=== PATIENT | female | born 1945 | race Caucasian/White ===

== ENCOUNTER 2018-05-19 12:00 | Inpatient (IN) ==
[2018-05-19] MEDS ORDERED: SODIUM CHLORIDE 0.9% 500 ML IV SCH (12:15)
--- NOTE | 2018-05-19 12:18 | Emergency Department Note ---
Entered by Francesca Hendrix acting as a scribe for History of Present Illness General Chief complaint: Cardiac Assessment Stated complaint: aflut Time Seen by Provider: 05/19/18 12:04 Source: patient History of Present Illness Provider complaint: atrial flutter Onset (ago): hour(s) (today) Location: chest Pain Consistency: + constant Quality: + other (atrial flutter) Associated symptoms: + weakness and + other (fatigue) The patient is a 72 year old female who presents to the Emergency Room with atrial flutter today. The patient states that she just had cataract surgery. The patient states that she was wheezing in the office and was given a breathing treatment. The patient states that she was also told that her heart was not "beating right." The patient reports a history of breathing problems and a heart attack 3 years ago. She states that she is currently not on any blood thinners. The patient denies having a recent cold and states that she has been drinking and eating well. She does report feeling fatigued and weak recently. The patient denies any drug and alcohol use. Home Medications Home Medications Medication Instructions Recorded Confirmed Type aspirin 81 mg PO QAM 04/23/18 05/19/18 History atorvastatin [Lipitor] 10 mg PO PM 04/23/18 05/19/18 History carvedilol 25 mg PO BID 04/23/18 05/19/18 History levothyroxine 25 mcg PO QAM 04/23/18 05/19/18 History naproxen sodium 220 mg PO BID PRN 04/23/18 05/19/18 History paroxetine HCl 20 mg PO QAM 04/23/18 05/19/18 History ramipril 5 mg PO BID 04/23/18 05/19/18 History bromfenac [Prolensa] 1 drp [facility] 05/19/18 05/19/18 History difluprednate [Durezol] 1 drp [facility] 05/19/18 05/19/18 History furosemide 20 mg PO DAILY 05/19/18 05/19/18 History gatifloxacin 1 drp [facility] 05/19/18 05/19/18 History Allergies Allergy/AdvReac Type Severity Reaction Status Date / Time No Known Allergies Allergy Verified 05/19/18 14:23 Past Med/Surg History Social History Current Living Situation: Alone Current Living Situation Comment: LIVES IN SENIOR APARTMENT - INDEPENDENT LIVING Other Information That Helps Us Care for You: No Feels Safe at Home: Yes Safety Concerns: Feels Safe At This Time Smoking Status: Never smoker Do You Dip or Chew Tobacco: No Second Hand Exposure: No Tobacco Cessation Education Requested by Patient: No Hx Alcohol Use: Yes Alcohol Intake Frequency: holidays/special occasions only Hx Substance Use: No Beliefs That Will Affect Care: None Preferred Language: Italian Communication Ability: Effective Product Safety Officer Required: No Review of Systems See HPI for pertinent positives & negatives. and A total of 10 systems reviewed and were otherwise negative Physical Exam Vital Signs Vital Signs - 24 hr 05/19/18 12:11 05/19/18 12:15 05/19/18 12:40 Temperature 36.4 C L Temperature Source Oral Sepsis Recent Fever Within 48 Hours No Sepsis New/Unexplained Change in Mental Status No Sepsis Action Taken by Nursing No Action Required Pulse Rate 62 62 Pulse Rate [Apical] 50 L Pulse Rhythm Regular Regular Pulse Strength Normal Respiratory Rate 24 20 Respiratory Effort / Characteristics Non-Labored Spontaneous Non-Labored Spontaneous Respiratory Depth Normal Normal Respiratory Pattern Regular Regular Blood Pressure 183/76 H Blood Pressure [Right Arm] 213/104 H Blood Pressure Mean 111 Blood Pressure Mean [Right Arm] 140 Blood Pressure Position Sitting Pulse Oximetry 92 92 93 Oxygen Delivery Method Room Air Room Air Room Air 05/19/18 13:51 Temperature Temperature Source Sepsis Recent Fever Within 48 Hours Sepsis New/Unexplained Change in Mental Status Sepsis Action Taken by Nursing Pulse Rate Pulse Rate [Apical] 47 L Pulse Rhythm Pulse Strength Respiratory Rate 20 Respiratory Effort / Characteristics Non-Labored Spontaneous Respiratory Depth Normal Respiratory Pattern Regular Blood Pressure Blood Pressure [Right Arm] 211/113 H Blood Pressure Mean Blood Pressure Mean [Right Arm] 145 Blood Pressure Position Pulse Oximetry 93 Oxygen Delivery Method Room Air GENERAL: Patient is awake alert in no acute distress patient is resting comfortably and showing no signs of anxiety EYES: Left pupil was dilated and minimally reactive to light. Right pupil is constricted and reactive to light. EARS, NOSE, MOUTH AND THROAT: The nose is without any evidence of any deformity. Mucous membranes are moist tongue is midline NECK: The neck is nontender and supple. RESPIRATORY: Normal respiratory effort is noted there is no evidence of wheezing rhonchi or rales CARDIOVASCULAR: Bradycardic rate with regular rhythm was noted. There is no definite murmur. GASTROINTESTINAL: The abdomen is soft. Bowel sounds are present in all quadrants. Abdomen is nontender MUSCULOSKELETAL/EXTREMITIES: There is no evidence of gross deformity full range of motion is noted in the hips and shoulders SKIN: There is no obvious evidence of any rash. Trace pedal edema was noted bilaterally peer NEUROLOGIC: Patient is awake alert and oriented x3. Course 1209: Past medical records reviewed. The patient was evaluated in room D4B, and a complete history and physical examination were performed. 1408: I discussed the patient's case with Dr. Camp [facility] who said that he will see the patient. 1411: I updated the patient who verbalized agreement and understanding of the treatment plan. 1413: I discussed the patient's case with Dr. Preston Julien who will evaluate the patient for further management. Consultations Consultation #1: Dr. Zoë Mendez Time: 14:08 Consultation #2: Dr. Preston Julien Time: 14:13 Administered Medications Discontinued Medications Sodium Chloride (Nss) 500 mls @ 999 mls/hr IV .Q31M KIMBERLY Stop: 05/19/18 12:45 Last Infusion: 05/19/18 13:04 Dose: 0 mls/hr Admin: 05/19/18 12:33 Dose: 999 mls/hr Medical Decision Making Differential Diagnosis Etiologies such as premature contractions, electrolyte abnormality, cardiac dysrhythmia, thyroid dysfunction, pulmonary embolism, infection, gastrointestinal, as well as others were entertained Medical Records Attestation: I reviewed the patient's medical records. Home Medications Current Medication List: was personally reviewed by me Laboratory Data Attestation: I reviewed the patient's lab results. Result diagrams: 05/19/18 12:20 05/19/18 12:20 Lab Results 05/19/18 05/19/18 05/19/18 Range/Units 12:20 12:20 12:20 WBC 6.85 (4.8-10.8) K/uL RBC 5.06 (4.2-5.4) M/uL Hgb 11.7 L (12.0-16.0) g/dL Hct 39.3 (37-47) % MCV 77.7 L (80-100) fL MCH 23.1 L (25-34) pg MCHC 29.8 L (32-36) g/dL RDW Std Deviation 64.6 H (36.4-46.3) fL RDW Coeff of Fabián 22.7 H (11.5-14.5) % Plt Count 256 (130-400) K/uL MPV 10.6 H (7.4-10.4) fL Immature Gran % (Auto) 0.4 % Neut % (Auto) 82.3 % Lymph % (Auto) 9.8 % [place] % (Auto) 6.3 % Eos % (Auto) 0.9 % Baso % (Auto) 0.3 % Immature Gran # (Auto) 0.03 H (0.00-0.02) K/uL Neut # (Auto) 5.64 (1.4-6.5) K/uL Lymph # (Auto) 0.67 L (1.2-3.4) K/uL [place] # (Auto) 0.43 (0.11-0.59) K/uL Eos # (Auto) 0.06 (0-0.5) K/uL Baso # (Auto) 0.02 (0-0.2) K/uL Polychromasia 1+ Hypochromasia Present Microcytosis Present PT 11.4 (9.0-12.0) Seconds INR 1.1 (0.9-1.1) APTT 24.4 (21.0-31.0) Seconds PTT Ratio 0.9 Sodium 141 (136-145) mmol/L Potassium 4.1 (3.5-5.1) mmol/L Chloride 107 (98-107) mmol/L Carbon Dioxide 26 (21-32) mmol/L Anion Gap 8.0 (3-11) BUN 22 H (7-18) mg/dl Creatinine 0.91 (0.6-1.2) mg/dl Est Cr Clr Drug Dosing 62.9 ml/min Est GFR ( Amer) 74.1 Est GFR (Non-Af Amer) 63.9 BUN/Creatinine Ratio 24.4 H (10-20) Glucose 148 H (70-99) mg/dl Calcium 8.4 L (8.5-10.1) mg/dl Magnesium 1.9 (1.8-2.4) mg/dl Total Bilirubin 1.4 H (0.2-1) mg/dl AST 13 L (15-37) U/L ALT 18 (12-78) U/L Alkaline Phosphatase 134 H (45-117) U/L Troponin I 0.027 (0-0.045) ng/ml Total Protein 7.1 (6.4-8.2) gm/dl Albumin 3.2 L (3.4-5.0) gm/dl Globulin 3.9 (2.5-4.0) gm/dl Albumin/Globulin Ratio 0.8 L (0.9-2) TSH 2.220 (0.300-4.500) uIu/ml Imaging Data Radiologist's Impression: Radiology results as stated below per my review and the radiologist's interpretation: XR chest 1V portable HISTORY: weakness COMPARISON: None. FINDINGS: The cardiac silhouette is enlarged. No pneumothorax. No pleural effusions. Old, healed left-sided rib fractures. No focal lung consolidations to suggest pneumonia. There is a right greater than left perihilar interstitial and vascular thickening. This is consistent with mild congestive change. There are low lung volumes. IMPRESSION: Cardiomegaly with mild asymmetric congestive change. Electronically signed by: Riley Underwood M.D. 05/19/2018 1:23 PM ECG Data Attestation: I personally reviewed and interpreted this ECG as follows: Indication: other (dysrhythmia) Rate (beats per minute): 54 Rhythm: atrial flutter Findings: + T-wave inversion (diffuse); no PVC Comparison ECG Date: from (earlier tracing) Change: no significant change Blood Pressure Blood Pressure Findings: Elevated blood pressure Blood Pressure Disposition: further management by hospitalist CYNDI Russell The patient is a 72-year-old female who presented to the emergency department for an evaluation of new onset atrial flutter. The patient was having cataract surgery when she was found to be in atrial flutter. Apparently she has no history of this. The patient was treated with IV fluids in the emergency department. I discussed the patient's laboratory and radiographic studies with her. Given that this is a new diagnosis I discussed her case with the on-call [facility] hospitalist as well as the on-call [facility] loss prevention specialist. They have agreed to evaluate the patient for further management and disposition. The patient's rate was controlled at baseline. The patient may not need anticoagulation at this time given her recent cataract surgery. The patient may be having symptoms over the last few days because upon questioning she does admit that she is been having dizziness and exertional weakness over the last few days more than usual. Impression & Plan New onset atrial flutter Discharge Plan Visit Data Chief Complaint: Cardiac Assessment Stated Complaint: aflut ED Provider: Robson Pickens Discharge Problem: New onset atrial flutter Patient Disposition: Being Evaluated by Hospitalist Forms Stand Alone Forms: My [facility] Prescriptions Prescriptions: No Action carvedilol 25 mg Tablet 25 mg PO BID RF: 0 atorvastatin [Lipitor] 10 mg Tablet 10 mg PO PM RF: 0 levothyroxine 25 mcg Tablet 25 mcg PO QAM RF: 0 paroxetine HCl 20 mg Tablet 20 mg PO QAM RF: 0 aspirin 81 mg Tablet,Chewable 81 mg PO QAM RF: 0 ramipril 5 mg Capsule 5 mg PO BID RF: 0 naproxen sodium 220 mg Tablet 220 mg PO BID PRN (Reason: Pain) RF: 0 furosemide 20 mg tablet 20 mg PO DAILY RF: 0 difluprednate [Durezol] 0.05 % drops 1 drp [facility] RF: 0 gatifloxacin 0.5 % drops 1 drp [facility] RF: 0 bromfenac [Prolensa] 0.07 % drops 1 drp [facility] RF: 0 Referrals Referrals: Clemente Walter CRNP [Primary Care Provider] - The scribe's documentation has been prepared under my direction and personally reviewed by me in its entirety. I confirm that the note above accurately reflects all work, treatment, procedures, and medical decision making performed by me.
[2018-05-19 12:35] LABS: Hematocrit (blood only) 39.3 % (37-47); Hemoglobin 11.7 g/dL (12.0-16.0); Mean Corpuscular Hgb Conc 29.8 g/dL (32-36); Mean Corpuscular Volume 77.7 fL (80-100); Mean Platelet Volume 10.6 fL (7.4-10.4); Platelet Count 256 K/uL (130-400); RDW Coefficient of Variation 22.7 % (11.5-14.5); RDW Standard Deviation 64.6 fL (36.4-46.3); Red Blood Count 5.06 M/uL (4.2-5.4); White Blood Count 6.85 K/uL (4.8-10.8)
[2018-05-19 12:43] LABS: INR 1.1 (0.9-1.1); Partial Thromboplastin Ratio 0.9; Partial Thromboplastin Time 24.4 Seconds (21.0-31.0); Prothrombin Time 11.4 Seconds (9.0-12.0)
[2018-05-19 12:48] LABS: Albumin Level 3.2 gm/dl (3.4-5.0); BUN Creatinine Ratio 24.4 (10-20); Calcium 8.4 mg/dl (8.5-10.1); Creatinine Clr Calc Pharmacy 62.9 ml/min; Est GFR (African American) 74.1; Est GFR (Non-African American) 63.9; Magnesium 1.9 mg/dl (1.8-2.4); Potassium 4.1 mmol/L (3.5-5.1)
[2018-05-19 12:58] LABS: Basophils # (auto) 0.02 K/uL (0-0.2); Basophils % (auto) 0.3 %; Eosinophils # (auto) 0.06 K/uL (0-0.5); Eosinophils % (auto) 0.9 %; Hypochromasia Present; Immature Granulocytes # (auto) 0.03 K/uL (0.00-0.02); Immature Granulocytes % (auto) 0.4 %; Lymphocytes # (auto) 0.67 K/uL (1.2-3.4); Lymphocytes % (auto) 9.8 %; Microcytosis Present; Monocytes # (auto) 0.43 K/uL (0.11-0.59); Monocytes % (auto) 6.3 %; Neutrophils # (auto) 5.64 K/uL (1.4-6.5); Neutrophils % (auto) 82.3 %; Polychromasia 1+
[2018-05-19 12:59] LABS: Albumin Globulin Ratio 0.8 (0.9-2); Bilirubin,Total 1.4 mg/dl (0.2-1); Globulin 3.9 gm/dl (2.5-4.0); Total Protein 7.1 gm/dl (6.4-8.2); Troponin I 0.027 ng/ml (0-0.045)
--- NOTE | 2018-05-19 13:24 | XRay Report ---
XR chest 1V portable HISTORY: weakness COMPARISON: None. FINDINGS: The cardiac silhouette is enlarged. No pneumothorax. No pleural effusions. Old, healed left -sided rib fractures. No focal lung consolidations to suggest pneumonia. There is a right greater opal n left perihilar interstitial and vascular thickening. This is consistent with mild congestive change . There are low lung volumes. IMPRESSION: Cardiomegaly with mild asymmetric congestive change. Electronically signed by: Riley Underwood M.D. 05/19/2018 1:23 PM
[2018-05-19] MEDS ORDERED: METOPROLOL TARTRATE 1 MG/ML VIAL IV PRN (15:39)
[2018-05-19] MEDS ORDERED: FUROSEMIDE 40 MG/4 ML VIAL IV STA (15:39)
--- NOTE | 2018-05-19 15:47 | History & Physical Report ---
Date of Service May 19, 2018 Assessment & Plan (1) New onset atrial flutter: Possibly related to underlying pulm issues with CHF exacerbation Monitor on tele Trop neg x1, serials pending TSH WNL ECHO pending Follows with Dr. Laughlin as outpt, c/s pending Started on heparin gtt after discussion with ophtho as noted above (2) CHF (congestive heart failure): Appears to be in mild exacerbation ECHO pending Lasix was PRN prior, will likely need to be a scheduled med (3) Cataract: Post-op 05/19 Anticoagulation is not contraindicated per ophtho Eye drops as scheduled per ophtho (4) CAD (coronary artery disease): Holding 81mg aspirin given heparin gtt (5) HTN (hypertension): Labile in the ED Hydralazine PRN Pt took AM meds and states BP was not elevated at the outpt surgery center (6) Asthma: Uncertain if pt carries this dx Nebs for wheezing Will need formal PFTs in 4-6 weeks as outpt (7) Anxiety: continue home meds (8) Hypothyroid: TSH WNL continue home meds (9) Hyperlipidemia: continue home meds (10) DVT prophylaxis: Heparin gtt History of Present Illness Primary Care Provider: BENITO Marquez 72 y/o F who was sent to the ED from the outpt surgery center for c/o aflutter. Per surgery center notes pt was noted to be bradycardic and with wheezing just prior to the OR. She was given a duoneb and this did help her breathing. Just as procedure was about to begin, pt was noted to be in aflutter. She was asx with this so they were able to continue with and complete a L eye cataract surgery. Pt continued to be in aflutter, so she was sent to the ED. Pt states she feels at her usual. She has SOB, but she states this is an ongoing issues. She states she is always SOB and has wheezing. At some point she was put on a PRN inhaler but "it ran out and no one refilled it" so she has not taken this. She does not know what this medication was in particular. She states that her SOB today is her baseline. Pt denies fever, chest pain, abd pain, n/v/c/d, LE pain. Pt states she always has LE swelling. She is to take lasix PRN for swelling. She states she takes this maybe 1x/week. She cannot tell me the last time she took this. Pt follows with Dr. Laughlin s/p stent 3 yrs ago. She states she has not seen him recently. She has not had an ECHO "in a couple of years". I discussed with Dr. Lee. He states that there is no contraindication to anticoagulation with the type of cataract surgery that he performs. Pt's aspirin was not held for the procedure this AM and he states that they do not hold any other anticoagulation pre or post OR with this procedure. Allergies Allergy/AdvReac Type Severity Reaction Status Date / Time No Known Allergies Allergy Verified 05/19/18 14:23 Home Medications Home Medications Medication Instructions Recorded Confirmed Type aspirin 81 mg PO QAM 04/23/18 05/19/18 History atorvastatin [Lipitor] 10 mg PO PM 04/23/18 05/19/18 History carvedilol 25 mg PO BID 04/23/18 05/19/18 History levothyroxine 25 mcg PO QAM 04/23/18 05/19/18 History naproxen sodium 220 mg PO BID PRN 04/23/18 05/19/18 History paroxetine HCl 20 mg PO QAM 04/23/18 05/19/18 History ramipril 5 mg PO BID 04/23/18 05/19/18 History bromfenac [Prolensa] 1 drp [facility] 05/19/18 05/19/18 History difluprednate [Durezol] 1 drp [facility]D 05/19/18 05/19/18 History furosemide 20 mg PO DAILY 05/19/18 05/19/18 History gatifloxacin 1 drp [facility] 05/19/18 05/19/18 History Past Med/Surg History Medical History Anxiety Hyperlipidemia Hypertension Hypothyroidism Myocardial Infarction 3 YEARS AGO - [facility] - FOLLOWS W/ DR. LAUHGLIN Osteoarthritis SOB (shortness of breath) on exertion Surgical History History of appendectomy History of cardiac cath 3 YEARS AGO - [facility] [place] - 1 STENT PLACED - FOLLOWS W/ DR. LAUGHLIN History of colonoscopy History of hysterectomy History of total knee replacement LEFT Family History Brother Family history of diabetes mellitus Heart attack Mother Family history of diabetes mellitus Heart attack Father Heart attack Social History Current Living Situation: Alone Current Living Situation Comment: LIVES IN SENIOR APARTMENT - INDEPENDENT LIVING Other Information That Helps Us Care for You: No Feels Safe at Home: Yes Safety Concerns: Feels Safe At This Time Smoking Status: Never smoker Do You Dip or Chew Tobacco: No Second Hand Exposure: No Tobacco Cessation Education Requested by Patient: No Hx Alcohol Use: Yes Alcohol Intake Frequency: holidays/special occasions only Hx Substance Use: No Beliefs That Will Affect Care: None Preferred Language: Lebanese Communication Ability: Effective Bonsai Tender Required: No Review of Systems Pertinent positives and negatives reviewed in HPI--all others negative Physical Exam 2 Vital Signs (Past 24 Hours): Last Vital Signs Temp 36.4 C L 05/19/18 12:15 Pulse 47 L 05/19/18 13:51 Resp 20 05/19/18 13:51 BP 211/113 H 05/19/18 13:51 Pulse Ox 93 05/19/18 13:51 Constitutional: WD/WN, vitals as above + obese Eyes: normal visual martins by confrontation and + anicteric sclerae Neck: normal visual inspection and trachea midline Respiratory: normal respiratory effort; no respiratory distress Auscultation: + wheezes (expiratory and mild) Cardiovascular: Rate/Rhythm: + bradycardic Gastrointestinal (Abdomen): Inspection/Auscultation: abdomen not distended Percussion/Palpation: abdomen soft; abdomen nontender Musculoskeletal: Head/Neck/Chest: normocephalic and head atraumatic negative for edema, peripheral pulses intact Skin: no rashes, warm and dry Neurologic: awake; not confused Speech / Cognition: normal speech Psychiatric: A+Ox3, euthymic affect Code Status & VTE Plan Code Status Full code VTE Prophylaxis Plan VTE Prophylaxis will be ordered: Yes
[2018-05-19] MEDS ORDERED: HEPARIN SOD (PORCINE) 1000 UNIT/ML 10 ML VIAL ONE (16:00)
[2018-05-19] MEDS ORDERED: HEPARIN 25000 UNIT/500 ML D5W IV ONE (16:00)
[2018-05-19] MEDS: HydrALAZINE HCL 20 MG/ML VIAL IV PRN (16:09)
[2018-05-19 17:31] LABS: Appearance Urine Cloudy (Clear); Bacteria Urine Automated Negative (Negative); Bilirubin Urine Negative (Negative); Cast Urine Automated 0 /lpf (0-5); Color Urine Yellow; Glucose Urine UA Negative (Negative); Ketones Urine Negative (Negative); Leukocyte Esterase Urine Negative (Negative); Nitrite Urine Negative (Negative); Protein Urine Negative (Negative); Specific Gravity Urine 1.007 (1.000-1.030); Urobilinogen Urine Negative (Negative)
[2018-05-19] MEDS ORDERED: MAGNESIUM HYDROXIDE SUSP 30 ML UDC PO PRN (18:03)
[2018-05-19] MEDS ORDERED: NAPROXEN 250 MG TAB PO PRN (18:03)
[2018-05-19] MEDS ORDERED: ACETAMINOPHEN 325 MG TAB PO PRN (18:03)
[2018-05-19] MEDS ORDERED: ONDANSETRON INJ 2 MG/ML 2 ML VIAL IV PRN (18:03)
[2018-05-19] MEDS ORDERED: Nursing to Pharmacy Communication ONE (18:47)
[2018-05-19] MEDS: HEPARIN STANDARD DEXTROSE 25,000 UNITS/500 ML IV SCH (19:11)
[2018-05-19] MEDS: ALBUT/IPRATROP 3MG/0.5MG NEB 3 ML VIAL NEB SCH ×3 (19:22→23:20)
[2018-05-19] MEDS: BROMFENAC OP SCH ×2 (19:41→23:19)
[2018-05-19] MEDS: DUREZOL OP SCH ×2 (19:43→23:20)
[2018-05-19] MEDS: GATIFLOXACIN OP SOLN PER DROP CHARGE OPL SCH ×3 (19:44→23:21)
[2018-05-19] MEDS: CARVEDILOL 25 MG TAB PO SCH (21:35)
[2018-05-19] MEDS: ENALAPRIL MALEATE 10 MG TAB PO SCH (21:36)
[2018-05-19] MEDS: ATORVASTATIN 10 MG TAB PO SCH (21:36)
[2018-05-19 22:32] LABS: Partial Thromboplastin Ratio 1.5
[2018-05-19] MEDS ORDERED: HEPARIN IV BOLUS 6,000 UNITS in SYRINGE 0 ML IV ONE (22:45)
[2018-05-20] MEDS: HydrALAZINE HCL 20 MG/ML VIAL IV PRN (00:16)
[2018-05-20] MEDS: ALBUT/IPRATROP 3MG/0.5MG NEB 3 ML VIAL NEB SCH ×3 (03:10→11:21)
[2018-05-20] MEDS: LEVOTHYROXINE SODIUM 25 MCG TABLET PO SCH (05:15)
[2018-05-20 05:43] LABS: Basophils # (auto) 0.03 K/uL (0-0.2); Basophils % (auto) 0.4 %; Eosinophils # (auto) 0.13 K/uL (0-0.5); Eosinophils % (auto) 1.9 %; Hematocrit (blood only) 35.6 % (37-47); Hemoglobin 10.7 g/dL (12.0-16.0); Immature Granulocytes # (auto) 0.02 K/uL (0.00-0.02); Immature Granulocytes % (auto) 0.3 %; Lymphocytes # (auto) 0.72 K/uL (1.2-3.4); Lymphocytes % (auto) 10.6 %; Mean Corpuscular Hgb Conc 30.1 g/dL (32-36); Mean Corpuscular Volume 76.9 fL (80-100); Mean Platelet Volume 10.4 fL (7.4-10.4); Monocytes # (auto) 0.72 K/uL (0.11-0.59); Monocytes % (auto) 10.6 %; Neutrophils # (auto) 5.17 K/uL (1.4-6.5); Neutrophils % (auto) 76.2 %; Platelet Count 226 K/uL (130-400); RDW Coefficient of Variation 22.5 % (11.5-14.5); RDW Standard Deviation 62.5 fL (36.4-46.3); Red Blood Count 4.63 M/uL (4.2-5.4); White Blood Count 6.79 K/uL (4.8-10.8)
[2018-05-20] MEDS ORDERED: BROMFENAC OP SCH (06:00)
[2018-05-20] MEDS ORDERED: DUREZOL OP SCH (06:00)
[2018-05-20] MEDS ORDERED: GATIFLOXACIN OP SOLN PER DROP CHARGE OPL SCH (06:00)
[2018-05-20 06:06] LABS: Anisocytosis Present; Hypochromasia Present; Partial Thromboplastin Ratio 2.6
[2018-05-20 06:17] LABS: Partial Thromboplastin Time 67.7 Seconds (21.0-31.0)
[2018-05-20 06:21] LABS: BUN Creatinine Ratio 19.6 (10-20); Creatinine Clr Calc Pharmacy 66.6 ml/min; Est GFR (African American) 81.6; Est GFR (Non-African American) 70.4; Potassium 3.4 mmol/L (3.5-5.1)
[2018-05-20] MEDS: HEPARIN STANDARD DEXTROSE 25,000 UNITS/500 ML IV SCH (09:01)
[2018-05-20] MEDS: CARVEDILOL 25 MG TAB PO SCH ×2 (09:05→20:59)
[2018-05-20] MEDS: FUROSEMIDE 20 MG TAB PO SCH (09:05)
[2018-05-20] MEDS: PARoxetine HCl 20 MG TAB PO SCH (09:05)
[2018-05-20] MEDS: ENALAPRIL MALEATE 10 MG TAB PO SCH ×2 (09:06→21:01)
[2018-05-20] MEDS ORDERED: POTASSIUM CHLORIDE 20 MEQ TABCR PO STA (10:45)
[2018-05-20] MEDS: GATIFLOXACIN OP SOLN PER DROP CHARGE OPL SCH ×2 (14:00→21:04)
--- NOTE | 2018-05-20 15:07 | Cardiology Consultation ---
Date of Consultation May 20, 2018 Assessment & Plan (1) Atrial flutter: The patient is currently clinically stable. She was offered Eliquis but does not want to take because of the expense and so will be started on Coumadin. Her rates are controlled and she is actually a little slow at times so I am going to decrease her carvedilol to 12-1/2 mg twice daily. If she remains clinically stable with acceptable heart rates, then I believe she could be discharged home tomorrow with outpatient follow-up. Consideration will be given for possible cardioversion in the future after she is been anticoagulated for several weeks and when her lens implants are healed. She does inform me that she will have a second cataract surgery later this month and it may be beneficial for her to have that completed before we proceed with any cardioversion. (2) HTN (hypertension): (3) Cataract: History of Present Illness Attending Physician: Rosa Naylor MD History of Present Illness This is a 72-year-old female who has received most of her cardiac care through the [facility] system. She relates a remote history of a myocardial infarction but she does not recall whether or not she received any stents. She has had no recent significant cardiac history. Echocardiogram completed this admission reveals normal LV function and estimated left ventricular ejection fraction of around 60%. There are no he has ischemic heart disease. She does recall being on Coumadin following her myocardial infarction but has not been on long-term anticoagulation recently. She was undergoing outpatient cataract surgery. She developed atrial flutter with a controlled heart rate during the procedure and was referred for admission. After admission she has been in persistent atrial flutter with controlled rates and at times is bradycardic on the telemetry. She denies dizziness or lightheadedness. She has had no heart palpitations or tachycardia recently. She denies chest pain or progressive shortness of breath. Cardiac markers and TSH are within normal limits at admission. She has no cardiac complaints today. Allergies Allergy/AdvReac Type Severity Reaction Status Date / Time No Known Allergies Allergy Verified 05/19/18 14:23 Home Medications Home Medications Medication Instructions Recorded Confirmed Type aspirin 81 mg PO QAM 04/23/18 05/19/18 History atorvastatin [Lipitor] 10 mg PO PM 04/23/18 05/19/18 History carvedilol 25 mg PO BID 04/23/18 05/19/18 History levothyroxine 25 mcg PO QAM 04/23/18 05/19/18 History naproxen sodium 220 mg PO BID PRN 04/23/18 05/19/18 History paroxetine HCl 20 mg PO QAM 04/23/18 05/19/18 History ramipril 5 mg PO BID 04/23/18 05/19/18 History bromfenac [Prolensa] 1 drp OPL UD 05/19/18 05/19/18 History difluprednate [Durezol] 1 drp OPL UD 05/19/18 05/19/18 History furosemide 20 mg PO DAILY 05/19/18 05/19/18 History gatifloxacin 1 drp OPL UD 05/19/18 05/19/18 History Patient History Medical History Anxiety Hyperlipidemia Hypertension Hypothyroidism Myocardial Infarction 3 YEARS AGO - [facility] - [facility] W/ DR. LAUGHLIN Osteoarthritis SOB (shortness of breath) on exertion Surgical History History of appendectomy History of cardiac cath 3 YEARS AGO - [facility] CT - 1 STENT PLACED - [facility]/ DR. LAUGHLIN History of colonoscopy History of hysterectomy History of total knee replacement LEFT Family History Brother Family history of diabetes mellitus Heart attack Mother Family history of diabetes mellitus Heart attack Father Heart attack Social History marital status: / Current Living Situation: Alone Current Living Situation Comment: LIVES IN SENIOR APARTMENT - [facility] LIVING Other Information That Helps Us Care for You: No Feels Safe at Home: Yes Safety Concerns: Feels Safe At This Time Smoking Status: Never smoker Do You Dip or Chew Tobacco: No Second Hand Exposure: No Tobacco Cessation Education Requested by Patient: No Hx Alcohol Use: Yes Alcohol Intake Frequency: holidays/special occasions only Hx Substance Use: No Beliefs That Will Affect Care: None Communication Ability: Effective Review of Systems Review of Systems: See HPI for pertinent positives. All other 10 point review of systems are negative. Physical Exam 2 Vital Signs (Past 24 Hours): Last Vital Signs Temp 37 C 05/20/18 11:23 Pulse 65 05/20/18 11:23 Resp 18 05/20/18 11:23 BP 149/60 H 05/20/18 11:23 Pulse Ox 97 05/20/18 11:23 Physical Exam: General: no acute distress and stated age Head: normocephalic, no masses, lesions, tenderness or abnormalities Eyes: conjunctiva are pink and non-injected, sclera clear Neck: supple, no adenopathy, no bruits, normal jugular venous pulse, no hepatojugular reflux Chest: normal shape and normal respiratory effort Lungs: clear to auscultation and percussion Cardiac Exam: - irregular rate & rhythm, no murmurs gallops or rubs - normal S1 , normal S2 Pulses: 2(+) throughout Abdomen: abdomen soft, non-tender, no abnormal masses and no hepatosplenomegaly Musculoskeletal: no gait disturbance, no joint inflammation, no deforming arthritis Extremities: no edema and no cyanosis Neuro: grossly normal exam Results & Data Laboratory Results Laboratory Results - last 24 hr 05/19/18 05/19/18 05/19/18 17:15 18:38 22:07 WBC RBC Hgb Hct MCV MCH MCHC RDW Std Deviation RDW Coeff of Fabián Plt Count MPV Immature Gran % (Auto) Neut % (Auto) Lymph % (Auto) [place] % (Auto) Eos % (Auto) Baso % (Auto) Immature Gran # (Auto) Neut # (Auto) Lymph # (Auto) [place] # (Auto) Eos # (Auto) Baso # (Auto) Hypochromasia Anisocytosis APTT 38.0 H PTT Ratio 1.5 Sodium Potassium Chloride Carbon Dioxide Anion Gap BUN Creatinine Est Cr Clr Drug Dosing Est GFR ( Amer) Est GFR (Non-Af Amer) BUN/Creatinine Ratio Glucose Calcium Troponin I 0.027 Urine Color Yellow Urine Appearance Cloudy H Urine pH 6.0 Ur Specific [place] 1.007 Urine Protein Negative Urine Glucose (UA) Negative Urine Ketones Negative Urine Blood Negative Urine Nitrite Negative Urine Bilirubin Negative Urine Urobilinogen Negative Ur Leukocyte Esterase Negative Urine WBC (Auto) 1-5 Urine RBC (Auto) 0-4 U Hyaline Cast (Auto) 0 U Epithel Cells (Auto) 5-10 H Urine Bacteria (Auto) Negative Urine Yeast Present H 05/20/18 05/20/18 05/20/18 00:07 05:33 05:33 WBC 6.79 RBC 4.63 Hgb 10.7 L Hct 35.6 L MCV 76.9 L MCH 23.1 L MCHC 30.1 L RDW Std Deviation 62.5 H RDW Coeff of Fabián 22.5 H Plt Count 226 MPV 10.4 Immature Gran % (Auto) 0.3 Neut % (Auto) 76.2 Lymph % (Auto) 10.6 Noble % (Auto) 10.6 Eos % (Auto) 1.9 Baso % (Auto) 0.4 Immature Gran # (Auto) 0.02 Neut # (Auto) 5.17 Lymph # (Auto) 0.72 L Noble # (Auto) 0.72 H Eos # (Auto) 0.13 Baso # (Auto) 0.03 Hypochromasia Present Anisocytosis Present APTT PTT Ratio Sodium 141 Potassium 3.4 L D Chloride 107 Carbon Dioxide 31 Anion Gap 3.0 BUN 17 Creatinine 0.84 Est Cr Clr Drug Dosing 66.6 Est GFR ( Amer) 81.6 Est GFR (Non-Af Amer) 70.4 BUN/Creatinine Ratio 19.6 Glucose 97 Calcium 8.0 L Troponin I 0.031 Urine Color Urine Appearance Urine pH Ur Specific [place] Urine Protein Urine Glucose (UA) Urine Ketones Urine Blood Urine Nitrite Urine Bilirubin Urine Urobilinogen Ur Leukocyte Esterase Urine WBC (Auto) Urine RBC (Auto) U Hyaline Cast (Auto) U Epithel Cells (Auto) Urine Bacteria (Auto) Urine Yeast 05/20/18 05:33 WBC RBC Hgb Hct MCV MCH MCHC RDW Std Deviation RDW Coeff of Fabián Plt Count MPV Immature Gran % (Auto) Neut % (Auto) Lymph % (Auto) Noble % (Auto) Eos % (Auto) Baso % (Auto) Immature Gran # (Auto) Neut # (Auto) Lymph # (Auto) Noble # (Auto) Eos # (Auto) Baso # (Auto) Hypochromasia Anisocytosis APTT 67.7 H* PTT Ratio 2.6 Sodium Potassium Chloride Carbon Dioxide Anion Gap BUN Creatinine Est Cr Clr Drug Dosing Est GFR ( Amer) Est GFR (Non-Af Amer) BUN/Creatinine Ratio Glucose Calcium Troponin I Urine Color Urine Appearance Urine pH Ur Specific [place] Urine Protein Urine Glucose (UA) Urine Ketones Urine Blood Urine Nitrite Urine Bilirubin Urine Urobilinogen Ur Leukocyte Esterase Urine WBC (Auto) Urine RBC (Auto) U Hyaline Cast (Auto) U Epithel Cells (Auto) Urine Bacteria (Auto) Urine Yeast Medications Administered Current Inpatient Medications Acetaminophen (Tylenol) 650 mg PO Q4H PRN PRN Reason: Pain or Fever Stop: 06/18/18 18:02 Atorvastatin Calcium (Lipitor) 10 mg PO PM [facility] Stop: 06/18/18 20:59 Last Admin: 05/19/18 21:36 Dose: 10 mg Carvedilol (Coreg) 12.5 mg PO BID [facility] Stop: 06/19/18 20:59 Enalapril Maleate (Vasotec) 20 mg PO BID [facility] Stop: 06/18/18 20:59 Last Admin: 05/20/18 09:06 Dose: 20 mg Furosemide (Lasix) 20 mg PO DAILY [facility] Stop: 06/19/18 08:59 Last Admin: 05/20/18 09:05 Dose: 20 mg Gatifloxacin (Zymaxid (Per Drop Charge)) 1 drops OPL TID [facility]; Protocol Stop: 06/19/18 13:59 Last Admin: 05/20/18 14:00 Dose: 1 drops Hydralazine HCl (Hydralazine Hcl) 10 mg IV NOW PRN PRN Reason: systolic BP >170 Stop: 06/18/18 15:58 Last Admin: 05/20/18 00:16 Dose: 10 mg Heparin Sodium/Dextrose (Heparin Sodium/Dextrose) 25,000 units in 500 mls @ 31 mls/hr IV .Q20H [facility]; Protocol Stop: 06/18/18 18:51 Last Admin: 05/20/18 09:01 Dose: 1,550 units/hr, 31 mls/hr Levothyroxine Sodium (Synthroid) 25 mcg PO DAILYBB [facility] Stop: 06/19/18 06:29 Last Admin: 05/20/18 05:15 Dose: 25 mcg Magnesium Hydroxide (Milk Of Magnesia) 30 ml PO Q12H PRN PRN Reason: Constipation Stop: 06/18/18 18:02 Metoprolol Tartrate (Lopressor) 5 mg IV Q4 PRN PRN Reason: systolic BP >170 Stop: 06/18/18 15:38 Naproxen (Naprosyn) 250 mg PO BID PRN PRN Reason: Pain Bromfenac (Prolensa) Ophth~Non-Formulary Patient's Own Med 1 ea OP DAILY [facility] Stop: 06/20/18 08:59 Durezol ( Difluprednate Ophth~ Non-Formulary Patient's Own Med 1 ea OP BID [facility] Stop: 06/19/18 20:59 Ondansetron HCl (Zofran) 4 mg IV Q6H PRN PRN Reason: Nausea Stop: 06/18/18 18:02 Paroxetine HCl (Paxil) 20 mg PO QAM [facility] Stop: 06/19/18 08:59 Last Admin: 05/20/18 09:05 Dose: 20 mg Warfarin Sodium (Coumadin) 10 mg PO DAILY@1600 [facility] Stop: 06/19/18 15:59 _ (1) Atrial flutter Atrial flutter type: unspecified Qualified Code(s): I48.92 - Unspecified atrial flutter
--- NOTE | 2018-05-20 15:09 | Hospitalist Progress Note ---
Date of Service May 20, 2018 Assessment & Plan (1) New onset atrial flutter: Likely started a few weeks ago, contributing to her SOB Rate controlled and bradycardic at times to the 30s-40s, on heparin gtt now and pt wants to go on coumadin as she cannot afford $40/mo for Eliquis/Xarelto Monitor on tele Trop neg x3 TSH WNL ECHO with preserved EF, mild AI -Appreciate Cardiology consult -will need Lovenox bridge-is $63/3 days-CM looking into ej hopkins if our pharmacy could give her doses for 2-3 days to go home with -continue Coreg but reduce dose to 12.5mg po bid (2) Cataract: Post-op 05/19 Anticoagulation is not contraindicated per ophtho Eye drops as scheduled per ophtho (3) CAD (coronary artery disease): Has h/o SD with cath and stent placed in 2014, no details known otherwise -will d/w Cardio about restarting ASA 81 for h/o stent -continue statin -continue ACEi, beta joann but reducing dose for bradycardia (4) HTN (hypertension): Labile in the ED, now stable Hydralazine PRN -continue COreg, ACEi, lasix (5) Asthma: Had wheezing on admission which is now improved, may have been cardiac wheeze -dc nebs (6) Anxiety: continue home Paxil (7) Hypothyroid: TSH WNL continue home levothyroxine (8) Hyperlipidemia: continue home statin (9) DVT prophylaxis: Heparin gtt, start coumadin today Dispo-remain on tele overnight Subjective Pt feeling fine, no complaints. No chest pain or palpitations. Has baseline SOB but feels her SOB did worsen a few weeks ago and this may have been when her A- flutter started. I discussed the case with Cardiology Review of Systems All systems reviewed & are unremarkable except as noted in HPI & below Physical Exam 2 Vital Signs (Past 24 Hours): Last Vital Signs Temp 37 C 05/20/18 11:23 Pulse 65 05/20/18 11:23 Resp 18 05/20/18 11:23 BP 149/60 H 05/20/18 11:23 Pulse Ox 97 05/20/18 11:23 Constitutional: WD/WN, vitals as above + obese Eyes: PERRL, conjunctivae normal, anicteric sclerae ENMT: external ear and nose normal, oropharynx normal Neck: trachea midline, no thyromegaly Respiratory: normal respiratory effort, lungs clear to auscultation Cardiovascular: Rate/Rhythm: regular rate; + abnormal rhythm (irreg irreg) Heart Sounds: no murmur Extremities: no edema Gastrointestinal (Abdomen): normal bowel sounds, soft, nontender, no hepatosplenomegaly Musculoskeletal: Extremities: extremities normal to inspection; no cyanosis and no clubbing Skin: no rashes, warm and dry Neurologic: moves all extremities and awake; no focal motor deficits Psychiatric: A+Ox3, euthymic affect Results & Data Laboratory Results 05/20/18 05/20/18 05/20/18 Range/Units 05:33 05:33 05:33 WBC 6.79 (4.8-10.8) K/uL RBC 4.63 (4.2-5.4) M/uL Hgb 10.7 L (12.0-16.0) g/dL Hct 35.6 L (37-47) % MCV 76.9 L (80-100) fL MCH 23.1 L (25-34) pg MCHC 30.1 L (32-36) g/dL RDW Std Deviation 62.5 H (36.4-46.3) fL RDW Coeff of Fabián 22.5 H (11.5-14.5) % Plt Count 226 (130-400) K/uL MPV 10.4 (7.4-10.4) fL Immature Gran % (Auto) 0.3 % Neut % (Auto) 76.2 % Lymph % (Auto) 10.6 % [place] % (Auto) 10.6 % Eos % (Auto) 1.9 % Baso % (Auto) 0.4 % Immature Gran # (Auto) 0.02 (0.00-0.02) K/uL Neut # (Auto) 5.17 (1.4-6.5) K/uL Lymph # (Auto) 0.72 L (1.2-3.4) K/uL Ponce # (Auto) 0.72 H (0.11-0.59) K/uL Eos # (Auto) 0.13 (0-0.5) K/uL Baso # (Auto) 0.03 (0-0.2) K/uL Hypochromasia Present Anisocytosis Present APTT 67.7 H* (21.0-31.0) Seconds PTT Ratio 2.6 Sodium 141 (136-145) mmol/L Potassium 3.4 L D (3.5-5.1) mmol/L Chloride 107 (98-107) mmol/L Carbon Dioxide 31 (21-32) mmol/L Anion Gap 3.0 (3-11) BUN 17 (7-18) mg/dl Creatinine 0.84 (0.6-1.2) mg/dl Est Cr Clr Drug Dosing 66.6 ml/min Est GFR ( Amer) 81.6 Est GFR (Non-Af Amer) 70.4 BUN/Creatinine Ratio 19.6 (10-20) Glucose 97 (70-99) mg/dl Calcium 8.0 L (8.5-10.1) mg/dl Troponin I (0-0.045) ng/ml Urine Color Urine Appearance (Clear) Urine pH (4.5-7.5) Ur Specific [place] (1.000-1.030) Urine Protein (Negative) Urine Glucose (UA) (Negative) Urine Ketones (Negative) Urine Blood (Negative) Urine Nitrite (Negative) Urine Bilirubin (Negative) Urine Urobilinogen (Negative) Ur Leukocyte Esterase (Negative) Urine WBC (Auto) (0-5) /hpf Urine RBC (Auto) (0-4) /hpf U Hyaline Cast (Auto) (0-5) /lpf U Epithel Cells (Auto) (0-5) /lpf Urine Bacteria (Auto) (Negative) Urine Yeast (None Prsent) 05/20/18 05/19/18 05/19/18 Range/Units 00:07 22:07 18:38 WBC (4.8-10.8) K/uL RBC (4.2-5.4) M/uL Hgb (12.0-16.0) g/dL Hct (37-47) % MCV (80-100) fL MCH (25-34) pg MCHC (32-36) g/dL RDW Std Deviation (36.4-46.3) fL RDW Coeff of Fabián (11.5-14.5) % Plt Count (130-400) K/uL MPV (7.4-10.4) fL Immature Gran % (Auto) % Neut % (Auto) % Lymph % (Auto) % [place] % (Auto) % Eos % (Auto) % Baso % (Auto) % Immature Gran # (Auto) (0.00-0.02) K/uL Neut # (Auto) (1.4-6.5) K/uL Lymph # (Auto) (1.2-3.4) K/uL Ponce # (Auto) (0.11-0.59) K/uL Eos # (Auto) (0-0.5) K/uL Baso # (Auto) (0-0.2) K/uL Hypochromasia Anisocytosis APTT 38.0 H (21.0-31.0) Seconds PTT Ratio 1.5 Sodium (136-145) mmol/L Potassium (3.5-5.1) mmol/L Chloride (98-107) mmol/L Carbon Dioxide (21-32) mmol/L Anion Gap (3-11) BUN (7-18) mg/dl Creatinine (0.6-1.2) mg/dl Est Cr Clr Drug Dosing ml/min Est GFR ( Amer) Est GFR (Non-Af Amer) BUN/Creatinine Ratio (10-20) Glucose (70-99) mg/dl Calcium (8.5-10.1) mg/dl Troponin I 0.031 0.027 (0-0.045) ng/ml Urine Color Urine Appearance (Clear) Urine pH (4.5-7.5) Ur Specific [place] (1.000-1.030) Urine Protein (Negative) Urine Glucose (UA) (Negative) Urine Ketones (Negative) Urine Blood (Negative) Urine Nitrite (Negative) Urine Bilirubin (Negative) Urine Urobilinogen (Negative) Ur Leukocyte Esterase (Negative) Urine WBC (Auto) (0-5) /hpf Urine RBC (Auto) (0-4) /hpf U Hyaline Cast (Auto) (0-5) /lpf U Epithel Cells (Auto) (0-5) /lpf Urine Bacteria (Auto) (Negative) Urine Yeast (None Prsent) 05/19/18 Range/Units 17:15 WBC (4.8-10.8) K/uL RBC (4.2-5.4) M/uL Hgb (12.0-16.0) g/dL Hct (37-47) % MCV (80-100) fL MCH (25-34) pg MCHC (32-36) g/dL RDW Std Deviation (36.4-46.3) fL RDW Coeff of Fabián (11.5-14.5) % Plt Count (130-400) K/uL MPV (7.4-10.4) fL Immature Gran % (Auto) % Neut % (Auto) % Lymph % (Auto) % [place] % (Auto) % Eos % (Auto) % Baso % (Auto) % Immature Gran # (Auto) (0.00-0.02) K/uL Neut # (Auto) (1.4-6.5) K/uL Lymph # (Auto) (1.2-3.4) K/uL [place] # (Auto) (0.11-0.59) K/uL Eos # (Auto) (0-0.5) K/uL Baso # (Auto) (0-0.2) K/uL Hypochromasia Anisocytosis APTT (21.0-31.0) Seconds PTT Ratio Sodium (136-145) mmol/L Potassium (3.5-5.1) mmol/L Chloride (98-107) mmol/L Carbon Dioxide (21-32) mmol/L Anion Gap (3-11) BUN (7-18) mg/dl Creatinine (0.6-1.2) mg/dl Est Cr Clr Drug Dosing ml/min Est GFR ( Amer) Est GFR (Non-Af Amer) BUN/Creatinine Ratio (10-20) Glucose (70-99) mg/dl Calcium (8.5-10.1) mg/dl Troponin I (0-0.045) ng/ml Urine Color Yellow Urine Appearance Cloudy H (Clear) Urine pH 6.0 (4.5-7.5) Ur Specific [place] 1.007 (1.000-1.030) Urine Protein Negative (Negative) Urine Glucose (UA) Negative (Negative) Urine Ketones Negative (Negative) Urine Blood Negative (Negative) Urine Nitrite Negative (Negative) Urine Bilirubin Negative (Negative) Urine Urobilinogen Negative (Negative) Ur Leukocyte Esterase Negative (Negative) Urine WBC (Auto) 1-5 (0-5) /hpf Urine RBC (Auto) 0-4 (0-4) /hpf U Hyaline Cast (Auto) 0 (0-5) /lpf U Epithel Cells (Auto) 5-10 H (0-5) /lpf Urine Bacteria (Auto) Negative (Negative) Urine Yeast Present H (None Prsent)
[2018-05-20] MEDS ORDERED: WARFARIN SOD 10 MG TAB PO SCH (16:00)
[2018-05-20] MEDS ORDERED: ALBUT/IPRATROP 3MG/0.5MG NEB 3 ML VIAL NEB SCH (16:00)
[2018-05-20] MEDS: ASPIRIN 81 MG ECTAB PO SCH (20:58)
[2018-05-20] MEDS: DUREZOL OP SCH (20:59)
[2018-05-20] MEDS: ATORVASTATIN 10 MG TAB PO SCH (21:00)
[2018-05-21] MEDS: HEPARIN STANDARD DEXTROSE 25,000 UNITS/500 ML IV SCH (02:24)
[2018-05-21] MEDS: LEVOTHYROXINE SODIUM 25 MCG TABLET PO SCH (05:29)
[2018-05-21 07:06] LABS: BUN Creatinine Ratio 22.7 (10-20); Creatinine Clr Calc Pharmacy 49.4 ml/min; Est GFR (African American) 56.4; Est GFR (Non-African American) 48.7; Magnesium 1.7 mg/dl (1.8-2.4); Potassium 3.2 mmol/L (3.5-5.1)
[2018-05-21 07:09] LABS: Ferritin 18.2 ng/ml (8-388)
[2018-05-21 07:10] LABS: Hemoglobin 10.4 g/dL (12.0-16.0); Mean Corpuscular Hgb Conc 29.7 g/dL (32-36); Mean Corpuscular Volume 77.3 fL (80-100); Platelet Count 229 K/uL (130-400); RDW Coefficient of Variation 22.7 % (11.5-14.5); Red Blood Count 4.53 M/uL (4.2-5.4); White Blood Count 5.41 K/uL (4.8-10.8)
[2018-05-21] MEDS: FUROSEMIDE 20 MG TAB PO SCH (07:20)
[2018-05-21] MEDS: CARVEDILOL 25 MG TAB PO SCH (07:20)
[2018-05-21] MEDS: ASPIRIN 81 MG ECTAB PO SCH (07:20)
[2018-05-21 07:21] LABS: INR 1.3 (0.9-1.1); Partial Thromboplastin Ratio 2.2; Prothrombin Time 12.7 Seconds (9.0-12.0)
[2018-05-21] MEDS: DUREZOL OP SCH (07:21)
[2018-05-21] MEDS: GATIFLOXACIN OP SOLN PER DROP CHARGE OPL SCH ×2 (07:21→13:28)
[2018-05-21] MEDS: PARoxetine HCl 20 MG TAB PO SCH (07:21)
[2018-05-21 07:27] LABS: Anisocytosis Present; Basophils # (auto) 0.02 K/uL (0-0.2); Basophils % (auto) 0.4 %; Eosinophils # (auto) 0.19 K/uL (0-0.5); Eosinophils % (auto) 3.5 %; Immature Granulocytes # (auto) 0.01 K/uL (0.00-0.02); Immature Granulocytes % (auto) 0.2 %; Lymphocytes # (auto) 1.04 K/uL (1.2-3.4); Lymphocytes % (auto) 19.2 %; Monocytes # (auto) 0.61 K/uL (0.11-0.59); Monocytes % (auto) 11.3 %; Neutrophils # (auto) 3.54 K/uL (1.4-6.5); Neutrophils % (auto) 65.4 %; Ovalocytes 1+; Polychromasia 1+
[2018-05-21 07:40] LABS: Partial Thromboplastin Time 57.3 Seconds (21.0-31.0)
[2018-05-21] MEDS ORDERED: POTASSIUM CHLORIDE 20 MEQ TABCR PO ONE (08:45)
[2018-05-21] MEDS ORDERED: BROMFENAC OP SCH (09:00)
[2018-05-21] MEDS: MAGNESIUM SULFATE / D5W 1 GM/100 ML BAG IV SCH ×2 (09:04→10:04)
[2018-05-21] MEDS: ENALAPRIL MALEATE 10 MG TAB PO SCH (10:04)
[2018-05-21] MEDS: POTASSIUM CHLORIDE / WTR 10 MEQ/100 ML PLCT IV SCH ×2 (11:14→13:28)
[2018-05-21] MEDS: HydrALAZINE HCL 20 MG/ML VIAL IV PRN (11:19)
--- NOTE | 2018-05-21 11:46 | Discharge Summary ---
Date of Service May 21, 2018 Admission HPI Per Admitting Provider 72 y/o F who was sent to the ED from the outpt surgery center for c/o aflutter. Per surgery center notes pt was noted to be bradycardic and with wheezing just prior to the OR. She was given a duoneb and this did help her breathing. Just as procedure was about to begin, pt was noted to be in aflutter. She was asx with this so they were able to continue with and complete a L eye cataract surgery. Pt continued to be in aflutter, so she was sent to the ED. Pt states she feels at her usual. She has SOB, but she states this is an ongoing issues. She states she is always SOB and has wheezing. At some point she was put on a PRN inhaler but "it ran out and no one refilled it" so she has not taken this. She does not know what this medication was in particular. She states that her SOB today is her baseline. Pt denies fever, chest pain, abd pain, n/v/c/d, LE pain. Pt states she always has LE swelling. She is to take lasix PRN for swelling. She states she takes this maybe 1x/week. She cannot tell me the last time she took this. Pt follows with Dr. Talavera s/alvin cervantes 3 yrs ago. She states she has not seen him recently. She has not had an ECHO "in a couple of years". I discussed with Dr. Lee. He states that there is no contraindication to anticoagulation with the type of cataract surgery that he performs. Pt's aspirin was not held for the procedure this AM and he states that they do not hold any other anticoagulation pre or post OR with this procedure. Principal Diagnosis Atrial flutter Discharge Exam Constitutional WD/WN, vitals as above + obese Eyes PERRL, conjunctivae normal, anicteric sclerae ENMT external ear and nose normal, oropharynx normal Neck trachea midline, no thyromegaly Respiratory normal respiratory effort, lungs clear to auscultation Cardiovascular Rate/Rhythm: regular rate; + abnormal rhythm (irreg irreg) Heart Sounds: no murmur Extremities: no edema Gastrointestinal (Abdomen) normal bowel sounds, soft, nontender, no hepatosplenomegaly Musculoskeletal Extremities: extremities normal to inspection; no cyanosis and no clubbing Skin no rashes, warm and dry Neurologic moves all extremities and awake; no focal motor deficits Psychiatric A+Ox3, euthymic affect Discharge Data Allergies Allergy/AdvReac Type Severity Reaction Status Date / Time No Known Allergies Allergy Verified 05/19/18 14:23 Consultations Cardiology Procedures Performed Echocardiogram-LVEF 55-60%, mild AI, mild MR, LA moderately dilated Ordered Studies Chest x-ray Hospital Course (1) New onset atrial flutter: Likely started a few weeks ago, contributing to her SOB over the past few weeks Rate controlled and bradycardic at times to the 30s-40s initially-her carvedilol dose was lowered -She was on a heparin gtt now and then transitioned to Coumadin as she cannot afford $40/mo for Eliquis/Xarelto Serial troponin neg x3 TSH WNL ECHO with preserved EF, mild AI, mild MR, moderately dilated LA -Appreciate Cardiology consult -Discharged home with Lovenox bridge and Coumadin -[facility] cardiology is arranging for follow-up with the [facility] Coumadin clinic in [place] -She will also follow up in the [facility] cardiology office as scheduled -continue Coreg but reduced dose to 12.5mg po bid (2) Cataract: Post-op 05/19 Anticoagulation is not contraindicated per ophtho Eye drops as scheduled per ophtho (3) CAD (coronary artery disease): Has h/o [place] with cath and stent placed in 2014, no details known otherwise -Okay to continue ASA 81 for h/o stent -continue statin -continue ACEi, beta joann but reducing dose for bradycardia as above (4) HTN (hypertension): Labile at times -continue Coreg at reduced dose, ACEi, lasix, and follow as an outpatient (5) Asthma: Had wheezing on admission which is now improved, may have been cardiac wheeze No need for bronchodilators (6) Anxiety: continue home Paxil (7) Hypothyroid: TSH WNL continue home levothyroxine (8) Hyperlipidemia: continue home statin (9) DVT prophylaxis: Heparin gtt, Coumadin Dispo-stable for discharge to home Total Time Total Time Spent Total Time Spent (In Minutes): Greater than 30 minutes Total Time Includes: Examination of the Patient, Discharge Planning, Medication Reconciliation and Communication With Other Providers (Cardiology) Discharge Plan Discharge Items Patient Disposition: Home - Self-Care Reason For Visit: A-FLUTTER Discharge Diagnosis: Atrial flutter Condition: Good Discharge Goals: Diagnostic testing, Learn about illness and Therapeutic intervention Activity: Resume your previous activity Bathing: No limitations Exercise/Sports: Gradually increase as tolerated Driving/Machine Use: No limitations Non-emergency contact: Primary Care Provider and Industrial Hire Sales Assistant Call non-emergency contact if: you have any medication questions and your symptoms worsen Follow-up/Referrals: Clemente Walter CRNP [Primary Care Provider] - 05/29/18 8:20 am (Please, follow up at [facility] [place] Office with Clemente OLIVER on FridayMay 29 at 8:20 am. *This office is located next to [address]. If you need to change this appointment, call the office at [phone].) Rui Talavera DO [Industrial Hire Sales Assistant] - (Dr. Talavera's office should contact you for an appointment. ) Diet: Heart Healthy Addtl Provider Instructions: You were admitted because you have an irregular heart rhythm called atrial flutter. You were placed on a blood thinner called warfarin (Coumadin) to prevent you from having a stroke. If you have any signs of bleeding, a bad headache, or sustain a fall or trauma, you need to go to the hospital immediately. You will need to have your coumadin level (PT/INR) checked on Friday at the [facility]-this appointment date/time will be arranged for you and you should be contacted with this information. You will give yourself a once daily injection of the blood thinner LOVENOX until your coumadin level gets to the right level and the Industrial Hire Sales Assistant tells you to stop. You should NOT take any antiinflammatory drugs like naproxen, ibuprofen while on coumadin as they are also blood thinners. You CAN take Tylenol or acetaminophen. Your carvedilol (Coreg) dose was reduced to 12.5mg twice a day. Prescriptions: New acetaminophen [Mapap (acetaminophen)] 325 mg Tablet 650 mg PO Q4H PRN (Reason: pain) Qty: 30 RF: 0 Continue atorvastatin [Lipitor] 10 mg Tablet 10 mg PO PM RF: 0 levothyroxine 25 mcg Tablet 25 mcg PO QAM RF: 0 paroxetine HCl 20 mg Tablet 20 mg PO QAM RF: 0 aspirin 81 mg Tablet,Chewable 81 mg PO QAM RF: 0 ramipril 5 mg Capsule 5 mg PO BID RF: 0 furosemide 20 mg tablet 20 mg PO QAM RF: 0 difluprednate 0.05 % drops 1 drp OPL UD RF: 0 gatifloxacin 0.5 % drops 1 drp OPL UD RF: 0 bromfenac 0.07 % drops 1 drp OPL UD RF: 0 Changed carvedilol 25 mg Tablet 12.5 mg PO BID Qty: 0 RF: 0 Discontinued naproxen sodium 220 mg Tablet 220 mg PO BID PRN (Reason: Pain) RF: 0 No Action warfarin [Jantoven] 5 mg Tablet 5 mg PO QAM RF: 0 Visit Report Forms: My [facility] Portal Stand-Alone Forms: [facility] Discharge Orders: Discharge Order (Routine); Ordered 05/21/18 Ordered By: Rosa Naylor Admission Data Admit Date/Time: 05/19/18 15:39 Attending Provider: Rosa Naylor Admit Provider: Keke Edwards Primary Care Provider: Clemente Walter Other Providers: Keke Edwards ; Rui Talavera Service: Telemetry Medical Other Interventions: Discharge Summary Assessment (RN) Last Done: 05/21/18 13:15 Pending Studies at Discharge: No DC Date/Time DO NOT enter until pt leaves facility: 05/21/18 16:30
[2018-05-21] MEDS ORDERED: ENOXAPARIN 150 MG/ML SYR SQ SCH ×2 (12:00→16:15)
--- NOTE | 2018-05-21 13:04 | Cardiology Progress Note ---
Date of Service May 21, 2018 Assessment & Plan (1) Atrial flutter: Patient is stable for discharge with outpatient follow-up. I will arrange follow-up with the Coumadin clinic and with our office in [place]. (2) HTN (hypertension): (3) Cataract: Subjective The patient had an uneventful night. No new cardiac complaints. Physical Exam 2 Vital Signs (Past 24 Hours): Last Vital Signs Temp 36.7 C 05/21/18 11:46 Pulse 66 05/21/18 11:46 Resp 20 05/21/18 11:46 BP 191/73 H 05/21/18 11:17 Pulse Ox 92 05/21/18 11:46 Physical Exam: General: no acute distress and stated age Head: normocephalic, no masses, lesions, tenderness or abnormalities Eyes: conjunctiva are pink and non-injected, sclera clear Neck: supple, no adenopathy, no bruits, normal jugular venous pulse, no hepatojugular reflux Chest: normal shape and normal respiratory effort Lungs: clear to auscultation and percussion Cardiac Exam: - irregular rate & rhythm, no murmurs gallops or rubs - normal S1 , normal S2 Pulses: 2(+) throughout Abdomen: abdomen soft, non-tender, no abnormal masses and no hepatosplenomegaly Musculoskeletal: no gait disturbance, no joint inflammation, no deforming arthritis Extremities: no edema and no cyanosis Neuro: grossly normal exam Results & Data Laboratory Results Laboratory Results - last 24 hr 05/21/18 05/21/18 05/21/18 06:07 06:07 06:07 WBC 5.41 RBC 4.53 Hgb 10.4 L Hct 35.0 L MCV 77.3 L MCH 23.0 L MCHC 29.7 L RDW Std Deviation 64.0 H RDW Coeff of Fabián 22.7 H Plt Count 229 Immature Gran % (Auto) 0.2 Neut % (Auto) 65.4 Lymph % (Auto) 19.2 [place] % (Auto) 11.3 Eos % (Auto) 3.5 Baso % (Auto) 0.4 Immature Gran # (Auto) 0.01 Neut # (Auto) 3.54 Lymph # (Auto) 1.04 L [place] # (Auto) 0.61 H Eos # (Auto) 0.19 Baso # (Auto) 0.02 Polychromasia 1+ Anisocytosis Present Ovalocytes 1+ PT 12.7 H INR 1.3 H APTT 57.3 H* PTT Ratio 2.2 Sodium 138 Potassium 3.2 L Chloride 106 Carbon Dioxide 28 Anion Gap 4.0 BUN 26 H D Creatinine 1.14 D Est Cr Clr Drug Dosing 49.4 Est GFR ( Amer) 56.4 Est GFR (Non-Af Amer) 48.7 BUN/Creatinine Ratio 22.7 H Glucose 110 H Calcium 8.0 L Magnesium 1.7 L Iron 32 L TIBC 352 Transferrin 284 Transferrin % Sat 8 L Ferritin 18.2 Medications Administered Current Inpatient Medications Acetaminophen (Tylenol) 650 mg PO Q4H PRN PRN Reason: Pain or Fever Stop: 06/18/18 18:02 Aspirin (Ecotrin Ectab) 81 mg PO DAILY [facility] Stop: 06/19/18 19:59 Last Admin: 05/21/18 07:20 Dose: 81 mg Atorvastatin Calcium (Lipitor) 10 mg PO PM [facility] Stop: 06/18/18 20:59 Last Admin: 05/20/18 21:00 Dose: 10 mg Carvedilol (Coreg) 12.5 mg PO BID [facility] Stop: 06/19/18 20:59 Last Admin: 05/21/18 07:20 Dose: 12.5 mg Enalapril Maleate (Vasotec) 20 mg PO BID [facility] Stop: 06/18/18 20:59 Last Admin: 05/21/18 10:04 Dose: 20 mg Enoxaparin Sodium (Lovenox) 150 mg SQ Q24H [facility] Stop: 06/20/18 11:44 Last Admin: 05/21/18 12:36 Dose: 150 mg Furosemide (Lasix) 20 mg PO DAILY [facility] Stop: 06/19/18 08:59 Last Admin: 05/21/18 07:20 Dose: 20 mg Gatifloxacin (Zymaxid (Per Drop Charge)) 1 drops OPL TID [facility]; Protocol Stop: 06/19/18 13:59 Last Admin: 05/21/18 07:21 Dose: 1 drops Hydralazine HCl (Hydralazine Hcl) 10 mg IV NOW PRN PRN Reason: systolic BP >170 Stop: 06/18/18 15:58 Last Admin: 05/21/18 11:19 Dose: 10 mg [facility]: 06/19/18 06:29 Last Admin: 05/21/18 05:29 Dose: 25 mcg Magnesium Hydroxide (Milk Of Magnesia) 30 ml PO Q12H PRN PRN Reason: Constipation Stop: 06/18/18 18:02 Metoprolol Tartrate (Lopressor) 5 mg IV Q4 PRN PRN Reason: systolic BP >170 Stop: 06/18/18 15:38 Bromfenac (Prolensa) Ophth~Non-Formulary Patient's Own Med 1 ea OP DAILY [facility] Stop: 06/20/18 08:59 Last Admin: 05/21/18 07:20 Dose: 1 drops Durezol ( Difluprednate Ophth~ Non-Formulary Patient's Own Med 1 ea OP BID [facility] Stop: 06/19/18 20:59 Last Admin: 05/21/18 07:21 Dose: 1 drops Ondansetron HCl (Zofran) 4 mg IV Q6H PRN PRN Reason: Nausea Stop: 06/18/18 18:02 Paroxetine HCl (Paxil) 20 mg PO QAM [facility] Stop: 06/19/18 08:59 Last Admin: 05/21/18 07:21 Dose: 20 mg Warfarin Sodium (Coumadin) 10 mg PO DAILY@1600 [facility] Stop: 06/19/18 15:59 Last Admin: 05/20/18 15:34 Dose: 10 mg _ (1) Atrial flutter Atrial flutter type: unspecified Qualified Code(s): I48.92 - Unspecified atrial flutter
[2018-05-21] MEDS ORDERED: Nursing to Pharmacy Communication ONE (16:03)
== END 2018-05-21 16:30 | disposition home or self-care (01) | DRG 988 ==
LOC: ED 12:00 → 2S 15:39 → SUATTDRO 15:39 → 2S 16:41

== ENCOUNTER 2018-08-17 13:44 | Inpatient (IN) ==
[2018-08-17] MEDS ORDERED: ASPIRIN CHEW 324 MG PO STA (14:06)
[2018-08-17 14:17] LABS: Basophils # (auto) 0.02 K/uL (0-0.2); Basophils % (auto) 0.4 %; Eosinophils # (auto) 0.08 K/uL (0-0.5); Eosinophils % (auto) 1.6 %; Hemoglobin 13.5 g/dL (12.0-16.0); Immature Granulocytes # (auto) 0.01 K/uL (0.00-0.02); Immature Granulocytes % (auto) 0.2 %; Lymphocytes # (auto) 0.63 K/uL (1.2-3.4); Lymphocytes % (auto) 12.5 %; Mean Corpuscular Hgb Conc 31.4 g/dL (32-36); Mean Corpuscular Volume 88.3 fL (80-100); Monocytes # (auto) 0.55 K/uL (0.11-0.59); Monocytes % (auto) 10.9 %; Neutrophils # (auto) 3.74 K/uL (1.4-6.5); Neutrophils % (auto) 74.4 %; Platelet Count 207 K/uL (130-400); RDW Coefficient of Variation 18.8 % (11.5-14.5); RDW Standard Deviation 61.4 fL (36.4-46.3); Red Blood Count 4.87 M/uL (4.2-5.4); White Blood Count 5.03 K/uL (4.8-10.8)
--- NOTE | 2018-08-17 14:19 | XRay Report ---
XR chest 1V portable CLINICAL HISTORY: Chest Pain dyspnea COMPARISON STUDY: 05/19/2017 FINDINGS: Cardia megaly. Prominent pulmonary vasculature. Diaphragms are smooth. IMPRESSION: Developing congestive heart failure The above report was generated using voice recognition software. It may contain grammatical, syntax or spelling errors. Electronically signed by: El Gonzalez M.D. 08/17/2018 2:18 PM
[2018-08-17 14:31] LABS: BUN Creatinine Ratio 21.5 (10-20); Creatinine Clr Calc Pharmacy 77.2 ml/min; Est GFR (African American) 92.1; Est GFR (Non-African American) 79.5; INR 1.5 (0.9-1.1); Partial Thromboplastin Time 27.1 Seconds (21.0-31.0); Potassium 3.7 mmol/L (3.5-5.1); Prothrombin Time 14.7 Seconds (9.0-12.0)
[2018-08-17 14:36] LABS: Troponin I 0.033 ng/ml (0-0.045)
[2018-08-17] MEDS: NITROGLYCERIN SL 0.4 MG/TAB TAB SL PRN ×2 (14:36→15:00)
[2018-08-17] MEDS ORDERED: FUROSEMIDE 40 MG/4 ML VIAL IV STA (15:06)
--- NOTE | 2018-08-17 16:28 | History & Physical Report ---
Date of Service August 17, 2018 Assessment & Plan (1) Atrial flutter: (2) Acute diastolic heart failure: Patient presents with clinical heart failure with rales in chest x-ray findings consistent with this also hypoxia. Patient was given Lasix in the emergency department with good improvement. This may be based on her bradycardia which is unclear whether was related to beta-joann use or intrinsic conducting system disease as she is underlying history of atrial flutter. The patient will be seen in consultation by cardiology. Patient's initial troponin was negative and she lacks any convincing symptoms of angina. Most recent echocardiogram was May 2018. We will maintain her on a low-salt diet and IV Lasix holding her Coreg (3) Hypertensive urgency: Patient is hypertensive urgency in the ER was attempted to be treated with Lasix. We will put nitroglycerin paste on her offer her clonidine as needed for blood pressure control continue intravenous Lasix. (4) Atrial flutter: Patient's atrial flutter is been rate controlled in the past by beta- joann however because of her bradycardia this will be helpful of cardiology consultation maintain her on a heart monitor (5) Hypothyroid: She appears clinically euthyroid on her Synthroid medication TSH checked checked on 05/23 was normal, will add TSH to morning labs on 08/18 (6) Lower extremity cellulitis: Patient states she is improving lower extremity cellulitis with Keflex. Keflex will be continued wound care consult will be undertaken (7) Chronic anticoagulation: Patient is chronically on warfarin therapy for her anticoagulation she is subtherapeutic at this time will add an ox apparent and continue her daily warfarin use following her INR on a daily basis History of Present Illness Primary Care Provider: BENITO Marquez Patient presents to the ER after being seen in her physician's office with increased shortness of breath. Clinical exam in the office congestive heart failure and chest x-ray done in the ER also suggest the same. The patient is markedly hypertensive, likely hypertensive urgency, with a blood pressure 206/100. Patient notes that she has had increasing swelling of her lower legs. She has been treated as an outpatient with Keflex for about 10 days due to redness and swelling to her lower extremities. Patient denies any dietary indiscretion but admits that she follow a true diet regime in order she wears of daily patient is also found to be bradycardic in the ER and has a flutter with the baseline rhythm beneath this. In the last hospital stay around May 2018 she had an echocardiogram which showed preserved ejection fraction so likely if she does have any heart failure this would be acute diastolic heart failure based upon her bradycardia. Allergies Allergy/AdvReac Type Severity Reaction Status Date / Time No Known Allergies Allergy Verified 06/02/18 06:28 Home Medications Home Medications Medication Instructions Recorded Confirmed Type aspirin 81 mg PO QAM 04/23/18 05/25/18 History atorvastatin [Lipitor] 10 mg PO PM 04/23/18 05/25/18 History levothyroxine 25 mcg PO QAM 04/23/18 05/25/18 History paroxetine HCl 20 mg PO QAM 04/23/18 05/25/18 History ramipril 5 mg PO BID 04/23/18 05/25/18 History bromfenac 1 drp [facility] 05/19/18 05/25/18 History difluprednate 1 drp [facility] 05/19/18 05/25/18 History furosemide 20 mg PO QAM 05/19/18 05/25/18 History gatifloxacin 1 drp [facility] 05/19/18 05/25/18 History acetaminophen [Mapap 650 mg PO Q4H PRN #30 tab 05/21/18 05/25/18 Rx (acetaminophen)] warfarin [Jantoven] 5 mg PO QAM 05/25/18 05/25/18 History carvedilol 12.5 mg PO BID 08/17/18 08/17/18 History Past Med/Surg History Medical History Anxiety Atrial flutter developed post op left cataract Hyperlipidemia Hypertension Hypothyroidism Myocardial Infarction 3 YEARS AGO - [facility] - FOLLOWS W/ DR. LAUGHLIN Osteoarthritis SOB (shortness of breath) on exertion Surgical History History of appendectomy History of cardiac cath 3 YEARS AGO - [facility] - 1 STENT PLACED - FOLLOWS Aaliyah/ DR. LAUGHLIN History of colonoscopy History of hysterectomy History of total knee replacement LEFT Hx of left cataract extraction Family History Brother Family history of diabetes mellitus Heart attack Mother Family history of diabetes mellitus Heart attack Father Heart attack Social History Preferred Language: Northern Irish Communication Ability: Effective Beliefs That Will Affect Care: None marital status: / Current Living Situation: Alone Current Living Situation Comment: LIVES IN SENIOR APARTMENT - INDEPENDENT Kemi SIEGEL Feels Safe at Home: Yes Smoking Status: Never smoker Hx Alcohol Use: Yes Hx Substance Use: No Review of Systems ROS: well nourished well developed. No double vision blurry vision No problems with speech or swallowing No palpitations, chest pain or pressure Patient feels short of breath at rest with exertion cannot lay flat No abdominal pain nausea vomiting diarrhea changes in appetite or weight No burning urine urine frequency or changes in color No focal joint pain or muscle pain Red open lesions on her lower legs which have improved over the last 10 days No unusual bruising or bleeding No focused back pain or numbness or loss of strength No changes in memory or confusion Physical Exam Vital Signs (Past 24 Hours): Last Vital Signs Temp 36.5 C 08/17/18 13:49 Pulse 52 L 08/17/18 16:01 Resp 16 08/17/18 16:01 BP 205/96 H 08/17/18 16:01 Pulse Ox 96 08/17/18 16:01 The patient appeared well nourished and normally developed. She is morbidly obese Vital signs as documented. She is markedly hypertensive Head exam is unremarkable. normocephalic, atraumatic Neck is without visible jugular venous distension, thyromegaly, or lymphademopathy Lungs are bibasilar rales Cardiac exam reveals Rhythm is bradycardic but regular no murmurs were heard. First and second heart sounds normal. Abdominal exam reveals normal bowel sounds, no masses, no organomegaly Extremities are 2-3+ edematous and changes of a improving cellulitis and chronic venous stasis are seen Neurologic exam is A&Ox3, no focal deficits, strength is equal bilateral Psychologically seems neither anxious or depressed Skin is open weeping areas to her lower extremities Results & Data Diagnostic Findings Chest x-ray with mild congestive changes ECG Additional Comments: EKG with atrial flutter with a bradycardic ventricular rate (1) Atrial flutter Atrial flutter type: unspecified Qualified Code(s): I48.92 - Unspecified atrial flutter
[2018-08-17] MEDS ORDERED: ONDANSETRON INJ 2 MG/ML 2 ML VIAL IV PRN (17:24)
[2018-08-17] MEDS ORDERED: MoRPHine SULFATE 2 MG/ML CARP IV PRN (17:24)
[2018-08-17] MEDS ORDERED: ACETAMINOPHEN 325 MG TAB PO PRN ×2 (17:24)
[2018-08-17] MEDS ORDERED: POLYETHYLENE (MIRALAX) 17 GM PACK PO PRN (17:24)
[2018-08-17] MEDS: cephALEXin 500 MG CAP PO SCH ×2 (18:32→19:27)
[2018-08-17] MEDS: ENOXAPARIN INJ 120 MG/0.8 ML SYR SQ SCH (18:32)
[2018-08-17] MEDS: NITROGLYCERIN 2% OINTMENT 30GM TUBE EXT SCH ×2 (18:34→23:24)
[2018-08-17] MEDS: ATORVASTATIN 10 MG TAB PO SCH (19:27)
--- NOTE | 2018-08-17 19:30 | Emergency Department Note ---
Entered by Clemente Walters acting as a scribe for James Alvarez History of Present Illness General Chief complaint: Shortness of Breath/Dyspnea Time Seen by Provider: 08/17/18 14:02 Source: patient and other (nurses) History of Present Illness Onset (ago): month(s) 1 Location: chest (lungs) Pain Consistency: + other (progressively worsening) Quality: + other (shortness of breath) Exacerbated By: + other (exertion) Associated symptoms: + other (occasional chest pain; denies diarrhea); no nausea/vomiting The patient is a 72 year old female who presents to the Emergency Room with complaints of progressively worsening shortness of breath beginning around a month ago. Nurses report that she was sent from her PCPs office prior to arrival for oxygen saturation in the 80s on room air. The patient also reports occasional central chest pain, and her symptoms are exacerbated with exertion. She denies nausea, vomiting, or diarrhea. She confirms that she is on Coumadin. She denies a history of CHF and states that she does not wear supplemental oxygen at home. Home Medications Home Medications Medication Instructions Recorded Confirmed Type aspirin 81 mg PO QAM 04/23/18 08/17/18 History atorvastatin [Lipitor] 10 mg PO PM 04/23/18 08/17/18 History levothyroxine 25 mcg PO QAM 04/23/18 08/17/18 History paroxetine HCl 20 mg PO QAM 04/23/18 08/17/18 History ramipril 5 mg PO BID 04/23/18 08/17/18 History bromfenac 1 drp [facility] 05/19/18 08/17/18 History furosemide 20 mg PO QAM 05/19/18 08/17/18 History gatifloxacin 1 drp [facility] 05/19/18 08/17/18 History acetaminophen [Mapap 650 mg PO Q4H PRN #30 tab 05/21/18 08/17/18 Rx (acetaminophen)] warfarin [Jantoven] 5 mg PO QAM 05/25/18 08/17/18 History albuterol sulfate [Ventolin HFA] 2 puff INHALATION Q4H PRN 08/17/18 08/17/18 History carvedilol 12.5 mg PO BID 08/17/18 08/17/18 History cephalexin 500 mg PO QID 08/17/18 08/17/18 History difluprednate [Durezol] 1 drp OPL UD 08/17/18 08/17/18 History ferrous sulfate 325 mg PO DAILY 08/17/18 08/17/18 History Allergies Allergy/AdvReac Type Severity Reaction Status Date / Time No Known Allergies Allergy Verified 06/02/18 06:28 Past Med/Surg History Family History Brother Family history of diabetes mellitus Heart attack Mother Family history of diabetes mellitus Heart attack Father Heart attack Social History Communication Ability: Effective Inpatient Services Rn Required: No Beliefs That Will Affect Care: None marital status: / Current Living Situation: Alone Current Living Situation Comment: lives in senior apartment. [facility] Other Information That Helps Us Care for You: No Feels Safe at Home: Yes Safety Concerns: Feels Safe At This Time Smoking Status: Never smoker Hx Alcohol Use: No Hx Substance Use: No Review of Systems See HPI for pertinent positives & negatives. and A total of 10 systems reviewed and were otherwise negative Physical Exam Vital Signs Vital Signs - 24 hr 08/17/18 13:49 08/17/18 13:50 08/17/18 14:01 Temperature 36.5 C Temperature Source Oral Sepsis Recent Fever Within 48 Hours No Sepsis New/Unexplained Change in Mental Status No Sepsis Action Taken by Nursing No Action Required Pulse Rate 55 L 56 L 58 L Pulse Rate [Finger] Pulse Rate from SpO2 Sensor 57 L 59 L Respiratory Rate 24 23 28 H Respiratory Effort / Characteristics Respiratory Depth Respiratory Pattern Blood Pressure 219/103 H 219/103 H 208/92 H Blood Pressure [Left Arm] Blood Pressure [Right Arm] Blood Pressure Mean 141 141 130 Blood Pressure Mean [Left Arm] Blood Pressure Mean [Right Arm] Blood Pressure Position [Left Arm] Blood Pressure Position [Right Arm] Pulse Oximetry 87 L 87 L 96 Oxygen Delivery Method Nasal Cannula Oxygen Flow Rate 0 08/17/18 14:31 08/17/18 14:37 08/17/18 14:45 Temperature Temperature Source Sepsis Recent Fever Within 48 Hours Sepsis New/Unexplained Change in Mental Status Sepsis Action Taken by Nursing Pulse Rate 53 L 55 L Pulse Rate [Finger] Pulse Rate from SpO2 Sensor 57 L 58 L Respiratory Rate 30 H 16 Respiratory Effort / Characteristics Respiratory Depth Respiratory Pattern Blood Pressure 207/110 H 183/128 H Blood Pressure [Left Arm] Blood Pressure [Right Arm] Blood Pressure Mean 142 146 Blood Pressure Mean [Left Arm] Blood Pressure Mean [Right Arm] Blood Pressure Position [Left Arm] Blood Pressure Position [Right Arm] Pulse Oximetry 96 96 93 Oxygen Delivery Method Room Air Oxygen Flow Rate 2 08/17/18 14:50 08/17/18 15:00 08/17/18 15:01 Temperature Temperature Source Sepsis Recent Fever Within 48 Hours Sepsis New/Unexplained Change in Mental Status Sepsis Action Taken by Nursing Pulse Rate 48 L 47 L 53 L Pulse Rate [Finger] Pulse Rate from SpO2 Sensor 50 L 53 L 57 L Respiratory Rate 26 H 26 H 20 Respiratory Effort / Characteristics Respiratory Depth Respiratory Pattern Blood Pressure 206/100 H 222/94 H Blood Pressure [Left Arm] Blood Pressure [Right Arm] Blood Pressure Mean 135 136 Blood Pressure Mean [Left Arm] Blood Pressure Mean [Right Arm] Blood Pressure Position [Left Arm] Blood Pressure Position [Right Arm] Pulse Oximetry 97 96 96 Oxygen Delivery Method Oxygen Flow Rate 08/17/18 15:04 08/17/18 15:30 08/17/18 15:31 Temperature Temperature Source Sepsis Recent Fever Within 48 Hours Sepsis New/Unexplained Change in Mental Status Sepsis Action Taken by Nursing Pulse Rate 52 L 52 L 53 L Pulse Rate [Finger] Pulse Rate from SpO2 Sensor 53 L 54 L 55 L Respiratory Rate 27 H 27 H 19 Respiratory Effort / Characteristics Respiratory Depth Respiratory Pattern Blood Pressure 204/95 H 218/105 H Blood Pressure [Left Arm] Blood Pressure [Right Arm] Blood Pressure Mean 131 142 Blood Pressure Mean [Left Arm] Blood Pressure Mean [Right Arm] Blood Pressure Position [Left Arm] Blood Pressure Position [Right Arm] Pulse Oximetry 95 94 96 Oxygen Delivery Method Oxygen Flow Rate 08/17/18 16:00 08/17/18 16:01 08/17/18 16:31 Temperature Temperature Source Sepsis Recent Fever Within 48 Hours Sepsis New/Unexplained Change in Mental Status Sepsis Action Taken by Nursing Pulse Rate 35 L 52 L 65 Pulse Rate [Finger] Pulse Rate from SpO2 Sensor 43 L 56 L Respiratory Rate 17 16 14 Respiratory Effort / Characteristics Respiratory Depth Respiratory Pattern Blood Pressure 205/96 H 224/114 H Blood Pressure [Left Arm] Blood Pressure [Right Arm] Blood Pressure Mean 132 150 Blood Pressure Mean [Left Arm] Blood Pressure Mean [Right Arm] Blood Pressure Position [Left Arm] Blood Pressure Position [Right Arm] Pulse Oximetry 97 96 Oxygen Delivery Method Oxygen Flow Rate 08/17/18 16:34 08/17/18 16:56 08/17/18 17:14 Temperature Temperature Source Sepsis Recent Fever Within 48 Hours Sepsis New/Unexplained Change in Mental Status Sepsis Action Taken by Nursing Pulse Rate 56 L 53 L Pulse Rate [Finger] Pulse Rate from SpO2 Sensor 60 54 L Respiratory Rate 19 16 Respiratory Effort / Characteristics Non-Labored Spontaneous SOB on Exertion Respiratory Depth Normal Respiratory Pattern Regular Blood Pressure 189/107 H 189/96 H Blood Pressure [Left Arm] Blood Pressure [Right Arm] Blood Pressure Mean 134 127 Blood Pressure Mean [Left Arm] Blood Pressure Mean [Right Arm] Blood Pressure Position [Left Arm] Blood Pressure Position [Right Arm] Pulse Oximetry 91 97 Oxygen Delivery Method Nasal Cannula Oxygen Flow Rate 2 08/17/18 17:27 08/17/18 19:24 Temperature 36.9 C 36.4 C L Temperature Source Oral Oral Sepsis Recent Fever Within 48 Hours Sepsis New/Unexplained Change in Mental Status Sepsis Action Taken by Nursing Pulse Rate Pulse Rate [Finger] 67 52 L Pulse Rate from SpO2 Sensor Respiratory Rate 24 18 Respiratory Effort / Characteristics Non-Labored Spontaneous SOB on Exertion Non-Labored Spontaneous Respiratory Depth Normal Normal Respiratory Pattern Regular Blood Pressure Blood Pressure [Left Arm] 197/125 H 198/82 H Blood Pressure [Right Arm] 188/85 H Blood Pressure Mean Blood Pressure Mean [Left Arm] 149 120 Blood Pressure Mean [Right Arm] 119 Blood Pressure Position [Left Arm] Lying Lying Blood Pressure Position [Right Arm] Lying Pulse Oximetry 98 96 Oxygen Delivery Method Nasal Cannula Nasal Cannula Oxygen Flow Rate 2 2 GENERAL: She is oriented to person, place, and time. She appears well-developed and well-nourished. She does not appear distressed. HENT: Exam performed. Head: Normocephalic and atraumatic. Right Ear: External ear normal. No mastoid tenderness. Left Ear: External ear normal. No mastoid tenderness. Mouth/Throat: The oropharynx is clear and moist. No trismus in the jaw. No dental abscesses or uvula swelling. No oropharyngeal exudate or tonsillar abscesses. EYES: Conjunctivae and EOM are normal. Pupils are equal, round, and reactive to light. Right eye exhibits no discharge. Left eye exhibits no discharge. No scl eral icterus. NECK: Normal range of motion. Neck supple. No JVD present. No spinous process tenderness present. No carotid bruit present. No rigidity. No tracheal deviation and normal range of motion present. No Brudzinski's sign and no Kernig's sign noted. CV: Normal rate, irregular rhythm, normal heart sounds and intact distal pulses. There is bilateral 4+ lower extremity pitting edema. Palpable radial pulses bue. PULM/CHEST: Effort normal. Diminished breath sounds bilaterally. No respiratory distress. No stridor. She has no wheezes. She has inspiratory rales at the bases. Chest Wall: She exhibits no tenderness. ABD: The abdomen is soft. Bowel sounds are normal. She has no distension. No mass is present. There is no tenderness. There is no rebound, no guarding, no Fish's sign and no tenderness at McBurney's point. Rovsig negative. MUSC/SKEL: Normal range of motion. Bilateral 4+ lower extremity pitting edema. There no tenderness or deformity. LYMPH: No cervical adenopathy. NEURO: She is alert and oriented to person, place, and time. She has normal strength. No cranial nerve deficit or sensory deficit. Coordination and gait normal. GCS eye subscore is 4. GCS verbal subscore is 5. GCS motor subscore is 6. cerbellar tests wnl. SKIN: Skin is warm and dry. She is not diaphoretic. PSYCH: She has a normal mood and affect. Her behavior is normal. Judgment and thought content normal. Course 1404: The patient was evaluated in room C6, and a complete history and physical examination were performed.EMR reviewed. The patient has a history of atrial flutter, bilateral leg cellulitis, and hypertension. She is on Coumadin. Scott uribe was immediately put on nasal cannula which seemed to help her shortness of breath. 1457: The patient reports that she is feeling better after SL nitro, and nasal cannula oxygen and she is less short of breath. 1508: Vital signs stable on 2 L nasal cannula. Labs showed elevated proBNP. Chest x-ray shows fluid overload with cardiomegaly. Patient will be treated with 40 mg of Lasix. I consulted Dr. Elmore [facility] Hospitalist. The patient will be reevaluated for hospitalization. Administered Medications Atorvastatin Calcium (Lipitor) 10 mg PO PM KIMBERLY Stop: 09/16/18 20:59 Last Admin: 08/17/18 19:27 Dose: 10 mg Documented by: [id number] Cephalexin HCl (Keflex) 500 mg PO QID [facility]; Protocol Stop: 08/27/18 17:23 Last Admin: 08/17/18 19:27 Dose: 500 mg Documented by: [id number] Admin: 08/17/18 18:32 Dose: 500 mg Documented by: [id number] Enoxaparin Sodium (Lovenox) 111 mg SQ Q12H KIMBERLY Stop: 09/16/18 17:59 Last Admin: 08/17/18 18:32 Dose: 111 mg Documented by: [id number] Nitroglycerin (Nitrostat) 0.4 mg SL UD PRN PRN Reason: Chest Pain Stop: 09/16/18 14:05 Last Admin: 08/17/18 15:00 Dose: 0.4 mg Documented by: [id number] Admin: 08/17/18 14:36 Dose: 0.4 mg Documented by: [id number] Nitroglycerin (Nitro-Bid 2%) 1 inch EXT Q6 KIMBERLY Stop: 09/16/18 17:59 Last Admin: 08/17/18 18:34 Dose: 1 inch Documented by: [id number] Discontinued Medications Aspirin (Aspirin) 324 mg PO NOW STA Stop: 08/17/18 14:07 Last Admin: 08/17/18 14:34 Dose: 324 mg Documented by: [id number] Furosemide (Lasix) 40 mg IV NOW STA Stop: 08/17/18 15:07 Last Admin: 08/17/18 16:04 Dose: 40 mg Documented by: [id number] Medical Decision Making Medical Records Attestation: I reviewed the patient's medical records. Home Medications Current Medication List: was personally reviewed by me Laboratory Data Attestation: I reviewed the patient's lab results. Result diagrams: 08/17/18 13:14 08/17/18 13:14 Lab Results 08/17/18 08/17/18 08/17/18 Range/Units 13:14 13:14 13:14 WBC 5.03 (4.8-10.8) K/uL RBC 4.87 (4.2-5.4) M/uL Hgb 13.5 (12.0-16.0) g/dL Hct 43.0 (37-47) % MCV 88.3 (80-100) fL MCH 27.7 (25-34) pg MCHC 31.4 L (32-36) g/dL RDW Std Deviation 61.4 H (36.4-46.3) fL RDW Coeff of Fabián 18.8 H (11.5-14.5) % Plt Count 207 (130-400) K/uL MPV 12.0 H (7.4-10.4) fL Immature Gran % (Auto) 0.2 % Neut % (Auto) 74.4 % Lymph % (Auto) 12.5 % [place] % (Auto) 10.9 % Eos % (Auto) 1.6 % Baso % (Auto) 0.4 % Immature Gran # (Auto) 0.01 (0.00-0.02) K/uL Neut # (Auto) 3.74 (1.4-6.5) K/uL Lymph # (Auto) 0.63 L (1.2-3.4) K/uL [place] # (Auto) 0.55 (0.11-0.59) K/uL Eos # (Auto) 0.08 (0-0.5) K/uL Baso # (Auto) 0.02 (0-0.2) K/uL PT 14.7 H (9.0-12.0) Seconds INR 1.5 H (0.9-1.1) APTT 27.1 (21.0-31.0) Seconds PTT Ratio 1.0 Sodium (136-145) mmol/L Potassium (3.5-5.1) mmol/L Chloride (98-107) mmol/L Carbon Dioxide (21-32) mmol/L Anion Gap (3-11) BUN (7-18) mg/dl Creatinine (0.6-1.2) mg/dl Est Cr Clr Drug Dosing ml/min Est GFR ( Amer) Est GFR (Non-Af Amer) BUN/Creatinine Ratio (10-20) Glucose (70-99) mg/dl Calcium (8.5-10.1) mg/dl Troponin I Cancelled NT-Pro-B Natriuret Pep (0-900) pg/ml Lipase Cancelled Hepatitis C Ab Screen (Neg) 08/17/18 08/17/18 08/17/18 Range/Units 13:14 13:14 13:14 WBC (4.8-10.8) K/uL RBC (4.2-5.4) M/uL Hgb (12.0-16.0) g/dL Hct (37-47) % MCV (80-100) fL MCH (25-34) pg MCHC (32-36) g/dL RDW Std Deviation (36.4-46.3) fL RDW Coeff of Fabián (11.5-14.5) % Plt Count (130-400) K/uL MPV (7.4-10.4) fL Immature Gran % (Auto) % Neut % (Auto) % Lymph % (Auto) % [place] % (Auto) % Eos % (Auto) % Baso % (Auto) % Immature Gran # (Auto) (0.00-0.02) K/uL Neut # (Auto) (1.4-6.5) K/uL Lymph # (Auto) (1.2-3.4) K/uL [place] # (Auto) (0.11-0.59) K/uL Eos # (Auto) (0-0.5) K/uL Baso # (Auto) (0-0.2) K/uL PT (9.0-12.0) Seconds INR (0.9-1.1) APTT (21.0-31.0) Seconds PTT Ratio Sodium 143 (136-145) mmol/L Potassium 3.7 (3.5-5.1) mmol/L Chloride 108 H (98-107) mmol/L Carbon Dioxide 27 (21-32) mmol/L Anion Gap 7.0 (3-11) BUN 16 (7-18) mg/dl Creatinine 0.76 (0.6-1.2) mg/dl Est Cr Clr Drug Dosing 77.2 ml/min Est GFR ( Amer) 92.1 Est GFR (Non-Af Amer) 79.5 BUN/Creatinine Ratio 21.5 H (10-20) Glucose 104 H (70-99) mg/dl Calcium 9.0 (8.5-10.1) mg/dl Troponin I 0.033 NT-Pro-B Natriuret Pep 7512 H Cancelled (0-900) pg/ml Lipase 71 L Hepatitis C Ab Screen Neg (Neg) Imaging Data Radiologist's Impression: Radiology results as stated below per my review and the radiologist's interpretation: XR chest 1V portable CLINICAL HISTORY: Chest Pain dyspnea COMPARISON STUDY: 05/19/2017 FINDINGS: Cardia megaly. Prominent pulmonary vasculature. Diaphragms are smooth. IMPRESSION: Developing congestive heart failure The above report was generated using voice recognition software. It may contain grammatical, syntax or spelling errors. Electronically signed by: El Gonzalez M.D. 08/17/2018 2:18 PM ECG Data Attestation: I personally reviewed and interpreted this ECG as follows: Indication: SOB/dyspnea Rate (beats per minute): ventricular rate 54 Rhythm: atrial flutter Findings: + other (QTc is 536. QRS interval is within normal limits.); no ST depression and no ST elevation Blood Pressure Blood Pressure Findings: Elevated blood pressure Blood Pressure Disposition: further management by hospitalist [email or web address] Narrative 1404: The patient was evaluated in room C6, and a complete history and physical examination were performed.EMR reviewed. The patient has a history of atrial flutter, bilateral leg cellulitis, and hypertension. She is on Coumadin. Patient was immediately put on nasal cannula which seemed to help her shortness of breath. 1457: The patient reports that she is feeling better after SL nitro, and nasal cannula oxygen and she is less short of breath. 1508: Vital signs stable on 2 L nasal cannula. Labs showed elevated proBNP. Chest x-ray shows fluid overload with cardiomegaly. Patient will be treated with 40 mg of Lasix. I consulted Dr. Elmore [facility] Hospitalist. The patient will be reevaluated for hospitalization. Impression & Plan Hypoxia, CHF (congestive heart failure) Discharge Plan Visit Data *Final* Discharge Date/Time: 08/17/18 17:39 Chief Complaint: Shortness of Breath/Dyspnea ED Provider: James Alvarez Discharge Problem: Hypoxia, CHF (congestive heart failure) Patient Disposition: Admitted As Inpatient Discharge Instructions Interventions: ED Discharge Assessment Last Done: 08/17/18 17:39 Discharge Problem: CHF (congestive heart failure) Qualifiers: Heart failure type: unspecified Heart failure chronicity: unspecified Qualified Code(s): I50.9 - Heart failure, unspecified The scribe's documentation has been prepared under my direction and personally reviewed by me in its entirety. I confirm that the note above accurately reflects all work, treatment, procedures, and medical decision making performed by me.
[2018-08-18] MEDS: NITROGLYCERIN 2% OINTMENT 30GM TUBE EXT SCH ×3 (06:17→17:26)
[2018-08-18] MEDS: LEVOTHYROXINE SODIUM 25 MCG TABLET PO SCH (06:18)
[2018-08-18] MEDS: ENOXAPARIN INJ 120 MG/0.8 ML SYR SQ SCH (06:47)
[2018-08-18 07:11] LABS: INR 1.5 (0.9-1.1); Prothrombin Time 14.6 Seconds (9.0-12.0)
[2018-08-18 07:30] LABS: BUN Creatinine Ratio 18.8 (10-20); Calcium 8.4 mg/dl (8.5-10.1); Creatinine Clr Calc Pharmacy 67.6 ml/min; Est GFR (African American) 80.5; Est GFR (Non-African American) 69.4; Potassium 3.5 mmol/L (3.5-5.1)
[2018-08-18] MEDS ORDERED: AMLODIPINE BESYLATE 5 MG TAB PO ONE ×2 (08:45→12:43)
[2018-08-18] MEDS ORDERED: LOSARTAN POTASSIUM 50 MG TAB PO SCH (09:00)
[2018-08-18] MEDS: ASPIRIN 81 MG ECTAB PO SCH (09:14)
[2018-08-18] MEDS: FUROSEMIDE 40 MG in SYRINGE 0 ML IV SCH (09:14)
[2018-08-18] MEDS: cephALEXin 500 MG CAP PO SCH ×4 (09:14→19:57)
[2018-08-18] MEDS: PARoxetine HCl 20 MG TAB PO SCH (09:15)
--- NOTE | 2018-08-18 15:28 | Hospitalist Progress Note ---
Date of Service August 18, 2018 Assessment & Plan (1) Atrial flutter: Patient is atrial flutter with a slow ventricular rate. This is could be possibly a tachybradycardia type situation cardiology is planning on electively cardioverting her once on her atria is confirmed to be cleared of thrombus. She was bridged with Lovenox due to low INR level, plans for ADELAIDA on 08/19 and eventual cardioversion after that. Lovenox is held in the evening of 08/17. Her Coreg has been held her rate is remains bradycardic she is got hypertensive urgency with blood pressure being controlled now with losartan and amlodipine she is being followed by Dr. Talavera (2) Acute diastolic heart failure: Patient is improved with diuretics but still needs additional dosing on 08/18 and she has rales in her examination. Patient's initial troponin was negative and she lacks any convincing symptoms of angina. Most recent echocardiogram was May 2018. We will maintain her on a low-salt diet and IV Lasix holding her Coreg (3) Hypertensive urgency: Patient is hypertensive urgency in the ER was attempted to be treated with Lasix. Etiologies at losartan amlodipine continue as needed needs and diuresis (4) Hypothyroid: She appears clinically euthyroid on her Synthroid medication TSH checked checked on 05/23 was normal, will add TSH to morning labs on 08/18 (5) Lower extremity cellulitis: Patient states she is improving lower extremity cellulitis with Keflex. Keflex will be continued wound care consult will be undertaken (6) Chronic anticoagulation: Patient is chronically on warfarin therapy for her anticoagulation she is subtherapeutic at this time will add an Lovenox, and will be held on 08/18 and preparation for procedures 08/19 Subjective Patient feels somewhat improved heart rates in the 50s-60s. She is to be seen by cardiology who is planning on proceeding with cardioversion after her atria are screened by ADELAIDA for being free of clot. Etiology is asked me to stop anticoagulation today make her n.p.o. tonight for a elective ADELAIDA tomorrow. Patient also will be started on losartan and amlodipine to control her blood pressure. Review of Systems ROS: well nourished well developed. No double vision blurry vision No problems with speech or swallowing No palpitations, chest pain or pressure No Wheezing or breathing issues No abdominal pain nausea vomiting diarrhea changes in appetite or weight No burning urine urine frequency or changes in color No focal joint pain or muscle pain No skin rashes or oral lesions No unusual bruising or bleeding No focused back pain or numbness or loss of strength No changes in memory or confusion Physical Exam Vital Signs (Past 24 Hours): Last Vital Signs Temp 36.8 C 08/18/18 10:56 Pulse 56 L 08/18/18 10:56 Resp 18 08/18/18 10:56 BP 204/93 H 08/18/18 10:56 Pulse Ox 93 08/18/18 10:56 The patient appeared well nourished and normally developed. Vital signs as documented. Head exam is unremarkable. normocephalic, atraumatic Neck is with jugular venous distension, thyromegaly, or lymphademopathy Lungs are basilar rales are heard Cardiac exam reveals bradycardic rhythm systolic murmur. First and second heart sounds normal. Abdominal exam reveals normal bowel sounds, no masses, no organomegaly Extremities are mildly edematous and both pedal pulses are present Neurologic exam is A&Ox3, no focal deficits, strength is equal bilateral Psychologically seems neither anxious or depressed Skin is warm Dry without bruises or lesions
[2018-08-18] MEDS: WARFARIN SOD 5 MG TAB PO SCH (16:11)
--- NOTE | 2018-08-18 16:20 | Consultation Report ---
DATE OF CONSULTATION: 08/18/2018 CONSULTATION REQUESTED BY: Dr. Beavers. REASON FOR CONSULTATION: Atrial flutter with slow ventricular response and decompensated diastolic heart failure. HISTORY OF PRESENT ILLNESS: The patient is a very pleasant 72-year-old woman who has most recently been following with Dr. Talavera of our Cardiology practice. She presented to [facility] with complaint of several weeks of worsening shortness of breath. She states that for the last month or so, she is just not really been able to catch her breath. It slowly progressed to the point where on the she just felt she needed some improvement and came into the Emergency Department. There she was found to be volume overloaded and hypoxic. She was given a dose of Lasix and started on oxygen and she states that she started feeling better already. Upon further questioning, she admits that she has been very tired and run down lately, but luckily is not passed out at all and has not had any significant lightheadedness or dizziness. She also denies any chest pain. States her lower extremities are little swollen, but no worse than normal and she has not had any significant changes in her diet or salt intake. She has been taking her medications as directed without any issue. Unfortunately, there has been some difficulty maintaining a therapeutic INR on her. Of note, she was previously offered Eliquis in the past, but turned down the medication because of its cost prohibitive. PAST SURGICAL HISTORY: 1. Cholecystectomy. 2. Appendectomy. 3. Left total knee replacement. 4. Cardiac cath with PCI to unknown vessel with [facility]. 5. Cataract surgery. FAMILY HISTORY: Remarkable for mother, father and brother who all suffered from coronary artery disease. SOCIAL HISTORY: Denies any alcohol, tobacco or recreational drug use. She is . She lives in a senior apartment independent living. She has not had any falls and ambulates without issue. REVIEW OF SYSTEMS: As per HPI, all other review of systems reviewed and negative at this time. ALLERGIES: No known drug allergies. MEDICATIONS AN OUTPATIENT: 1. Warfarin alternating 5 mg and 2.5 mg dosages. 2. Aspirin 81 mg daily. 3. Atorvastatin 10 mg daily. 4. Carvedilol 12.5 mg b.i.d. 5. Lasix 20 mg daily. 6. Ramipril 5 mg b.i.d. 7. Paxil daily. 8. Levoxyl daily. PHYSICAL EXAMINATION: VITALS: Temperature 36.4, pulse 62, respiratory rate 12, blood pressure 212/89. GENERAL: Awake, alert, oriented x3, in no acute distress on nasal cannula. HEENT: Normocephalic, atraumatic. Pupils equal, round, reactive to light and accommodation. Extraocular muscles intact. Anicteric sclerae. Moist mucous membranes. NECK: No JVD, no bruit. CARDIOVASCULAR: Regular, but slow. No murmurs or rubs. PULMONARY: Scattered rhonchi. No rales or wheezing. ABDOMEN: Bowel sounds x4, soft. No rebound, guarding, tenderness. No organomegaly. EXTREMITIES: No clubbing or cyanosis. +1 bilateral lower extremity nonpitting edema. Chronic venous stasis changes. +2 pedal pulses bilaterally. SKIN: Warm and dry. TEST RESULTS: A 2D echocardiogram performed 05/20/2018 was read as normal left ventricular chamber size, normal LV systolic function, EF 55%-60%, moderate left atrial enlargement, mild aortic regurgitation, mild mitral regurgitation. A 12-lead EKG performed in the Emergency Department independently reviewed at this time shows atrial flutter with a slow ventricular response in the 40s. Review of telemetry monitoring shows similar rate and rhythm. LABORATORY STUDIES OF SIGNIFICANCE: INR of 1.5. Sodium 141, potassium 3.5, BUN 16, creatinine 0.85. Hemoglobin 13.5. IMPRESSION: 1. Acute decompensated diastolic heart failure. 2. Atrial flutter with a very slow ventricular response, likely contributing to number 1. 3. Uncontrolled hypertension. 4. Subtherapeutic INR. RECOMMENDATIONS: It was my pleasure to see the patient in consultation today. From a cardiac standpoint, first of all I am concerned about her blood pressure, so her carvedilol has appropriately been held given her bradycardia, so I will give her 50 mg of losartan b.i.d. and a 5 mg dose of amlodipine x1 now and should her blood pressure not improve by the afternoon, I will give her another dose of amlodipine. Obviously any AV deepali blocking agent should be avoided at this time. In terms of her atrial flutter with slow ventricular response, I am concerned about cardioverting her given the high likelihood of a very significant sinus pause or even failure to restore normal intrinsic rhythm afterwards. So at this point, I discussed the case with the patient and our Electrophysiology colleague, Dr. Carroll, and we believe the most prudent course of action will be to perform a transesophageal echocardiogram to rule out left atrial thrombus and should that be unremarkable, we will proceed with an atrial flutter ablation in the EP lab where should she be successfully converted and with slow ventricular response despite not being on any AV deepali blocking agents, a permanent pacemaker could be placed as well. So, the patient will be made n.p.o. after midnight. We will ask Case Management to see if they can obtain at least 5 weeks of Eliquis for her to make sure that she will be therapeutic and I have to worry about her INR, which has been fluctuating. The timing of the atrial flutter ablation could likely be held off until next week and as long as the patient is taking her Eliquis, repeat ADELAIDA would not be necessary. In terms of her decompensated heart failure, she is responding very well to IV Lasix and I will continue 40 IV daily for now and follow her volume status clinically.
[2018-08-18] MEDS ORDERED: LOSARTAN POTASSIUM 50 MG TAB PO ONE (16:45)
[2018-08-18] MEDS: ATORVASTATIN 10 MG TAB PO SCH (19:57)
[2018-08-18] MEDS: cloNIDine HCl 0.1 MG TAB PO PRN (20:03)
[2018-08-19] MEDS: NITROGLYCERIN 2% OINTMENT 30GM TUBE EXT SCH ×4 (00:13→18:29)
[2018-08-19] MEDS: LEVOTHYROXINE SODIUM 25 MCG TABLET PO SCH (05:48)
[2018-08-19 06:34] LABS: Hematocrit (blood only) 37.6 % (37-47); Hemoglobin 11.6 g/dL (12.0-16.0); Mean Corpuscular Hgb Conc 30.9 g/dL (32-36); Mean Corpuscular Volume 87.9 fL (80-100); Mean Platelet Volume 11.5 fL (7.4-10.4); Platelet Count 177 K/uL (130-400); RDW Coefficient of Variation 18.6 % (11.5-14.5); RDW Standard Deviation 59.7 fL (36.4-46.3); Red Blood Count 4.28 M/uL (4.2-5.4); White Blood Count 3.71 K/uL (4.8-10.8)
[2018-08-19 06:41] LABS: INR 1.5 (0.9-1.1); Prothrombin Time 14.6 Seconds (9.0-12.0)
[2018-08-19 06:54] LABS: BUN Creatinine Ratio 22.3 (10-20); Calcium 8.1 mg/dl (8.5-10.1); Creatinine Clr Calc Pharmacy 73.1 ml/min; Est GFR (African American) 89.3; Potassium 3.2 mmol/L (3.5-5.1)
[2018-08-19] MEDS: LOSARTAN POTASSIUM 50 MG TAB PO SCH (08:16)
[2018-08-19] MEDS: cephALEXin 500 MG CAP PO SCH ×4 (08:16→21:41)
[2018-08-19] MEDS: FUROSEMIDE 40 MG in SYRINGE 0 ML IV SCH (08:16)
[2018-08-19] MEDS: ASPIRIN 81 MG ECTAB PO SCH (08:17)
[2018-08-19] MEDS: AMLODIPINE BESYLATE 5 MG TAB PO SCH ×2 (08:18→10:18)
[2018-08-19] MEDS: PARoxetine HCl 20 MG TAB PO SCH (08:18)
[2018-08-19] MEDS ORDERED: POTASSIUM CHLORIDE 20 MEQ TABCR PO STA (09:13)
--- NOTE | 2018-08-19 09:48 | Cardiology Progress Note ---
Date of Service August 19, 2018 Assessment & Plan (1) Hypertensive urgency: BP remains significantly elevated despite addition of losartan 100mg daily and amlodipine 10mg daily will defer ADELAIDA today until BP better controlled will add hydralazine 25mg tid and uptitrate as needed will cont to avoid av deepali blocking agents (2) Acute diastolic heart failure: likely secondary to bradycardia does not examine as volume overloaded will change lasix to po for 08/20 will also consider addition of spironolactone today for both aldosterone antagonism along with bp control potassium was low today, KCl 40meq ordered (3) Atrial flutter: rates improved ultimately, will plan for ablation next week unfortunately, INR subtherapeutic would like to change to Eliquis for 5 weeks (to cover now till ablation and 1 month afterwards) case management has been asked for their assistance cont to hold AV deepali blocking agents may perform ADELAIDA 08/20 if bp improved or could hold till day of ablation npo after midnight tonight Subjective Review of Systems All systems reviewed & are unremarkable except as noted in HPI & below Pt seen and examined, oob in chair, states breathing has improved but not yet back to baseline, feels better on O2. Has diuresed well as per patient. LE edema resolved. Denies cp, palpitations, lightheadedness or dizziness. tele reviewed: atrial flutter rates improved to 50's-60's. Physical Exam Vital Signs (Past 24 Hours): Last Vital Signs Temp 36.9 C 08/19/18 07:47 Pulse 62 08/19/18 07:47 Resp 18 08/19/18 07:47 BP 187/101 H 08/19/18 07:47 Pulse Ox 93 08/19/18 07:47 Physical Exam: General: Awake, alert and oriented x 3. No acute distress. HEENT: Normocephalic, atraumatic. Pupils equal, round and reactive to light and accommodation. Extraocular muscles are intact. Anicteric sclera. Moist mucous membranes. Neck: No JVD. No bruit. Cardiovascular: irregularly irregular, unable to appreciate murmur, rub or gallop. Pulmonary: Clear to auscultation bilaterally. No rales, rhonchi, or wheezing. Abdomen: Bowel sounds x 4, soft. No rebound, guarding or tenderness. No organomegaly. Extremities: No clubbing, cyanosis or edema. +2 pedal pulses bilaterally. Skin: Warm and dry. (1) Atrial flutter Atrial flutter type: unspecified Qualified Code(s): I48.92 - Unspecified atrial flutter
[2018-08-19] MEDS: SPIRONOLACTONE 25 MG TAB PO SCH (10:44)
[2018-08-19] MEDS ORDERED: LOSARTAN POTASSIUM 50 MG TAB PO ONE (16:29)
[2018-08-19] MEDS: WARFARIN SOD 5 MG TAB PO SCH (16:55)
--- NOTE | 2018-08-19 18:21 | Hospitalist Progress Note ---
Date of Service August 19, 2018 Assessment & Plan (1) Atrial flutter: Patient is atrial flutter with a slow ventricular rate. This is could be possibly a tachybradycardia type situation cardiology is planning on electively cardioverting her once on her atria is confirmed to be cleared of thrombus. She was bridged with Lovenox due to low INR level, plans for ADELAIDA on 08/20 and eventual cardioversion after that. ADELAIDA was postponed due to her marked hypertension Lovenox is held in the evening of 08/17 as per cardiology instructions. Her Coreg has been held her rate is remains bradycardic she is got hypertensive urgency with blood pressure being controlled now with losartan and amlodipine she is being followed by them as suggested by Dr. Talavera (2) Acute diastolic heart failure: Resolved with diuretics Most recent echocardiogram was May 2018. We will maintain her on a low-salt diet and likely transition to oral Lasix 08/20 (3) Hypertensive urgency: Patient is hypertensive urgency in the ER was attempted to be treated with Lasix. Etiology is using losartan amlodipine continue clonidine as needed (4) Hypothyroid: She appears clinically euthyroid on her Synthroid medication TSH checked checked on 05/23 was normal, will add TSH to morning labs on 08/18 (5) Lower extremity cellulitis: Patient states she is improving lower extremity cellulitis with Keflex. Keflex will be continued wound care consult will be undertaken (6) Chronic anticoagulation: Patient is chronically on warfarin therapy for her anticoagulation she is subtherapeutic at this time will add an Lovenox, and will be held on 08/18 and preparation for procedures 08/20 Subjective Patient has no complaints today she is unaware of her accelerated hypertension. Once her blood pressure is controlled consideration for ADELAIDA and likely cardioversion her atrial flutter in the future likely next week. Cardiology is evaluating and continue to manage her blood pressure medications at this point time Review of Systems Review of Systems: ROS: well nourished well developed. No double vision blurry vision No problems with speech or swallowing No palpitations, chest pain or pressure No Wheezing or breathing issues feels less short of breath No abdominal pain nausea vomiting diarrhea No burning urine urine frequency or changes in color No focal joint pain or muscle pain No skin rashes or oral lesions No unusual bruising or bleeding No focused back pain or numbness or loss of strength No changes in memory or confusion Physical Exam Physical Exam: The patient appeared well nourished and normally developed. Vital signs as documented. Head exam is unremarkable. normocephalic, atraumatic Neck is without jugular venous distension, thyromegaly, or lymphademopathy Lungs are clear to auscultation and percussion less rales and yesterday almost none. Cardiac exam reveals Rhythm is regular rate flutter is with controlled ventricular response sounds regular. First and second heart sounds normal. Abdominal exam reveals normal bowel sounds, no masses, no organomegaly Extremities are continue to be mildly edematous and both pedal pulses are present Neurologic exam is A&Ox3, no focal deficits, strength is equal bilateral Psychologically seems neither anxious or depressed Skin is warm Dry without bruises or lesions Results & Data Vital Signs (Past 12 Hours) Vital Signs Temp Pulse Resp BP Pulse Ox 08/19/18 15:20 36.7 C 65 19 169/102 H 96 08/19/18 11:50 36.9 C 67 22 184/76 H 94 08/19/18 07:47 36.9 C 62 18 187/101 H 93
[2018-08-19] MEDS: ATORVASTATIN 10 MG TAB PO SCH (21:41)
[2018-08-19] MEDS ORDERED: ALBUTEROL 0.083% NEBU SOLN 3 ML VIAL NEB PRN (21:57)
[2018-08-20] MEDS: NITROGLYCERIN 2% OINTMENT 30GM TUBE EXT SCH ×5 (00:17→23:35)
[2018-08-20] MEDS: cloNIDine HCl 0.1 MG TAB PO PRN (00:17)
--- NOTE | 2018-08-20 01:27 | Consultation Report ---
DATE OF CONSULTATION: 08/18/2018 ELECTROPHYSIOLOGY CONSULTATION REFERRING PHYSICIAN: Dr. Talavera. REASON FOR CONSULTATION: Atrial fibrillation with slow ventricular response. HISTORY OF PRESENT ILLNESS: This is a 72-year-old female admitted to [facility] on 08/17/2018 secondary to atrial flutter with a slow ventricular response and decompensated diastolic heart failure. She was initially diagnosed with atrial flutter back in May of this year, unclear duration of time, always been controlled AV ventricular rate but was placed on low-dose metoprolol and Coumadin back in May. She has never really followed with physicians prior to her May hospitalization. During the course of her hospitalization so far on this admission, she has been diuresed and is doing well. Electrophysiology was consulted for possible consideration of restoring sinus rhythm secondary to the heart failure, but there is concern that possibly she has underlying conduction disease and may need a pacemaker. PAST SURGICAL HISTORY: Cholecystectomy, appendectomy, left total knee replacement, a cardiac catheterization with a PCI to unknown vessel at [facility], and cataract surgery. PAST MEDICAL HISTORY: Atrial flutter diagnosed in May of 2018, chronic diastolic heart failure, hypertension, hyperlipidemia, depression, hypothyroidism, and coronary artery disease with a PCI to unknown vessel in the remote past. FAMILY HISTORY: Negative for any premature coronary artery disease. SOCIAL HISTORY: Negative for any tobacco or alcohol use. She lives in a senior apartment independent living. REVIEW OF SYSTEMS: All other 10-point review of systems are reviewed and are essentially negative at this time. ALLERGIES: No known drug allergies. HOME MEDICATIONS: Coumadin, aspirin, atorvastatin, carvedilol 12.5 twice a day, Lasix, ramipril, Paxil, and Synthroid. PHYSICAL EXAMINATION: VITAL SIGNS: Blood pressure 212/89, heart rate 62, respirations 21, temperature 36.4, oxygen saturation 92% on 2 liters nasal cannula. GENERAL: She is awake, alert and oriented x3, in no acute distress, sitting up in the chair. HEENT: Normocephalic, atraumatic. Extraocular are intact. Sclerae are nonicteric. Mucous membranes moist. NECK: Supple, no carotid bruits appreciated. No JVD. Carotid upstrokes are normal. CARDIOVASCULAR: Irregular. Normal S1, S2, bradycardic. No murmur appreciated. PULMONARY: Clear to auscultation bilaterally. No wheezes, rales, or rhonchi. ABDOMEN: Positive bowel sounds, soft, nontender, nondistended. EXTREMITIES: No clubbing or cyanosis in the bilateral fingers. No edema of the bilateral lower extremities. Peripheral pulses intact. SKIN: Warm and dry and intact. PERTINENT TESTING: A 12-lead ECG on 08/18/2018, atrial flutter, typical appearing, 50 beats per minute. On 08/17/2018, atrial flutter with nonspecific ST and T-wave abnormalities. Ventricular rate of 54 beats per minute. On 05/21/2018, atrial flutter, ventricular rate 38 beats per minute. On 05/20/2018, atrial flutter 63 beats per minute, on 05/19/2018, atrial flutter 54 beats per minute, and on 05/19/2018 atrial flutter 48 beats per minute with ST and T-wave abnormalities. A 2D echocardiogram on 05/20/2018, normal ejection fraction of 55% to 60%, moderate left atrial enlargement, mild AI and MR. Chest x-ray on 08/17/2018 was consistent with congestive heart failure. Hematology on 08/17/2018, WBC 5.03, hemoglobin 13.5, hematocrit 43, platelets 207. PT/INR on 08/18/2018, INR 1.5, PTT 14.6. Chemistry on 08/18/2018, sodium 149, potassium 3.5, chloride 107, carbon dioxide 29, BUN 16, creatinine 0.85, glucose 97, calcium 8.4, TSH 1.51. IMPRESSION: 1. Persistent typical atrial flutter with a slow ventricular response, suspicious for probably underlying sick sinus syndrome and possibly even high-degree AV deepali blocks. 2. [id number] decompensated diastolic heart failure, [place] Heart Association class II. 3. Uncontrolled hypertension. 4. Coronary artery disease with history of a percutaneous coronary intervention in the remote past. 5. Hyperlipidemia. 6. Hypothyroidism. PLAN: I highly consider patient for an atrial flutter ablation with the possibility of needing a pacemaker afterwards depending on the conversion pause and her sinus rate. I discussed the procedure with the patient as well as the potential risks which include but not limited to sudden cardiac , cardiac arrhythmias, cerebrovascular accident, myocardial infarction, injury to the blood vessels, chamber of the heart or the port gamble electrical system where she would need a pacemaker, as well as bleeding and infection. The patient understood these risks and agreed to the procedure as planned. Her INR is subtherapeutic, so she will need a ADELAIDA prior to the procedure. One option is to do a ADELAIDA during this hospitalization and then start her on Eliquis if the ADELAIDA is cleared and then I will arrange for her to have atrial flutter ablation next week with anesthesia. The other option if she is unable to go home on Eliquis would be then she needs a ADELAIDA the morning of the procedure and if there is no left atrial thrombus, then we will proceed with the ablation. I did discuss with her that there is a possibility at the same time after the ablation she might end up with a pacemaker, but that will need to be determined, but we will consent her for that as well just in case. Otherwise, she can continue her anticoagulation and her low-dose carvedilol and then I will see her in 1-month followup after the procedure. Thank you for this consult.
[2018-08-20] MEDS: LEVOTHYROXINE SODIUM 25 MCG TABLET PO SCH (06:12)
[2018-08-20] MEDS ORDERED: METOPROLOL TARTRATE 1 MG/ML VIAL IV PRN (06:15)
[2018-08-20 06:46] LABS: BUN Creatinine Ratio 24.6 (10-20); Calcium 8.3 mg/dl (8.5-10.1); Creatinine Clr Calc Pharmacy 91.1 ml/min; Est GFR (African American) 105.9; Est GFR (Non-African American) 91.4; Potassium 3.6 mmol/L (3.5-5.1)
[2018-08-20 06:54] LABS: INR 1.6 (0.9-1.1); Prothrombin Time 15.5 Seconds (9.0-12.0)
[2018-08-20] MEDS ORDERED: BENZOCAIN/TETRACA/BUTAM SPRAY 200 APPLN/20 GM SPRY EXT ONE (08:14)
[2018-08-20] MEDS ORDERED: fentaNYL citrate 100 MCG/2 ML VIAL ONE (08:15)
[2018-08-20] MEDS ORDERED: CANNULA ONE (08:15)
[2018-08-20] MEDS ORDERED: MIDAZOLAM HCL 1 MG/ML 2ML VIAL ONE (08:15)
[2018-08-20] MEDS ORDERED: GLYCOPYRROLATE 0.2 MG/ML VIAL ONE (08:16)
[2018-08-20] MEDS ORDERED: FUROSEMIDE 40 MG TAB PO SCH (09:00)
--- NOTE | 2018-08-20 09:06 | History & Physical Bridge Note ---
Date of Service August 20, 2018 History & Physical Bridge Note I have examined the patient, reviewed the History & Physical and in the interval since the performance of the History & Physical I have noted the following changes of clinical significance: no changes noted
--- NOTE | 2018-08-20 09:07 | Pre Anesthesia Assessment ---
Date of Service August 20, 2018 Pre Sedation Assessment Vital Signs Temp Pulse Pulse Resp BP BP Pulse Ox 08/20/18 06:52 36.9 C 65 20 147/60 H 95 08/20/18 03:59 36.9 C 95 H 24 155/73 H 96 08/19/18 23:48 108 H 24 191/109 H 188/100 H 93 08/19/18 22:09 100 H 20 93 08/19/18 19:45 36.7 C 69 18 171/79 H 93 08/19/18 15:20 36.7 C 65 19 169/102 H 96 08/19/18 11:50 36.9 C 67 22 184/76 H 94 Pre-Sedation Airway Assessment Smoking Status: Never smoker Hx Sleep Apnea: No Short, Thick Neck: No Thyromental Distance: > or= 3.5 Finger Breadths Oral Cavity: + Dentures Mallampati Class: II ASA: ASA2 NPO Status Date of Last Intake of Fluids: 08/19/18 Time of Last Intake of Fluids: 23:59 Date of Last Intake of Solid Food: 08/19/18 Time of Last Intake of Solid Foods: 23:59 Notes The planned sedation has been discussed with the patient. Informed Consent was obtained. I have identified the patient, determined the appropriateness of sedation and have assessed the patient immediately prior to the procedure. All medicine(s) and interventions are by my order.
--- NOTE | 2018-08-20 09:29 | Post Anesthesia Assessment ---
Date of Service August 20, 2018 Post Sedation Assessment Vital Signs Temp Pulse Pulse Resp BP BP Pulse Ox 08/20/18 06:52 36.9 C 65 20 147/60 H 95 08/20/18 03:59 36.9 C 95 H 24 155/73 H 96 08/19/18 23:48 108 H 24 191/109 H 188/100 H 93 08/19/18 22:09 100 H 20 93 08/19/18 19:45 36.7 C 69 18 171/79 H 93 08/19/18 15:20 36.7 C 65 19 169/102 H 96 08/19/18 11:50 36.9 C 67 22 184/76 H 94 Post Sedation Plan On clinical assessment, the patient appears to have tolerated the sedation without complications. Patient is recovering as anticipated. Patient will continue to be monitored by nursing and may be discharged when sedation discharge criteria are met per below protocol. Upon Completions of procedure and additional 15 minutes continue every 5 minute vital signs and the P.A.R. score; then discharge to a Phase I or Fast Track to Phase II per the following guidelines: * Discharge Patient to appropriate Phase II area if PAR is 8 or greater or re turn to pre- procedure baseline. The post - procedure orders will be as directed. * If PAR score is less than 8 or not return to pre-procedure baseline then patient will follow Phase I monitoring till PAR is reached for Phase II. The Phase I may be done in procedure room or may call to secure a Phase I area. * If naloxone or flumazenil are used for reversal, hold in Phase I for continued monitoring from when last reversal dose was given for a minimum of 60 minutes or longer pending the nurse and/or physician discretion of patient condition before discharge to Phase II. Please call the Sedation Physician to re-evaluate and complete post-note for discharge to Phase II area. Do NOT discharge from procedure sedation or Phase 1 until post- sedation evaluation note is complete by procedure /sedation MD Sedation Discharge Instructions to be given to the patient at discharge to home.
--- NOTE | 2018-08-20 09:32 | Operative Report ---
Post Operative Report Pre & Post Diagnosis Operation Date: 08/20/18 08:20 Atrial flutter Procedure Operation Date: 08/20/18 08:20 Informed consent obtained pt prepped Adequate moderate sedation achieved with a total of Versed 3mg and Fentanyl 50mcg ADELAIDA performed HIMA well visualized without thrombus ADELAIDA completed Pt tolerated well no complications start time:911 stop time:928 recover per protocol and pt will be returned to telemetry Surgeon Harinder Talavera DO Staffing Administrator none Estimated Blood Loss 0 Findings Consistent with Post-Op Diagnosis Specimens none Description of Procedure ADELAIDA I attest to the content of the Intraoperative Record and any orders documented therein. Any exceptions are noted below.
--- NOTE | 2018-08-20 09:38 | Cardiology Progress Note ---
Date of Service August 20, 2018 Assessment & Plan (1) Hypertensive urgency: BP improved overnight currently receiving: losartan 100mg daily amlodipine 10mg daily hydralazine 50mg tid spironolactone 25mg daily cont to follow bp today may increase hydralazine if needed could also consider addition of alpha joann (2) Acute diastolic heart failure: likely secondary to bradycardia does not examine as volume overloaded will follow volume status clinically will hold off po lasix for now given addition of spironolactone and increased heart rates (3) Atrial flutter: rates improved ADELAIDA performed today: no left atrial thrombus discussed Eliquis coverage with patient case management very kindly obtained 1 month free coupon unfortunately, will need an additional week patient agreeable to cover copay for that week for atrial flutter ablation next week with Dr. Carroll Subjective Pt seen and examined in CPL, no complaints overnight. States that she feels well. Denies cp, sob, palpitations, lightheadedness or dizziness. tele reviewed: atrial flutter rates 60's-80's Review of Systems Review of Systems: All systems reviewed & are unremarkable except as noted in HPI & below Physical Exam Physical Exam: General: Awake, alert and oriented x 3. No acute distress. HEENT: Normocephalic, atraumatic. Pupils equal, round and reactive to light and accommodation. Extraocular muscles are intact. Anicteric sclera. Moist mucous membranes. Neck: No JVD. No bruit. Cardiovascular: irregularly irregular, unable to appreciate murmur, rub or gallop. Pulmonary: Clear to auscultation bilaterally. No rales, rhonchi, or wheezing. Abdomen: Bowel sounds x 4, soft. No rebound, guarding or tenderness. No organomegaly. Extremities: No clubbing, cyanosis or edema. +2 pedal pulses bilaterally. Skin: Warm and dry. Results & Data Vital Signs (Past 12 Hours) Vital Signs Temp Pulse Pulse Resp BP BP Pulse Ox 08/20/18 06:52 36.9 C 65 20 147/60 H 95 08/20/18 03:59 36.9 C 95 H 24 155/73 H 96 08/19/18 23:48 108 H 24 191/109 H 188/100 H 93 08/19/18 22:09 100 H 20 93 (1) Atrial flutter Atrial flutter type: unspecified Qualified Code(s): I48.92 - Unspecified atrial flutter
[2018-08-20] MEDS: ASPIRIN 81 MG ECTAB PO SCH (12:19)
[2018-08-20] MEDS: SPIRONOLACTONE 25 MG TAB PO SCH (12:19)
[2018-08-20] MEDS: cephALEXin 500 MG CAP PO SCH ×4 (12:20→21:36)
[2018-08-20] MEDS: AMLODIPINE BESYLATE 5 MG TAB PO SCH (12:20)
[2018-08-20] MEDS: PARoxetine HCl 20 MG TAB PO SCH (12:20)
[2018-08-20] MEDS: APIXABAN 5 MG TABLET PO SCH ×2 (12:21→21:36)
[2018-08-20] MEDS: LOSARTAN POTASSIUM 50 MG TAB PO SCH (12:21)
--- NOTE | 2018-08-20 18:55 | Hospitalist Progress Note ---
Date of Service August 20, 2018 Assessment & Plan (1) Atrial flutter: Patient is atrial flutter with a slow ventricular rate. This is could be possibly a tachybradycardia type situation cardiology is planning on electively cardioverting ADELAIDA shows that her atria is confirmed to be cleared of thrombus. She was bridged with Lovenox due to low INR level, patient to therapeutic Lovenox therapy her Coreg has been held her rate is remains bradycardic ypertensive urgency with blood pressure being controlled now with losartan and amlodipine she is being followed by them as suggested by Dr. Talavera (2) Acute diastolic heart failure: Resolved with diuretics rales are the basilar likely atelectasis incentive spirometry was given with instructions by myself Most recent echocardiogram was May 2018. We will maintain her on a low-salt diet and likely transition to oral Lasix 08/20 (3) Hypertensive urgency: Patient is hypertensive urgency in the ER was attempted to be treated with Lasix. Etiology is using losartan amlodipine continue clonidine as needed (4) Hypothyroid: She she remains euthyroid on her Synthroid medication TSH checked checked on 05/23 was normal, will add TSH to morning labs on 08/18 (5) Lower extremity cellulitis: Patient continues improving lower extremity cellulitis with Keflex. Kefl ex will be continued wound care consult has applied dressings and is following chronically in the hospital (6) Chronic anticoagulation: Patient is chronically on warfarin therapy for her anticoagulation she is subtherapeutic at presentation currently resuming Lovenox therapy Subjective Patient has no complaints or problems she sitting in her chair she underwent ADELAIDA today without any evidence of atrial appendage thrombus. We will then reinitiate her anticoagulation and proceed forward with possible cardio version in the future Review of Systems Review of Systems: ROS: well nourished well developed. No double vision blurry vision No problems with speech or swallowing No palpitations, chest pain or pressure No Wheezing does remain mildly dyspneic on exertion No abdominal pain nausea vomiting diarrhea changes in appetite or weight No burning urine urine frequency or changes in color No focal joint pain or muscle pain because of lower extremity swelling which is chronic No skin rashes or oral lesions No unusual bruising or bleeding No focused back pain or numbness or loss of strength No changes in memory or confusion Physical Exam Physical Exam: The patient appeared well nourished and normally developed. Vital signs as documented. Head exam is unremarkable. normocephalic, atraumatic Neck is with minor jugular venous distension, thyromegaly, or lymphademopathy Lungs are clear only with basilar crackles which likely may be atelectatic incentive spirometry was given Cardiac exam reveals Rhythm is regular. Systolic murmur is heard first and second heart sounds normal. Abdominal exam reveals normal bowel sounds, no masses, no organomegaly Extremities are mild to moderately edematous and both pedal pulses are present Neurologic exam is A&Ox3, no focal deficits, strength is equal bilateral Psychologically seems neither anxious or depressed Skin is warm Dry without bruises or lesions Results & Data Vital Signs (Past 12 Hours) Vital Signs Temp Pulse Pulse Resp BP Pulse Ox 08/20/18 11:11 36.5 C 72 16 151/85 H 97 08/20/18 10:08 72 20 140/66 92 08/20/18 10:00 72 20 97/57 L 93 08/20/18 09:50 77 22 106/60 93 08/20/18 09:40 67 21 135/61 94 08/20/18 09:35 37.7 C H 80 20 123/55 L 92 08/20/18 09:29 73 15 116/51 L 92 08/20/18 09:25 77 11 L 118/56 L 93 08/20/18 09:20 78 12 131/66 93 08/20/18 09:15 79 18 146/73 H 93 08/20/18 09:12 84 20 165/75 H 97
[2018-08-20] MEDS ORDERED: ENOXAPARIN 100 MG/1ML SYR SC SCH (21:00)
[2018-08-20] MEDS: ATORVASTATIN 10 MG TAB PO SCH (21:37)
[2018-08-21] MEDS: NITROGLYCERIN 2% OINTMENT 30GM TUBE EXT SCH ×2 (05:54→12:43)
[2018-08-21] MEDS: LEVOTHYROXINE SODIUM 25 MCG TABLET PO SCH (06:30)
[2018-08-21 06:58] LABS: Hematocrit (blood only) 41.3 % (37-47); Hemoglobin 12.7 g/dL (12.0-16.0); Mean Corpuscular Hgb Conc 30.8 g/dL (32-36); Mean Corpuscular Volume 88.6 fL (80-100); Mean Platelet Volume 11.7 fL (7.4-10.4); Platelet Count 235 K/uL (130-400); RDW Coefficient of Variation 18.9 % (11.5-14.5); RDW Standard Deviation 61.2 fL (36.4-46.3); Red Blood Count 4.66 M/uL (4.2-5.4); White Blood Count 4.64 K/uL (4.8-10.8)
[2018-08-21 07:29] LABS: BUN Creatinine Ratio 22.6 (10-20); Calcium 8.6 mg/dl (8.5-10.1); Creatinine Clr Calc Pharmacy 70.3 ml/min; Est GFR (African American) 85.3; Est GFR (Non-African American) 73.6; Potassium 4.2 mmol/L (3.5-5.1)
[2018-08-21] MEDS: LOSARTAN POTASSIUM 50 MG TAB PO SCH (08:35)
[2018-08-21] MEDS: SPIRONOLACTONE 25 MG TAB PO SCH (08:36)
[2018-08-21] MEDS: AMLODIPINE BESYLATE 5 MG TAB PO SCH (08:36)
[2018-08-21] MEDS: cephALEXin 500 MG CAP PO SCH ×3 (08:36→16:30)
[2018-08-21] MEDS: ASPIRIN 81 MG ECTAB PO SCH (08:37)
[2018-08-21] MEDS: PARoxetine HCl 20 MG TAB PO SCH (08:37)
[2018-08-21] MEDS: APIXABAN 5 MG TABLET PO SCH (08:37)
--- NOTE | 2018-08-21 08:56 | Cardiology Progress Note ---
Date of Service August 21, 2018 Assessment & Plan (1) Hypertensive urgency: BP still a little high currently receiving: losartan 100mg daily amlodipine 10mg daily hydralazine 50mg tid spironolactone 25mg daily will increase hydralazine to 75mg tid now if bp below 150 systolic this afternoon, ok to d/c to home from cardiac standpoint (2) Acute diastolic heart failure: likely secondary to bradycardia does not examine as volume overloaded will follow volume status clinically will hold off po lasix for now given addition of spironolactone and increased heart rates would send home with script for lasix 40mg po prn fluid accumulation/sob (3) Atrial flutter: rates improved ADELAIDA performed 08/20: no left atrial thrombus discussed Eliquis coverage with patient case management very kindly obtained 1 month free coupon unfortunately, will need an additional week patient agreeable to cover copay for that week for atrial flutter ablation next week with Dr. Carroll Subjective Pt seen and examined, states that she feels fine, anxious for discharge. Denies cp, sob, palpitations, lightheadedness or dizziness. Tele reviewed: atrial flutter with variable rates 60's-80's. Review of Systems Review of Systems: All systems reviewed & are unremarkable except as noted in HPI & below Physical Exam Physical Exam: General: Awake, alert and oriented x 3. No acute distress. HEENT: Normocephalic, atraumatic. Pupils equal, round and reactive to light and accommodation. Extraocular muscles are intact. Anicteric sclera. Moist mucous membranes. Neck: No JVD. No bruit. Cardiovascular: irregularly irregular, unable to appreciate murmur, rub or gallop. Pulmonary: Clear to auscultation bilaterally. No rales, rhonchi, or wheezing. Abdomen: Bowel sounds x 4, soft. No rebound, guarding or tenderness. No organomegaly. Extremities: No clubbing, cyanosis or edema. +2 pedal pulses bilaterally. Skin: Warm and dry. Results & Data Vital Signs (Past 12 Hours) Vital Signs Temp Pulse Pulse Pulse Resp BP Pulse Ox 08/21/18 07:09 37.0 C 66 18 152/78 H 93 08/21/18 04:00 36.9 C 88 20 143/73 H 98 08/21/18 01:21 62 08/20/18 23:19 36.8 C 95 H 19 163/74 H 95 (1) Atrial flutter Atrial flutter type: unspecified Qualified Code(s): I48.92 - Unspecified atrial flutter
[2018-08-21 15:09] VITALS: BP 165/92; PULSE 79; TEMP 98.2
[2018-08-21 16:14] VITALS: O2SAT 94
--- NOTE | 2018-08-21 16:32 | Discharge Summary ---
Date of Service August 21, 2018 Admission HPI Per Admitting Provider Patient presents to the ER after being seen in her physician's office with increased shortness of breath. Clinical exam in the office congestive heart failure and chest x-ray done in the ER also suggest the same. The patient is markedly hypertensive, likely hypertensive urgency, with a blood pressure 206/100. Patient notes that she has had increasing swelling of her lower legs. She has been treated as an outpatient with Keflex for about 10 days due to redness and swelling to her lower extremities. Patient denies any dietary indiscretion but admits that she follow a true diet regime in order she wears of daily patient is also found to be bradycardic in the ER and has a flutter with the baseline rhythm beneath this. In the last hospital stay around May 2018 she had an echocardiogram which showed preserved ejection fraction so likely if she does have any heart failure this would be acute diastolic heart failure based upon her bradycardia. Principal Diagnosis Hypertensive urgency Acute diastolic heart failure Atrial flutter with bradycardia Discharge Exam The patient appeared well nourished and normally developed. Vital signs as documented. She is not hypoxic at rest but is hypoxic with exertion Head exam is unremarkable. normocephalic, atraumatic Neck is without jugular venous distension, thyromegaly, or lymphademopathy Lungs are clear with scant rales at the base was clear with inspiration and improved with incentive spirometry Cardiac exam reveals Rhythm is regular. Heart has increased to the 100 range Abdominal exam reveals normal bowel sounds, no masses, no organomegaly Extremities are mildly edematous and both pedal pulses are present Neurologic exam is A&Ox3, no focal deficits, strength is equal bilateral Psychologically seems neither anxious or depressed Skin is warm Dry Discharge Data Allergies Allergy/AdvReac Type Severity Reaction Status Date / Time No Known Allergies Allergy Verified 06/02/18 06:28 Consultations 08/17/18 15:07 ED Decision to Admit Stat 08/17/18 17:24 Consult Cardiology Routine Consult Case Management - Discharge Planning Routine 08/18/18 09:57 Consult Cardiology Routine Procedures Performed Operation Date: 08/20/18 08:20 Actual Procedures p Transesophageal Echo(Not Applicable) - Harinder Talavera, Hospital Course (1) Atrial flutter: Patient is atrial flutter with a controlled ventricular rate. Ccardiology is planning on electively cardioverting ADELAIDA shows that her atria is confirmed to be cleared of thrombus. For her hypertensive urgency blood pressure being controlled now with losartan and amlodipine hydralazine as suggested by Dr. Talavera (2) Acute diastolic heart failure: Resolved with diuretics rales are the basilar likely atelectasis incentive spirometry was given with instructions by myself Most recent echocardiogram was May 2018. We will maintain her on a low-salt diet and oral Lasix 08/20 2 step showed patient required oxygen with ambulation this was ordered so that with to restore her heart rhythm continue to treat her diastolic failure he may not need oxygen therapy with exertion (3) Hypertensive urgency: Hydralazine, losartan, and amlodipine have held Coreg therapy due to bradycardia (4) Hypothyroid: She she remains euthyroid on her Synthroid medication TSH checked checked on 05/23 was normal, will add TSH to morning labs on 08/18 (5) Lower extremity cellulitis: Patient continues improving lower extremity cellulitis with Keflex. Keflex will be continued wound care consult has applied dressings and will have home health follow leg wounds after discharge (6) Chronic anticoagulation: Patient transition to Eliquis therapy per cardiology Total Time Total Time Spent Total Time Spent (In Minutes): greater than 30 minutes were required to prepare discharge Discharge Plan Discharge Items Patient Disposition: Home - Home Health Services Reason For Visit: ACUTE DIASTOLIC HEART FAILURE Discharge Diagnosis: atrial flutter diastolic heart failure Discharge Goals: Decrease discomfort Activity: Resume your previous activity Non-emergency contact: Primary Care Provider Call non-emergency contact if: you have any medication questions Follow-up/Referrals: Clemente Walter CRNP [Primary Care Provider] - 08/25/18 8:20 am (Please, follow up with Clemente OLIVER on FridayAugust 25 at 8:20 am. *If you need to change this appointment, call the office at [phone].) Diet: Low Sodium (2gm) Addtl Provider Instructions: please take your blood pressure at home if able please contact your national sales [employer] office for instructions for your heart rhythm conversion there have been many medication changes, please note below and change your home pill bottles as necessary Prescriptions: New Oxygen Home Liters Per Minute .ROUTE .MEDSUPPLY Qty: 1 RF: 0 amlodipine [Norvasc] 5 mg Tablet 10 mg PO QAM Qty: 30 RF: 0 Eliquis 5 mg Tablet 5 mg PO BID Qty: 60 RF: 0 hydralazine 50 mg tablet 50 mg PO TID Qty: 90 RF: 0 losartan 50 mg Tablet 100 mg PO QAM Qty: 30 RF: 0 spironolactone 25 mg Tablet 25 mg PO QAM Qty: 30 RF: 0 Continued cephalexin 500 mg capsule 500 mg PO QID RF: 0 ferrous sulfate 325 mg (65 mg iron) Tablet 325 mg PO DAILY RF: 0 albuterol sulfate [Ventolin HFA] 90 mcg/actuation HFA aerosol inhaler 2 puff inhalation Q4H PRN (Reason: Shortness Of Breath Or Wheezing) RF: 0 Durezol 0.05 % drops 1 drp OPL UD RF: 0 atorvastatin [Lipitor] 10 mg Tablet 10 mg PO PM RF: 0 levothyroxine 25 mcg Tablet 25 mcg PO QAM RF: 0 paroxetine HCl 20 mg Tablet 20 mg PO QAM RF: 0 aspirin 81 mg Tablet,Chewable 81 mg PO QAM RF: 0 furosemide 20 mg tablet 20 mg PO QAM RF: 0 gatifloxacin 0.5 % drops 1 drp OPL UD RF: 0 Discontinued carvedilol 12.5 mg tablet 12.5 mg PO BID RF: 0 ramipril 5 mg Capsule 5 mg PO BID RF: 0 bromfenac 0.07 % drops 1 drp OPL UD RF: 0 acetaminophen [Mapap (acetaminophen)] 325 mg Tablet 650 mg PO Q4H PRN (Reason: pain) Qty: 30 RF: 0 warfarin [Jantoven] 5 mg Tablet 5 mg PO QAM RF: 0 Stand-Alone Forms: [facility] Discharge Orders: Discharge Order (Routine); Ordered 08/21/18 Ordered By: Ramírez Beavers Admission Data Admit Date/Time: 08/17/18 15:56 Attending Provider: Ramírez Beavers Admit Provider: Ramírez Beavers Primary Care Provider: Clemente Walter Other Providers: Sammy Anglin ; Anuj Elmore ; Kayla Carroll Service: Telemetry Other Interventions: Discharge Summary Assessment (RN) Last Done: 08/21/18 16:12
== END 2018-08-21 17:10 | disposition home or self-care (01) | DRG 308 ==
LOC: ED 13:44 → 2E 15:56
PROC: CLS.TEE (2018-08-20 08:20)
DX: I16.0 Hypertensive urgency; I50.31 Acute diastolic (congestive) heart failure; I48.92 Unspecified atrial flutter; E78.5 Hyperlipidemia, unspecified; Z82.49 Family history of ischemic heart disease and other diseases of the circulatory system; L03.119 Cellulitis of unspecified part of limb; I25.10 Atherosclerotic heart disease of native coronary artery without angina pectoris; Z95.5 Presence of coronary angioplasty implant and graft; Z79.82 Long term (current) use of aspirin; Z79.01 Long term (current) use of anticoagulants; I25.2 Old myocardial infarction; E03.9 Hypothyroidism, unspecified; I11.0 Hypertensive heart disease with heart failure; Z79.899 Other long term (current) drug therapy; R09.02 Hypoxemia

== ENCOUNTER 2018-10-05 14:55 | Inpatient (IN) ==
[~2018-10-05 14:55] MED LIST: ASPIRIN CHEW 324 MG PO STA
[2018-10-05 15:16] LABS: Basophils # (auto) 0.01 K/uL (0-0.2); Basophils % (auto) 0.2 %; Eosinophils # (auto) 0.16 K/uL (0-0.5); Eosinophils % (auto) 3.3 %; Hematocrit (blood only) 34.9 % (37-47); Hemoglobin 11.1 g/dL (12.0-16.0); Immature Granulocytes # (auto) 0.01 K/uL (0.00-0.02); Immature Granulocytes % (auto) 0.2 %; Lymphocytes # (auto) 0.72 K/uL (1.2-3.4); Lymphocytes % (auto) 14.7 %; Mean Corpuscular Hgb Conc 31.8 g/dL (32-36); Mean Corpuscular Volume 87.9 fL (80-100); Mean Platelet Volume 12.1 fL (7.4-10.4); Monocytes # (auto) 0.58 K/uL (0.11-0.59); Monocytes % (auto) 11.9 %; Neutrophils # (auto) 3.41 K/uL (1.4-6.5); Neutrophils % (auto) 69.7 %; Platelet Count 244 K/uL (130-400); RDW Coefficient of Variation 18.5 % (11.5-14.5); RDW Standard Deviation 59.9 fL (36.4-46.3); Red Blood Count 3.97 M/uL (4.2-5.4); White Blood Count 4.89 K/uL (4.8-10.8)
--- NOTE | 2018-10-05 15:35 | XRay Report ---
XR chest 1V portable CLINICAL HISTORY: Chest Pain COMPARISON STUDY: Chest radiograph August 17, 2018. FINDINGS: Lung volumes are mildly diminished. There is no pneumothorax or pleural effusion. Moderate enlargement of the cardiac silhouette is noted. This is unchanged. There is no consolidation to sugge st pneumonia. No evidence for pulmonary edema. IMPRESSION: No acute cardiopulmonary findings. Moderate enlargement of the cardiac silhouette. Electronically signed by: Matthew Wilkinson M.D. 10/05/2018 3:34 PM
[2018-10-05 15:40] LABS: Albumin Level 3.3 gm/dl (3.4-5.0); BUN Creatinine Ratio 30.4 (10-20); Calcium 8.8 mg/dl (8.5-10.1); Creatinine Clr Calc Pharmacy 33.3 ml/min; Est GFR (African American) 36.9; Est GFR (Non-African American) 31.8; Magnesium 2.8 mg/dl (1.8-2.4); Potassium 5.8 mmol/L (3.5-5.1)
[2018-10-05 15:45] LABS: Albumin Globulin Ratio 0.8 (0.9-2); Bilirubin,Total 0.8 mg/dl (0.2-1); Globulin 3.9 gm/dl (2.5-4.0); Total Protein 7.2 gm/dl (6.4-8.2); Troponin I 0.017 ng/ml (0-0.045)
--- NOTE | 2018-10-05 16:11 | Cardiology Consultation ---
Date of Consultation October 05, 2018 Assessment & Plan (1) Heart block AV complete: The patient will need a permanent pacemaker. Her Eliquis will be on hold. I am also going to hold her amiodarone until after the pacemaker is placed. The EP service is aware (2) Atrial fibrillation/flutter: (3) Chronic anticoagulation: (4) CAD (coronary artery disease): (5) Chronic diastolic (congestive) heart failure: History of Present Illness History of Present Illness This is a 73-year-old female who follows with Dr. Talavera through our clinic. She has a remote history of coronary artery disease with a previous coronary stent placed to [facility] several years ago. In September she presented with atrial flutter. She was evaluated by the EP service and a planned ablation was scheduled. When the patient arrived she was in atrial fibrillation and a cardioversion was performed. She has been on Eliquis and amiodarone. She has been feeling tired recently and the visiting nurse came to see her today and noticed that she was bradycardic. She was sent to the emergency department where she has been found to be in heart block with heart rates in the 30s and 40s. She is hemodynamically stable. She has no complaints of shortness of breath or chest pain. No dizziness or lightheadedness. Allergies Allergy/AdvReac Type Severity Reaction Status Date / Time No Known Allergies Allergy Verified 10/05/18 16:25 Home Medications Home Medications Medication Instructions Recorded Confirmed Type atorvastatin [Lipitor] 10 mg PO PM 04/23/18 10/05/18 History levothyroxine 25 mcg PO QAM 04/23/18 10/05/18 History paroxetine HCl 20 mg PO QAM 04/23/18 10/05/18 History furosemide 20 mg PO QAM 05/19/18 10/05/18 History albuterol sulfate [Ventolin HFA] 2 puff INHALATION Q4H PRN 08/17/18 10/05/18 History ferrous sulfate 325 mg PO DAILY 08/17/18 10/05/18 History Eliquis 5 mg PO BID #60 tab 08/21/18 10/05/18 Rx Oxygen Home #1 ea 08/21/18 08/24/18 Rx amlodipine [Norvasc] 10 mg PO QAM #30 tab 08/21/18 10/05/18 Rx hydralazine 50 mg PO TID #90 tab 08/21/18 10/05/18 Rx losartan 100 mg PO QAM #30 tab 08/21/18 10/05/18 Rx spironolactone 25 mg PO QAM #30 tab 08/21/18 10/05/18 Rx amiodarone 200 mg PO DAILY #30 tab 09/02/18 10/05/18 Rx Patient History Medical History JENNIFER (acute kidney injury) Hypermagnesemia Hyperkalemia (Acute) Chronic diastolic (congestive) heart failure Heart block AV complete Microcytic red blood cells (Acute) Hypochromic red blood cells (Acute) Depression (Acute) Atrial flutter (Acute) Atrial fibrillation/flutter (Acute) Arthritis (Acute) CAD (coronary artery disease) S/P [place], cath with stent x 2015 Hyperlipidemia HTN (hypertension) Asthma Anxiety Hypothyroid Acute diastolic heart failure Presented to [facility] 08/17 with progressive SOB x 1 month. Admitted for HTN urgency, acute decompensated HF, atrial flutter with slow ventricular response. Compensated at discharge; 2-step showed pt required O2 with ambulation, this was continued at discharge. Anxiety Asthma Atrial flutter developed post op left cataract 05/2018, was started on Eliquis, now for EP procedure Cellulitis B/L LOWER EXTREMITIES (ON KEFLEX), HAS HOME HEALTH WOUND CARE Hyperlipidemia Hypertension Admitted to [facility] 08/17 for hypertensive urgencyl; BB d/c'd 2/2 bradycardia; put on hydralazine, losartan and amlodipine. Hypothyroidism Morbid obesity Myocardial Infarction [address] - [facility] - FOLLOWS W/ DR. TALAVERA On home oxygen therapy ON 2L CONT. [place] Osteoarthritis SOB (shortness of breath) on exertion Surgical History History of appendectomy History of cardiac cath 3 YEARS AGO - [place] - [place] - 1 STENT PLACED - FOLLOWS W/ DR. TALAVERA History of cataract surgery RT/LEFT History of colonoscopy History of hysterectomy History of tooth extraction History of total knee replacement LEFT Family History Brother Family history of diabetes mellitus Myocardial infarction Mother Family history of diabetes mellitus Myocardial infarction Father Myocardial infarction Social History Preferred Language: Vietnamese Communication Ability: Effective Pharmacist Hospital Required: No Beliefs That Will Affect Care: None marital status: / Current Living Situation: Alone Current Living Situation Comment: lives in senior apartment. [employer] Other Information That Helps Us Care for You: No Feels Safe at Home: Yes Safety Concerns: Feels Safe At This Time Smoking Status: Never smoker Do You Dip or Chew Tobacco: No Second Hand Exposure: No Tobacco Cessation Education Requested by Patient: No Hx Alcohol Use: No Hx Substance Use: No Review of Systems Review of Systems: All systems reviewed & are unremarkable except as noted in HPI & below No additional Physical Exam Physical Exam: General: no acute distress and stated age Head: normocephalic, no masses, lesions, tenderness or abnormalities Eyes: conjunctiva are pink and non-injected, sclera clear Neck: supple, no adenopathy, no bruits, normal jugular venous pulse, no hepatojugular reflux Chest: normal shape and normal respiratory effort Lungs: clear to auscultation and percussion Cardiac Exam: - irregular rate & rhythm, no murmurs gallops or rubs - normal S1, normal S2 Pulses: 2(+) throughout Abdomen: abdomen soft, non-tender, no abnormal masses and no hepatosplenomegaly Musculoskeletal: no gait disturbance, no joint inflammation, no deforming arthritis Extremities: no edema and no cyanosis Neuro: grossly normal exam Results & Data Vital Signs (Past 12 Hours) Vital Signs Temp Pulse Resp BP Pulse Ox 10/05/18 15:30 41 L 93 10/05/18 15:20 38 L 91 10/05/18 15:18 50 L 131/64 93 10/05/18 15:15 92 10/05/18 15:10 36 L 92 10/05/18 15:09 36.7 C 34 L 19 130/80 92 10/05/18 15:05 41 L 10/05/18 15:02 41 L 130/80 87 L Laboratory Results Laboratory Results - last 24 hr 10/05/18 10/05/18 14:39 14:39 WBC 4.89 RBC 3.97 L Hgb 11.1 L Hct 34.9 L MCV 87.9 MCH 28.0 MCHC 31.8 L RDW Std Deviation 59.9 H RDW Coeff of Fabián 18.5 H Plt Count 244 MPV 12.1 H Immature Gran % (Auto) 0.2 Neut % (Auto) 69.7 Lymph % (Auto) 14.7 [place] % (Auto) 11.9 Eos % (Auto) 3.3 Baso % (Auto) 0.2 Immature Gran # (Auto) 0.01 Neut # (Auto) 3.41 Lymph # (Auto) 0.72 L [place] # (Auto) 0.58 Eos # (Auto) 0.16 Baso # (Auto) 0.01 Sodium 142 Potassium 5.8 H Chloride 112 H Carbon Dioxide 23 Anion Gap 7.0 BUN 49 H Creatinine 1.61 H Est Cr Clr Drug Dosing 33.3 Est GFR ( Amer) 36.9 Est GFR (Non-Af Amer) 31.8 BUN/Creatinine Ratio 30.4 H Glucose 99 Calcium 8.8 Magnesium 2.8 H Total Bilirubin 0.8 AST 16 ALT 27 Alkaline Phosphatase 159 H Troponin I 0.017 Total Protein 7.2 Albumin 3.3 L Globulin 3.9 Albumin/Globulin Ratio 0.8 L Lipase 134 Medications Administered Medications aspirin 81 mg PO QAM 04/23/18 [History Confirmed 09/02/18] atorvastatin [Lipitor] 10 mg PO PM 04/23/18 [History Confirmed 09/02/18] levothyroxine 25 mcg PO QAM 04/23/18 [History Confirmed 09/02/18] paroxetine HCl 20 mg PO QAM 04/23/18 [History Confirmed 09/02/18] furosemide 20 mg PO QAM 05/19/18 [History Confirmed 09/02/18] gatifloxacin 1 drp [facility] UD 05/19/18 [History Confirmed 09/02/18] Durezol 1 drp OPL UD 08/17/18 [History Confirmed 09/02/18] albuterol sulfate [Ventolin HFA] 2 puff INHALATION Q4H PRN 08/17/18 [History Confirmed 09/02/18] ferrous sulfate 325 mg PO DAILY 08/17/18 [History Confirmed 09/02/18] Eliquis 5 mg PO BID #60 tab 08/21/18 [Rx Confirmed 09/02/18] Oxygen Home #1 ea 08/21/18 [Rx Confirmed 08/24/18] amlodipine [Norvasc] 10 mg PO QAM #30 tab 08/21/18 [Rx Confirmed 09/02/18] hydralazine 50 mg PO TID #90 tab 08/21/18 [Rx Confirmed 09/02/18] losartan 100 mg PO QAM #30 tab 08/21/18 [Rx Confirmed 09/02/18] spironolactone 25 mg PO QAM #30 tab 08/21/18 [Rx Confirmed 09/02/18] amiodarone 200 mg PO DAILY #30 tab 09/02/18 [Rx]
--- NOTE | 2018-10-05 16:28 | History & Physical Report ---
Date of Service October 05, 2018 Assessment & Plan (1) Heart block AV complete: - Admit to tele - EKG reviewed showing complete heart block - Cardiology consulted, Dr. Talavera, plans for permanent pacemaker placement. Follows with Dr. Laughlin as outpatient - Hold Eliquis and amiodarone per cardiology - Due to JENNIFER with Cr. of 1.6, will hold nephrotoxins including lasix, spironolactone, amlodipine, and losartan. NSS on x 12 hrs. - K+ elevated at 5.8 - Mag = 2.8 (2) Chronic diastolic (congestive) heart failure: - Stable, not currently in exacerbation - Strict I/Os, daily weights - Running fluids x 12 hours with risk of hypotension in this pt with complete heart block (3) Atrial fibrillation/flutter: - Stable, holding amiodarone as above. (4) CAD (coronary artery disease): - s/p NC in 2016 (5) HTN (hypertension): - Hold amlodipine 10 mg QAM, furosemide 20 mg QAM, spironolactone 25 mg QAM, losartan 100 mg QAM (6) Hyperlipidemia: -Continue statin therapy (7) JENNIFER (acute kidney injury): - Cr. elevated at 1.61, baseline appears to be 0.6-0.8 - NSS at 80 mL/hr x 12 hrs - Holding nephrotoxins including Lasix, spironolactone, amlodipine and losartan -may resume once creatinine improved, and stable per cardiology. (8) Hypothyroid: - Cont levothyroxine 25 mcg daily (9) Asthma: - Cont ventolin prn, no currently respiratory c/o. - Wears 2 L HS. Current sats are 90% on room air fluctuating up to 94% (10) Anxiety: (11) Depression: - Continue paxil 20 mg daily (12) Arthritis: - Stable (13) Morbid obesity with BMI of 40.0-44.9, adult: - BMI of 41.5, diet and exercise to be encouraged upon discharge. (14) Hyperkalemia: -K+ elevated 5.8, s/p dextrose, calcium gluconate, insulin 8U in the ER. (15) Hypermagnesemia: - MAG= 2.8 - follow with a.m. labs (16) DVT prophylaxis: - teds, scds, holding eliquis for procedure as above. History of Present Illness Primary Care Provider: BENITO Marquez This is a 73 yo F with PMHx of diastolic CHF, Atrial flutter/fibrillation on eliquis, CAD s/p coronary stenting and NC in 2016, HTN, HLD, asthma, anxiety, hypothyroidism, morbid obesity. The patient was recently admitted here at [facility] from 08/17/18/- 08/21/18 for atrial flutter and SSS. The patient underwent cardioversion by Kayla Carroll on 09/02/2018 and has been following up with Dr. Laughlin as an outpatient. Today she was seen by home nurse and was found be bradycardic and have HR in the 30s. Pt reports feeling fatigued over the weekend. Home health nursing has been seeing the patient about twice weekly since she was cardioverted during last admission. The patient reports that the nurse visited her last and at that time VSS. Once evaluated in the ER today, was found to have complete heart block. Cardiology is on board and plans to place a permanent pacemaker. Her Eliquis will be held until procedure which will likely be tomorrow afternoon. We will also hold amiodarone per cardiology. Allergies Allergy/AdvReac Type Severity Reaction Status Date / Time No Known Allergies Allergy Verified 10/05/18 16:25 Home Medications Home Medications Medication Instructions Recorded Confirmed Type atorvastatin [Lipitor] 10 mg PO PM 04/23/18 10/05/18 History levothyroxine 25 mcg PO QAM 04/23/18 10/05/18 History paroxetine HCl 20 mg PO QAM 04/23/18 10/05/18 History furosemide 20 mg PO QAM 05/19/18 10/05/18 History albuterol sulfate [Ventolin HFA] 2 puff INHALATION Q4H PRN 08/17/18 10/05/18 History ferrous sulfate 325 mg PO DAILY 08/17/18 10/05/18 History Eliquis 5 mg PO BID #60 tab 08/21/18 10/05/18 Rx Oxygen Home #1 ea 08/21/18 08/24/18 Rx amlodipine [Norvasc] 10 mg PO QAM #30 tab 08/21/18 10/05/18 Rx hydralazine 50 mg PO TID #90 tab 08/21/18 10/05/18 Rx losartan 100 mg PO QAM #30 tab 08/21/18 10/05/18 Rx spironolactone 25 mg PO QAM #30 tab 08/21/18 10/05/18 Rx amiodarone 200 mg PO DAILY #30 tab 09/02/18 10/05/18 Rx Past Med/Surg History Medical History JENNIFER (acute kidney injury) Hypermagnesemia Hyperkalemia (Acute) Chronic diastolic (congestive) heart failure Heart block AV complete Microcytic red blood cells (Acute) Hypochromic red blood cells (Acute) Depression (Acute) Atrial flutter (Acute) Atrial fibrillation/flutter (Acute) Arthritis (Acute) CAD (coronary artery disease) S/P [place], cath with stent x 2015 Hyperlipidemia HTN (hypertension) Asthma Anxiety Hypothyroid Acute diastolic heart failure Presented to [facility] 08/17 with progressive SOB x 1 month. Admitted for HTN urgency, acute decompensated HF, atrial flutter with slow ventricular response. Compensated at discharge; 2-step showed pt required O2 with ambulation, this was continued at discharge. Anxiety Asthma Atrial flutter developed post op left cataract 05/2018, was started on Eliquis, now for EP procedure Cellulitis B/L LOWER EXTREMITIES (ON KEFLEX), HAS HOME HEALTH WOUND CARE Hyperlipidemia Hypertension Admitted to [facility] 08/17 for hypertensive urgencyl; BB d/c'd 2/2 bradycardia; put on hydralazine, losartan and amlodipine. Hypothyroidism Morbid obesity Myocardial Infarction 3 YEARS AGO - [facility] - FOLLOWS Aaliyah/ DR. LAUGHLIN On home oxygen therapy ON 2L CONT. NC Osteoarthritis SOB (shortness of breath) on exertion Surgical History History of appendectomy History of cardiac cath 3 YEARS AGO - [facility] [place] - 1 STENT PLACED - FOLLOWS W/ DR. LAUGHLIN History of cataract surgery RT/LEFT History of colonoscopy History of hysterectomy History of tooth extraction History of total knee replacement LEFT Family History Brother Family history of diabetes mellitus Myocardial infarction Mother Family history of diabetes mellitus Myocardial infarction Father Myocardial infarction Social History Preferred Language: Arabic Communication Ability: Effective Beliefs That Will Affect Care: None marital status: / Current Living Situation: Alone Current Living Situation Comment: lives in senior apartment. [address] Feels Safe at Home: Yes Smoking Status: Never smoker Hx Alcohol Use: No Hx Substance Use: No Review of Systems Review of Systems: Constitutional: No fever, sweats or chills, + fatigue Eyes: No diplopia, no worsening or blurred vision ENT: normal hearing, no trouble swallowing Respiratory: No cough, sputum, dyspnea at rest or on exertion Cardiovascular: No chest pain, tightness or palpitations Abdomen: No pain, nausea, vomiting, diarrhea or constipation Musculoskeletal: No joint pain, calf pain, swelling Neurologic: No weakness, numbness/tingling, or balance problems Psychiatric: +anxiety or depression, controlled with medication. Skin: No rash or itch Physical Exam Physical Exam: General: awake, alert, no apparent distress, + morbidly obese Head: Normocephalic, atraumatic ENT: PERRL, EOMI, no pharyngeal exudate, mucous membranes moist Chest: Clear to auscultation, on room air, O2 sats at 90%, no adventitious breath sounds Cardiac: + Bradycardic with heart rate in the 30s to 40s at bedside, no murmur, no JVD, normal peripheral pulses. Abdominal: NABS x 4 quadrants, soft, nontender to palpation, no rebound, guarding or tenderness Extremities: + multiple lesions on the BLE, RLE with surrounding erythema of the lesions, yellow crusting. No peripheral edema, calfs nontender to palpation Psych: Normal mood and affect Neuro: AAO x 3, no motor deficits, speech is clear Results & Data Vital Signs (Past 12 Hours) Vital Signs Temp Pulse Resp BP Pulse Ox 10/05/18 16:14 39 L 17 133/61 90 10/05/18 16:12 40 L 23 93 10/05/18 16:02 39 L 146/66 H 10/05/18 16:00 48 L 91 10/05/18 15:51 40 L 92 10/05/18 15:49 37 L 143/63 H 91 10/05/18 15:40 36 L 93 10/05/18 15:30 41 L 93 10/05/18 15:20 38 L 91 10/05/18 15:18 50 L 131/64 93 10/05/18 15:15 92 10/05/18 15:10 36 L 92 10/05/18 15:09 36.7 C 34 L 19 130/80 92 10/05/18 15:05 41 L 10/05/18 15:02 41 L 130/80 87 L ECG Additional Comments: 05-OCT-2018 15:04:07 [facility]-EDSTAT ROUTINE RETRIEVAL Poor data quality, interpretation may be adversely affected Sinus tachycardia with 2nd degree A-V block (Mobitz I) with Premature supraventricular complexes Nonspecific ST and T wave abnormality Abnormal ECG When compared with ECG of 02-SEP-2018 12:39, Premature supraventricular complexes are now Present Vent. rate has decreased BY 37 BPM 25mm/s 10mm/mV 150Hz 9.0.8 12SL 241 SVEN: 10 Referred by: ED Unconfirmed Vent. rate 35 BPM TX interval * ms QRS duration 82 ms QT/QTc 528/403 ms P-R-T axes * 18 52 Code Status & VTE Plan Code Status Full -discussed with the patient at bedside, SUGEY is her son. Supervising Physician Co-Signing Physician Notes The patient was seen and examined by me and I agree with the assessment and plan done by Linda Martinez PA-C. She is scheduled for pacemaker insertion tomorrow. She will be kept n.p.o. after midnight. Lungs are clear. Heart rhythm is regular although somewhat bradycardic at this time. External pacer pads are in place. She has evidence of a cellulitis of the right lower extremity just above the ankle. She will will be started on intravenous Ancef 1 g every 8 hours. IV fluids will be administered to offset acute kidney injury and her diuretics and antihypertensives will be placed on hold.
[2018-10-05] MEDS ORDERED: CALCIUM GLUCONATE 10% 1,000 MG in SODIUM CHLORIDE 0.9% 50 ML IV STA (16:39)
[2018-10-05] MEDS ORDERED: DEXTROSE 50% 50 ML SYRINGE IV STA (16:39)
[2018-10-05] MEDS ORDERED: NovoLIN-R INSULIN PER UNIT CHARGE IV STA (16:39)
[2018-10-05] MEDS ORDERED: ACETAMINOPHEN 325 MG TAB PO PRN (19:03)
[2018-10-05] MEDS ORDERED: CEFAZOLIN 1000MG 1,000 MG/7.5 ML SYR IV SCH (19:03)
[2018-10-05] MEDS ORDERED: SODIUM CHLORIDE 0.9% 1000ML 1,000 ML IV SCH (19:03)
[2018-10-05] MEDS ORDERED: ONDANSETRON INJ 2 MG/ML 2 ML VIAL IV PRN (19:03)
[2018-10-05] MEDS ORDERED: ALBUTEROL HFA 8 GM INHALER INH PRN (19:03)
--- NOTE | 2018-10-05 20:10 | Emergency Department Note ---
Entered by Alejandrina Lawler acting as a scribe for Satya Jones DO History of Present Illness General Chief complaint: Chest Pain Stated complaint: 2nd degree heart block Source: patient Mode of arrival: EMS Limitations: no limitations History of Present Illness Onset (ago): week(s) 2 Location: chest Pain Consistency: + intermittent Quality: + other (chest pain, weakness) Associated symptoms: + chest pain and + weakness; no nausea/vomiting, no shortness of breath and no other (The patient denies dizziness, lightheadedness, diarrhea, leg edema, and urinary symptoms.) The patient is a 73 year old female with a history of microcytic red blood cells, hypochromic red blood cells, depression, atrial flutter, atrial fibrillation, CAD, HTN, asthma, hypothyroid, hypoxia, and CHF who presents to the ED via EMS with complaints of intermittent chest pain that onset 2 weeks ago. The patient complains of weakness. The patient denies dizziness, lightheadedness, shortness of breath, nausea, vomiting, diarrhea, leg edema, and urinary symptoms. She denies smoking. Patient has no other complaints at this time other than just feeling weak at this time. No other exacerbating or remitting factors. Home Medications Home Medications Medication Instructions Recorded Confirmed Type atorvastatin [Lipitor] 10 mg PO PM 04/23/18 10/05/18 History levothyroxine 25 mcg PO QAM 04/23/18 10/05/18 History paroxetine HCl 20 mg PO QAM 04/23/18 10/05/18 History furosemide 20 mg PO QAM 05/19/18 10/05/18 History albuterol sulfate [Ventolin HFA] 2 puff INHALATION Q4H PRN 08/17/18 10/05/18 History ferrous sulfate 325 mg PO DAILY 08/17/18 10/05/18 History Eliquis 5 mg PO BID #60 tab 08/21/18 10/05/18 Rx Oxygen Home #1 ea 08/21/18 08/24/18 Rx amlodipine [Norvasc] 10 mg PO QAM #30 tab 08/21/18 10/05/18 Rx hydralazine 50 mg PO TID #90 tab 08/21/18 10/05/18 Rx losartan 100 mg PO QAM #30 tab 08/21/18 10/05/18 Rx spironolactone 25 mg PO QAM #30 tab 08/21/18 10/05/18 Rx amiodarone 200 mg PO DAILY #30 tab 09/02/18 10/05/18 Rx Allergies Allergy/AdvReac Type Severity Reaction Status Date / Time No Known Allergies Allergy Verified 10/05/18 16:25 Past Med/Surg History Medical History JENNIFER (acute kidney injury) Hypermagnesemia Hyperkalemia (Acute) Chronic diastolic (congestive) heart failure Heart block AV complete Microcytic red blood cells (Acute) Hypochromic red blood cells (Acute) Depression (Acute) Atrial flutter (Acute) Atrial fibrillation/flutter (Acute) Arthritis (Acute) CAD (coronary artery disease) S/P [place], cath with stent x 2015 Hyperlipidemia HTN (hypertension) Asthma Anxiety Hypothyroid Acute diastolic heart failure Presented to [facility] 08/17 with progressive SOB x 1 month. Admitted for HTN urgency, acute decompensated HF, atrial flutter with slow ventricular response. Compensated at discharge; 2-step showed pt required O2 with ambulation, this was continued at discharge. Anxiety Asthma Atrial flutter developed post op left cataract 05/2018, was started on Eliquis, now for EP procedure Cellulitis B/L LOWER EXTREMITIES (ON KEFLEX), HAS HOME HEALTH WOUND CARE Hyperlipidemia Hypertension Admitted to [facility] 08/17 for hypertensive urgencyl; BB d/c'd 2/2 bradycardia; put on hydralazine, losartan and amlodipine. Hypothyroidism Morbid obesity Myocardial Infarction 3 YEARS AGO - [facility] - FOLLOWS Aaliyah/ DR. LAUGHLIN On home oxygen therapy ON 2L CONT. NC Osteoarthritis SOB (shortness of breath) on exertion Surgical History History of appendectomy History of cardiac cath 3 YEARS AGO [facility] [place] - [facility] STENT PLACED - FOLLOWS W/ DR. LAUGHLIN History of cataract surgery RT/LEFT History of colonoscopy History of hysterectomy History of tooth extraction History of total knee replacement LEFT Family History Brother Family history of diabetes mellitus Myocardial infarction Mother Family history of diabetes mellitus Myocardial infarction Father Myocardial infarction Social History Preferred Language: Bahraini Communication Ability: Effective Beliefs That Will Affect Care: None marital status: / Current Living Situation: Alone Current Living Situation Comment: lives in senior apartment. [place] Feels Safe at Home: Yes Smoking Status: Never smoker Hx Alcohol Use: No Hx Substance Use: No Review of Systems See HPI for pertinent positives & negatives. and A total of 10 systems reviewed and were otherwise negative Physical Exam Vital Signs Vital Signs - 24 hr 10/05/18 15:02 10/05/18 15:05 10/05/18 15:09 Temperature 36.7 C Temperature Source Oral Sepsis Recent Fever Within 48 Hours No Sepsis Action Taken by Nursing No Action Required Pulse Rate 41 L 41 L 34 L Pulse Rate from SpO2 Sensor 38 L Respiratory Rate 19 Respiratory Effort / Characteristics Non-Labored Respiratory Depth Normal Blood Pressure 130/80 130/80 Blood Pressure Mean 96 96 Pulse Oximetry 87 L 92 Oxygen Delivery Method Room Air 10/05/18 15:10 10/05/18 15:15 10/05/18 15:18 Temperature Temperature Source Sepsis Recent Fever Within 48 Hours Sepsis Action Taken by Nursing Pulse Rate 36 L 50 L Pulse Rate from SpO2 Sensor 36 L 44 L Respiratory Rate Respiratory Effort / Characteristics Respiratory Depth Blood Pressure 131/64 Blood Pressure Mean 86 Pulse Oximetry 92 92 93 Oxygen Delivery Method Room Air 10/05/18 15:20 10/05/18 15:30 10/05/18 15:40 Temperature Temperature Source Sepsis Recent Fever Within 48 Hours Sepsis Action Taken by Nursing Pulse Rate 38 L 41 L 36 L Pulse Rate from SpO2 Sensor 38 L 39 L 36 L Respiratory Rate Respiratory Effort / Characteristics Respiratory Depth Blood Pressure Blood Pressure Mean Pulse Oximetry 91 93 93 Oxygen Delivery Method 10/05/18 15:49 10/05/18 15:51 10/05/18 16:00 Temperature Temperature Source Sepsis Recent Fever Within 48 Hours Sepsis Action Taken by Nursing Pulse Rate 37 L 40 L 48 L Pulse Rate from SpO2 Sensor 37 L 40 L 45 L Respiratory Rate Respiratory Effort / Characteristics Respiratory Depth Blood Pressure 143/63 H Blood Pressure Mean 89 Pulse Oximetry 91 92 91 Oxygen Delivery Method 10/05/18 16:02 10/05/18 16:12 10/05/18 16:14 Temperature Temperature Source Sepsis Recent Fever Within 48 Hours Sepsis Action Taken by Nursing Pulse Rate 39 L 40 L 39 L Pulse Rate from SpO2 Sensor 43 L 38 L 40 L Respiratory Rate 23 17 Respiratory Effort / Characteristics Respiratory Depth Blood Pressure 146/66 H 133/61 Blood Pressure Mean 92 85 Pulse Oximetry 91 93 90 Oxygen Delivery Method 10/05/18 16:30 10/05/18 16:31 10/05/18 16:46 Temperature Temperature Source Sepsis Recent Fever Within 48 Hours Sepsis Action Taken by Nursing Pulse Rate 42 L 45 L 42 L Pulse Rate from SpO2 Sensor 46 L 46 L 40 L Respiratory Rate 21 21 19 Respiratory Effort / Characteristics Respiratory Depth Blood Pressure 152/71 H 130/57 L Blood Pressure Mean 98 81 Pulse Oximetry 92 92 92 Oxygen Delivery Method Room Air Room Air Room Air GENERAL: Sitting up in bed. Alert, disheveled, well nourished, no distress, non- toxic EYE EXAM: Normal conjunctiva. OROPHARYNX: no exudate, no erythema, lips, buccal mucosa, and tongue normal and mucous membranes are moist NECK: supple, no nuchal rigidity, no adenopathy, non-tender LUNGS: Clear to auscultation. Normal chest wall mechanics HEART: no murmurs, S1 normal and S2 normal ABDOMEN: abdomen soft, non-tender, normo-active bowel sounds, no masses, no rebound or guarding. BACK: Back is symmetrical on inspection and there is no deformity, no midline tenderness, no CVA tenderness. SKIN: no rashes and no bruising UPPER EXTREMITIES: upper extremities are grossly normal. LOWER EXTREMITIES: Pitting edema bilaterally. Calves are equal bilaterally. NEURO EXAM: Normal sensorium, cranial nerves II-XII grossly intact, normal speech, no gross weakness of arms, no gross weakness of legs. Course 1459: Past medical records reviewed. The patient was evaluated in room A1. A complete history and physical examination was performed. 1511: I reviewed the patient's case with Dr. Will Talavera - Process Control Board Operator. 1615: I reviewed the patient's case with Dr. Michael Torres - [facility]. He will evaluate the patient for further management. Consultations Consultation #1: 1511: I reviewed the patient's case with Dr. Will Talavera - Process Control Board Operator. Time: 15:11 Consultation #2: 1615: I reviewed the patient's case with Dr. Michael Torres - [facility]. He will evaluate the patient for further management. Time: 16:15 Administered Medications Sodium Chloride (Nss 1000ml) 1,000 mls @ 80 mls/hr IV .[id number] KIMBERLY Stop: 10/06/18 07:02 Last Admin: 10/05/18 19:50 Dose: 80 mls/hr Documented by: [id number] Discontinued Medications Aspirin (Aspirin) 324 mg PO NOW STA Stop: 10/05/18 14:54 Last Admin: 10/05/18 15:24 Dose: 324 mg Documented by: [id number] Dextrose (Dextrose 50%) 50 ml IV NOW STA Stop: 10/05/18 16:40 Last Admin: 10/05/18 17:28 Dose: 50 ml Documented by: [id number] Calcium Gluconate 1,000 mg/ (Sodium Chloride) 60 mls @ 240 mls/hr IV NOW STA Stop: 10/05/18 16:53 Last Infusion: 10/05/18 17:41 Dose: 0 mls/hr Documented by: [id number] Admin: 10/05/18 17:26 Dose: 240 mls/hr Documented by: [id number] Insulin Human Regular (Novolin R U-100 Per Unit) 8 units IV NOW STA Stop: 10/05/18 16:40 Last Admin: 10/05/18 17:27 Dose: 8 units Documented by: [id number] Cosigned by: [id number] Medical Decision Making Differential Diagnosis Differential diagnoses: Metabolic, infection, hypo/hyperglycemia, electrolyte abnormalities, cardiac sources, intracerebral event, toxicologic, neurologic, as well as others were entertained. Medical Records Attestation: I reviewed the patient's medical records. Home Medications Current Medication List: was personally reviewed by me Laboratory Data Attestation: I reviewed the patient's lab results. Result diagrams: 10/05/18 14:39 10/05/18 14:39 Lab Results 10/05/18 10/05/18 Range/Units 14:39 14:39 WBC 4.89 (4.8-10.8) K/uL RBC 3.97 L (4.2-5.4) M/uL Hgb 11.1 L (12.0-16.0) g/dL Hct 34.9 L (37-47) % MCV 87.9 (80-100) fL MCH 28.0 (25-34) pg MCHC 31.8 L (32-36) g/dL RDW Std Deviation 59.9 H (36.4-46.3) fL RDW Coeff of Fabián 18.5 H (11.5-14.5) % Plt Count 244 (130-400) K/uL MPV 12.1 H (7.4-10.4) fL Immature Gran % (Auto) 0.2 % Neut % (Auto) 69.7 % Lymph % (Auto) 14.7 % Evangeline % (Auto) 11.9 % Eos % (Auto) 3.3 % Baso % (Auto) 0.2 % Immature Gran # (Auto) 0.01 (0.00-0.02) K/uL Neut # (Auto) 3.41 (1.4-6.5) K/uL Lymph # (Auto) 0.72 L (1.2-3.4) K/uL Evangeline # (Auto) 0.58 (0.11-0.59) K/uL Eos # (Auto) 0.16 (0-0.5) K/uL Baso # (Auto) 0.01 (0-0.2) K/uL Sodium 142 (136-145) mmol/L Potassium 5.8 H (3.5-5.1) mmol/L Chloride 112 H (98-107) mmol/L Carbon Dioxide 23 (21-32) mmol/L Anion Gap 7.0 (3-11) BUN 49 H (7-18) mg/dl Creatinine 1.61 H (0.6-1.2) mg/dl Est Cr Clr Drug Dosing 33.3 ml/min Est GFR ( Amer) 36.9 Est GFR (Non-Af Amer) 31.8 BUN/Creatinine Ratio 30.4 H (10-20) Glucose 99 (70-99) mg/dl Calcium 8.8 (8.5-10.1) mg/dl Magnesium 2.8 H (1.8-2.4) mg/dl Total Bilirubin 0.8 (0.2-1) mg/dl AST 16 (15-37) U/L ALT 27 (12-78) U/L Alkaline Phosphatase 159 H (45-117) U/L Troponin I 0.017 (0-0.045) ng/ml Total Protein 7.2 (6.4-8.2) gm/dl Albumin 3.3 L (3.4-5.0) gm/dl Globulin 3.9 (2.5-4.0) gm/dl Albumin/Globulin Ratio 0.8 L (0.9-2) Lipase 134 (73-393) U/L Imaging Data Radiologist's Impression: Radiology results as stated below per my review and the radiologist's interpretation: XR chest 1V portable CLINICAL HISTORY: Chest Pain COMPARISON STUDY: Chest radiograph August 17, 2018. FINDINGS: Lung volumes are mildly diminished. There is no pneumothorax or pleural effusion. Moderate enlargement of the cardiac silhouette is noted. This is unchanged. There is no consolidation to suggest pneumonia. No evidence for pulmonary edema. IMPRESSION: No acute cardiopulmonary findings. Moderate enlargement of the cardiac silhouette. Electronically signed by: Matthew Wilkinson M.D. 10/05/2018 3:34 PM Dictated: 10/05/18 1533 Transcribed: 10/05/18 1533 ECG Data Attestation: I personally reviewed and interpreted this ECG as follows: Indication: chest pain Rate (beats per minute): 28 Rhythm: other (2nd degree AV block) Findings: + other (normal axis, T wave flattening in the inferior leads. ); no PVC Blood Pressure Blood Pressure Findings: Normal blood pressure MDM Narrative Patient is a 73-year-old female who presents the ER via EMS who I received medical command call on for concerning for heart block. Vitals were obtained and showed a bradycardia with a heart rate in the 20s to 40s. EKG confirms a Mobitz type II heart block. Labs were obtained and showed no significant leukocytosis or anemia. BMP with hyperkalemia with a potassium of 5.8. Creatinine was 1.6. With this finding although I favor unlikely I did treat the potassium. Patient was given IV calcium gluconate, 10 units IV insulin and amp of D50 to treat the hyperkalemia. Although I do favor that the likely cause of this Mobitz 2 is either related to the amiodarone sinus amlodipine versus condu ction issues as opposed to her hyperkalemia at 5.8. Troponin was detectable but not positive. Lipase was normal. Chest x-ray was unremarkable. Patient was given IV fluids. Discussed with cardiology upon arrival due to the Mobitz 2 with a heart rate in the 30s. She did maintain systolic pressures in the low 100s. She was updated bedside. Discussed with the hospitalist and patient was admitted to hospital with a Mobitz 2 heart block with systolic pressures in the low 100s with mild hyperkalemia which was treated here in the ER. Impression & Plan Atrioventricular block, Mobitz type 2, Hyperkalemia Critical Care Time I have personally spent 35 minutes of critical care time in the direct management of this patient. This includes bedside care, interpretation of diagnostic studies, and testing, discussion with consultants, patient, and family members, and other required patient management activities. This 35 minutes is in excess of all separately billable procedures. Critical Care Time: Yes (35) Total Critical Care Time: 35 Discharge Plan Visit Data *Final* Discharge Date/Time: 10/05/18 18:32 Chief Complaint: Chest Pain Stated Complaint: 2nd degree heart block ED Provider: Satya Jones Discharge Problem: Atrioventricular block, Mobitz type 2, Hyperkalemia Patient Disposition: Admitted As Inpatient Discharge Instructions Interventions: ED Discharge Assessment Last Done: 10/05/18 18:32 The scribe's documentation has been prepared under my direction and personally reviewed by me in its entirety. I confirm that the note above accurately reflects all work, treatment, procedures, and medical decision making performed by me.
[2018-10-05] MEDS: CEFAZOLIN 1000MG 1,000 MG/7.5 ML SYR IV SCH (20:35)
[2018-10-05] MEDS: ATORVASTATIN 10 MG TAB PO SCH (20:36)
[2018-10-05] MEDS: HydrALAZINE TAB 50 MG TAB PO SCH (20:36)
[2018-10-05] MEDS: BACITRACIN OINT 0.9 GM PKT EXT SCH (22:09)
[2018-10-06] MEDS: CEFAZOLIN 1000MG 1,000 MG/7.5 ML SYR IV SCH ×3 (03:46→20:21)
[2018-10-06] MEDS: LEVOTHYROXINE SODIUM 25 MCG TABLET PO SCH (06:28)
[2018-10-06] MEDS: HydrALAZINE TAB 50 MG TAB PO SCH ×3 (07:49→20:21)
[2018-10-06] MEDS: BACITRACIN OINT 0.9 GM PKT EXT SCH ×2 (07:50→21:30)
[2018-10-06] MEDS: FERROUS SULFATE 325 MG TAB PO SCH (07:50)
[2018-10-06] MEDS: PARoxetine HCl 20 MG TAB PO SCH (07:50)
[2018-10-06 08:07] LABS: Basophils # (auto) 0.02 K/uL (0-0.2); Basophils % (auto) 0.3 %; Eosinophils # (auto) 0.23 K/uL (0-0.5); Eosinophils % (auto) 3.5 %; Hematocrit (blood only) 36.4 % (37-47); Hemoglobin 11.8 g/dL (12.0-16.0); Immature Granulocytes # (auto) 0.02 K/uL (0.00-0.02); Immature Granulocytes % (auto) 0.3 %; Lymphocytes # (auto) 0.57 K/uL (1.2-3.4); Lymphocytes % (auto) 8.7 %; Mean Corpuscular Hgb Conc 32.4 g/dL (32-36); Mean Corpuscular Volume 86.7 fL (80-100); Mean Platelet Volume 10.4 fL (7.4-10.4); Monocytes # (auto) 0.56 K/uL (0.11-0.59); Monocytes % (auto) 8.5 %; Neutrophils # (auto) 5.16 K/uL (1.4-6.5); Neutrophils % (auto) 78.7 %; Platelet Count 210 K/uL (130-400); RDW Coefficient of Variation 18.1 % (11.5-14.5); RDW Standard Deviation 57.8 fL (36.4-46.3); White Blood Count 6.56 K/uL (4.8-10.8)
[2018-10-06 08:15] LABS: INR 1.2 (0.9-1.1); Prothrombin Time 11.7 Seconds (9.0-12.0)
--- NOTE | 2018-10-06 08:43 | Cardiology Consultation ---
Date of Consultation October 06, 2018 Assessment & Plan (1) Symptomatic bradycardia: She presents with symptomatic bradycardia which is due to a combination of sinus bradycardia and AV block. Her heart rate on arrival was in the 30s. This is in part medication related due to amiodarone, she is not on other AV blocking medications. Alternatives include pacemaker implantation for heart rate support versus discontinuation of amiodarone, I reviewed the ramifications of the alternatives to pacemaker implantation with her. If we stop her amiodarone and will take some time for her heart rate to increase substantially as it has a very long half-life, she will feel poorly for some time and she has evidence of renal insufficiency which I suspect is bradycardia related. Is therefore not a very good option, and even if we did that she would very likely have recurrent atrial fibrillation or flutter and we would need medications for rate control. All in all I think the best option is pacemaker implantation and continue medical therapy for her tachyarrhythmia. I discussed the indications, procedure, risks and alternatives with her and she understands and agrees to proceed. Her risk of bleeding is slightly increased due to the presence of Eliquis which was last taken yesterday morning. I think this risk is acceptable and she is in agreement. Consent obtained. I also discussed conscious sedation with her including the risks and she understands and agrees. Consent obtained. We will therefore plan pacemaker implantation today, using a dual-chamber pacemaker. (2) CAD (coronary artery disease): She has coronary artery disease with stent placement several years ago, she does not have any symptoms of angina and I do not believe coronary disease is related to her presentation. Tach arrhythmia such as atrial fibrillation or atrial flutter could potentially be problematic with her coronary artery disease and therefore rate control is essential. This will result in a slow heart rate and she needs bradycardia support. (3) Atrial fibrillation/flutter: She has history of both atrial flutter and atrial fibrillation, ablation could be considered however atrial fibrillation ablation is difficult and we do not do it here in the results or not terribly effective. I do not think this is a good option and she will need ongoing medical therapy for atrial fibrillation. Amiodarone appears to be effective at this point. (4) Chronic anticoagulation: She has been on Eliquis, her last dose was the morning of October 05, 2018. Although technically we should wait a little bit longer with her renal insufficiency and symptomatic bradycardia I think it is better to go ahead and do the pacemaker implantation today. She understands that there is a slightly increased risk of bleeding. (5) JENNIFER (acute kidney injury): Her creatinine is elevated on admission, this is higher than it has been in the past. I suspect it is due to the bradycardia and renal hypoperfusion. I expect that that will correct once we have the pacemaker in place. Meanwhile some of her other medications are being held. History of Present Illness Reason for Consultation: Symptomatic AV block Attending Physician: Juanito Polk History of Present Illness This is a very pleasant 73-year-old woman who has a history of coronary artery disease including prior stent placement elsewhere, as well as a history of atrial flutter for which ablation was considered but she also has atrial fibrillation. She is therefore on chronic anticoagulation and on amiodarone to maintain sinus rhythm. She presents now with high-grade AV block and Mobitz 1 second-degree AV block with bradycardia. She has been feeling very fatigued and tired, she also has an increase in her creatinine consistent with renal hypoperfusion which is probably due to her bradycardia on presentation. She is being considered for pacemaker implantation for tachybradycardia syndrome. She denies symptoms of exertional chest discomfort, she has not had presyncope or syncope. She does not have orthopnea or PND. Allergies Allergy/AdvReac Type Severity Reaction Status Date / Time No Known Allergies Allergy Verified 10/05/18 16:25 Home Medications Home Medications Medication Instructions Recorded Confirmed Type atorvastatin [Lipitor] 10 mg PO PM 04/23/18 10/05/18 History levothyroxine 25 mcg PO QAM 04/23/18 10/05/18 History paroxetine HCl 20 mg PO QAM 04/23/18 10/05/18 History furosemide 20 mg PO QAM 05/19/18 10/05/18 History albuterol sulfate [Ventolin HFA] 2 puff INHALATION Q4H PRN 08/17/18 10/05/18 History ferrous sulfate 325 mg PO DAILY 08/17/18 10/05/18 History Eliquis 5 mg PO BID #60 tab 08/21/18 10/05/18 Rx Oxygen Home #1 ea 08/21/18 08/24/18 Rx amlodipine [Norvasc] 10 mg PO QAM #30 tab 08/21/18 10/05/18 Rx hydralazine 50 mg PO TID #90 tab 08/21/18 10/05/18 Rx losartan 100 mg PO QAM #30 tab 08/21/18 10/05/18 Rx spironolactone 25 mg PO QAM #30 tab 08/21/18 10/05/18 Rx amiodarone 200 mg PO DAILY #30 tab 09/02/18 10/05/18 Rx Patient History Medical History JENNIFER (acute kidney injury) Hypermagnesemia Hyperkalemia (Acute) Chronic diastolic (congestive) heart failure Heart block AV complete Microcytic red blood cells (Acute) Hypochromic red blood cells (Acute) Depression (Acute) Atrial flutter (Acute) Atrial fibrillation/flutter (Acute) Arthritis (Acute) CAD (coronary artery disease) [place], cath with stent x 2015 Hyperlipidemia HTN (hypertension) Asthma Anxiety Hypothyroid Acute diastolic heart failure Presented to [facility] 08/17 with progressive SOB x 1 month. Admitted for HTN urgency, acute decompensated HF, atrial flutter with slow ventricular response. Compensated at discharge; 2-step showed pt required O2 with ambulation, this was continued at discharge. Anxiety Asthma Atrial flutter developed post op left cataract 05/2018, was started on Eliquis, now for EP procedure Cellulitis B/L LOWER EXTREMITIES (ON KEFLEX), HAS HOME HEALTH WOUND CARE Hyperlipidemia Hypertension Admitted to [facility] 08/17 for hypertensive urgencyl; BB d/c'd 2/2 bradycardia; put on hydralazine, losartan and amlodipine. Hypothyroidism Morbid obesity Myocardial Infarction 3 YEARS AGO - [facility] - FOLLOWS W/ DR. LAUGHLIN On home oxygen therapy ON 2L CONT. [place] Osteoarthritis SOB (shortness of breath) on exertion Surgical History History of appendectomy History of cardiac cath 3 YEARS AGO - [place] - [place] - 1 STENT PLACED - FOLLOWS W/ DR. 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 [employer] Other Information That Helps Us Care for You: No Feels Safe at Home: Yes Safety Concerns: Feels Safe At This Time Smoking Status: Never smoker Do You Dip or Chew Tobacco: No Second Hand Exposure: No Tobacco Cessation Education Requested by Patient: No Hx Alcohol Use: No Hx Substance Use: No Review of Systems 2 Review of Systems: All systems reviewed & are unremarkable except as noted in HPI & below Physical Exam Physical Exam: Constitutional: Alert, cooperative and in no distress. HEENT: Unremarkable Neck: No jugular venous distention, carotid pulses are normal and equal bilaterally without bruits. Pulmonary: Clear to auscultation bilaterally. Cardiac: Regular slow rhythm with no murmur, gallop or rub. Abdomen: Soft, nontender with normal bowel sounds. Extremities: No edema. Distal pulses intact. Neurologic: No focal findings. Gait is steady. Skin: No rash, ecchymoses or petechiae. Results & Data Vital Signs (Past 12 Hours) Vital Signs Temp Pulse Resp BP Pulse Ox 10/06/18 07:22 36.7 C 64 22 163/75 H 90 10/06/18 03:35 36.7 C 65 16 133/75 92 10/05/18 23:20 36.4 C L 57 L 16 130/73 92 Diagnostic Findings Several electrocardiograms are available for review done yesterday. These both show sinus bradycardia with high-grade and second-degree (Mobitz 1) AV block, heart rate is 35 bpm on 1 and 39 bpm on the other. Telemetry monitoring demonstrates sinus bradycardia with a long first-degree AV block alternating with periods of Mobitz 1 second-degree AV block and an overall slow heart rate.
--- NOTE | 2018-10-06 10:08 | Cardiology Progress Note ---
Date of Service October 06, 2018 Assessment & Plan (1) Heart block AV complete: The patient will have a pacemaker placed today. (2) Atrial fibrillation/flutter: (3) Chronic anticoagulation: (4) CAD (coronary artery disease): (5) Chronic diastolic (congestive) heart failure: Subjective Uneventful night. The patient remains bradycardic but hemodynamically stable. She will receive a pacemaker later today. Review of Systems Review of Systems: All systems reviewed & are unremarkable except as noted in HPI & below Nothing additional Physical Exam Physical Exam: General: no acute distress and stated age Head: normocephalic, no masses, lesions, tenderness or abnormalities Eyes: conjunctiva are pink and non-injected, sclera clear Neck: supple, no adenopathy, no bruits, normal jugular venous pulse, no hepatojugular reflux Chest: normal shape and normal respiratory effort Lungs: clear to auscultation and percussion Cardiac Exam: -Bradycardic, no murmurs gallops or rubs - normal S1, normal S2 Pulses: 2(+) throughout Abdomen: abdomen soft, non-tender, no abnormal masses and no hepatosplenomegaly Musculoskeletal: no gait disturbance, no joint inflammation, no deforming arthritis Extremities: no edema and no cyanosis Neuro: grossly normal exam Results & Data Vital Signs (Past 12 Hours) Vital Signs Temp Pulse Resp BP Pulse Ox 10/06/18 07:22 36.7 C 64 22 163/75 H 90 10/06/18 03:35 36.7 C 65 16 133/75 92 10/05/18 23:20 36.4 C L 57 L 16 130/73 92 Laboratory Results Laboratory Results - last 24 hr 10/05/18 10/05/18 10/06/18 14:39 14:39 07:53 WBC 4.89 RBC 3.97 L Hgb 11.1 L Hct 34.9 L MCV 87.9 MCH 28.0 MCHC 31.8 L RDW Std Deviation 59.9 H RDW Coeff of Fabián 18.5 H Plt Count 244 MPV 12.1 H Immature Gran % (Auto) 0.2 Neut % (Auto) 69.7 Lymph % (Auto) 14.7 [place] % (Auto) 11.9 Eos % (Auto) 3.3 Baso % (Auto) 0.2 Immature Gran # (Auto) 0.01 Neut # (Auto) 3.41 Lymph # (Auto) 0.72 L [place] # (Auto) 0.58 Eos # (Auto) 0.16 Baso # (Auto) 0.01 PT INR Sodium 142 Potassium 5.8 H Chloride 112 H Carbon Dioxide 23 Anion Gap 7.0 BUN 49 H Creatinine 1.61 H Est Cr Clr Drug Dosing 33.3 Est GFR ( Amer) 36.9 Est GFR (Non-Af Amer) 31.8 BUN/Creatinine Ratio 30.4 H Glucose 99 Calcium 8.8 Magnesium 2.8 H Total Bilirubin 0.8 AST 16 ALT 27 Alkaline Phosphatase 159 H Troponin I 0.017 Total Protein 7.2 Albumin 3.3 L Globulin 3.9 Albumin/Globulin Ratio 0.8 L Lipase 134 Hepatitis C Ab Screen Neg 10/06/18 10/06/18 10/06/18 07:53 07:53 07:53 WBC 6.56 RBC 4.20 Hgb 11.8 L Hct 36.4 L MCV 86.7 MCH 28.1 MCHC 32.4 RDW Std Deviation 57.8 H RDW Coeff of Fabián 18.1 H Plt Count 210 MPV 10.4 Immature Gran % (Auto) 0.3 Neut % (Auto) 78.7 Lymph % (Auto) 8.7 [place] % (Auto) 8.5 Eos % (Auto) 3.5 Baso % (Auto) 0.3 Immature Gran # (Auto) 0.02 Neut # (Auto) 5.16 Lymph # (Auto) 0.57 L [place] # (Auto) 0.56 Eos # (Auto) 0.23 Baso # (Auto) 0.02 PT 11.7 INR 1.2 H Sodium Potassium Chloride Carbon Dioxide Anion Gap BUN Creatinine Est Cr Clr Drug Dosing Est GFR ( Amer) Est GFR (Non-Af Amer) BUN/Creatinine Ratio Glucose Calcium Magnesium 2.5 H Total Bilirubin AST ALT Alkaline Phosphatase Troponin I Total Protein Albumin Globulin Albumin/Globulin Ratio Lipase Hepatitis C Ab Screen Medications Administered Current Inpatient Medications Acetaminophen (Tylenol) 650 mg PO Q4H PRN PRN Reason: Moderate Pain Stop: 11/04/18 19:02 Albuterol (Ventolin Hfa) 2 puffs INH Q4H PRN PRN Reason: Shortness Of Breath Or Wheezin Stop: 11/04/18 19:02 Atorvastatin Calcium (Lipitor) 10 mg PO PM KIMBERLY Stop: 11/04/18 20:59 Last Admin: 10/05/18 20:36 Dose: 10 mg Documented by: Bacitracin (Bacitracin) 1 appln EXT BID KIMBERLY Stop: 11/04/18 20:59 Last Admin: 10/06/18 07:50 Dose: 1 appln Documented by: Ferrous Sulfate (Feosol) 325 mg PO DAILY KIMBERLY Stop: 11/05/18 08:59 Last Admin: 10/06/18 07:50 Dose: 325 mg Documented by: Hydralazine HCl (Apresoline) 50 mg PO TID [facility] Stop: 11/04/18 20:59 Last Admin: 10/06/18 07:49 Dose: 50 mg Documented by: Cefazolin Sodium (Ancef 1000mg) 1,000 mg in 7.5 mls @ 2.5 mls/min IV Q8H [facility] Stop: 10/15/18 19:59 Last Admin: 10/06/18 03:46 Dose: 2.5 mls/min Documented by: Levothyroxine Sodium (Synthroid) 25 mcg PO DAILYBB [facility] Stop: 11/05/18 06:29 Last Admin: 10/06/18 06:28 Dose: 25 mcg Documented by: Ondansetron HCl (Zofran) 4 mg IV Q4H PRN PRN Reason: Nausea And Vomiting Stop: 11/04/18 19:02 Paroxetine HCl (Paxil) 20 mg PO QAM [facility] Stop: 11/05/18 08:59 Last Admin: 10/06/18 07:50 Dose: 20 mg Documented by:
[2018-10-06 10:41] LABS: BUN Creatinine Ratio 28.4 (10-20); Creatinine Clr Calc Pharmacy 49.6 ml/min; Est GFR (African American) 59.8; Est GFR (Non-African American) 51.6; Potassium 4.8 mmol/L (3.5-5.1)
[2018-10-06] MEDS ORDERED: BACITRACIN INJ 50,000 UNIT VIAL ONE (11:41)
[2018-10-06] MEDS ORDERED: LIDOCAINE HCL 1% 20 ML VIAL ONE (11:41)
[2018-10-06] MEDS ORDERED: MIDAZOLAM HCL 5 MG/ML 1 ML VIAL ONE (11:53)
[2018-10-06] MEDS ORDERED: fentaNYL citrate 100 MCG/2 ML VIAL ONE ×2 (11:53→13:18)
[2018-10-06] MEDS ORDERED: CEFAZOLIN 250 MG/ML 1 GM VIAL ONE (11:53)
--- NOTE | 2018-10-06 12:06 | Pre Anesthesia Assessment ---
Date of Service October 06, 2018 Pre Sedation Assessment Vital Signs Temp Pulse Pulse Resp BP BP Pulse Ox 10/06/18 11:05 36.9 C 57 L 22 167/84 H 90 10/06/18 07:22 36.7 C 64 22 163/75 H 90 10/06/18 03:35 36.7 C 65 16 133/75 92 10/05/18 23:20 36.4 C L 57 L 16 130/73 92 10/05/18 18:58 36.4 C L 48 L 20 137/74 93 10/05/18 18:30 48 L 22 95 10/05/18 18:20 61 21 95 10/05/18 18:16 54 L 23 115/56 L 91 10/05/18 18:10 46 L 18 92 10/05/18 18:01 48 L 19 129/55 L 92 10/05/18 18:00 49 L 22 94 10/05/18 17:50 48 L 20 93 10/05/18 17:46 49 L 21 141/61 H 92 10/05/18 17:40 52 L 21 95 10/05/18 17:31 53 L 21 141/63 H 92 10/05/18 17:30 51 L 23 92 10/05/18 17:17 49 L 20 144/59 H 91 10/05/18 17:01 43 L 19 132/70 10/05/18 17:00 46 L 20 92 10/05/18 16:46 42 L 19 130/57 L 92 10/05/18 16:31 45 L 21 152/71 H 92 10/05/18 16:30 42 L 21 92 10/05/18 16:14 39 L 17 133/61 90 10/05/18 16:12 40 L 23 93 10/05/18 16:02 39 L 146/66 H 91 10/05/18 16:00 48 L 91 10/05/18 15:51 40 L 92 10/05/18 15:49 37 L 143/63 H 91 10/05/18 15:40 36 L 93 10/05/18 15:30 41 L 93 10/05/18 15:20 38 L 91 10/05/18 15:18 50 L 131/64 93 10/05/18 15:15 92 10/05/18 15:10 36 L 92 10/05/18 15:09 36.7 C 34 L 19 130/80 92 10/05/18 15:05 41 L 10/05/18 15:02 41 L 130/80 87 L Cardiovascular RRR, no murmur, no edema + bradycardic Respiratory normal respiratory effort, lungs clear to auscultation Pre-Sedation Airway Assessment Smoking Status: Never smoker Hx Sleep Apnea: No Hx Difficult Intubation: No Short, Thick Neck: Yes Thyromental Distance: < 3.5 Finger Breadths Mallampati Class: II ASA III NPO Status Date of Last Intake of Fluids: 10/05/18 Date of Last Intake of Solid Food: 10/05/18 Procedure Planning Contraindications for Sedation: none Current Medications Reviewed: Yes Notes The planned sedation has been discussed with the patient. Informed Consent was obtained. I have identified the patient, determined the appropriateness of sedation and have assessed the patient immediately prior to the procedure. All medicine(s) and interventions are by my order.
[2018-10-06] MEDS ORDERED: MIDAZOLAM HCL 1 MG/ML 2ML VIAL ONE (13:35)
[2018-10-06] MEDS ORDERED: BACITRACIN OINT 0.9 GM PKT ONE (13:50)
--- NOTE | 2018-10-06 14:01 | Operative Report ---
Post Operative Report Pre & Post Diagnosis Operation Date: 10/06/18 11:40 Preoperative diagnosis: Symptomatic second-degree AV block, atrial fibrillation and flutter (tachybradycardia syndrome) Postoperative diagnosis: Same Procedure Operation Date: 10/06/18 11:40 Actual Procedures s Cineradiography w/Routine Exam(Not Applicable) - Eddie Fonseca MD s Venogram, Unilateral(Not Applicable) - Eddie Fonseca MD p Pacer with A/V Leads (Dual) - Eddie Fonseca MD Surgeon Eddie Fonseca MD Tallow Maker None Estimated Blood Loss 100 Findings Consistent with Post-Op Diagnosis Specimens None Anesthesia Type Local Complications none Disposition Accompanied Patient To Recovery: No Disposition: PCU Description of Procedure After obtaining informed consent for the procedure, the patient was brought to the laboratory and prepped and draped in the standard sterile manner. The left prepectoral region was anesthetized with 1% lidocaine local anesthetic and dye was injected the left arm IV site to opacify the left subclavian vein. The subclavian vein was identified and found to be free of obstruction. Left axillary venipuncture was performed by percutaneous technique and a guidewire placed through the left subclavian vein into the superior vena cava. The area was further infiltrated with 1% lidocaine local anesthetic and a 5 cm incision was made parallel to the left clavicle and 2 cm below it and carried down to the anterior pectoralis fascia. A pacemaker pocket was formed by blunt dissection anterior to the pectoralis fascia and a bacitracin-soaked sponge (50,000 units in 50 cc normal saline solution) was placed in the pocket. An 8 Mongolian Medtronic lead introducer was placed over the guidewire into the left subclavian vein, the dilator and guidewire were removed and a bipolar active fixation steroid tipped ventricular lead was advanced through the introducer into the superior vena cava. A guidewire was placed through the introducer and the introducer was stripped from the lead and guidewire. Another 8 Mongolian Medtronic lead introducer was placed over the guidewire into the left subclavian vein, the dilator and guidewire were removed and a bipolar active fixation steroid tipped atrial lead was advanced through the introducer into the superior vena cava. A guidewire was placed back through the introducer and the introducer was stripped from the lead and guidewire. Manipulation of the leads was difficult, therefore introducers were placed back into the subclavian vein and lead positioning was performed through the introducers. Using a curved stylette the ventricular lead was advanced through the right ventricular outflow tract into the pulmonary artery and then using a straight stylette was positioned in the right ventricular apex. The screw was extended fixing the lead in position. Pacing and sensing thresholds were evaluated in bipolar configuration and are recorded on the implant data sheet. Using a curved stylette the atrial lead was positioned in the region of the atrial appendage and the screw extended fixing the lead in position. Pacing and sensing thresholds were evaluated in bipolar configuration and are recorded on the implant data sheet. Once the leads were in position they were attached to the anterior pectoralis fascia using 2 sutures of 2-0 silk around each lead collar. The bacitracin- soaked sponge was removed from the pocket, hemostasis was obtained, the pacemaker was attached to the leads and placed in the pocket with the leads coiled beneath it, and closed in a Tyrex pouch. The incision was closed with a running double subcutaneous closure of 3-0 Vicryl absorbable suture, followed by running subcuticular skin closure of 4-0 Vicryl absorbable suture. Bacitracin ointment was placed on the incision and a pressure dressing applied. I attest to the content of the Intraoperative Record and any orders documented therein. Any exceptions are noted below.
[2018-10-06] MEDS ORDERED: ACETAMINOPHEN 325 MG TAB PO PRN (14:04)
[2018-10-06] MEDS ORDERED: ACETAMINOPHEN W/CODEINE #3 1 TAB PO PRN (14:04)
[2018-10-06] MEDS: LACTATED RINGER'S 1,000 ML IV SCH (15:59)
--- NOTE | 2018-10-06 16:48 | Post Anesthesia Assessment ---
Date of Service October 06, 2018 Post Sedation Assessment Vital Signs Temp Pulse Pulse Resp BP BP Pulse Ox 10/06/18 16:30 36.6 C 68 19 146/75 H 100 10/06/18 16:00 36.6 C 61 19 146/79 H 99 10/06/18 15:30 36.6 C 66 18 133/72 97 10/06/18 15:21 36.5 C 60 19 133/72 98 10/06/18 15:19 36.6 C 60 18 152/82 H 10/06/18 14:49 36.6 C 58 L 18 90 10/06/18 14:34 36.6 C 98 H 18 133/72 10/06/18 14:19 36.6 C 64 18 10/06/18 14:04 36.7 C 88 18 150/79 H 88 L 10/06/18 11:05 36.9 C 57 L 22 167/84 H 90 10/06/18 07:22 36.7 C 64 22 163/75 H 90 10/06/18 03:35 36.7 C 65 16 133/75 92 10/05/18 23:20 36.4 C L 57 L 16 130/73 92 10/05/18 18:58 36.4 C L 48 L 20 137/74 93 10/05/18 18:30 48 L 22 95 10/05/18 18:20 61 21 95 10/05/18 18:16 54 L 23 115/56 L 91 10/05/18 18:10 46 L 18 92 10/05/18 18:01 48 L 19 129/55 L 92 10/05/18 18:00 49 L 22 94 10/05/18 17:50 48 L 20 93 10/05/18 17:46 49 L 21 141/61 H 92 10/05/18 17:40 52 L 21 95 10/05/18 17:31 53 L 21 141/63 H 92 10/05/18 17:30 51 L 23 92 10/05/18 17:17 49 L 20 144/59 H 91 10/05/18 17:01 43 L 19 132/70 10/05/18 17:00 46 L 20 92 Recovery Score Activity: Moves 4 extremities Respiration: Deep Breath/Cough Circulation: +/-20% PreAnes Value Consciousness: Fully Awake Oxygen Saturation: > 92% On Room Air Discharge Sedation Level of Care: Fast Track Phase II Post Sedation Plan On clinical assessment, the patient appears to have tolerated the sedation without complications. Patient is recovering as anticipated. Patient will continue to be monitored by nursing and may be discharged when sedation discharge criteria are met per below protocol. Upon Completions of procedure and additional 15 minutes continue every 5 minute vital signs and the P.A.R. score; then discharge to a Phase I or Fast Track to Phase II per the following guidelines: * Discharge Patient to appropriate Phase II area if PAR is 8 or greater or return to pre- procedure baseline. The post - procedure orders will be as directed. * If PAR score is less than 8 or not return to pre-procedure baseline then patient will follow Phase I monitoring till PAR is reached for Phase II. The Phase I may be done in procedure room or may call to secure a Phase I area. * If naloxone or flumazenil are used for reversal, hold in Phase I for continued monitoring from when last reversal dose was given for a minimum of 60 minutes or longer pending the nurse and/or physician discretion of patient condition before discharge to Phase II. Please call the Sedation Physician to re-evaluate and complete post-note for discharge to Phase II area. Do NOT discharge from procedure sedation or Phase 1 until post- sedation evaluation note is complete by procedure /sedation MD Sedation Discharge Instructions to be given to the patient at discharge to home.
[2018-10-06] MEDS: ATORVASTATIN 10 MG TAB PO SCH (20:22)
--- NOTE | 2018-10-06 22:34 | Hospitalist Progress Note ---
Date of Service October 06, 2018 Assessment & Plan (1) Heart block AV complete: - Admit to tele - EKG reviewed showing complete heart block - Cardiology consulted, Dr. Talavera, plans for permanent pacemaker placement. Follows with Dr. Talavera as outpatient - Hold Eliquis and amiodarone per cardiology - Due to JENNIFER with Cr. of 1.6, will hold nephrotoxins including lasix, spironolactone, amlodipine, and losartan. NSS on x 12 hrs. - Creatinine has been improving during hospital stay. - Patient had pacemaker inserted today. - Will continue to monitor. (2) Chronic diastolic (congestive) heart failure: - Stable, not currently in exacerbation - Strict I/Os, daily weights Patient does not appear to be in volume overload ill monitor. (3) Atrial fibrillation/flutter: - Stable, holding amiodarone as above. Patient had pacemaker placed today. will monitor. Likely will discharge in AM (4) CAD (coronary artery disease): - s/p PR in 2016 (5) HTN (hypertension): - Hold amlodipine 10 mg QAM, furosemide 20 mg QAM, spironolactone 25 mg QAM, losartan 100 mg QAM BP is stable. (6) Hyperlipidemia: -Continue statin therapy (7) JENNIFER (acute kidney injury): - Cr. elevated at 1.61 on admission, Creatinine is improving. baseline appears to be 0.6-0.8 - Holding nephrotoxins including Lasix, spironolactone, amlodipine and losartan -may resume once creatinine improved, and stable per cardiology. (8) Hypothyroid: - Cont levothyroxine 25 mcg daily (9) Asthma: - Cont ventolin prn, no currently respiratory c/o. - Wears 2 L HS. Current sats are 90% on room air fluctuating up to 94% (10) Anxiety: (11) Depression: - Continue paxil 20 mg daily (12) Arthritis: - Stable (13) Morbid obesity with BMI of 40.0-44.9, adult: - BMI of 41.5, diet and exercise to be encouraged upon discharge. (14) Hyperkalemia: Poytassium remains elevated.Will hold potassium sparing drugs. (15) Hypermagnesemia: - MAG= 2.8 (16) Lower extremity cellulitis: Patient is being followed up with outpatient wound care (home health). Patient will continue on IV antibiotics for now. will switch to PO at discharge (17) DVT prophylaxis: - teds, scds, holding eliquis for procedure as above. Spent 35 mins in management of patiebt Subjective 73 yo female reports feeling well. She states no new complaints. Patient denies any chest pain, nausea, vomiting. Review of Systems Review of Systems: Constitutional: No fever, sweats or chills, + fatigue Eyes: No diplopia, no worsening or blurred vision ENT: normal hearing, no trouble swallowing Respiratory: No cough, sputum, dyspnea at rest or on exertion Cardiovascular: No chest pain, tightness or palpitations Abdomen: No pain, nausea, vomiting, diarrhea or constipation Musculoskeletal: No joint pain, calf pain, swelling Neurologic: No weakness, numbness/tingling, or balance problems Psychiatric: +anxiety or depression, controlled with medication. Skin: No rash or itch Physical Exam Physical Exam: General: awake, alert, no apparent distress, + morbidly obese Head: Normocephalic, atraumatic ENT: PERRL, EOMI, no pharyngeal exudate, mucous membranes moist Chest: Clear to auscultation, on room air, Cardiac: RRR at bedside, no murmur, no JVD, normal peripheral pulses. Abdominal: NABS x 4 quadrants, soft, nontender to palpation, no rebound, guarding or tenderness Extremities: + multiple lesions on the BLE, RLE with surrounding (decreased) erythema of the lesions, yellow crusting. No peripheral edema, calfs nontender to palpation Psych: Normal mood and affect Neuro: AAO x 3, no motor deficits, speech is clear Results & Data Vital Signs (Past 12 Hours) Vital Signs Temp Pulse Resp BP Pulse Ox 10/06/18 19:39 36.7 C 70 22 150/76 H 97 10/06/18 18:00 36.8 C 67 20 124/63 96 10/06/18 17:30 36.8 C 70 21 153/79 H 92 10/06/18 16:30 36.6 C 68 19 146/75 H 100 10/06/18 16:00 36.6 C 61 19 146/79 H 99 10/06/18 15:30 36.6 C 66 18 133/72 97 10/06/18 15:21 36.5 C 60 19 133/72 98 10/06/18 15:19 36.6 C 60 18 152/82 H 10/06/18 14:49 36.6 C 58 L 18 90 10/06/18 14:34 36.6 C 98 H 18 133/72 10/06/18 14:19 36.6 C 64 18 10/06/18 14:04 36.7 C 88 18 150/79 H 88 L 10/06/18 11:05 36.9 C 57 L 22 167/84 H 90
[2018-10-07] MEDS: CEFAZOLIN 1000MG 1,000 MG/7.5 ML SYR IV SCH ×2 (03:35→11:29)
[2018-10-07] MEDS ORDERED: CEFAZOLIN 2000MG 2,000 MG/15 ML SYR IV SCH (06:00)
[2018-10-07] MEDS: LEVOTHYROXINE SODIUM 25 MCG TABLET PO SCH (06:10)
[2018-10-07 07:27] LABS: Hematocrit (blood only) 33.3 % (37-47); Hemoglobin 10.4 g/dL (12.0-16.0); Mean Corpuscular Hgb Conc 31.2 g/dL (32-36); Mean Corpuscular Volume 87.9 fL (80-100); Mean Platelet Volume 10.8 fL (7.4-10.4); Platelet Count 194 K/uL (130-400); RDW Coefficient of Variation 18.2 % (11.5-14.5); RDW Standard Deviation 59.2 fL (36.4-46.3); Red Blood Count 3.79 M/uL (4.2-5.4); White Blood Count 6.29 K/uL (4.8-10.8)
--- NOTE | 2018-10-07 07:30 | XRay Report ---
XR chest 2V routine CLINICAL HISTORY: 73 years-old Female presenting with pacer placement. TECHNIQUE: PA and lateral views of the chest were obtained. COMPARISON: 10/05/2018. FINDINGS: There has been interval placement of a left subclavian pacer with leads to the right atrium and right ventricular apex. Numerous external leads overlie the mediastinum on frontal view. Leads are appropr iately positioned. No evidence of retained surgical material. Atherosclerosis of aortic arch. Cardiac silhouette moderately enlarged. Mild pulmonary vascular promi nence. Mild interstitial prominence. Perihilar vascular indistinctness. No other focal opacity. Small pleural effusions. No pneumothorax. Cholecystectomy clips noted. IMPRESSION: 1. Status post 2-lead pacer placement. No pneumothorax. 2. Cardiomegaly with volume overload and congestive change. No yasemin pulmonary edema. 3. Small bilateral pleural effusions. Electronically signed by: Riley Cochran M.D. 10/07/2018 7:28 AM
[2018-10-07 07:33] LABS: INR 1.2 (0.9-1.1); Prothrombin Time 11.8 Seconds (9.0-12.0)
[2018-10-07 07:53] LABS: BUN Creatinine Ratio 21.7 (10-20); Calcium 8.9 mg/dl (8.5-10.1); Creatinine Clr Calc Pharmacy 55.8 ml/min; Est GFR (Non-African American) 59.5; Magnesium 2.3 mg/dl (1.8-2.4); Potassium 5.4 mmol/L (3.5-5.1)
[2018-10-07] MEDS: HydrALAZINE TAB 50 MG TAB PO SCH ×2 (08:20→14:23)
[2018-10-07] MEDS: PARoxetine HCl 20 MG TAB PO SCH (08:20)
[2018-10-07] MEDS: FERROUS SULFATE 325 MG TAB PO SCH (08:20)
--- NOTE | 2018-10-07 08:38 | Cardiology Progress Note ---
Date of Service October 07, 2018 Assessment & Plan (1) Symptomatic bradycardia: She presentd with symptomatic bradycardia which is due to a combination of sinus bradycardia and AV block. Her heart rate on arrival was in the 30s. This is in part medication related due to amiodarone, she is not on other AV blocking medications. Alternatives included pacemaker implantation for heart rate support versus discontinuation of amiodarone, I reviewed the ramifications of the alternatives to pacemaker implantation with her. If we stop her amiodarone it will take some time for her heart rate to increase substantially as it has a very long half-life, she will feel poorly for some time and she has evidence of renal insufficiency which I suspect is bradycardia related. Is therefore not a very good option, and even if we did that she would very likely have recurrent atrial fibrillation or flutter and we would need medications for rate control. All in all I agree the best option was pacemaker implantation and continue medical therapy for her tachyarrhythmia. I implanted a dual-chamber pacemaker yesterday, she has a dilated right atrium and right ventricle it appeared during implant an elevated right-sided pressures but the procedure was without complications and we had good position. She is doing well postop day #1, the pacemaker is working well today. From my standpoint she can go home with follow-up with Adri. I will place post pacemaker follow-up instructions in her discharge paperwork. (2) CAD (coronary artery disease): She has coronary artery disease with stent placement several years ago, she does not have any symptoms of angina and I do not believe coronary disease is related to her presentation. Tachyarrhythmias such as atrial fibrillation or atrial flutter could potentially be problematic with her coronary artery disease and therefore rate control is essential. This will result in a slow heart rate without a pacemaker and she needed bradycardia support. (3) Atrial fibrillation/flutter: She has history of both atrial flutter and atrial fibrillation, ablation could be considered however atrial fibrillation ablation is difficult and we do not do it here and the results or not terribly effective. I do not think this is a good option and she will need ongoing medical therapy for atrial fibrillation. Amiodarone appears to be effective at this point. (4) Chronic anticoagulation: She has been on Eliquis, her last dose was the morning of October 05, 2018. She is in sinus rhythm therefore her stroke risk is low and I would prefer to wait for another day before restarting the Eliquis, I would recommend starting it on the morning of October 08, 2018. (5) JENNIFER (acute kidney injury): Her creatinine was elevated on admission, this was higher than it had been in the past. I suspect it was in part due to the bradycardia and hypotension with renal hypoperfusion. That has now normalized. Subjective She feels she feels well today, she has no significant incisional discomfort, no shortness of breath and no chest discomfort. Physical Exam Physical Exam: The pacemaker site is clean and dry, there is no bleeding and no swelling or erythema. Dressing changed. Results & Data Vital Signs (Past 12 Hours) Vital Signs Temp Pulse Resp BP Pulse Ox 10/07/18 07:04 36.9 C 71 18 127/72 98 10/07/18 04:00 36.9 C 66 16 123/73 96 10/06/18 23:40 36.9 C 68 16 154/81 H 96 Diagnostic Findings Postop ECG: Sinus rhythm with atrial sensing and ventricular pacing, appropriate pacer function Telemetry: Normal dual-chamber pacemaker operation Chest x-ray: Good lead position, no pneumothorax Pacemaker evaluation: Good measurements
[2018-10-07] MEDS: BACITRACIN OINT 0.9 GM PKT EXT SCH (08:53)
[2018-10-07] MEDS: LACTATED RINGER'S 1,000 ML IV SCH (11:23)
[2018-10-07] MEDS ORDERED: AMIODARONE 200 MG TAB PO SCH (12:15)
--- NOTE | 2018-10-07 13:01 | Cardiology Progress Note ---
Date of Service October 07, 2018 Assessment & Plan (1) Heart block AV complete: The patient had a successful pacemaker implant and is ready to be discharged. I will arrange follow-up through our office including a wound check with pacemaker interrogation as an outpatient. (2) Atrial fibrillation/flutter: Continue amiodarone at present. (3) Chronic anticoagulation: Start anticoagulation tomorrow (4) CAD (coronary artery disease): (5) Chronic diastolic (congestive) heart failure: (6) Hypothyroid: The patient has been on Synthroid as an outpatient. Her TSH on admission was 9. She will have an increase in her Synthroid to 50 mcg daily and we will recheck this as an outpatient. Subjective The patient had a pacemaker inserted yesterday. It has been interrogated and functioning appropriately. She is ready for discharge. Review of Systems Review of Systems: All systems reviewed & are unremarkable except as noted in HPI & below No additional Physical Exam Physical Exam: General: no acute distress and stated age Head: normocephalic, no masses, lesions, tenderness or abnormalities Eyes: conjunctiva are pink and non-injected, sclera clear Neck: supple, no adenopathy, no bruits, normal jugular venous pulse, no hepatojugular reflux Chest: Pacer site looks good Lungs: clear to auscultation and percussion Cardiac Exam: - regular rate & rhythm, no murmurs gallops or rubs - normal S1, normal S2 Pulses: 2(+) throughout Abdomen: abdomen soft, non-tender, no abnormal masses and no hepatosplenomegaly Musculoskeletal: no gait disturbance, no joint inflammation, no deforming arthritis Extremities: no edema and no cyanosis Neuro: grossly normal exam Results & Data Vital Signs (Past 12 Hours) Vital Signs Temp Pulse Resp BP Pulse Ox 10/07/18 11:12 36.6 C 73 18 141/77 H 90 10/07/18 07:04 36.9 C 71 18 127/72 98 10/07/18 04:00 36.9 C 66 16 123/73 96 Laboratory Results Laboratory Results - last 24 hr 10/07/18 10/07/18 10/07/18 07:02 07:02 07:02 WBC 6.29 RBC 3.79 L Hgb 10.4 L Hct 33.3 L MCV 87.9 MCH 27.4 MCHC 31.2 L RDW Std Deviation 59.2 H RDW Coeff of Fabián 18.2 H Plt Count 194 MPV 10.8 H PT 11.8 INR 1.2 H Sodium 144 Potassium 5.4 H Chloride 114 H Carbon Dioxide 27 Anion Gap 4.0 BUN 21 H Creatinine 0.96 Est Cr Clr Drug Dosing 55.8 Est GFR ( Amer) 69.0 Est GFR (Non-Af Amer) 59.5 BUN/Creatinine Ratio 21.7 H Glucose 104 H Calcium 8.9 Magnesium 2.3 Medications Administered Current Inpatient Medications Acetaminophen (Tylenol) 650 mg PO Q4H PRN PRN Reason: Moderate Pain Stop: 11/04/18 19:02 Acetaminophen/Codeine Phosphate (Tylenol W/Codeine #3) 1 - 2 tab PO Q4H PRN PRN Reason: Moderate-Severe Pain Stop: 11/05/18 14:03 Albuterol (Ventolin Hfa) 2 puffs INH Q4H PRN PRN Reason: Shortness Of Breath Or Wheezin Stop: 11/04/18 19:02 Amiodarone HCl (Cordarone) 200 mg PO QAM [facility] Stop: 11/07/18 08:59 Atorvastatin Calcium (Lipitor) 10 mg PO PM [facility] Stop: 11/04/18 20:59 Last Admin: 10/06/18 20:22 Dose: 10 mg Documented by: Bacitracin (Bacitracin) 1 appln EXT BID [facility] Stop: 11/04/18 20:59 Last Admin: 10/07/18 08:53 Dose: 1 appln Documented by: Ferrous Sulfate (Feosol) 325 mg PO DAILY [facility] Stop: 11/05/18 08:59 Last Admin: 10/07/18 08:20 Dose: 325 mg Documented by: Hydralazine HCl (Apresoline) 50 mg PO TID [facility] Stop: 11/04/18 20:59 Last Admin: 10/07/18 08:20 Dose: 50 mg Documented by: Cefazolin Sodium (Ancef 1000mg) 1,000 mg in 7.5 mls @ 2.5 mls/min IV Q8H [facility] Stop: 10/15/18 19:59 Last Admin: 10/07/18 11:29 Dose: 2.5 mls/min Documented by: Lactated Ringer's (Lr) 1,000 mls @ 15 mls/hr IV .Q24H [facility] Stop: 10/09/18 06:09 Last Admin: 10/07/18 11:23 Dose: Not Given Documented by: Levothyroxine Sodium (Synthroid) 25 mcg PO DAILYBB [facility] Stop: 11/05/18 06:29 Last Admin: 10/07/18 06:10 Dose: 25 mcg Documented by: Levothyroxine Sodium (Synthroid) 25 mcg PO DAILYBB [facility] Stop: 11/07/18 06:29 Ondansetron HCl (Zofran) 4 mg IV Q4H PRN PRN Reason: Nausea And Vomiting Stop: 11/04/18 19:02 Paroxetine HCl (Paxil) 20 mg PO QAM [facility] Stop: 11/05/18 08:59 Last Admin: 10/07/18 08:20 Dose: 20 mg Documented by:
[2018-10-08] MEDS ORDERED: LEVOTHYROXINE SODIUM 25 MCG TABLET PO SCH (06:30)
[2018-10-08] MEDS ORDERED: AMIODARONE 200 MG TAB PO SCH (09:00)
--- NOTE | 2018-10-15 11:16 | Discharge Summary ---
Date of Service October 07, 2018 Admission HPI Per Admitting Provider This is a 73 yo F with PMHx of diastolic CHF, Atrial flutter/fibrillation on eliquis, CAD s/p coronary stenting and NJ in 2016, HTN, HLD, asthma, anxiety, hypothyroidism, morbid obesity. The patient was recently admitted here at [facility] from 08/17/18/- 08/21/18 for atrial flutter and SSS. The patient underwent cardioversion by Kayla Carroll on 09/02/2018 and has been following up with Dr. Talavera as an outpatient. Today she was seen by home nurse and was found be bradycardic and have HR in the 30s. Pt reports feeling fatigued over the weekend. Home health nursing has been seeing the patient about twice weekly since she was cardioverted during last admission. The patient reports that the nurse visited her last and at that time VSS. Once evaluated in the ER today, was found to have complete heart block. Cardiology is on board and plans to place a permanent pacemaker. Her Eliquis will be held until procedure which will likely be tomorrow afternoon. We will also hold amiodarone per cardiology. Principal Diagnosis AV heart block Complete Discharge Exam General: awake, alert, no apparent distress, + morbidly obese Head: Normocephalic, atraumatic ENT: PERRL, EOMI, no pharyngeal exudate, mucous membranes moist Chest: Clear to auscultation, on room air, Cardiac: RRR at bedside, no murmur, no JVD, normal peripheral pulses. Abdominal: NABS x 4 quadrants, soft, nontender to palpation, no rebound, guarding or tenderness Extremities: + multiple lesions on the BLE, RLE with surrounding (decreased) erythema of the lesions, yellow crusting. No peripheral edema, calfs nontender to palpation Psych: Normal mood and affect Neuro: AAO x 3, no motor deficits, speech is clear Discharge Data Allergies Allergy/AdvReac Type Severity Reaction Status Date / Time No Known Drug Allergies Allergy Verified 10/12/18 10:31 Consultations 10/05/18 16:00 Consult Cardiac Electrophysiology Routine 10/05/18 16:11 Consult Cardiology Stat 10/05/18 16:12 ED Decision to Admit Stat 10/05/18 16:56 Consult Cardiology Routine 10/05/18 19:03 Consult Case Management - Discharge Planning Routine Procedures Performed Operation Date: 10/06/18 11:40 Actual Procedures s Cineradiography w/Routine Exam(Not Applicable) - Eddie Fonseca MD s Venogram, Unilateral(Not Applicable) - Eddie Fonseca MD p Pacer with A/V Leads (Dual) - Eddie Fonseca MD Ordered Studies 10/06/18 11:45 EP Lab Images for PACS ONCE Hospital Course (1) Heart block AV complete: - Admit to tele - EKG reviewed showing complete heart block - Cardiology consulted, Dr. Talavera, plans for permanent pacemaker placement. Follows with Dr. Talavera as outpatient - Hold Eliquis and amiodarone per cardiology - Due to JENNIFER with Cr. of 1.6, will hold nephrotoxins including lasix, spironolactone, amlodipine, and losartan. . - Creatinine has been improving during hospital stay. - Patient had pacemaker inserted today. - Will continue to monitor. (2) Chronic diastolic (congestive) heart failure: - Stable, not currently in exacerbation - Strict I/Os, daily weights Patient does not appear to be in volume overload ill monitor. (3) Atrial fibrillation/flutter: - Stable, holding amiodarone as above. Patient had pacemaker placed today. will monitor. Likely will discharge in AM (4) CAD (coronary artery disease): - s/p NJ in 2016 (5) HTN (hypertension): - Hold amlodipine 10 mg QAM, furosemide 20 mg QAM, spironolactone 25 mg QAM, losartan 100 mg QAM BP is stable. (6) Hyperlipidemia: -Continue statin therapy (7) JENNIFER (acute kidney injury): - Cr. elevated at 1.61 on admission, Creatinine is improving. baseline appears to be 0.6-0.8 - Holding nephrotoxins including Lasix, spironolactone, amlodipine and losartan -may resume once creatinine improved, and stable per cardiology. (8) Hypothyroid: - Cont levothyroxine 25 mcg daily; May consider increasing to 50 mcg. Will recheck as outpatient. (9) Asthma: - Cont ventolin prn, no currently respiratory c/o. - Wears 2 L HS. Current sats are 90% on room air fluctuating up to 94% (10) Anxiety: (11) Depression: - Continue paxil 20 mg daily (12) Arthritis: - Stable (13) Morbid obesity with BMI of 40.0-44.9, adult: - BMI of 41.5, diet and exercise to be encouraged upon discharge. (14) Hyperkalemia: Poytassium remains elevated.Will hold potassium sparing drugs. Will cut back on spironolactone and cut back on arb (15) Hypermagnesemia: - MAG= 2.8 (16) Lower extremity cellulitis: Patient is being followed up with outpatient wound care (home health). Patient will continue on IV antibiotics for now. will switch to PO at discharge (17) DVT prophylaxis: - teds, scds, holding eliquis for procedure as above. Total Time Total Time Spent Total Time Spent (In Minutes): 31 Discharge Plan Discharge Items Patient Disposition: Home - Home Health Services Reason For Visit: COMPLETE HEART BLOCK Discharge Diagnosis: Complete heart block Discharge Goals: Decrease discomfort Activity: Resume your previous activity Bathing: May shower/bathe in 3 days Non-emergency contact: Primary Care Provider Call non-emergency contact if: you have any medication questions Follow-up/Referrals: Clemente Walter CRNP [Primary Care Provider] - 10/12/18 11:00 am (Your PCP, BENITO Brenner, does not have any upcoming appointments available. A follow up visit was made at the same office ([address] [place] [address] in [place]) on October 12 at 11:00am with Dr. Riley Galdamez. Please call if you have any questions or need to reschedule [phone].) Rui Talavera, [[employer]] - (Notified Dr. Talavera's office that you will need a Cardiology follow-up appointment within the next 2 weeks. A task was sent to the nurse. You will be receiving a call from the nurse with your appointment date and time. Please call the office with any questions [phone]) Diet: Regular Addtl Provider Instructions: can go home with follow-up with Adri. Due to elevated hyperkalemia: will hold spironolactone and cut back on losartan. will recheck bmp in 2 days. Restart Eliquis on morning of 10/08/2018 ACTIVITY RECOMMENDATIONS: * Do not raise affected arm over head for 2 weeks. SPECIAL CARE INSTRUCTIONS: * If bleeding occurs, apply direct pressure to area for 5 minutes. * Call your doctor if you have severe pain, fever, drainage or bleeding at site. * Keep dressing on and dry for 48 hours then remove. * Keep any scheduled doctor's appointment. * Implant Card - hand held device with website information given. SKIN IRRITATION: * You may experience some redness and/or swelling in the area where radiation was administered. If any skin irritation occurs, please contact your family physician. FOLLOW UP VISIT: Keep any scheduled doctor appointments. Prescriptions: Continued ferrous sulfate 325 mg (65 mg iron) Tablet 325 mg PO DAILY RF: 0 Oxygen Home Liters Per Minute .ROUTE .MEDSUPPLY Qty: 1 RF: 0 Eliquis 5 mg Tablet 5 mg PO BID Qty: 60 RF: 0 hydralazine 50 mg tablet 50 mg PO TID Qty: 90 RF: 0 amiodarone 200 mg tablet 200 mg PO DAILY Qty: 30 RF: 11 atorvastatin [Lipitor] 10 mg Tablet 10 mg PO PM RF: 0 furosemide 20 mg tablet 20 mg PO QAM RF: 0 Discontinued amlodipine [Norvasc] 5 mg Tablet 10 mg PO QAM Qty: 30 RF: 0 losartan 50 mg Tablet 100 mg PO QAM Qty: 30 RF: 0 spironolactone 25 mg Tablet 25 mg PO QAM Qty: 30 RF: 0 levothyroxine 25 mcg Tablet 25 mcg PO QAM RF: 0 No Action aspirin 81 mg tablet PO .TAKE 1 TABLET DAILY. RF: 0 levothyroxine 25 mcg capsule 25 mcg PO DAILY Qty: 90 RF: 3 albuterol sulfate [Ventolin HFA] 90 mcg/actuation HFA aerosol inhaler 2 puffs INH QID PRN (Reason: shortness of breath or wheezing) Qty: 18 RF: 0 amlodipine 10 mg tablet 10 mg PO .TAKE 1 TABLET DAILY Qty: 30 RF: 0 paroxetine HCl 20 mg tablet 20 mg PO QAM Qty: 30 RF: 0 losartan 100 mg tablet PO .TAKE 1 TABLET DAILY. RF: 0 spironolactone 25 mg tablet PO .TAKE 1 TABLET DAILY. RF: 0 Stand-Alone Forms: Call Back Authorization, [facility] Discharge Orders: Discharge Order (Routine); Ordered 10/07/18 Ordered By: Juanito Polk Admission Data Admit Date/Time: 10/05/18 16:55 Attending Provider: Juanito Polk Admit Provider: Daniel Rodriguez Primary Care Provider: Clemente aWlter Other Providers: Rui Talavera ; Daniel Rodriguez ; Eddie Fonseca Service: Telemetry Other Interventions: Discharge Summary Assessment (RN) Last Done: 10/07/18 14:15 DC Date/Time DO NOT enter until pt leaves facility: 10/07/18 16:50
== END 2018-10-07 16:50 | disposition home health service (06) | DRG 243 ==
LOC: ED 14:55 → 2S 16:55 → SUATTDRO 16:55 → 2S 18:32
DX: E66.01 Morbid (severe) obesity due to excess calories; N17.9 Acute kidney failure, unspecified; I44.2 Atrioventricular block, complete; F41.9 Anxiety disorder, unspecified; I48.92 Unspecified atrial flutter; F32.9 Major depressive disorder, single episode, unspecified; Z79.01 Long term (current) use of anticoagulants; I25.10 Atherosclerotic heart disease of native coronary artery without angina pectoris; I50.32 Chronic diastolic (congestive) heart failure; I48.91 Unspecified atrial fibrillation; E03.9 Hypothyroidism, unspecified; Z68.41 Body mass index [BMI] 40.0-44.9, adult; E87.5 Hyperkalemia; E78.5 Hyperlipidemia, unspecified; A21.9 Tularemia, unspecified; J45.909 Unspecified asthma, uncomplicated; E83.41 Hypermagnesemia

== ENCOUNTER 2019-04-06 17:46 | Observation (INO) ==
--- NOTE | 2019-04-06 18:16 | XRay Report ---
XR chest 1V portable CLINICAL HISTORY: Chest Pain pain COMPARISON STUDY: 10/07/2018 FINDINGS: Moderate stable cardiac enlargement. Bipolar cardiac pacemaker. Lungs are clear. Diaphragms are smooth. Slightly prominent pulmonary vasculature. IMPRESSION: 1. Moderate cardiac enlargement. 2. Pulmonary vascular congestion. The above report was generated using voice recognition software. It may contain grammatical, syntax or spelling errors. Electronically signed by: El Gonzalez M.D. 04/06/2019 6:15 PM
[2019-04-06 18:40] LABS: Basophils # (auto) 0.01 K/uL (0-0.2); Basophils % (auto) 0.1 %; Eosinophils # (auto) 0.02 K/uL (0-0.5); Eosinophils % (auto) 0.3 %; Hematocrit (blood only) 43.8 % (37-47); Immature Granulocytes # (auto) 0.02 K/uL (0.00-0.02); Immature Granulocytes % (auto) 0.3 %; Lymphocytes # (auto) 0.65 K/uL (1.2-3.4); Lymphocytes % (auto) 9.1 %; Mean Corpuscular Volume 84.6 fL (80-100); Mean Platelet Volume 9.4 fL (7.4-10.4); Monocytes # (auto) 0.46 K/uL (0.11-0.59); Monocytes % (auto) 6.4 %; Neutrophils # (auto) 5.99 K/uL (1.4-6.5); Neutrophils % (auto) 83.8 %; Platelet Count 308 K/uL (130-400); RDW Coefficient of Variation 17.3 % (11.5-14.5); RDW Standard Deviation 53.6 fL (36.4-46.3); Red Blood Count 5.18 M/uL (4.2-5.4); White Blood Count 7.15 K/uL (4.8-10.8)
[2019-04-06 18:59] LABS: INR 1.1 (0.9-1.1); Partial Thromboplastin Time 26.6 Seconds (21.0-31.0); Prothrombin Time 10.8 Seconds (9.0-12.0)
[2019-04-06 19:07] LABS: Alanine Aminotransferase 19 U/L (12-78); Albumin Level 3.4 gm/dl (3.4-5.0); Aspartate Aminotransferase 14 U/L (15-37); BUN Creatinine Ratio 15.2 (10-20); Blood Urea Nitrogen 11 mg/dl (7-18); Calcium 9.3 mg/dl (8.5-10.1); Carbon Dioxide 25 mmol/L (21-32); Chloride 109 mmol/L (98-107); Creatinine Clr Calc Pharmacy 68.5 ml/min; Est GFR (African American) 92.9; Est GFR (Non-African American) 80.2; Glucose 112 mg/dl (70-99); Lipase 55 U/L (73-393); Potassium 3.5 mmol/L (3.5-5.1); Sodium 140 mmol/L (136-145)
[2019-04-06 19:12] LABS: Albumin Globulin Ratio 0.8 (0.9-2); Alkaline Phosphatase 120 U/L (45-117); Bilirubin,Total 0.9 mg/dl (0.2-1); Globulin 4.5 gm/dl (2.5-4.0); Total Protein 7.9 gm/dl (6.4-8.2); Troponin I < 0.015 ng/ml (0-0.045)
[2019-04-06] MEDS ORDERED: SODIUM CHLORIDE 0.9% 1000ML 250 ML IV ONE (20:00)
--- NOTE | 2019-04-06 20:26 | Emergency Department Note ---
Entered by Jessica Guerrero acting as a scribe for History of Present Illness General Chief complaint: Cardiac Assessment Stated complaint: DIZZY Time Seen by Provider: 04/06/19 18:02 Source: patient History of Present Illness Onset (ago): day(s) 1 Location: chest Radiation: non-radiation Pain Consistency: + intermittent Quality: + sharp Exacerbated By: + movement Associated symptoms: + chest pain, + nausea/vomiting, + weakness and + other (Positive dizziness. Negative falls, trauma, diarrhea, lower extremity swelling or pain.); no fever/chills and no rash The patient is a 73 year old female presenting to the Emergency Department complaining of intermittent chest pain starting 1 day ago. The patient reports that she has a sharp pain under her left breast that is non-radiating. She states that she has been intermittently nauseous and vomiting for the past day. She explains that she sometimes feels dizzy and that when she moves from a seated to standing position her dizziness worsens. She notes that she feels weak. She adds that she currently is not experiencing chest pain. The patient reports that she regularly takes Eliquis. She denies recent falls, trauma, fevers, chills, diarrhea, rash and lower extremity swelling or pain. Home Medications Home Medications Medication Instructions Recorded Confirmed Type Eliquis 5 mg PO BID #60 tab 08/21/18 04/06/19 Rx amiodarone 200 mg PO DAILY #30 tab 09/02/18 04/06/19 Rx amlodipine 10 mg tablet 10 mg PO DAILY #30 tab 10/26/18 04/06/19 Rx paroxetine HCl 20 mg tablet 20 mg PO QAM #90 tab 10/26/18 04/06/19 Rx Oxygen Home ea 11/10/18 02/02/19 History atorvastatin 10 mg tablet 10 mg PO DAILY #30 tab 11/10/18 04/06/19 Rx furosemide 20 mg tablet 20 mg PO DAILY #90 tab 12/03/18 04/06/19 Rx hydralazine 50 mg tablet 50 mg PO TID #90 tab 01/08/19 04/06/19 Rx albuterol sulfate 90 mcg/actuation 2 puffs INH Q4H PRN #18 gm 02/02/19 04/06/19 Rx aerosol inhaler levothyroxine 25 mcg tablet 25 mcg PO DAILY #30 tab 02/08/19 04/06/19 Rx losartan 100 mg tablet 100 mg PO DAILY #90 tab 02/25/19 04/06/19 Rx Ferrus Gluconate 239 mg PO DAILY 04/06/19 04/06/19 History aspirin [Aspir-81] 81 mg PO DAILY 04/06/19 04/06/19 History Allergies Allergy/AdvReac Type Severity Reaction Status Date / Time No Known Drug Allergies Allergy Unknown Verified 04/06/19 19:22 Past Med/Surg History Medical History JENNIFER (acute kidney injury) Anxiety Asthma Atrial fibrillation/flutter Atrioventricular block, Mobitz type 2 CAD (coronary artery disease) S/P [place], cath with stent x 2015 Cataract Cellulitis B/L LOWER EXTREMITIES Chronic anticoagulation Chronic diastolic (congestive) heart failure Chronic respiratory failure with hypoxia, on home O2 therapy Depression Heart block AV complete History of anxiety History of cholecystitis History of coronary artery disease History of depression History of myocardial infarction Hyperkalemia Hyperlipidemia Hypermagnesemia Hypertension Admitted to [facility] 08/17 for hypertensive urgencyl; BB d/c'd 2/2 bradycardia; put on hydralazine, losartan and amlodipine. Hypertensive urgency (Resolved) Hypothyroidism Microcytic hypochromic anemia Morbid obesity with BMI of 40.0-44.9, adult Osteoarthritis SOB (shortness of breath) on exertion Symptomatic bradycardia Surgical History History of appendectomy History of cardiac cath 3 YEARS AGO - [facility] - [place] - 1 STENT PLACED - FOLLOWS W/ DR. LAUGHLIN History of cataract surgery RT/LEFT History of colonoscopy History of hysterectomy History of knee replacement LEFT History of tooth extraction History of total knee replacement LEFT History of tubal ligation Hx of cholecystectomy Family History Brother Family history of diabetes mellitus Myocardial infarction, Onset Age: 50 Family history of cardiac disorder Hypertension Mother Family history of diabetes mellitus Myocardial infarction Father Myocardial infarction Social History Preferred Language: Ghanaian Communication Ability: Effective Visual Impairment: No Limitations Hearing Ability: Normal Hand Chain Maker Required: No Beliefs That Will Affect Care: None marital status: / Current Living Situation: Alone Current Living Situation Comment: Lives in senior apartment at [facility] current occupational status: retired Other Information That Helps Us Care for You: No Feels Safe at Home: Yes Safety Concerns: Feels Safe At This Time Smoking Status: Never smoker Do You Dip or Chew Tobacco: No ; Second Hand Exposure: No ; Hx Alcohol Use: No Hx Substance Use: No Dental Care, Regularly: No Physical Activity Frequency: 3-4 Times per Week Physical Activity Frequency Comment: Limited by physical condition Seatbelt Use: always Sunscreen Use: Yes Review of Systems See HPI for pertinent positives & negatives. and A total of 10 systems reviewed and were otherwise negative Physical Exam Vital Signs Vital Signs - 24 hr 04/06/19 17:46 04/06/19 17:51 04/06/19 17:55 Temperature 36.6 C Temperature Source Oral Pulse Rate 66 66 66 Pulse Rate [Bilateral Apical] Pulse Rate from SpO2 Sensor 66 Respiratory Rate 22 22 24 Respiratory Effort / Characteristics Non-Labored Spontaneous Respiratory Depth Normal Respiratory Pattern Regular Blood Pressure 189/96 H 194/98 H Blood Pressure [Right Arm] Blood Pressure Mean 127 147 Blood Pressure Mean [Right Arm] Blood Pressure Position Lying Pulse Oximetry 99 99 97 Oxygen Delivery Method Room Air Room Air Sepsis Recent Fever Within 48 Hours No Sepsis New/Unexplained Change in Mental Status No Sepsis Action Taken by Nursing No Action Required 04/06/19 17:57 04/06/19 18:00 04/06/19 18:01 Temperature Temperature Source Pulse Rate 65 66 66 Pulse Rate [Bilateral Apical] Pulse Rate from SpO2 Sensor 66 66 61 Respiratory Rate 19 24 23 Respiratory Effort / Characteristics Respiratory Depth Respiratory Pattern Blood Pressure 189/96 H Blood Pressure [Right Arm] Blood Pressure Mean 131 Blood Pressure Mean [Right Arm] Blood Pressure Position Pulse Oximetry 96 97 96 Oxygen Delivery Method Sepsis Recent Fever Within 48 Hours Sepsis New/Unexplained Change in Mental Status Sepsis Action Taken by Nursing 04/06/19 18:10 04/06/19 18:20 04/06/19 18:30 Temperature Temperature Source Pulse Rate 67 66 71 Pulse Rate [Bilateral Apical] Pulse Rate from SpO2 Sensor 66 67 71 Respiratory Rate 18 20 26 H Respiratory Effort / Characteristics Respiratory Depth Respiratory Pattern Blood Pressure 178/102 H Blood Pressure [Right Arm] Blood Pressure Mean 134 Blood Pressure Mean [Right Arm] Blood Pressure Position Pulse Oximetry 98 97 97 Oxygen Delivery Method Sepsis Recent Fever Within 48 Hours Sepsis New/Unexplained Change in Mental Status Sepsis Action Taken by Nursing 04/06/19 18:31 04/06/19 18:40 04/06/19 18:50 Temperature Temperature Source Pulse Rate 71 72 72 Pulse Rate [Bilateral Apical] Pulse Rate from SpO2 Sensor 71 72 72 Respiratory Rate 25 H 21 19 Respiratory Effort / Characteristics Respiratory Depth Respiratory Pattern Blood Pressure Blood Pressure [Right Arm] Blood Pressure Mean Blood Pressure Mean [Right Arm] Blood Pressure Position Pulse Oximetry 98 95 95 Oxygen Delivery Method Sepsis Recent Fever Within 48 Hours Sepsis New/Unexplained Change in Mental Status Sepsis Action Taken by Nursing 04/06/19 19:09 04/06/19 19:56 04/06/19 21:30 Temperature Temperature Source Pulse Rate Pulse Rate [Bilateral Apical] 83 83 88 Pulse Rate from SpO2 Sensor Respiratory Rate 22 20 22 Respiratory Effort / Characteristics Respiratory Depth Respiratory Pattern Blood Pressure Blood Pressure [Right Arm] 199/93 H 104/60 190/77 H Blood Pressure Mean Blood Pressure Mean [Right Arm] 128 74 114 Blood Pressure Position Pulse Oximetry 93 94 92 Oxygen Delivery Method Room Air Room Air Room Air Sepsis Recent Fever Within 48 Hours Sepsis New/Unexplained Change in Mental Status Sepsis Action Taken by Nursing General: Non-ill appearing older female in no acute distress. HEENT: Normal cephalic atraumatic. Pupils are equal round and reactive to light. Extraocular movements are intact. Oropharynx is pink with moist mucous membranes. No swelling of the mouth lips or tongue. Neck: Supple with a midline trachea. No meningeal signs or stiffness, no JVD or bruits. No Stridor. Chest: Clear to auscultation bilaterally. No wheezes or rhonchi. No increased work of breathing. Heart: regular rate and rhythm. Abdomen: Soft nontender, nondistended without rebound guarding or rigidity. Extremities: No cyanosis clubbing or edema. No calf tenderness or asymmetry Spine/Back. Non tender to palpation. No CVA tenderness Skin: Good turgor without rashes. Neurologic exam: Cranial nerves two through 12 are intact. Motor and sensation are intact and symmetrical throughout. Course Course 1802: The patient was evaluated in room B4B, and a complete history and physical examination were performed. 1947: I reevaluated the patient at this time. 2009: I discussed the patient's case with Dr. Connor - [facility] [place]. He will evaluate the patient for further management. Administered Medications Lactated Ringer's (Lr) 1,000 mls @ 80 mls/hr IV .[id number] KIMBERLY Stop: 05/06/19 22:30 Last Admin: 04/06/19 23:20 Dose: 80 mls/hr Documented by: [id number] Discontinued Medications Aspirin (Aspirin Chew) 162 mg PO NOW STA Stop: 04/06/19 21:26 Last Admin: 04/06/19 23:15 Dose: Not Given Documented by: [id number] Hydralazine HCl (Hydralazine Hcl) 5 mg IV NOW ONE Stop: 04/06/19 21:00 Last Admin: 04/06/19 21:16 Dose: 5 mg Documented by: [id number] Hydralazine HCl (Hydralazine Hcl) Confirm Administered Dose 20 mg .ROUTE .STK- MED ONE Stop: 04/06/19 21:06 Last Admin: 04/06/19 21:19 Dose: Not Given Documented by: [id number] Sodium Chloride (Nss 1000ml) 250 mls @ 999 mls/hr IV .Q16M ONE Stop: 04/06/19 20:15 Last Infusion: 04/06/19 20:43 Dose: 0 mls/hr Documented by: [id number] Admin: 04/06/19 20:09 Dose: 999 mls/hr Documented by: [id number] Medical Decision Making Differential Diagnosis Differential diagnoses include acute coronary syndrome, arrhythmia, electrolyte or metabolic abnormality, vertigo and anemia amongst others. Medical Records Attestation: I reviewed the patient's medical records. Home Medications Current Medication List: was personally reviewed by me Laboratory Data Attestation: I reviewed the patient's lab results. Result diagrams: 04/06/19 18:30 04/06/19 18:30 Lab Results 04/06/19 04/06/19 04/06/19 Range/Units 18:30 18:30 18:30 WBC 7.15 (4.8-10.8) K/uL RBC 5.18 (4.2-5.4) M/uL Hgb 14.0 (12.0-16.0) g/dL Hct 43.8 (37-47) % MCV 84.6 (80-100) fL MCH 27.0 (25-34) pg MCHC 32.0 (32-36) g/dL RDW Std Deviation 53.6 H (36.4-46.3) fL RDW Coeff of Fabián 17.3 H (11.5-14.5) % Plt Count 308 (130-400) K/uL MPV 9.4 (7.4-10.4) fL Immature Gran % (Auto) 0.3 % Neut % (Auto) 83.8 % Lymph % (Auto) 9.1 % Gove % (Auto) 6.4 % Eos % (Auto) 0.3 % Baso % (Auto) 0.1 % Immature Gran # (Auto) 0.02 (0.00-0.02) K/uL Neut # (Auto) 5.99 (1.4-6.5) K/uL Lymph # (Auto) 0.65 L (1.2-3.4) K/uL Gove # (Auto) 0.46 (0.11-0.59) K/uL Eos # (Auto) 0.02 (0-0.5) K/uL Baso # (Auto) 0.01 (0-0.2) K/uL PT 10.8 (9.0-12.0) Seconds INR 1.1 (0.9-1.1) APTT 26.6 (21.0-31.0) Seconds PTT Ratio 1.0 Sodium 140 (136-145) mmol/L Potassium 3.5 (3.5-5.1) mmol/L Chloride 109 H (98-107) mmol/L Carbon Dioxide 25 (21-32) mmol/L Anion Gap 6.0 (3-11) BUN 11 (7-18) mg/dl Creatinine 0.75 (0.6-1.2) mg/dl Est Cr Clr Drug Dosing 68.5 ml/min Est GFR ( Amer) 92.9 Est GFR (Non-Af Amer) 80.2 BUN/Creatinine Ratio 15.2 (10-20) Glucose 112 H (70-99) mg/dl Calcium 9.3 (8.5-10.1) mg/dl Total Bilirubin 0.9 (0.2-1) mg/dl AST 14 L (15-37) U/L ALT 19 (12-78) U/L Alkaline Phosphatase 120 H (45-117) U/L Troponin I < 0.015 (0-0.045) ng/ml Total Protein 7.9 (6.4-8.2) gm/dl Albumin 3.4 (3.4-5.0) gm/dl Globulin 4.5 H (2.5-4.0) gm/dl Albumin/Globulin Ratio 0.8 L (0.9-2) Lipase 55 L (73-393) U/L Imaging Data Radiologist's Impression: Radiology results as stated below per my review and the radiologist's interpretation: XR chest 1V portable CLINICAL HISTORY: Chest Pain pain COMPARISON STUDY: 10/07/2018 FINDINGS: Moderate stable cardiac enlargement. Bipolar cardiac pacemaker. Lungs are clear. Diaphragms are smooth. Slightly prominent pulmonary vasculature. IMPRESSION: 1. Moderate cardiac enlargement. 2. Pulmonary vascular congestion. The above report was generated using voice recognition software. It may contain grammatical, syntax or spelling errors. Electronically signed by: El Gonzalez M.D. 04/06/2019 6:15 PM ECG Data Attestation: I personally reviewed and interpreted this ECG as follows: Indication: + chest pain Rate (beats per minute): 71 Rhythm: + other (AV paced rhythm) ECG ST segments: no ST depression and no ST elevation ECG Findings: no PACs and no PVCs Comparison ECG Date: from (10/06/18) Change: the following changes noted (AV paced rhythm has replaced ventricular paced rhythm. ) Blood Pressure Blood Pressure Findings: Elevated blood pressure Blood Pressure Disposition: further management by hospitalist CYNDI Narrative This patient comes in as described above. She was placed in room before. She has had nausea and dizziness since yesterday today she developed pain in her her left breast. That has since resolved. She has a history of coronary disease with a stent placement in the past as well as a pacemaker and multiple other medical problems. IV access established and blood work was obtained. EKG shows a paced rhythm without any definite ischemic changes. Chest x-ray was unremarkable. There is no acute infiltrates, heart failure, or pneumothorax seen. Her troponin is not elevated. We did interrogate her pacemaker and there is no significant arrhythmias seen according to the [employer] rep. She has no acute electrolyte or metabolic abnormalities. Given her symptoms, I do think she should be admitted/observe for further cardiac evaluation and monitoring. I did consult Dr. Connor to see her in the ER for these measures. Impression & Plan Chest pain, Dizziness, Nausea, Pacemaker Discharge Plan Visit Data *Final* Discharge Date/Time: 04/06/19 22:09 Chief Complaint: Cardiac Assessment Stated Complaint: DIZZY ED Provider: Francisco Salinas Discharge Problem: Chest pain, Dizziness, Nausea, Pacemaker Patient Disposition: Admitted As Inpatient Discharge Instructions Interventions: ED Discharge Assessment Last Done: 04/06/19 22:09 Discharge Problem: Chest pain Qualifiers: Chest pain type: unspecified Qualified Code(s): R07.9 - Chest pain, unspecified The scribe's documentation has been prepared under my direction and personally reviewed by me in its entirety. I confirm that the note above accurately reflects all work, treatment, procedures, and medical decision making performed by me.
[2019-04-06] MEDS ORDERED: HydrALAZINE HCL 20 MG/ML VIAL IV ONE (20:59)
[2019-04-06] MEDS ORDERED: HydrALAZINE HCL 20 MG/ML VIAL ONE (21:05)
[2019-04-06] MEDS ORDERED: ASPIRIN 81 MG CHEW PO STA (21:25)
--- NOTE | 2019-04-06 21:34 | History & Physical Report ---
Date of Service April 06, 2019 Assessment & Plan (1) Chest pain: 73-year-old female was admitted on 06 April 2019 for chest pain and nausea/vomiting. Chest pain, dizziness: Extensive cardiac history as noted below. Though timing is unclear, patient notes approximately four hours of constant left lower chest discomfort that is presently resolved (latest around 4 PM). Denies associated respiratory symptoms. 'Dizziness' seems more transient/orthostatic than vertiginous. - In the ED, afebrile, not tachycardic, is hypertensive, with borderline low room SpO2. WBC 7. BMP okay. Admit EKG was a dual-paced rhythm. First TnI at 1830 was negative. pCXR notable for pulmonary vascular congestion. - In ED, treated with 250 mL of NS IVF. - Gave ASA 162 mg. Will trend her troponins and EKGs. Nitroglycerin and morphine as needed for pain. Hydralazine IV prn for SBP > 210. Will consult cardiology in a.m. Nausea and vomiting: Notes acute nausea and vomiting without diarrhea over the past 24 hours, presently resolved. Differential is relatively large, though no present overt evidence of an acute intracranial issue, metabolic derangement, acute abdominal process, acute change in medications or suspected toxicity, or overt infectious issue. - Will monitor for now. Ongoing medical issues: - Hypertension, hyperlipidemia, diastolic heart failure, CAD / IN / stents, complete AV block s/p pacemaker 2019: Followed by Drs. Talavera and Ilan as outpatient. --- Continue daily weights. Continue home aspirin, atorvastatin, furosemide, hydralazine, losartan. - Asthma, hypoxia: Continue home as needed albuterol. Patient says she is not on oxygen at home. - Paroxysmal atrial fibrillation / flutter: Continue home amiodarone. - Anemia: Admit hemoglobin 14 with recent comparisons around 1011s. Continue home iron. - Hypothyroidism: Continue home Synthroid. - Anxiety/Depression: Continue home paroxetine - Elevated alk phos: Admit AP 120. Recent comparisons show a similar level. No present abdominal pain or ttp on exam. - Osteoarthritis, morbid obesity, prior right leg shingles, prior left leg cellulitis. Code status: DNR/DNI (patient states based on previous established wishes). Diet: NPO in case of need for acute cardiac procedure. DVT prophy: Continue home Eliquis. PT/OT: Deferred to admit. Disbo: [facility]. (2) Dizziness: (3) Nausea and vomiting: (4) Hypertension: (5) Hyperlipidemia: (6) Chronic diastolic (congestive) heart failure: (7) CAD (coronary artery disease): (8) Complete AV block: (9) Asthma: (10) Atrial fibrillation/flutter: (11) Anemia: (12) Hypothyroidism: (13) Anxiety: (14) Depression: (15) Elevated alkaline phosphatase level: (16) Osteoarthritis: (17) Morbid obesity with BMI of 40.0-44.9, adult: History of Present Illness Primary Care Provider: BENITO Marquez 73-year-old female presents complaining of acute nausea and vomiting along with chest pain. - Patient says she was in her usual state of health until evening prior to admission when she developed nausea, feeling of dizziness, and vomiting. Dizziness is not described as vertiginous but more upon going from sitting to standing, then quickly resolving. She notes multiple episodes of nonbloody emesis overnight but is resolved since earlier this morning. No associated diarrhea or abdominal discomfort. Denies associated headache, blurry vision, changes in medication, falls, or acute injuries. She does think that she threw up her morning medications. - She presents to the ED stating that she developed some chest discomfort localized to below her left breast, non-radiating, beginning around noon. Says it was constant and resolved somewhere between 2-4 pm. Denies any associated respiratory symptoms, shortness of breath, cough, known fevers, but does say that she developed some chest congestion that started while in the ED. - Patient has a known history of multiple cardiac issues for which she is followed by Drs. Talavera and Ilan. She says that she had a heart attack about 3 years ago and describes those symptoms as being more like indigestion and not overt pain. She says her current symptoms do not feel like that at all. - Past medical history includes hypertension, hyperlipidemia, diastolic heart failure, CAD, IN, complete AV block, asthma, hypoxia, paroxysmal atrial fibrillation/flutter, anemia, hypothyroidism, anxiety, depression, chronically elevated alk phos, osteoarthritis, morbid obesity, shingles, cellulitis. - Past surgical history includes appendectomy, hysterectomy, left total knee replacement, cataract surgery - Social history includes never smoking. Denies alcohol use. , lives in an apartment with family nearby. Allergies Allergy/AdvReac Type Severity Reaction Status Date / Time No Known Drug Allergies Allergy Unknown Verified 04/06/19 19:22 Home Medications Home Medications Medication Instructions Recorded Confirmed Type Eliquis 5 mg PO BID #60 tab 08/21/18 04/06/19 Rx amiodarone 200 mg PO DAILY #30 tab 09/02/18 04/06/19 Rx amlodipine 10 mg tablet 10 mg PO DAILY #30 tab 10/26/18 04/06/19 Rx paroxetine HCl 20 mg tablet 20 mg PO QAM #90 tab 10/26/18 04/06/19 Rx Oxygen Home ea 11/10/18 02/02/19 History atorvastatin 10 mg tablet 10 mg PO DAILY #30 tab 11/10/18 04/06/19 Rx furosemide 20 mg tablet 20 mg PO DAILY #90 tab 12/03/18 04/06/19 Rx hydralazine 50 mg tablet 50 mg PO TID #90 tab 01/08/19 04/06/19 Rx albuterol sulfate 90 mcg/actuation 2 puffs INH Q4H PRN #18 gm 02/02/19 04/06/19 Rx aerosol inhaler levothyroxine 25 mcg tablet 25 mcg PO DAILY #30 tab 02/08/19 04/06/19 Rx losartan 100 mg tablet 100 mg PO DAILY #90 tab 02/25/19 04/06/19 Rx Ferrus Gluconate 239 mg PO DAILY 04/06/19 04/06/19 History aspirin [Aspir-81] 81 mg PO DAILY 04/06/19 04/06/19 History Past Med/Surg History Medical History JENNIFER (acute kidney injury) Anxiety Asthma Atrial fibrillation/flutter Atrioventricular block, Mobitz type 2 CAD (coronary artery disease) S/P IN, cath with stent x 1 2015 Cataract Cellulitis B/L LOWER EXTREMITIES Chronic anticoagulation Chronic diastolic (congestive) heart failure Chronic respiratory failure with hypoxia, on home O2 therapy Depression Heart block AV complete History of anxiety History of cholecystitis History of coronary artery disease History of depression History of myocardial infarction Hyperkalemia Hyperlipidemia Hypermagnesemia Hypertension Admitted to [facility] 08/17 for hypertensive urgencyl; BB d/c'd 2/2 bradycardia; put on hydralazine, losartan and amlodipine. Hypertensive urgency (Resolved) Hypothyroidism Microcytic hypochromic anemia Morbid obesity with BMI of 40.0-44.9, adult Osteoarthritis SOB (shortness of breath) on exertion Symptomatic bradycardia Surgical History History of appendectomy History of cardiac cath 3 YEARS AGO - VAR[facility] - IN - 1 STENT PLACED - FOLLOWS W/ DR. LAUGHLIN History of cataract surgery RT/LEFT History of colonoscopy History of hysterectomy History of knee replacement LEFT History of tooth extraction History of total knee replacement LEFT History of tubal ligation Hx of cholecystectomy Family History Brother Family history of diabetes mellitus Myocardial infarction, Onset Age: 50 Family history of cardiac disorder Hypertension Mother Family history of diabetes mellitus Myocardial infarction Father Myocardial infarction Social History Preferred Language: Luxembourgish Communication Ability: Effective Visual Impairment: No Limitations Hearing Ability: Normal Learning And Development Consultant Required: No Beliefs That Will Affect Care: None marital status: / Current Living Situation: Alone Current Living Situation Comment: Lives in senior apartment at [facility] current occupational status: retired Other Information That Helps Us Care for You: No Feels Safe at Home: Yes Safety Concerns: Feels Safe At This Time Smoking Status: Never smoker Do You Dip or Chew Tobacco: No ; Second Hand Exposure: No ; Hx Alcohol Use: No Hx Substance Use: No Dental Care, Regularly: No Physical Activity Frequency: 3-4 Times per Week Physical Activity Frequency Comment: Limited by physical condition Seatbelt Use: always Sunscreen Use: Yes Review of Systems Review of Systems: Constitutional: Denies fevers, chills, focal weakness Eyes: Denies any visual loss or diplopia ENT: Denies any ear/nose/throat pain or difficulty speaking or swallowing Respiratory: Denies any dyspnea, cough, hemoptysis Cardiovascular: No chest pain. Denies feeling of edema. Gastrointestinal: Denies any abdominal pain, nausea/vomiting/diarrhea Musculoskeletal: Denies any acute extremity pains, myalgias, or focal weakness Skin: Denies any known acute (i.e. past couple of days) rashes or lesions Neuro: Denies any headache, acute focal weakness or numbness, or difficulties with speech or swallow. Physical Exam Physical Exam: GENERAL: Awake, alert, well-appearing, in no acute distress HENT: Normocephalic, atraumatic. Oropharynx unremarkable. EYES: Normal conjunctiva. Sclera non-icteric. NECK: Inspection normal. Supple and full ROM. No nuchal rigidity. CARDIAC: +S1S2 RRR, no murmurs. Left upper chest pacemaker in place. RESPIRATORY: Clear to auscultation. No wheezes or rales. Normal respiratory effort. No present cough. GI: +BS, soft, non-distended. No tenderness to palpation. No rebound or guarding. Morbidly obese. EXTREMITIES: No pedal edema or calf tenderness. Moving all extremities naturally and easily. Right upper lateral thigh and distal right lateral leg wounds. Well-healed left lower extremity wounds consistent with previous ce llulitis. NEURO: No gross neuro deficits. Results & Data Vital Signs (Past 12 Hours) Vital Signs Temp Pulse Pulse Resp BP BP Pulse Ox 04/06/19 19:56 83 20 104/60 94 04/06/19 19:09 83 22 199/93 H 93 04/06/19 18:50 72 19 95 04/06/19 18:40 72 21 95 04/06/19 18:31 71 25 H 98 04/06/19 18:30 71 26 H 178/102 H 97 04/06/19 18:20 66 20 97 04/06/19 18:10 67 18 98 04/06/19 18:01 66 23 96 04/06/19 18:00 66 24 189/96 H 97 04/06/19 17:57 65 19 96 04/06/19 17:55 66 24 194/98 H 97 04/06/19 17:51 36.6 C 66 22 189/96 H 99 04/06/19 17:46 66 22 99 Laboratory Results 04/06/19 04/06/19 04/06/19 Range/Units 18:30 18:30 18:30 WBC 7.15 (4.8-10.8) K/uL RBC 5.18 (4.2-5.4) M/uL Hgb 14.0 (12.0-16.0) g/dL Hct 43.8 (37-47) % MCV 84.6 (80-100) fL MCH 27.0 (25-34) pg MCHC 32.0 (32-36) g/dL RDW Std Deviation 53.6 H (36.4-46.3) fL RDW Coeff of Fabián 17.3 H (11.5-14.5) % Plt Count 308 (130-400) K/uL MPV 9.4 (7.4-10.4) fL Immature Gran % (Auto) 0.3 % Neut % (Auto) 83.8 % Lymph % (Auto) 9.1 % [place] % (Auto) 6.4 % Eos % (Auto) 0.3 % Baso % (Auto) 0.1 % Immature Gran # (Auto) 0.02 (0.00-0.02) K/uL Neut # (Auto) 5.99 (1.4-6.5) K/uL Lymph # (Auto) 0.65 L (1.2-3.4) K/uL [place] # (Auto) 0.46 (0.11-0.59) K/uL Eos # (Auto) 0.02 (0-0.5) K/uL Baso # (Auto) 0.01 (0-0.2) K/uL PT 10.8 (9.0-12.0) Seconds INR 1.1 (0.9-1.1) APTT 26.6 (21.0-31.0) Seconds PTT Ratio 1.0 Sodium 140 (136-145) mmol/L Potassium 3.5 (3.5-5.1) mmol/L Chloride 109 H (98-107) mmol/L Carbon Dioxide 25 (21-32) mmol/L Anion Gap 6.0 (3-11) BUN 11 (7-18) mg/dl Creatinine 0.75 (0.6-1.2) mg/dl Est Cr Clr Drug Dosing 68.5 ml/min Est GFR ( Amer) 92.9 Est GFR (Non-Af Amer) 80.2 BUN/Creatinine Ratio 15.2 (10-20) Glucose 112 H (70-99) mg/dl Calcium 9.3 (8.5-10.1) mg/dl Total Bilirubin 0.9 (0.2-1) mg/dl AST 14 L (15-37) U/L ALT 19 (12-78) U/L Alkaline Phosphatase 120 H (45-117) U/L Troponin I < 0.015 (0-0.045) ng/ml Total Protein 7.9 (6.4-8.2) gm/dl Albumin 3.4 (3.4-5.0) gm/dl Globulin 4.5 H (2.5-4.0) gm/dl Albumin/Globulin Ratio 0.8 L (0.9-2) Lipase 55 L (73-393) U/L Medications Administered Discontinued Medications Hydralazine HCl (Hydralazine Hcl) 5 mg IV NOW ONE Stop: 04/06/19 21:00 Last Admin: 04/06/19 21:16 Dose: 5 mg Documented by: [id number] Hydralazine HCl (Hydralazine Hcl) Confirm Administered Dose 20 mg .ROUTE .STK- MED ONE Stop: 04/06/19 21:06 Last Admin: 04/06/19 21:19 Dose: Not Given Documented by: [id number] Sodium Chloride (Nss 1000ml) 250 mls @ 999 mls/hr IV .Q16M ONE Stop: 04/06/19 20:15 Last Infusion: 04/06/19 20:43 Dose: 0 mls/hr Documented by: [id number] Admin: 04/06/19 20:09 Dose: 999 mls/hr Documented by: [id number] Code Status & VTE Plan Code Status DNR/DNI. VTE Prophylaxis Plan VTE Prophylaxis will be ordered: Yes Supervising Physician Co-Signing Physician Notes Patient was seen and examined by me personally. I reviewed the chart, the orders and discussed the case in detail with Dr. Bryan De Leon MD . I read this H&P and agree with its contents to entirety. Resident Activity Tracking Resident Involvement: Resident Care Provided Care Provided: Adult Hospital Medicine (1) Chest pain Chest pain type: unspecified Qualified Code(s): R07.9 - Chest pain, unspecified
[2019-04-06] MEDS ORDERED: MoRPHine SULFATE 2 MG/ML CARP IV PRN (22:31)
[2019-04-06] MEDS ORDERED: NITROGLYCERIN SL 0.4 MG/TAB TAB SL PRN (22:31)
[2019-04-06] MEDS ORDERED: HydrALAZINE HCL 20 MG/ML VIAL IV PRN (22:31)
[2019-04-06] MEDS ORDERED: ALBUTEROL HFA 8 GM INHALER INH PRN (22:31)
[2019-04-06] MEDS ORDERED: ONDANSETRON INJ 2 MG/ML 2 ML VIAL IV PRN (22:31)
[2019-04-06] MEDS: LACTATED RINGER'S 1,000 ML IV SCH (23:20)
--- NOTE | 2019-04-07 03:06 | Billing Data ---
Coding Level of Care Code 74496 OBS Care - Level 2
[2019-04-07] MEDS ORDERED: LEVOTHYROXINE SODIUM 25 MCG TABLET PO SCH (06:30)
[2019-04-07 06:31] LABS: Basophils # (auto) 0.01 K/uL (0-0.2); Basophils % (auto) 0.2 %; Eosinophils # (auto) 0.04 K/uL (0-0.5); Eosinophils % (auto) 0.7 %; Hematocrit (blood only) 39.4 % (37-47); Hemoglobin 12.3 g/dL (12.0-16.0); Immature Granulocytes # (auto) 0.02 K/uL (0.00-0.02); Immature Granulocytes % (auto) 0.3 %; Lymphocytes # (auto) 0.84 K/uL (1.2-3.4); Lymphocytes % (auto) 14.4 %; Mean Corpuscular Hemoglobin 26.4 pg (25-34); Mean Corpuscular Hgb Conc 31.2 g/dL (32-36); Mean Corpuscular Volume 84.5 fL (80-100); Mean Platelet Volume 9.3 fL (7.4-10.4); Monocytes # (auto) 0.61 K/uL (0.11-0.59); Monocytes % (auto) 10.4 %; Neutrophils # (auto) 4.33 K/uL (1.4-6.5); Platelet Count 277 K/uL (130-400); RDW Coefficient of Variation 17.4 % (11.5-14.5); RDW Standard Deviation 53.2 fL (36.4-46.3); Red Blood Count 4.66 M/uL (4.2-5.4); White Blood Count 5.85 K/uL (4.8-10.8)
[2019-04-07 07:08] LABS: Calcium 8.7 mg/dl (8.5-10.1); Creatinine Clr Calc Pharmacy 94.3 ml/min; Est GFR (Non-African American) 94.9; Phosphorus 2.8 mg/dl (2.5-4.9); Potassium 3.1 mmol/L (3.5-5.1)
[2019-04-07] MEDS: HydrALAZINE TAB 50 MG TAB PO SCH ×2 (08:09→13:08)
--- NOTE | 2019-04-07 08:41 | Cardiology Consultation ---
Date of Consultation April 07, 2019 Assessment & Plan (1) Chest pain: Atypical sharp/stabbing chest pain underneath left breast. Non exertional. Associated with nausea and vomiting, suggestive of GI etiology. No acute EKG changes. Cardiac enzymes x3. Symptoms resolved. We will update 2D echocardiogram this morning. (2) Hypertension: Uncontrolled hypertension noted on arrival to ER. Patient reports compliance with her home medications. Upon review of outpatient versus inpatient medication list, it appears her carvedilol was discontinued at some point by outside provider. Patient is unsure when this was changed or if she forgot to hand picker refills. Will resume carvedilol 6.25 mg twice daily (she was previously taking carvedilol 12.5 mg twice daily). Titrate dose as needed/tolerated. She has underlying pacemaker which will prevent bradycardia. Continue amlodipine 10 mg daily, furosemide 20 mg daily, hydralazine 50 mg 3 times daily, and losartan 100 mg daily (3) Nausea and vomiting: Resolved. (4) Atrial fibrillation/flutter: Currently maintaining normal sinus rhythm per pacemaker interrogation. Continue chronic amiodarone and Eliquis for anticoagulation therapy. Resume carvedilol as above. (5) Hypokalemia: Potassium 3.1 this morning. Likely due to volume depletion, vomiting and diuretic therapy. Patient was previously on spironolactone 25 mg daily but stopped due to hyperkalemia. Supplement potassium this morning. Could consider resuming lower dose if needed for hypertension in the future (6) Pacemaker: Appropriate function per interrogation this admission. No recurrent A. fib. Will need to reestablish with device clinic at [facility] as no upcoming appointments scheduled. (7) CAD (coronary artery disease): History of anterior wall NH in 2013 with stent to the LAD at that time performed at [facility] Symptoms very atypical for angina. Continue home medications including ASA, statin, losartan, amlodipine. Resume beta joann for hypertension Case discussed with Dr. Osei. Proceed with 2D echocardiogram and titration of antihypertensives. Chest pain very atypical for cardiac etiology. Consider nuclear stress testing once BP has improved (inpatient vs outpatient). Supervising Physician Co-Signing Physician Notes Cardiology attending addendum: I personally performed a history and physical exam on Ms. East. Agree with the findings, assessment, and plan of Amanda Elise PA-C with additions as noted below. Subjective: Patient has completed her noontime meal and is feeling well without complaints. Nauseousness has resolved. The pain that she described at the lower border of her left breast has resolved. Physical exam findings: Cardiovascular regular rate, no murmurs Chest: Well-healed left infraclavicular pacemaker pocket with no device erosion Lungs clear to auscultation bilaterally Impression: Transient nauseousness and discomfort at the border of the left breast, symptoms suggestive of angina. Discussion/plan: The patient's EKG is nondiagnostic for ischemia due to her chronic paced QRS complexes. Cardiac enzymes are negative. She feels well, and she would like to go home. There is some confusion regarding her medications. She has been placed back on the medications that we had recorded on her outpatient cardiology notes including carvedilol. I discussed options of remaining in the hospital for a pharmacologic nuclear stress test. The patient is confident that she is feeling better, and she is eager for discharge. I think it is reasonable for her to be discharged, with plan for outpatient follow-up, and if she has recurrent symptoms, can always consider nuclear stress testing as an outpatient. History of Present Illness Reason for Consultation: Chest pain; Dizziness Requesting Physician: Dr. De Leon Attending Physician: Dr. Osei History of Present Illness Patient is a 73-year-old female known to [facility] cardiology, following with Dr. Talavera, for history of coronary artery disease status post anterior wall NH in 2013 status post mid LAD stent at that time, history of paroxysmal atrial fibrillation and flutter on chronic Eliquis maintained in normal sinus rhythm on amiodarone, history of complete heart block status post dual-chamber permanent pacemaker implantation in October 2018, chronic respiratory failure per chart records previously on chronic supplemental O2, which she reports she does not wear. other history includes chronic diastolic heart failure, hypertension, and dyslipidemia. Patient presented to [facility] after several hours of nausea, vomiting, dizziness with complaints of sharp/stabbing left upper quadrant/left lower chest pain (underneath her left breast) lasting for about 2 hours. On arrival EKG demonstrated dual-chamber pacemaker without acute changes. Pacemaker report revealed appropriate function and battery longevity without recurrent atrial fibrillation or flutter. She was significantly hypertensive and treated with IV hydralazine. Cardiology was consulted due to chest pain and hypertension. Her chest pain had subsided by the time she reached ER. Nausea and vomiting resolved overnight. Cardiac enzymes remain negative this morning. At time of consult this morning, patient resting in bed comfortably without complaints. No recurrent chest pain or unusual shortness of breath. No recurrent nausea or vomiting. She denies dizziness, syncope or near syncope. No sense of palpitations. No recent fever cough or chills. No orthopnea, PND, lower extremity edema. She denies recent exertional chest pain with ambulation at her house or daily cotton ball bagger. No need for sublingual nitro use. No changes to her functional capacity. Allergies Allergy/AdvReac Type Severity Reaction Status Date / Time No Known Drug Allergies Allergy Unknown Verified 04/06/19 19:22 Home Medications Home Medications Medication Instructions Recorded Confirmed Type Eliquis 5 mg PO BID #60 tab 08/21/18 04/06/19 Rx amiodarone 200 mg PO DAILY #30 tab 09/02/18 04/06/19 Rx amlodipine 10 mg tablet 10 mg PO DAILY #30 tab 10/26/18 04/06/19 Rx paroxetine HCl 20 mg tablet 20 mg PO QAM #90 tab 10/26/18 04/06/19 Rx Oxygen Home ea 11/10/18 02/02/19 History atorvastatin 10 mg tablet 10 mg PO DAILY #30 tab 11/10/18 04/06/19 Rx furosemide 20 mg tablet 20 mg PO DAILY #90 tab 12/03/18 04/06/19 Rx hydralazine 50 mg tablet 50 mg PO TID #90 tab 01/08/19 04/06/19 Rx albuterol sulfate 90 mcg/actuation 2 puffs INH Q4H PRN #18 gm 02/02/19 04/06/19 Rx aerosol inhaler levothyroxine 25 mcg tablet 25 mcg PO DAILY #30 tab 02/08/19 04/06/19 Rx losartan 100 mg tablet 100 mg PO DAILY #90 tab 02/25/19 04/06/19 Rx Ferrus Gluconate 239 mg PO DAILY 04/06/19 04/06/19 History aspirin [Aspir-81] 81 mg PO DAILY 04/06/19 04/06/19 History carvedilol 6.25 mg PO BID #60 tab 04/07/19 Rx Patient History Medical History JENNIFER (acute kidney injury) Anxiety Asthma Atrial fibrillation/flutter Atrioventricular block, Mobitz type 2 CAD (coronary artery disease) S/P NH, cath with stent x 2015 Cataract Cellulitis B/L LOWER EXTREMITIES Chronic anticoagulation Chronic diastolic (congestive) heart failure Chronic respiratory failure with hypoxia, on home O2 therapy Depression Heart block AV complete History of anxiety History of cholecystitis History of coronary artery disease History of depression History of myocardial infarction Hyperkalemia Hyperlipidemia Hypermagnesemia Hypertension Admitted to [facility] 08/17 for hypertensive urgencyl; BB d/c'd 2/2 bradycardia; put on hydralazine, losartan and amlodipine. Hypertensive urgency (Resolved) Hypothyroidism Microcytic hypochromic anemia Morbid obesity with BMI of 40.0-44.9, adult Osteoarthritis SOB (shortness of breath) on exertion Symptomatic bradycardia Surgical History History of appendectomy History of cardiac cath 3 YEARS AGO - VAR[facility] - NH - 1 STENT PLACED - FOLLOWS W/ DR. LAUGHLIN History of cataract surgery RT/LEFT History of colonoscopy History of hysterectomy History of knee replacement LEFT History of tooth extraction History of total knee replacement LEFT History of tubal ligation Hx of cholecystectomy Family History Brother Family history of diabetes mellitus Myocardial infarction, Onset Age: 50 Family history of cardiac disorder Hypertension Mother Family history of diabetes mellitus Myocardial infarction Father Myocardial infarction Social History Preferred Language: Andorran Communication Ability: Effective Visual Impairment: No Limitations Hearing Ability: Normal Management Lecturer Required: No Beliefs That Will Affect Care: None marital status: / Current Living Situation: Alone Current Living Situation Comment: Lives in senior apartment at [facility] current occupational status: retired Feels Safe at Home: Yes Smoking Status: Never smoker Second Hand Exposure: No ; Hx Alcohol Use: No Hx Substance Use: No Dental Care, Regularly: No Physical Activity Frequency: 3-4 Times per Week Physical Activity Frequency Comment: Limited by physical condition Seatbelt Use: always Sunscreen Use: Yes Physical Exam Constitutional: WD/WN, vitals as above + obese; no acute distress Neck: normal visual inspection Respiratory: normal respiratory effort, lungs clear to auscultation Cardiovascular: RRR, no murmur, no edema Gastrointestinal (Abdomen): normal bowel sounds, soft, nontender, no hepatosplenomegaly Neurologic: PERRL, EOMI, accommodation nl, no face palsy, no dysarthria Psychiatric: A+Ox3, euthymic affect Results & Data Vital Signs (Past 12 Hours) Vital Signs Temp Pulse Pulse Pulse Resp BP Pulse Ox 04/07/19 04:30 37.0 C 73 16 148/72 H 93 04/07/19 03:30 84 04/06/19 23:16 36.5 C 81 20 170/90 H 95 04/06/19 22:39 36.5 C 84 18 175/91 H 94 04/06/19 22:02 90 20 183/83 H 94 04/06/19 21:30 88 22 190/77 H 92 Laboratory Results 04/07/19 04/07/19 04/07/19 Range/Units 06:12 06:12 06:12 WBC 5.85 (4.8-10.8) K/uL RBC 4.66 (4.2-5.4) M/uL Hgb 12.3 (12.0-16.0) g/dL Hct 39.4 (37-47) % MCV 84.5 (80-100) fL MCH 26.4 (25-34) pg MCHC 31.2 L (32-36) g/dL RDW Std Deviation 53.2 H (36.4-46.3) fL RDW Coeff of Fabián 17.4 H (11.5-14.5) % Plt Count 277 (130-400) K/uL MPV 9.3 (7.4-10.4) fL Immature Gran % (Auto) 0.3 % Neut % (Auto) 74.0 % Lymph % (Auto) 14.4 % Hodgeman % (Auto) 10.4 % Eos % (Auto) 0.7 % Baso % (Auto) 0.2 % Immature Gran # (Auto) 0.02 (0.00-0.02) K/uL Neut # (Auto) 4.33 (1.4-6.5) K/uL Lymph # (Auto) 0.84 L (1.2-3.4) K/uL Hodgeman # (Auto) 0.61 H (0.11-0.59) K/uL Eos # (Auto) 0.04 (0-0.5) K/uL Baso # (Auto) 0.01 (0-0.2) K/uL PT (9.0-12.0) Seconds INR (0.9-1.1) APTT (21.0-31.0) Seconds PTT Ratio Sodium 141 (136-145) mmol/L Potassium 3.1 L (3.5-5.1) mmol/L Chloride 112 H (98-107) mmol/L Carbon Dioxide 24 (21-32) mmol/L Anion Gap 5.0 (3-11) BUN 9 (7-18) mg/dl Creatinine 0.54 L (0.6-1.2) mg/dl Est Cr Clr Drug Dosing 94.3 ml/min Est GFR ( Amer) 110.0 Est GFR (Non-Af Amer) 94.9 BUN/Creatinine Ratio 17.0 (10-20) Glucose 92 (70-99) mg/dl Calcium 8.7 (8.5-10.1) mg/dl Phosphorus 2.8 (2.5-4.9) mg/dl Magnesium 2.0 (1.8-2.4) mg/dl Total Bilirubin (0.2-1) mg/dl AST (15-37) U/L ALT (12-78) U/L Alkaline Phosphatase (45-117) U/L Troponin I 0.019 (0-0.045) ng/ml Total Protein (6.4-8.2) gm/dl Albumin (3.4-5.0) gm/dl Globulin (2.5-4.0) gm/dl Albumin/Globulin Ratio (0.9-2) Lipase (73-393) U/L 04/07/19 04/06/19 04/06/19 Range/Units 00:32 18:30 18:30 WBC (4.8-10.8) K/uL RBC (4.2-5.4) M/uL Hgb (12.0-16.0) g/dL Hct (37-47) % MCV (80-100) fL MCH (25-34) pg MCHC (32-36) g/dL RDW Std Deviation (36.4-46.3) fL RDW Coeff of Fabián (11.5-14.5) % Plt Count (130-400) K/uL MPV (7.4-10.4) fL Immature Gran % (Auto) % Neut % (Auto) % Lymph % (Auto) % Hodgeman % (Auto) % Eos % (Auto) % Baso % (Auto) % Immature Gran # (Auto) (0.00-0.02) K/uL Neut # (Auto) (1.4-6.5) K/uL Lymph # (Auto) (1.2-3.4) K/uL Hodgeman # (Auto) (0.11-0.59) K/uL Eos # (Auto) (0-0.5) K/uL Baso # (Auto) (0-0.2) K/uL PT 10.8 (9.0-12.0) Seconds INR 1.1 (0.9-1.1) APTT 26.6 (21.0-31.0) Seconds PTT Ratio 1.0 Sodium 140 (136-145) mmol/L Potassium 3.5 (3.5-5.1) mmol/L Chloride 109 H (98-107) mmol/L Carbon Dioxide 25 (21-32) mmol/L Anion Gap 6.0 (3-11) BUN 11 (7-18) mg/dl Creatinine 0.75 (0.6-1.2) mg/dl Est Cr Clr Drug Dosing 68.5 ml/min Est GFR ( Amer) 92.9 Est GFR (Non-Af Amer) 80.2 BUN/Creatinine Ratio 15.2 (10-20) Glucose 112 H (70-99) mg/dl Calcium 9.3 (8.5-10.1) mg/dl Phosphorus (2.5-4.9) mg/dl Magnesium (1.8-2.4) mg/dl Total Bilirubin 0.9 (0.2-1) mg/dl AST 14 L (15-37) U/L ALT 19 (12-78) U/L Alkaline Phosphatase 120 H (45-117) U/L Troponin I < 0.015 < 0.015 (0-0.045) ng/ml Total Protein 7.9 (6.4-8.2) gm/dl Albumin 3.4 (3.4-5.0) gm/dl Globulin 4.5 H (2.5-4.0) gm/dl Albumin/Globulin Ratio 0.8 L (0.9-2) Lipase 55 L (73-393) U/L 04/06/19 Range/Units 18:30 WBC 7.15 (4.8-10.8) K/uL RBC 5.18 (4.2-5.4) M/uL Hgb 14.0 (12.0-16.0) g/dL Hct 43.8 (37-47) % MCV 84.6 (80-100) fL MCH 27.0 (25-34) pg MCHC 32.0 (32-36) g/dL RDW Std Deviation 53.6 H (36.4-46.3) fL RDW Coeff of Fabián 17.3 H (11.5-14.5) % Plt Count 308 (130-400) K/uL MPV 9.4 (7.4-10.4) fL Immature Gran % (Auto) 0.3 % Neut % (Auto) 83.8 % Lymph % (Auto) 9.1 % Hodgeman % (Auto) 6.4 % Eos % (Auto) 0.3 % Baso % (Auto) 0.1 % Immature Gran # (Auto) 0.02 (0.00-0.02) K/uL Neut # (Auto) 5.99 (1.4-6.5) K/uL Lymph # (Auto) 0.65 L (1.2-3.4) K/uL Hodgeman # (Auto) 0.46 (0.11-0.59) K/uL Eos # (Auto) 0.02 (0-0.5) K/uL Baso # (Auto) 0.01 (0-0.2) K/uL PT (9.0-12.0) Seconds INR (0.9-1.1) APTT (21.0-31.0) Seconds PTT Ratio Sodium (136-145) mmol/L Potassium (3.5-5.1) mmol/L Chloride (98-107) mmol/L Carbon Dioxide (21-32) mmol/L Anion Gap (3-11) BUN (7-18) mg/dl Creatinine (0.6-1.2) mg/dl Est Cr Clr Drug Dosing ml/min Est GFR ( Amer) Est GFR (Non-Af Amer) BUN/Creatinine Ratio (10-20) Glucose (70-99) mg/dl Calcium (8.5-10.1) mg/dl Phosphorus (2.5-4.9) mg/dl Magnesium (1.8-2.4) mg/dl Total Bilirubin (0.2-1) mg/dl AST (15-37) U/L ALT (12-78) U/L Alkaline Phosphatase (45-117) U/L Troponin I (0-0.045) ng/ml Total Protein (6.4-8.2) gm/dl Albumin (3.4-5.0) gm/dl Globulin (2.5-4.0) gm/dl Albumin/Globulin Ratio (0.9-2) Lipase (73-393) U/L Diagnostic Findings Pacemaker report reviewed demonstrating appropriate function and battery longevity. No recurrent atrial fibrillation or flutter. EKG on admission revealed dual chamber pacemaker without acute changes. Telemetry reviewed: Paced rhythm in the 70s and 80s Chest x-ray on admission: IMPRESSION: 1. Moderate cardiac enlargement. 2. Pulmonary vascular congestion. Medications Administered Current Inpatient Medications Albuterol (Ventolin Hfa) 2 puffs INH Q4H PRN PRN Reason: shortness of breath or wheezing Stop: 05/06/19 22:30 Amiodarone HCl (Cordarone) 200 mg PO DAILY COUNT INCLUDES THE [facility] Stop: 05/07/19 08:59 Last Admin: 04/07/19 08:09 Dose: 200 mg Documented by: Amlodipine Besylate (Norvasc) 10 mg PO DAILY COUNT INCLUDES THE [facility] Stop: 05/07/19 08:59 Apixaban (Eliquis) 5 mg PO BID KIMBERLY Stop: 05/07/19 08:59 Aspirin (Ecotrin Ectab) 81 mg PO DAILY KIMBERLY Stop: 05/07/19 08:59 Atorvastatin Calcium (Lipitor) 10 mg PO DAILY COUNT INCLUDES THE [facility] Stop: 05/07/19 08:59 Last Admin: 04/07/19 08:08 Dose: 10 mg Documented by: Ferrous Gluconate (Ferrous Gluconate) 324 mg PO DAILY COUNT INCLUDES THE [facility] Stop: 05/07/19 08:59 Last Admin: 04/07/19 08:08 Dose: 324 mg Documented by: Furosemide (Lasix) 20 mg PO DAILY COUNT INCLUDES THE [facility] Stop: 01/03/20 08:59 Last Admin: 04/07/19 08:09 Dose: 20 mg Documented by: Hydralazine HCl (Apresoline) 50 mg PO TID COUNT INCLUDES THE [facility] Stop: 05/07/19 08:59 Last Admin: 04/07/19 08:09 Dose: 50 mg Documented by: Hydralazine HCl (Hydralazine Hcl) 5 mg IV Q2H PRN PRN Reason: Hypertension Stop: 05/06/19 22:30 Lactated Ringer's (Lr) 1,000 mls @ 80 mls/hr IV .[id number] COUNT INCLUDES THE [facility] Stop: 05/06/19 22:30 Last Infusion: 04/07/19 05:53 Dose: 80 mls/hr Documented by: Levothyroxine Sodium (Synthroid) 25 mcg PO DAILYBB COUNT INCLUDES THE [facility] Stop: 05/07/19 06:29 Last Admin: 04/07/19 05:59 Dose: 25 mcg Documented by: Losartan Potassium (Cozaar) 100 mg PO DAILY COUNT INCLUDES THE [facility] Stop: 05/07/19 08:59 Last Admin: 04/07/19 08:10 Dose: 100 mg Documented by: Morphine Sulfate (Morphine Sulfate) 2 mg IV Q30M PRN PRN Reason: Chest Pain Stop: 04/20/19 22:30 Nitroglycerin (Nitrostat) 0.4 mg SL UD PRN PRN Reason: Chest Pain Stop: 05/06/19 22:30 Ondansetron HCl (Zofran) 4 mg IV Q4H PRN PRN Reason: Nausea Stop: 05/06/19 22:30 Paroxetine HCl (Paxil) 20 mg PO QAM COUNT INCLUDES THE [facility] Stop: 05/07/19 08:59 Last Admin: 04/07/19 08:11 Dose: 20 mg Documented by: (1) Chest pain Chest pain type: unspecified Qualified Code(s): R07.9 - Chest pain, unspecified (2) Hypertension Hypertension type: essential hypertension Qualified Code(s): I10 - Essential (primary) hypertension
[2019-04-07] MEDS ORDERED: LOSARTAN POTASSIUM 50 MG TAB PO SCH (09:00)
[2019-04-07] MEDS ORDERED: AMIODARONE 200 MG TAB PO SCH (09:00)
[2019-04-07] MEDS ORDERED: AMLODIPINE BESYLATE 5 MG TAB PO SCH (09:00)
[2019-04-07] MEDS ORDERED: PARoxetine HCl 20 MG TAB PO SCH (09:00)
[2019-04-07] MEDS ORDERED: ASPIRIN 81 MG ECTAB PO SCH (09:00)
[2019-04-07] MEDS ORDERED: ATORVASTATIN 10 MG TAB PO SCH (09:00)
[2019-04-07] MEDS ORDERED: FERROUS GLUCONATE 324 MG TAB PO SCH (09:00)
[2019-04-07] MEDS ORDERED: APIXABAN 5 MG TABLET PO SCH (09:00)
[2019-04-07] MEDS ORDERED: FUROSEMIDE 20 MG TAB PO SCH (09:00)
--- NOTE | 2019-04-07 09:52 | Hospitalist Progress Note ---
Date of Service April 07, 2019 Assessment & Plan (1) Chest pain: Patient's chest pain and other symptoms that have resolved. She does have an extensive cardiac history including coronary artery disease with a previous GA. She does have stents. In addition, she has a complete AV block status post pacemaker earlier this year. Because of this, I believe patient should have a nuclear stress test prior to discharge. Continue other medications including Eliquis, low-dose aspirin, and Lipitor. Of note, the patient's pacemaker was interrogated yesterday, reviewed without significant findings. (2) Dizziness: (3) Nausea and vomiting: As noted above, seems to have resolved (4) Hypertension: Blood pressure somewhat elevated. Patient is on losartan and hydralazine along with furosemide. Continue to monitor, consider increasing dose of losartan. (5) Hyperlipidemia: (6) Chronic diastolic (congestive) heart failure: (7) CAD (coronary artery disease): (8) Complete AV block: (9) Asthma: (10) Atrial fibrillation/flutter: Patient has AV pacing, rate controlled. Patient is on amiodarone, Eliquis. (11) Anemia: (12) Hypothyroidism: (13) Anxiety: (14) Depression: (15) Elevated alkaline phosphatase level: (16) Osteoarthritis: (17) Morbid obesity with BMI of 40.0-44.9, adult: Subjective Patient seen and examined. She is pleasant and denies any further complaints. She did describe some dizziness and atypical pain under her left breast on presentation but this never resolved. Her vitals have been stable although her blood pressure somewhat elevated. She is requesting breakfast as she was kept n.p.o. She denies any fever, chills, shortness of breath, palpitations, or other issues. Physical Exam Physical Exam: Gen: AAOx3, NAD HEENT: neck supple, no JVD. MMM. Heart: RR, no murmurs. No chest wall tenderness Lungs: clear to auscultation in all martins Abd: soft, nontender, nondistended. Normal BS Neuro: awake, alert. Nonfocal Psych: appropriate mood and affect Ext: No clubbing, cyanosis, edema Results & Data Vital Signs (Past 12 Hours) Vital Signs Temp Pulse Pulse Pulse Resp BP Pulse Ox 04/07/19 06:45 36.8 C 70 18 166/84 H 93 04/07/19 04:30 37.0 C 73 16 148/72 H 93 04/07/19 03:30 84 04/06/19 23:16 36.5 C 81 20 170/90 H 95 04/06/19 22:39 36.5 C 84 18 175/91 H 94 04/06/19 22:02 90 20 183/83 H 94 PG Care Time/CCT Total # of Minutes Spent Total Time Spent with Patient: Total time spent is greater than 50% in coordination of care (as documented) at patient's floor/unit and/or counseling patient: (1) Chest pain Chest pain type: unspecified Qualified Code(s): R07.9 - Chest pain, unspecified
[2019-04-07] MEDS: LACTATED RINGER'S 1,000 ML IV SCH (10:33)
[2019-04-07] MEDS ORDERED: POTASSIUM CHLORIDE 20 MEQ TABCR PO ONE (11:00)
[2019-04-07] MEDS ORDERED: carvediloL 6.25 MG TAB PO SCH (11:00)
--- NOTE | 2019-04-17 10:38 | Discharge Summary ---
Date of Service April 17, 2019 Admission HPI Per Admitting Provider 73-year-old female presents complaining of acute nausea and vomiting along with chest pain. - Patient says she was in her usual state of health until evening prior to admission when she developed nausea, feeling of dizziness, and vomiting. Dizziness is not described as vertiginous but more upon going from sitting to standing, then quickly resolving. She notes multiple episodes of nonbloody emesis overnight but is resolved since earlier this morning. No associated diarrhea or abdominal discomfort. Denies associated headache, blurry vision, changes in medication, falls, or acute injuries. She does think that she threw up her morning medications. - She presents to the ED stating that she developed some chest discomfort localized to below her left breast, non-radiating, beginning around noon. Says it was constant and resolved somewhere between 2-4 pm. Denies any associated respiratory symptoms, shortness of breath, cough, known fevers, but does say that she developed some chest congestion that started while in the ED. - Patient has a known history of multiple cardiac issues for which she is followed by Drs. Talavera and Ilan. She says that she had a heart attack about 3 years ago and describes those symptoms as being more like indigestion and not overt pain. She says her current symptoms do not feel like that at all. - Past medical history includes hypertension, hyperlipidemia, diastolic heart failure, CAD, WI, complete AV block, asthma, hypoxia, paroxysmal atrial fibrillation/flutter, anemia, hypothyroidism, anxiety, depression, chronically elevated alk phos, osteoarthritis, morbid obesity, shingles, cellulitis. - Past surgical history includes appendectomy, hysterectomy, left total knee replacement, cataract surgery - Social history includes never smoking. Denies alcohol use. , lives in an apartment with family nearby. Admission Exam Per Admitting Provider GENERAL: Awake, alert, well-appearing, in no acute distress HENT: Normocephalic, atraumatic. Oropharynx unremarkable. EYES: Normal conjunctiva. Sclera non-icteric. NECK: Inspection normal. Supple and full ROM. No nuchal rigidity. CARDIAC: +S1S2 RRR, no murmurs. Left upper chest pacemaker in place. RESPIRATORY: Clear to auscultation. No wheezes or rales. Normal respiratory effort. No present cough. GI: +BS, soft, non-distended. No tenderness to palpation. No rebound or guarding. Morbidly obese. EXTREMITIES: No pedal edema or calf tenderness. Moving all extremities naturally and easily. Right upper lateral thigh and distal right lateral leg wounds. Well-healed left lower extremity wounds consistent with previous cellulitis. NEURO: No gross neuro deficits. Principal Diagnosis 1. atypical chest pain 2. CAD by hx 3. complete heart block by history 4. hypertension 5. hyperlipidemia 6. morbid obesity 7. hypothyroidism Discharge Exam Constitutional WD/WN, vitals as above well nourished; no acute distress Respiratory normal respiratory effort, lungs clear to auscultation Auscultation: lungs clear to auscultation bilaterally Cardiovascular Rate/Rhythm: regular rate and regular rhythm Heart Sounds: normal S1 and normal S2 Gastrointestinal (Abdomen) normal bowel sounds, soft, nontender, no hepatosplenomegaly Musculoskeletal no cyanosis or clubbing, extremities motor strength 5/5 Neurologic PERRL, EOMI, accommodation nl, no face palsy, no dysarthria Psychiatric A+Ox3, euthymic affect Discharge Data Allergies Allergy/AdvReac Type Severity Reaction Status Date / Time No Known Drug Allergies Allergy Unknown Verified 04/13/19 07:21 Consultations 04/06/19 20:02 ED Decision to Admit Stat 04/06/19 22:31 Consult Cardiology Routine Hospital Course (1) Chest pain: Patient's chest pain and other symptoms that have resolved. She does have an extensive cardiac history including coronary artery disease with a previous WI. She does have stents. In addition, she has a complete AV block status post pacemaker earlier this year. Angle was told that she should call her senior project engineer immediately to schedule stress testing as an outpatient. Continue other medications including Eliquis, low-dose aspirin, and Lipitor. Of note, the patient's pacemaker was interrogated yesterday, reviewed without significant findings. (2) Dizziness: (3) Nausea and vomiting: As noted above, seems to have resolved (4) Hypertension: Blood pressure somewhat elevated. Patient is on losartan and hydralazine along with furosemide. Continue to monitor, consider increasing dose of losartan. (5) Hyperlipidemia: (6) Chronic diastolic (congestive) heart failure: (7) CAD (coronary artery disease): (8) Complete AV block: (9) Asthma: (10) Atrial fibrillation/flutter: Patient has AV pacing, rate controlled. Patient is on amiodarone, Eliquis. (11) Anemia: (12) Hypothyroidism: (13) Anxiety: (14) Depression: (15) Elevated alkaline phosphatase level: (16) Osteoarthritis: (17) Morbid obesity with BMI of 40.0-44.9, adult: Total Time Total Time Spent Total Time Spent (In Minutes): less than 30 minutes was spent preparing discharge Discharge Plan Discharge Items Patient Disposition: Home - Self-Care Reason For Visit: CHEST PAIN,NAUSEA/VOMITING Discharge Diagnosis: 1. Atypical chest pain 2. Nausea and vomiting, resolved. Consider as etiology for chest pain. 3. Uncontrolled hypertension 4. Hyperlipidemia 5. History of chronic diastolic CHF without acute component 6. History of complete heart block, status post pacemaker previous admission Activity: Resume your previous activity Weightbearing: Full weightbearing Non-emergency contact: Primary Care Provider and Protective Services Social Worker Call non-emergency contact if: your symptoms worsen and your temperature is above 101 Follow-up/Referrals: Clemente Walter CRNP [Primary Care Provider] - 04/13/19 8:15 am (Please, follow up with Clemente OLIVER on FridayApril 13 at 8:15 am. *If you need to change this appointment, call the office at [phone].) Conrado Osei DO [Protective Services Social Worker] - (Follow-up for blood pressure check. Discussed stress test to be performed as an outpatient.) Diet: Heart Healthy Addtl Attending Provider Instructions: Will need to monitor blood pressure as an outpatient. Follow-up for a stress test. If symptoms reappear, present back to the emergency room. Pending Studies at Discharge: No Stand-Alone Forms: My [facility], Smoking Cessation Medications and DC Order Prescriptions: New carvedilol 6.25 mg Tablet 6.25 mg PO BID Qty: 60 RF: 0 Continued paroxetine HCl 20 mg tablet 20 mg PO QAM Qty: 90 RF: 3 furosemide 20 mg tablet 20 mg PO DAILY Qty: 90 RF: 2 levothyroxine [Synthroid] 25 mcg tablet 25 mcg PO DAILY Qty: 30 RF: 2 (DME) Oxygen Home Liters Per Minute See Dose Instructions .ROUTE .MEDSUPPLY RF: 0 atorvastatin [Lipitor] 10 mg tablet 10 mg PO DAILY Qty: 30 RF: 5 albuterol sulfate [Ventolin HFA] 90 mcg/actuation HFA aerosol inhaler 2 puffs INH Q4H PRN (Reason: shortness of breath or wheezing) Qty: 18 RF: 0 Eliquis 5 mg Tablet 5 mg PO BID Qty: 60 RF: 0 amiodarone 200 mg tablet 200 mg PO DAILY Qty: 30 RF: 11 aspirin [Aspir-81] 81 mg Tablet,Delayed Release (Dr/Ec) 81 mg PO DAILY RF: 0 No Action amlodipine 10 mg tablet 10 mg PO DAILY Qty: 90 RF: 3 ferrous gluconate 236 mg (27 mg iron) tablet 236 mg PO DAILY Qty: 90 RF: 3 hydralazine 50 mg tablet 50 mg PO TID Qty: 90 RF: 3 losartan 100 mg tablet 100 mg PO DAILY Qty: 90 RF: 1 Discharge Orders: Discharge Order (Routine); Ordered 04/07/19 Ordered By: Devang Richardson Admission Data Admit Date/Time: 04/06/19 21:39 Attending Provider: Devang Richardson Admit Provider: Bryan De Leon Primary Care Provider: Clemente Walter Other Providers: Delio Connor ; Conrado Osei Other Interventions: Discharge Summary Assessment (RN) Last Done: 04/07/19 14:58 DC Date/Time DO NOT enter until pt leaves facility: 04/07/19 15:30
== END 2019-04-07 15:30 | disposition home or self-care (01) ==
LOC: ED 17:46 → 2N 17:46 → SUATTDRO 21:39 → 2N 22:09

== ENCOUNTER 2019-05-11 09:31 | Inpatient (IN) ==
[2019-05-11] MEDS ORDERED: ACETAMINOPHEN 1,000 MG/100 ML VIAL IV STA (10:00)
[2019-05-11] MEDS ORDERED: SODIUM CHLORIDE 0.9% 1000ML 1,000 ML IV ONE ×2 (10:00→11:57)
[2019-05-11 10:17] LABS: iSTAT Creatinine 0.8 mg/dl (0.6-1.3); iSTAT Hemoglobin 14.6 g/dl (12.0-16.0); iSTAT Ionized Calcium 1.06 mmol/l (1.12-1.32); iSTAT Potassium 4.7 mEq/L (3.3-5.0)
--- NOTE | 2019-05-11 10:23 | Electrocardiogram Report ---
Test Reason : Blood Pressure : / mmHG Vent. Rate : 082 BPM Atrial Rate : 082 BPM P-R Int : 216 ms QRS Dur : 172 ms QT Int : 482 ms P-R-T Axes : 082 -68 100 degrees QTc Int : 563 ms Atrial-sensed ventricular-paced rhythm with prolonged AV conduction Abnormal ECG When compared with ECG of 07-APR-2019 07:07, Vent. rate has increased BY 11 BPM Confirmed by Robson De La Cruz ([id number]) on 05/11/2019 10:23:19 AM Referred By: Confirmed By:Robson De La Cruz
[2019-05-11 10:30] LABS: Appearance Urine Cloudy (Clear); Bacteria Urine Automated 4+ (Negative); Bilirubin Urine Negative (Negative); Blood Urine Negative (Negative); Cast Urine Automated 0 /lpf (0-5); Color Urine Dark Yellow; Epithelial Cell Urine Auto 0-5 /lpf (0-5); Glucose Urine UA Negative (Negative); Ketones Urine Trace (Negative); Leukocyte Esterase Urine Negative (Negative); Nitrite Urine Positive (Negative); Protein Urine 1+ (Negative); RBC Urine Automated 0-4 /hpf (0-4); Specific Gravity Urine 1.025 (1.000-1.030); Urobilinogen Urine Negative (Negative); WBC Urine Automated 0 /hpf (0-5)
[2019-05-11 10:32] LABS: INR 1.1 (0.9-1.1); Prothrombin Time 11.1 Seconds (9.0-12.0)
--- NOTE | 2019-05-11 10:44 | XRay Report ---
XR humerus RT 2V, XR shoulder RT min 2V routine CLINICAL HISTORY: Fall. Right shoulder and right arm pain. COMPARISON STUDY: None. FINDINGS: No fracture or dislocation within the right shoulder or right humerus. The right clavicle i s intact. Mild degenerative changes within the right shoulder. Mild lateral soft tissue swelling with in the upper arm. IMPRESSION: No fractures within the right shoulder or right humerus. ACT 112: Negative or not required by law. Electronically signed by: Riley Underwood M.D. 05/11/2019 10:43 AM
--- NOTE | 2019-05-11 10:47 | XRay Report ---
XR chest 1V portable CLINICAL HISTORY: SEPSIS COMPARISON STUDY: 04/06/2019 FINDINGS: The heart is mildly enlarged. There is a left subclavian dual-chamber central venous pacema ker. There is a subtle area of airspace consolidation within the right upper lobe. Clinical correlati on regards to a pneumonia is recommended. There is a small right pleural effusion. Minimal airspace o pacities are also suspected within the right midlung zone.[ IMPRESSION: 1. Right upper lobe airspace opacities, possibly representing pneumonia given the history of sepsis. Clinical and radiographic follow-up is recommended. 2. Small right pleural effusion ACT 112: Negative or not required by law. Electronically signed by: Mingo Remy M.D. 05/11/2019 10:46 AM
[2019-05-11 11:03] LABS: Base Excess VBG 0 mEq/L; HCO3 VBG 26 mmol/L; PCO2 VBG 45 mmHg (38-50); PO2 VBG 28 mmHg; pH VBG 7.38 (7.36-7.41)
[2019-05-11 11:04] LABS: Oxygen Saturation VBG < 60.0 %
[2019-05-11] MEDS ORDERED: IOVERSOL 100ml IV PRN (11:19)
[2019-05-11 11:20] LABS: Hemoglobin 13.2 g/dL (12.0-16.0); Immature Granulocytes # (auto) 0.03 K/uL (0.00-0.02); Immature Granulocytes % (auto) 0.2 %; Lymphocytes # (auto) 0.58 K/uL (1.2-3.4); Lymphocytes % (auto) 3.7 %; Mean Corpuscular Hemoglobin 27.4 pg (25-34); Mean Corpuscular Hgb Conc 32.2 g/dL (32-36); Mean Corpuscular Volume 85.2 fL (80-100); Mean Platelet Volume 10.3 fL (7.4-10.4); Monocytes # (auto) 1.64 K/uL (0.11-0.59); Monocytes % (auto) 10.4 %; Neutrophils # (auto) 13.58 K/uL (1.4-6.5); Neutrophils % (auto) 85.7 %; Platelet Count 332 K/uL (130-400); RDW Coefficient of Variation 18.3 % (11.5-14.5); RDW Standard Deviation 56.6 fL (36.4-46.3); Red Blood Count 4.81 M/uL (4.2-5.4); White Blood Count 15.83 K/uL (4.8-10.8)
--- NOTE | 2019-05-11 11:28 | CT Scan Report ---
HEAD CT NONCONTRAST CT DOSE: 788.63 mGycm HISTORY: pain fall TECHNIQUE: Multiaxial CT images of the head were performed without the use of intravenous contrast. A utomated exposure control was utilized for this study. A dose lowering technique was utilized adheri ng to the principles of ALARA. Comparison: None. Findings: Mild mucosal thickening within the maxillary sinuses. The calvarium and skull base are inta ct. There is no mass, hematoma, midline shift, acute infarct. White matter hypodensity is nonspecific but suggestive of microvascular ischemic change. The ventricles and sulci demonstrate mild age-relat ed involutional changes. Mild motion artifact. 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 Impression: Motion artifact. No definite acute intracranial abnormality. ACT 112: Negative or not required by law. Electronically signed by: Riley Underwood M.D. 05/11/2019 11:26 AM
[2019-05-11] MEDS ORDERED: PIPERACILLIN/TAZOBACTAM 4.5 GM/120 ML BAG IV ONE (11:31)
[2019-05-11] MEDS ORDERED: VANCOMYCIN HCL 2,000 MG in SODIUM CHLORIDE 0.9% 500 ML IV ONE (11:31)
[2019-05-11] MEDS ORDERED: PIPERACILL/TAZOBAC CONSULT ACTIVE PRN (11:31)
[2019-05-11] MEDS ORDERED: VANCOMYCIN CONSULT ACTIVE PRN (11:31)
--- NOTE | 2019-05-11 11:33 | CT Scan Report ---
CERVICAL SPINE CT CT DOSE: 432.03 mGycm HISTORY: Neck pain fall TECHNIQUE: Multiaxial CT images of the cervical spine were performed and reformatted in the sagittal and coronal plane without the use of contrast. A dose lowering technique was utilized adhering to th e principles of ALARA. COMPARISON: None. FINDINGS: No fractures. No subluxation. Prevertebral soft tissues and the C1-C2 interval are intact. No pneumothorax. IMPRESSION: No fractures within the cervical spine. ACT 112: Negative or not required by law. Electronically signed by: Riley Underwood M.D. 05/11/2019 11:32 AM
[2019-05-11 11:37] LABS: Alanine Aminotransferase 24 U/L (12-78); Aspartate Aminotransferase 61 U/L (15-37); BUN Creatinine Ratio 18.5 (10-20); Bilirubin Direct 0.4 mg/dl (0-0.2); Blood Urea Nitrogen 19 mg/dl (7-18); Calcium 8.6 mg/dl (8.5-10.1); Carbon Dioxide 26 mmol/L (21-32); Chloride 111 mmol/L (98-107); Creatinine Clr Calc Pharmacy 52.9 ml/min; Est GFR (African American) 64.1; Est GFR (Non-African American) 55.3; Glucose 107 mg/dl (70-99); Magnesium 2.2 mg/dl (1.8-2.4); Potassium 3.4 mmol/L (3.5-5.1); Sodium 141 mmol/L (136-145)
--- NOTE | 2019-05-11 11:38 | Emergency Department Note ---
Entered by Jessica Guerrero acting as a scribe for Jose Rick MD History of Present Illness General Chief complaint: Fall Time Seen by Provider: 05/11/19 09:38 Source: patient and friends Mode of arrival: EMS History of Present Illness Onset (ago): hour(s) (more than 12) Location: head (Fall) Radiation: other (right knee) Pain Consistency: + other (episode) Quality: + other (fall) Exacerbated By: + movement Associated symptoms: + other (Right shoulder pain, right hip and knee pain, poor diet.) The patient is a 73 year old female presenting to the Emergency Room via EMS com plaining of an episode of a fall occurring over 12 hours ago. The patients friend reports that the patient fell last night at an unknown time. She states that she called the patient last night 3 times, and that the patient didnt answer. She explains that when she went to check on the patient this morning she found the patient lying on the floor next to a completely melted container of ice cream. She notes that the patient is confused and isnt acting like herself. She adds that the patient doesnt maintain a very good diet and doesnt drink as much water as she should. The patient reports that she doesnt remember how she fell or how she ended up in her kitchen. She states that her right shoulder is painful. She explains that her right hip is painful and that this pain radiates down to her right knee. She notes that moving her right leg worsens her pain. She adds that she regularly takes Eliquis and follows with a [facility] PCP. Home Medications Home Medications Medication Instructions Recorded Confirmed Type Eliquis 5 mg PO BID #60 tab 08/21/18 05/11/19 Rx amiodarone 200 mg PO DAILY #30 tab 09/02/18 05/11/19 Rx paroxetine HCl 20 mg tablet 20 mg PO QAM #90 tab 10/26/18 05/11/19 Rx Oxygen Home ea 11/10/18 04/13/19 History furosemide 20 mg tablet 20 mg PO DAILY #90 tab 12/03/18 05/11/19 Rx albuterol sulfate 90 mcg/actuation 2 puffs INH Q4H PRN #18 gm 02/02/19 05/11/19 Rx aerosol inhaler levothyroxine 25 mcg tablet 25 mcg PO DAILY #30 tab 02/08/19 05/11/19 Rx aspirin [Aspir-81] 81 mg PO DAILY 04/06/19 05/11/19 History carvedilol 6.25 mg PO BID #60 tab 04/07/19 05/11/19 Rx amlodipine 10 mg tablet 10 mg PO DAILY #90 tab 04/13/19 05/11/19 Rx ferrous gluconate 236 mg (27 mg 236 mg PO DAILY #90 tab 04/13/19 05/11/19 Rx iron) tablet hydralazine 50 mg tablet 50 mg PO TID #90 tab 04/13/19 05/11/19 Rx losartan 100 mg tablet 100 mg PO DAILY #90 tab 04/21/19 05/11/19 Rx Allergies Allergy/AdvReac Type Severity Reaction Status Date / Time No Known Drug Allergies Allergy Unknown Verified 05/11/19 12:23 Past Med/Surg History Medical History JENNIFER (acute kidney injury) Anxiety Asthma Atrial fibrillation/flutter Atrioventricular block, Mobitz type 2 CAD (coronary artery disease) S/P CO, cath with stent x 2013 Cataract Cellulitis B/L LOWER EXTREMITIES Chronic anticoagulation Chronic diastolic (congestive) heart failure Chronic respiratory failure with hypoxia, on home O2 therapy Depression Heart block AV complete History of anxiety History of cholecystitis History of coronary artery disease History of depression History of myocardial infarction Hyperkalemia Hyperlipidemia Hypermagnesemia Hypertension Admitted to [facility] 08/17 for hypertensive urgencyl; BB d/c'd 2/2 bradycardia; put on hydralazine, losartan and amlodipine. Hypertensive urgency (Resolved) Hypothyroidism Microcytic hypochromic anemia Morbid obesity with BMI of 40.0-44.9, adult Osteoarthritis SOB (shortness of breath) on exertion Symptomatic bradycardia Surgical History History of appendectomy History of cardiac cath 3 YEARS AGO - VARUN - CO - 1 STENT PLACED - FOLLOWS W/ DR. LAUGHLIN History of cataract surgery RT/LEFT History of colonoscopy History of hysterectomy History of knee replacement LEFT History of tooth extraction History of total knee replacement LEFT History of tubal ligation Hx of cholecystectomy Family History Brother Family history of diabetes mellitus Myocardial infarction, Onset Age: 50 Family history of cardiac disorder Hypertension Mother Family history of diabetes mellitus Myocardial infarction Father Myocardial infarction Social History Preferred Language: Mauritian Communication Ability: Effective Visual Impairment: No Limitations Hearing Ability: Normal Parasitology Teacher Required: No Beliefs That Will Affect Care: None marital status: / Current Living Situation: Alone Current Living Situation Comment: Lives in senior apartment at [facility] current occupational status: retired Feels Safe at Home: Yes Smoking Status: Never smoker Second Hand Exposure: No ; Hx Alcohol Use: No Hx Substance Use: No Dental Care, Regularly: No Physical Activity Frequency: 3-4 Times per Week Physical Activity Frequency Comment: Limited by physical condition Seatbelt Use: always Sunscreen Use: Yes Review of Systems See HPI for pertinent positives & negatives. and A total of 10 systems reviewed and were otherwise negative Physical Exam Vital Signs Vital Signs - 24 hr 05/11/19 09:49 05/11/19 10:10 05/11/19 10:59 Temperature 37.8 C H Temperature Source Oral Pulse Rate 80 Pulse Rate [Left Finger] 81 Respiratory Rate 18 24 Blood Pressure 151/82 H Blood Pressure [Left Arm] 153/83 H Blood Pressure Mean 105 Blood Pressure Mean [Left Arm] 106 Pulse Oximetry 88 L 99 98 Oxygen Delivery Method Room Air Nasal Cannula Nasal Cannula Oxygen Flow Rate 4 4 Sepsis Recent Fever Within 48 Hours Yes Sepsis New/Unexplained Change in Mental Status No Sepsis Action Taken by Nursing No Action Required 05/11/19 11:38 Temperature Temperature Source Pulse Rate Pulse Rate [Left Finger] 77 Respiratory Rate 28 H Blood Pressure Blood Pressure [Left Arm] 149/73 H Blood Pressure Mean Blood Pressure Mean [Left Arm] 98 Pulse Oximetry 96 Oxygen Delivery Method Room Air Oxygen Flow Rate Sepsis Recent Fever Within 48 Hours Sepsis New/Unexplained Change in Mental Status Sepsis Action Taken by Nursing GENERAL: Patient is ill appearing. Awake, alert, in no distress HENT: Normocephalic, atraumatic. Oropharynx with dry mucous membranes and otherwise unremarkable. . EYES: Normal conjunctiva. Sclera non-icteric. NECK: Supple. No nuchal rigidity. FROM. No JVD. RESPIRATORY: Scant rhonchi of right lung martins. CARDIAC: Regular rate, normal rhythm. Extremities warm and well perfused. Pulses equal. ABDOMEN: Soft, non-distended. No tenderness to palpation. No rebound or guarding. No masses. RECTAL: Deferred. MUSCULOSKELETAL: Ecchymosis of right posterior shoulder with pain on active and passive ROM. Pain with ROM of right hip. Distal PMS intact. Chest examination reveals no tenderness. The back is symmetrical on inspection without obvious abnormality. There is no CVA tenderness to palpation. No joint edema. LOWER EXTREMITIES: Calves are equal size bilaterally and non-tender. No edema. No discoloration. NEURO: Normal sensorium. No sensory or motor deficits noted. SKIN: No rash or jaundice noted. Course Course 1000: The patient was evaluated in room B6, and a complete history and physical examination were performed. 1140: I reevaluated the patient at this time. 1147: I discussed the patients case with Dr. Andreas PONCE hospitalist. She will evaluate the patient for further management. Administered Medications Albuterol (Duoneb) 3 ml NEB Q4R KIMBERLY Stop: 06/10/19 14:59 Last Admin: 05/11/19 15:31 Dose: 3 ml Documented by: [id number] Hydralazine HCl (Apresoline) 50 mg PO TID KIMBERLY Stop: 06/10/19 14:59 Last Admin: 05/11/19 15:39 Dose: 50 mg Documented by: [id number] Ceftriaxone Sodium 2,000 mg/ (Dextrose) 70 mls @ 100 mls/hr IV Q24H REPLACED BY [facility]; Protocol Stop: 05/18/19 17:59 Last Infusion: 05/11/19 17:43 Dose: 0 mls/hr Documented by: [id number] Admin: 05/11/19 17:01 Dose: 100 mls/hr Documented by: [id number] Furosemide 40 mg/ Syringe 4 mls @ 4 mls/min IV BID17 REPLACED BY [facility] Stop: 06/10/19 14:59 Last Admin: 05/11/19 15:39 Dose: 4 mls/min Documented by: [id number] Ioversol (Optiray 320 125ml) 120 ml IV ONCE PRN PRN Reason: Interaction Checking Stop: 05/15/19 14:02 Last Admin: 05/11/19 14:04 Dose: 120 ml Documented by: [id number] Potassium Chloride (Klor-Con M20) 40 meq PO QAM KIMBERLY Stop: 06/10/19 14:59 Last Admin: 05/11/19 15:40 Dose: 40 meq Documented by: [id number] Discontinued Medications Sodium Chloride (Nss 1000ml) 1,000 mls @ 999 mls/hr IV .Q1H1M ONE Stop: 05/11/19 11:00 Last Infusion: 05/11/19 12:56 Dose: 0 mls/hr Documented by: [id number] Admin: 05/11/19 11:34 Dose: 999 mls/hr Documented by: [id number] Acetaminophen (Ofirmev) 1,000 mg in 100 mls @ 400 mls/hr IV NOW STA Stop: 05/11/19 10:14 Last Infusion: 05/11/19 11:59 Dose: 0 mls/hr Documented by: [id number] Admin: 05/11/19 11:34 Dose: 400 mls/hr Documented by: [id number] Piperacillin Sod/Tazobactam Sod (Zosyn) 4.5 gm in 120 mls @ 240 mls/hr IV NOW ONE Stop: 05/11/19 12:00 Last Infusion: 05/11/19 12:56 Dose: 0 mls/hr Documented by: [id number] Admin: 05/11/19 12:01 Dose: 240 mls/hr Documented by: [id number] Vancomycin HCl 2,000 mg/ (Sodium Chloride) 540 mls @ 200 mls/hr IV NOW ONE Stop: 05/11/19 14:12 Last Infusion: 05/11/19 17:00 Dose: 0 mls/hr Documented by: [id number] Admin: 05/11/19 12:55 Dose: 200 mls/hr Documented by: [id number] Sodium Chloride (Nss 1000ml) 1,000 mls @ 999 mls/hr IV .Q1H1M ONE Stop: 05/11/19 12:57 Last Infusion: 05/11/19 12:55 Dose: 0 mls/hr Documented by: [id number] Admin: 05/11/19 12:01 Dose: 999 mls/hr Documented by: [id number] Ioversol (Optiray 320 100ml) 95 ml IV ONCE PRN PRN Reason: Interaction Checking Stop: 05/15/19 11:18 Last Admin: 05/11/19 11:19 Dose: 95 ml Documented by: [id number] Critical Care Time Critical Care Time: Yes Total Critical Care Time: 35 I have personally spent greater than 35 minutes of critical care time in the direct management of this patient. This includes bedside care, interpretation of diagnostic studies, and testing, discussion with consultants, patient, and family members, and other required patient management activities. This 35 minutes is in excess of all separately billable procedures. Medical Decision Making Differential Diagnosis Differential Diagnosis includes but is not limited to dehydration, stroke, anemia, hypoglycemia, hyponatremia, hypernatremia, urinary tract infection, pneumonia, bronchitis, sepsis, gastroenteritis, additional abdominal pathology, metabolic abnormalities and infections. Medical Records Attestation: I reviewed the patient's medical records. Home Medications Current Medication List: was personally reviewed by me Laboratory Data Attestation: I reviewed the patient's lab results. Result diagrams: 05/11/19 10:51 05/11/19 10:52 Lab Results 05/11/19 05/11/19 05/11/19 Range/Units 09:55 10:00 10:00 WBC (4.8-10.8) K/uL RBC (4.2-5.4) M/uL Hgb (12.0-16.0) g/dL POC Hgb (12.0-16.0) g/dl Hct (37-47) % POC Hct (37-47) % MCV (80-100) fL MCH (25-34) pg MCHC (32-36) g/dL RDW Std Deviation (36.4-46.3) fL RDW Coeff of Fabián (11.5-14.5) % Plt Count (130-400) K/uL MPV (7.4-10.4) fL Immature Gran % (Auto) % Neut % (Auto) % Lymph % (Auto) % [place] % (Auto) % Eos % (Auto) % Baso % (Auto) % Immature Gran # (Auto) (0.00-0.02) K/uL Neut # (Auto) (1.4-6.5) K/uL Lymph # (Auto) (1.2-3.4) K/uL [place] # (Auto) (0.11-0.59) K/uL Eos # (Auto) (0-0.5) K/uL Baso # (Auto) (0-0.2) K/uL PT 11.1 (9.0-12.0) Seconds INR 1.1 (0.9-1.1) APTT 26.0 (21.0-31.0) Seconds PTT Ratio 1.0 VBG pH (7.36-7.41) VBG pCO2 (38-50) mmHg VBG pO2 mmHg VBG HCO3 mmol/L VBG O2 Saturation % VBG Base Excess mEq/L Barometric Pressure mm/Hg POC Sodium (135-144) mEq/L Sodium Cancelled POC Potassium (3.3-5.0) mEq/L Potassium Cancelled POC Chloride (101-112) mEq/L Chloride Cancelled Carbon Dioxide Cancelled POC Total CO2 (24-31) mEq/l Anion Gap Cancelled POC Anion Gap (16-25) mmol/L POC BUN (7-18) mg/dl BUN Cancelled Creatinine Cancelled POC Creatinine (0.6-1.3) mg/dl Est Cr Clr Drug Dosing Cancelled Est GFR ( Amer) Cancelled Est GFR (Non-Af Amer) Cancelled BUN/Creatinine Ratio Cancelled Glucose Cancelled POC Glucose (other) (70-99) mg/dl Lactate (0.4-2.0) mmol/L Calcium Cancelled POC Ioniz Calcium Williams (1.12-1.32) mmol/l Phosphorus Cancelled Magnesium Cancelled Total Bilirubin Cancelled Direct Bilirubin Cancelled AST Cancelled ALT Cancelled Alkaline Phosphatase Cancelled Total Creatine Kinase Cancelled Troponin I Cancelled NT-Pro-B Natriuret Pep Cancelled Total Protein Cancelled Albumin Cancelled Globulin Cancelled Albumin/Globulin Ratio Cancelled TSH (0.300-4.500) uIu/ml Urine Color Dark Yellow Urine Appearance Cloudy A (Clear) Urine pH 5.0 (4.5-7.5) Ur Specific Boutte 1.025 (1.000-1.030) Urine Protein 1+ H (Negative) Urine Glucose (UA) Negative (Negative) Urine Ketones Trace H (Negative) Urine Blood Negative (Negative) Urine Nitrite Positive A (Negative) Urine Bilirubin Negative (Negative) Urine Urobilinogen Negative (Negative) Ur Leukocyte Esterase Negative (Negative) Urine WBC (Auto) 0 (0-5) /hpf Urine RBC (Auto) 0-4 (0-4) /hpf U Hyaline Cast (Auto) 0 (0-5) /lpf U Epithel Cells (Auto) 0-5 (0-5) /lpf Urine Bacteria (Auto) 4+ H (Negative) Urine Yeast Not Reportable Influenza Type A (PCR) (Neg) Influenza Type B (PCR) (Neg) 05/11/19 05/11/19 05/11/19 Range/Units 10:01 10:51 10:51 WBC 15.83 H (4.8-10.8) K/uL RBC 4.81 (4.2-5.4) M/uL Hgb 13.2 (12.0-16.0) g/dL POC Hgb 14.6 (12.0-16.0) g/dl Hct 41.0 (37-47) % POC Hct 43 (37-47) % MCV 85.2 (80-100) fL MCH 27.4 (25-34) pg MCHC 32.2 (32-36) g/dL RDW Std Deviation 56.6 H (36.4-46.3) fL RDW Coeff of Fabián 18.3 H (11.5-14.5) % Plt Count 332 (130-400) K/uL MPV 10.3 (7.4-10.4) fL Immature Gran % (Auto) 0.2 % Neut % (Auto) 85.7 % Lymph % (Auto) 3.7 % [place] % (Auto) 10.4 % Eos % (Auto) 0.0 % Baso % (Auto) 0.0 % Immature Gran # (Auto) 0.03 H (0.00-0.02) K/uL Neut # (Auto) 13.58 H (1.4-6.5) K/uL Lymph # (Auto) 0.58 L (1.2-3.4) K/uL [place] # (Auto) 1.64 H (0.11-0.59) K/uL Eos # (Auto) 0.00 (0-0.5) K/uL Baso # (Auto) 0.00 (0-0.2) K/uL PT (9.0-12.0) Seconds INR (0.9-1.1) APTT (21.0-31.0) Seconds PTT Ratio VBG pH (7.36-7.41) VBG pCO2 (38-50) mmHg VBG pO2 mmHg VBG HCO3 mmol/L VBG O2 Saturation % VBG Base Excess mEq/L Barometric Pressure mm/Hg POC Sodium 142 (135-144) mEq/L Sodium POC Potassium 4.7 (3.3-5.0) mEq/L Potassium POC Chloride 110 (101-112) mEq/L Chloride Carbon Dioxide POC Total CO2 24 (24-31) mEq/l Anion Gap POC Anion Gap 14.0 L (16-25) mmol/L POC BUN 26 H (7-18) mg/dl BUN Creatinine POC Creatinine 0.8 (0.6-1.3) mg/dl Est Cr Clr Drug Dosing Est GFR ( Amer) Est GFR (Non-Af Amer) BUN/Creatinine Ratio Glucose POC Glucose (other) 119 H (70-99) mg/dl Lactate 1.9 (0.4-2.0) mmol/L Calcium POC Ioniz Calcium Williams 1.06 L (1.12-1.32) mmol/l Phosphorus Magnesium Total Bilirubin Direct Bilirubin AST ALT Alkaline Phosphatase Total Creatine Kinase Troponin I NT-Pro-B Natriuret Pep Total Protein Albumin Globulin Albumin/Globulin Ratio TSH (0.300-4.500) uIu/ml Urine Color Urine Appearance (Clear) Urine pH (4.5-7.5) Ur Specific Boutte (1.000-1.030) Urine Protein (Negative) Urine Glucose (UA) (Negative) Urine Ketones (Negative) Urine Blood (Negative) Urine Nitrite (Negative) Urine Bilirubin (Negative) Urine Urobilinogen (Negative) Ur Leukocyte Esterase (Negative) Urine WBC (Auto) (0-5) /hpf Urine RBC (Auto) (0-4) /hpf U Hyaline Cast (Auto) (0-5) /lpf U Epithel Cells (Auto) (0-5) /lpf Urine Bacteria (Auto) (Negative) Urine Yeast Influenza Type A (PCR) (Neg) Influenza Type B (PCR) (Neg) 05/11/19 05/11/19 05/11/19 Range/Units 10:51 10:52 10:52 WBC (4.8-10.8) K/uL RBC (4.2-5.4) M/uL Hgb (12.0-16.0) g/dL POC Hgb (12.0-16.0) g/dl Hct (37-47) % POC Hct (37-47) % MCV (80-100) fL MCH (25-34) pg MCHC (32-36) g/dL RDW Std Deviation (36.4-46.3) fL RDW Coeff of Fabián (11.5-14.5) % Plt Count (130-400) K/uL MPV (7.4-10.4) fL Immature Gran % (Auto) % Neut % (Auto) % Lymph % (Auto) % [place] % (Auto) % Eos % (Auto) % Baso % (Auto) % Immature Gran # (Auto) (0.00-0.02) K/uL Neut # (Auto) (1.4-6.5) K/uL Lymph # (Auto) (1.2-3.4) K/uL [place] # (Auto) (0.11-0.59) K/uL Eos # (Auto) (0-0.5) K/uL Baso # (Auto) (0-0.2) K/uL PT (9.0-12.0) Seconds INR (0.9-1.1) APTT (21.0-31.0) Seconds PTT Ratio VBG pH 7.38 (7.36-7.41) VBG pCO2 45 (38-50) mmHg VBG pO2 28 mmHg VBG HCO3 26 mmol/L VBG O2 Saturation < 60.0 % VBG Base Excess 0 mEq/L Barometric Pressure 731.5 mm/Hg POC Sodium (135-144) mEq/L Sodium 141 POC Potassium (3.3-5.0) mEq/L Potassium 3.4 L POC Chloride (101-112) mEq/L Chloride 111 H Carbon Dioxide 26 POC Total CO2 (24-31) mEq/l Anion Gap 4.0 POC Anion Gap (16-25) mmol/L POC BUN (7-18) mg/dl BUN 19 H Creatinine 1.02 POC Creatinine (0.6-1.3) mg/dl Est Cr Clr Drug Dosing 52.9 Est GFR ( Amer) 64.1 Est GFR (Non-Af Amer) 55.3 BUN/Creatinine Ratio 18.5 Glucose 107 H POC Glucose (other) (70-99) mg/dl Lactate (0.4-2.0) mmol/L Calcium 8.6 POC Ioniz Calcium Williams (1.12-1.32) mmol/l Phosphorus 3.2 Magnesium 2.2 Total Bilirubin 1.4 H Direct Bilirubin 0.4 H AST 61 H ALT 24 Alkaline Phosphatase 102 Total Creatine Kinase 2113 H Troponin I 1.180 H* NT-Pro-B Natriuret Pep > 44411 H Total Protein 7.2 Albumin 3.0 L Globulin 4.2 H Albumin/Globulin Ratio 0.7 L TSH 2.860 (0.300-4.500) uIu/ml Urine Color Urine Appearance (Clear) Urine pH (4.5-7.5) Ur Specific Boutte (1.000-1.030) Urine Protein (Negative) Urine Glucose (UA) (Negative) Urine Ketones (Negative) Urine Blood (Negative) Urine Nitrite (Negative) Urine Bilirubin (Negative) Urine Urobilinogen (Negative) Ur Leukocyte Esterase (Negative) Urine WBC (Auto) (0-5) /hpf Urine RBC (Auto) (0-4) /hpf U Hyaline Cast (Auto) (0-5) /lpf U Epithel Cells (Auto) (0-5) /lpf Urine Bacteria (Auto) (Negative) Urine Yeast Influenza Type A (PCR) (Neg) Influenza Type B (PCR) (Neg) 05/11/19 Range/Units 11:35 WBC (4.8-10.8) K/uL RBC (4.2-5.4) M/uL Hgb (12.0-16.0) g/dL POC Hgb (12.0-16.0) g/dl Hct (37-47) % POC Hct (37-47) % MCV (80-100) fL MCH (25-34) pg MCHC (32-36) g/dL RDW Std Deviation (36.4-46.3) fL RDW Coeff of Fabián (11.5-14.5) % Plt Count (130-400) K/uL MPV (7.4-10.4) fL Immature Gran % (Auto) % Neut % (Auto) % Lymph % (Auto) % [place] % (Auto) % Eos % (Auto) % Baso % (Auto) % Immature Gran # (Auto) (0.00-0.02) K/uL Neut # (Auto) (1.4-6.5) K/uL Lymph # (Auto) (1.2-3.4) K/uL [place] # (Auto) (0.11-0.59) K/uL Eos # (Auto) (0-0.5) K/uL Baso # (Auto) (0-0.2) K/uL PT (9.0-12.0) Seconds INR (0.9-1.1) APTT (21.0-31.0) Seconds PTT Ratio VBG pH (7.36-7.41) VBG pCO2 (38-50) mmHg VBG pO2 mmHg VBG HCO3 mmol/L VBG O2 Saturation % VBG Base Excess mEq/L Barometric Pressure mm/Hg POC Sodium (135-144) mEq/L Sodium POC Potassium (3.3-5.0) mEq/L Potassium POC Chloride (101-112) mEq/L Chloride Carbon Dioxide POC Total CO2 (24-31) mEq/l Anion Gap POC Anion Gap (16-25) mmol/L POC BUN (7-18) mg/dl BUN Creatinine POC Creatinine (0.6-1.3) mg/dl Est Cr Clr Drug Dosing Est GFR ( Amer) Est GFR (Non-Af Amer) BUN/Creatinine Ratio Glucose POC Glucose (other) (70-99) mg/dl Lactate (0.4-2.0) mmol/L Calcium POC Ioniz Calcium Williams (1.12-1.32) mmol/l Phosphorus Magnesium Total Bilirubin Direct Bilirubin AST ALT Alkaline Phosphatase Total Creatine Kinase Troponin I NT-Pro-B Natriuret Pep Total Protein Albumin Globulin Albumin/Globulin Ratio TSH (0.300-4.500) uIu/ml Urine Color Urine Appearance (Clear) Urine pH (4.5-7.5) Ur Specific Boutte (1.000-1.030) Urine Protein (Negative) Urine Glucose (UA) (Negative) Urine Ketones (Negative) Urine Blood (Negative) Urine Nitrite (Negative) Urine Bilirubin (Negative) Urine Urobilinogen (Negative) Ur Leukocyte Esterase (Negative) Urine WBC (Auto) (0-5) /hpf Urine RBC (Auto) (0-4) /hpf U Hyaline Cast (Auto) (0-5) /lpf U Epithel Cells (Auto) (0-5) /lpf Urine Bacteria (Auto) (Negative) Urine Yeast Influenza Type A (PCR) Neg for Influ A (Neg) Influenza Type B (PCR) Neg for Influ B (Neg) Imaging Data Radiologist's Impression: Radiology results as stated below per my review and the radiologist's interpretation: HEAD CT NONCONTRAST CT DOSE: 788.63 mGycm HISTORY: pain fall TECHNIQUE: Multiaxial CT images of the head were performed without the use of intravenous contrast. Automated exposure control was utilized for this study. A dose lowering technique was utilized adhering to the principles of ALARA. Comparison: None. Findings: Mild mucosal thickening within the maxillary sinuses. The calvarium and skull base are intact. There is no mass, hematoma, midline shift, acute infarct. White matter hypodensity is nonspecific but suggestive of microvascular ischemic change. The ventricles and sulci demonstrate mild age-related involutional changes. Mild motion artifact. 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 Impression: Motion artifact. No definite acute intracranial abnormality. ACT 112: Negative or not required by law. Electronically signed by: Riley Underwood M.D. 05/11/2019 11:[address] DOSE: 432.03 mGycm HISTORY: Neck pain fall TECHNIQUE: Multiaxial CT images of the cervical spine were performed and reformatted in the sagittal and coronal plane without the use of contrast. A dose lowering technique was utilized adhering to the principles of ALARA. COMPARISON: None. FINDINGS: No fractures. No subluxation. Prevertebral soft tissues and the C1-C2 interval are intact. No pneumothorax. IMPRESSION: No fractures within the cervical spine. ACT 112: Negative or not required by law. Electronically signed by: Riley Underwood M.D. 05/11/2019 11:[address] abd pelvis IV con only CLINICAL HISTORY: Right-sided abdominal pain COMPARISON STUDY: No previous studies for comparison. FINDINGS: The patient was scanned in a dynamic helical fashion during intravenous administration of 95 cc of Optiray 320. The visualized portions the lung bases reveal coronary artery calcifications. There is a small right pleural effusion. There are right middle and lower lobe airspace opacity suspicious for a pneumonitis. No hepatic masses are visualized. The portal and hepatic veins appear patent. The gallbladder is surgically absent. No splenic masses are visualized. The spleen is mildly enlarged measuring 13 cm. No pancreatic masses are visualized. No adrenal masses are visualized. There are no solid renal masses. There is no evidence of hydronephrosis. There are no transition zones indicate bowel obstruction. There is colonic diverticulosis. There is no evidence of acute diverticulitis. The appendix appears normal. There is no evidence of abdominal aortic aneurysm. There are borderline enlarged right inguinal lymph nodes. The uterus appears surgically absent. No destructive skeletal lesions are visualized there is a grade 1 spondylolisthesis of L4 and L5. IMPRESSION: 1. No evidence of bowel obstruction. No evidence of free air 2. No evidence of acute appendicitis. No evidence of acute diverticulitis. 3. Mild splenomegaly 4. Borderline enlarged right inguinal lymph nodes 5. Right middle lobe and lower lobe airspace opacity suspicious for a pneumonitis. Clinical and radiographic follow-up is recommended. 6. Small right pleural effusion ACT 112: Negative or not required by law. Electronically signed by: Mingo Remy M.D. 05/11/2019 11:41 AM XR humerus RT 2V, XR shoulder RT min 2V routine CLINICAL HISTORY: Fall. Right shoulder and right arm pain. COMPARISON STUDY: None. FINDINGS: No fracture or dislocation within the right shoulder or right humerus. The right clavicle is intact. Mild degenerative changes within the right shoulder. Mild lateral soft tissue swelling within the upper arm. IMPRESSION: No fractures within the right shoulder or right humerus. ACT 112: Negative or not required by law. Electronically signed by: Riley Underwood M.D. 05/11/2019 10:43 AM XR chest 1V portable CLINICAL HISTORY: SEPSIS COMPARISON STUDY: 04/06/2019 FINDINGS: The heart is mildly enlarged. There is a left subclavian dual-chamber central venous pacemaker. There is a subtle area of airspace consolidation within the right upper lobe. Clinical correlation regards to a pneumonia is recommended. There is a small right pleural effusion. Minimal airspace opacities are also suspected within the right midlung zone.[ IMPRESSION: 1. Right upper lobe airspace opacities, possibly representing pneumonia given the history of sepsis. Clinical and radiographic follow-up is recommended. 2. Small right pleural effusion ACT 112: Negative or not required by law. Electronically signed by: Mingo Remy M.D. 05/11/2019 10:46 AM ECG Data Attestation: I personally reviewed and interpreted this ECG as follows: Indication: + weakness and + other (confusion, fall) Rate (beats per minute): 00 Rhythm: + other (atrial sensed v-paced rhythm) ECG ST segments: no ST depression and no ST elevation ECG Findings: + Other (QT-c 563.); no PACs and no PVCs Blood Pressure Blood Pressure Findings: Elevated blood pressure Blood Pressure Disposition: further management by hospitalist CYNDI Russell The patient is a pleasant 73-year-old woman with a past medical history of heart block status post PPM, atrial flutter on Eliquis, CAD, diastolic heart failure, asthma who presents emergency department after being found down when was unable to be contacted by a close friend per HPI. Patient was found on the ground presumably where she had been lying since last night. Patient is unclear with details of when she fell. On arrival patient is ill-appearing, with a temperature of 37.8 and vital signs otherwise stable. He would saturate 80% on room air and was placed on 4 L nasal cannula. On exam the patient has ecchymosis to right posterior shoulder with pain with active and passive range of motion. She also has mild pain of the right hip with full range of motion intact but causing discomfort. There is no gross deformity of the shoulder or hip. EKG demonstrates paced rhythm without overt acute ischemia. Chest x-ray demonstrates right upper lobe opacities consistent with pneumonia. UA is consistent with infection with nitrites and bacteria. Patient was ordered for Zosyn and vancomycin for now. WBC 15.8. H/H and platelets within normal limits. Chemistry without acidosis. VBG unremarkable. Lactate 1.9. Total bilirubin 1.4 and direct bilirubin 0.4 with AST 61, nonspecific. CPK 2K. Troponin 1.1 likely related to demand in the setting of the patient's prolonged downtime. CT head and C-spine negative for acute traumatic findings. CT and pelvis also negative for acute process. Case was discussed with Dr. Johns, [facility] hospitalist, who will evaluate the patient for admission. Impression & Plan Sepsis, Pneumonia, Acute UTI, Rhabdomyolysis Discharge Plan Visit Data *Final* Discharge Date/Time: 05/11/19 13:47 Chief Complaint: Fall ED Provider: Jose Rick Discharge Problem: Sepsis, Pneumonia, Acute UTI, Rhabdomyolysis Patient Disposition: Admitted As Inpatient Discharge Instructions Interventions: ED Discharge Assessment Last Done: 05/11/19 13:47 Discharge Problem: Sepsis Qualifiers: Sepsis type: sepsis due to unspecified organism Sepsis acute organ dysfunction status: unspecified Qualified Code(s): A41.9 - Sepsis, unspecified organism Pneumonia Qualifiers: Pneumonia type: due to unspecified organism Laterality: right Lung location: unspecified part of lung Qualified Code(s): J18.9 - Pneumonia, unspecified organism The scribe's documentation has been prepared under my direction and personally reviewed by me in its entirety. I confirm that the note above accurately reflects all work, treatment, procedures, and medical decision making performed by me.
--- NOTE | 2019-05-11 11:42 | CT Scan Report ---
CT abd pelvis IV con only CLINICAL HISTORY: Right-sided abdominal pain COMPARISON STUDY: No previous studies for comparison. FINDINGS: The patient was scanned in a dynamic helical fashion during intravenous administration of 9 5 cc of Optiray 320. The visualized portions the lung bases reveal coronary artery calcifications. There is a small right pleural effusion. There are right middle and lower lobe airspace opacity suspicious for a pneumonitis . No hepatic masses are visualized. The portal and hepatic veins appear patent. The gallbladder is surgically absent. No splenic masses are visualized. The spleen is mildly enlarged measuring 13 cm. No pancreatic masses are visualized. No adrenal masses are visualized. There are no solid renal masses. There is no evidence of hydronephrosis. There are no transition zones indicate bowel obstruction. There is colonic diverticulosis. There is n o evidence of acute diverticulitis. The appendix appears normal. There is no evidence of abdominal aortic aneurysm. There are borderline enlarged right inguinal lymph nodes. The uterus appears surgically absent. No destructive skeletal lesions are visualized there is a grade 1 spondylolisthesis of L4 and L5. IMPRESSION: 1. No evidence of bowel obstruction. No evidence of free air 2. No evidence of acute appendicitis. No evidence of acute diverticulitis. 3. Mild splenomegaly 4. Borderline enlarged right inguinal lymph nodes 5. Right middle lobe and lower lobe airspace opacity suspicious for a pneumonitis. Clinical and radio graphic follow-up is recommended. 6. Small right pleural effusion ACT 112: Negative or not required by law. Electronically signed by: Mingo Remy M.D. 05/11/2019 11:41 AM
[2019-05-11 12:03] LABS: Albumin Globulin Ratio 0.7 (0.9-2); Alkaline Phosphatase 102 U/L (45-117); Bilirubin,Total 1.4 mg/dl (0.2-1); Creatine Kinase 2113 U/L (26-192); Globulin 4.2 gm/dl (2.5-4.0); NT Pro B Type Natriuretic Pept > 35000 pg/ml (0-900); Phosphorus 3.2 mg/dl (2.5-4.9); Total Protein 7.2 gm/dl (6.4-8.2)
[2019-05-11 12:24] LABS: Influenza A virus by PCR Neg for Influ A (Neg); Influenza B virus by PCR Neg for Influ B (Neg)
--- NOTE | 2019-05-11 12:58 | History & Physical Report ---
Date of Service May 11, 2019 Assessment & Plan (1) Sepsis: Admit to PCU on telemetry Vital signs every 4 hours Patient was started in the ER Zosyn and vancomycin for community-acquired pneumonia pneumonia Will switch to ceftriaxone 2 g IV daily and doxycycline 100 mg IV twice daily and treat empirically for now. Follow-up urine blood and sputum cultures and switch to specific antibiotic agents once when sensitivity available. Robitussin for cough Trend down creatinine Trend down troponinx3 Consult cardiology Duo nebs every 4 hours scheduled and per RT. DVT prophylaxis continue Eliquis Replenish electrolytes Full code Present on Admission?: Yes (2) Pneumonia: As the above Present on Admission?: Yes (3) Acute UTI: Treat with ceftriaxone 2 g IV Follow-up urine cultures Present on Admission?: Yes (4) Hypokalemia: Started potassium 40 mEq p.o. daily. Increase if necessary to keep potassium above 4. Present on Admission?: Yes (5) Atrial fibrillation: Stable now. Patient has a pacemaker implanted. Continue amiodarone 200 mg p.o. daily and Eliquis 5 mg p.o. twice daily. We will call patient's pacemaker company for interrogation. Present on Admission?: Yes (6) Hyperlipidemia, unspecified: Lipid panel pending Present on Admission?: Yes (7) Hypothyroidism: TSH pending. Continue levothyroxine 25 MCG's p.o. daily Present on Admission?: Yes (8) Hypertension: Stable. Continue losartan 100mg p.o. daily, hydralazine 50 mg p.o. 3 times daily, furosemide 20 mg IV twice daily, carvedilol 6.25 mg p.o. twice daily, aspirin 81 mg p.o. daily, amlodipine 10 mg p.o. daily Present on Admission?: Yes (9) Osteoarthritis: I will continue with pain management with Percocet as needed. Present on Admission?: Yes (10) Acute exacerbation of congestive heart failure: Strict in and out, Daily weight, Started furosemide 20 mg IV twice daily (patient was using at home 20 mg daily p.o.) Low-sodium diet Restrict IV fluids to 1200 mils per day. Present on Admission?: Yes (11) Syncope: CT of the head without contrast showed artifact. Patient has a pacemaker so we will proceed with CTA of head and neck to rule out TIA or possible stroke. Would consider MRI of the brain if CTA of the head and neck inconclusive. Patient's last well was the prior day so even if stroke occurred yesterday or the day before patient is at this point outside of the window for starting TPA. TTE pending Physical and Occupational Therapy Would consider placement into care home. Disposition: Admit to PCU on telemetry Present on Admission?: Yes History of Present Illness Chief Complaint: Cough ,generalized malaise, syncope Primary Care Provider: BENITO Marquez Patient is a 73-year old female who lives by herself (but has a friend who takes care of her) who was brought to the emergency room by EMS after she was found laying down on the floor, unable to stand up because of right-sided hip pain and shoulder pain. Patient does not remember exactly what happened last night and she believes that she woke up at 4 AM and try to reach the refrigerator and to get some ice cream. Per her friend this is not what happened and patient apparently is not aware of when she woke up and when she fell. Patient friend reports that patient is forgetful especially short-term memory. She states that she checks on her every couple of hours and she calls her, and last night patient did not respond for more than 5 or 6 hours which was very unusual for her and which prompted her friend to reach her immediately. Patient is poor historian due to moderate to severe dementia. Labs are reviewed which shows: WBCs of 15.83, hemoglobin 13.2, hematocrit 41, platelets 332, PT 11.1, PTT 26, INR 1.1, VBG pH 7.38, PCO2 45, PO2 28, bicarb 26-all normal, sodium 141, potassium 3.4, chloride 111, BUN 19, creatinine 1.02, GFR 55.3, lactate 1.9, calcium 8.6, phosphorus 3.2, magnesium 2.2, AST 61, ALT 24, creatinine kinase 2113, troponin I 0.18, BNP 35,000. Urine cloudy, positive urine nitrate, negative Leukocyte Estrase, 4+ bacterium. Influenza A and B are negative, blood cultures and urine cultures pending. Chest x-ray significant for right upper lobe airspace opacity, possible representing pneumonia given the history of sepsis. Small right pleural effusion. CT abdomen pelvis: No evidence of bowel obstruction. No evidence of free air, no evidence of acute appendicitis. No evidence of acute diverticulitis. Mild splenomegaly. Borderline enlarged right inguinal lymph nodes. Right middle lobe and lower lobe airspace opacity suspicious for pneumonia pneumonitis. Small right pleural effusion. No neck fractures. Head CT motion artifact no definitive acute intracranial abnormality. Right shoulder: No fracture within the right shoulder right humerus. Past medical history includes coronary artery disease, atrial fibrillation/flutter apixaban, heart block AV complete and Mobitz type II, congestive heart failure, morbid obesity, hypothyroidism, hypertension, hyperlipidemia, osteoarthritis. Patient is not on oxygen at home. She was on oxygen in the past and she was weaned off. Decision was made to admit patient to PCU on telemetry for sepsis, pneumonia, acute urinary tract infection, syncope, demand ischemia with elevated troponin, and acute exacerbation of congestive heart failure Allergies Allergy/AdvReac Type Severity Reaction Status Date / Time No Known Drug Allergies Allergy Unknown Verified 05/11/19 12:23 Home Medications Home Medications Medication Instructions Recorded Confirmed Type Eliquis 5 mg PO BID #60 tab 08/21/18 05/11/19 Rx amiodarone 200 mg PO DAILY #30 tab 09/02/18 05/11/19 Rx paroxetine HCl 20 mg tablet 20 mg PO QAM #90 tab 10/26/18 05/11/19 Rx Oxygen Home ea 11/10/18 04/13/19 History furosemide 20 mg tablet 20 mg PO DAILY #90 tab 12/03/18 05/11/19 Rx albuterol sulfate 90 mcg/actuation 2 puffs INH Q4H PRN #18 gm 02/02/19 05/11/19 Rx aerosol inhaler levothyroxine 25 mcg tablet 25 mcg PO DAILY #30 tab 02/08/19 05/11/19 Rx aspirin [Aspir-81] 81 mg PO DAILY 04/06/19 05/11/19 History carvedilol 6.25 mg PO BID #60 tab 04/07/19 05/11/19 Rx amlodipine 10 mg tablet 10 mg PO DAILY #90 tab 04/13/19 05/11/19 Rx ferrous gluconate 236 mg (27 mg 236 mg PO DAILY #90 tab 04/13/19 05/11/19 Rx iron) tablet hydralazine 50 mg tablet 50 mg PO TID #90 tab 04/13/19 05/11/19 Rx losartan 100 mg tablet 100 mg PO DAILY #90 tab 04/21/19 05/11/19 Rx Past Med/Surg History Medical History JENNIFER (acute kidney injury) Anxiety Asthma Atrial fibrillation/flutter Atrioventricular block, Mobitz type 2 CAD (coronary artery disease) S/P GA, cath with stent x 1 2013 Cataract Cellulitis B/L LOWER EXTREMITIES Chronic anticoagulation Chronic diastolic (congestive) heart failure Chronic respiratory failure with hypoxia, on home O2 therapy Depression Heart block AV complete History of anxiety History of cholecystitis History of coronary artery disease History of depression History of myocardial infarction Hyperkalemia Hyperlipidemia Hypermagnesemia Hypertension Admitted to [facility] 08/17 for hypertensive urgencyl; BB d/c'd 06/06 bradycardia; put on hydralazine, losartan and amlodipine. Hypertensive urgency (Resolved) Hypothyroidism Microcytic hypochromic anemia Morbid obesity with BMI of 40.0-44.9, adult Osteoarthritis SOB (shortness of breath) on exertion Symptomatic bradycardia Surgical History History of appendectomy History of cardiac cath 3 YEARS AGO - VAR[facility] - GA - 1 STENT PLACED - FOLLOWS W/ DR. LAUGHLIN History of cataract surgery RT/LEFT History of colonoscopy History of hysterectomy History of knee replacement LEFT History of tooth extraction History of total knee replacement LEFT History of tubal ligation Hx of cholecystectomy Family History Brother Family history of diabetes mellitus Myocardial infarction, Onset Age: 50 Family history of cardiac disorder Hypertension Mother Family history of diabetes mellitus Myocardial infarction Father Myocardial infarction Social History Preferred Language: Iranian Communication Ability: Effective Visual Impairment: No Limitations Hearing Ability: Normal Resistor Tester Required: No Beliefs That Will Affect Care: None marital status: / Current Living Situation: Alone Current Living Situation Comment: Lives in senior apartment at [facility] current occupational status: retired Feels Safe at Home: Yes Smoking Status: Never smoker Second Hand Exposure: No ; Hx Alcohol Use: No Hx Substance Use: No Dental Care, Regularly: No Physical Activity Frequency: 3-4 Times per Week Physical Activity Frequency Comment: Limited by physical condition Seatbelt Use: always Sunscreen Use: Yes Review of Systems Review of Systems: All systems reviewed & are unremarkable except as noted in HPI & below Physical Exam Constitutional: WD/WN, vitals as above well developed and + morbidly obese Eyes: PERRL, conjunctivae normal, anicteric sclerae ENMT: external ear and nose normal, oropharynx normal Neck: trachea midline, no thyromegaly Respiratory: + respiratory distress Auscultation: + crackles and + wheezes Cardiovascular: Rate/Rhythm: + irregularly irregular Vessels: brachial pulses present Extremities: + pedal edema Gastrointestinal (Abdomen): normal bowel sounds, soft, nontender, no hepatosplenomegaly Musculoskeletal: no cyanosis or clubbing, extremities motor strength 5/5 Skin: no rashes, warm and dry Neurologic: patellar DTR's 2+ bilat, sensation intact Psychiatric: Orientation: alert, oriented x 3 and cooperative Apperance: + disheveled Insight: + limited insight Judgement: + limited judgement 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 Lymphatic: no cervical or axillary lymphadenopathy Results & Data Vital Signs (Past 12 Hours) Vital Signs Temp Pulse Pulse Resp BP BP Pulse Ox 05/11/19 11:38 77 28 H 149/73 H 96 05/11/19 10:59 81 24 153/83 H 98 05/11/19 10:10 99 05/11/19 09:49 37.8 C H 80 18 151/82 H 88 L Code Status & VTE Plan Code Status Full code VTE Prophylaxis Plan VTE Prophylaxis will be ordered: Yes PG Care Time/CCT Total # of Minutes Spent Total Time Spent with Patient: Total time spent is greater than 50% in coordination of care (as documented) at patient's floor/unit and/or counseling patient: (1) Sepsis Sepsis acute organ dysfunction status: unspecified Sepsis type: sepsis due to unspecified organism Qualified Code(s): A41.9 - Sepsis, unspecified organism (2) Hypertension Hypertension type: essential hypertension Qualified Code(s): I10 - Essential (primary) hypertension (3) Pneumonia Laterality: right Lung location: unspecified part of lung Pneumonia type: due to unspecified organism Qualified Code(s): J18.9 - Pneumonia, unspecified organism
[2019-05-11] MEDS ORDERED: OPTIRAY 320 125ml IV PRN (14:03)
[2019-05-11] MEDS ORDERED: ACETAMINOPHEN 325 MG TAB PO PRN (14:26)
[2019-05-11] MEDS ORDERED: ALUMINUM/MAGNESIUM SUSP 30 ML UDC PO PRN (14:26)
[2019-05-11] MEDS ORDERED: OXYCODONE/ACETAMINOPHEN 5mg/325mg TAB PO PRN (14:26)
[2019-05-11] MEDS ORDERED: GUAIFENESIN/DEXTROM SYRUP 200MG/20MG 10ML UDC PO PRN (14:26)
[2019-05-11] MEDS ORDERED: ALBUTEROL HFA 8 GM INHALER INH PRN (14:26)
[2019-05-11] MEDS ORDERED: MAGNESIUM HYDROXIDE SUSP 30 ML UDC PO PRN (14:26)
[2019-05-11] MEDS ORDERED: POLYETHYLENE (MIRALAX) 17 GM PACK PO PRN (14:26)
[2019-05-11] MEDS ORDERED: FUROSEMIDE 40 MG/4 ML VIAL IV SCH (14:26)
--- NOTE | 2019-05-11 14:30 | CT Scan Report ---
HEAD & NECK CTA HISTORY: syncope TECHNIQUE: Multiaxial CT images of the head were performed following the intravenous administration o f contrast to evaluate the major cerebral vessels. Multiaxial CT images of the neck were also perform ed following the intravenous administration of contrast to evaluate the major cervical vessels. Maxim um intensity projection images were also obtained. A dose lowering technique was utilized adhering to the principles of ALARA. COMPARISON: Head CT 05/11/2019. FINDINGS: There is no mass, hematoma, midline shift, or acute infarct. Visualized intracranial internal carotid arteries, distal vertebral arteries, and basilar artery are widely patent. There is no significant s tenosis, occlusion, or aneurysm seen within the bilateral ACAs, MCAs, or booster plant operator. Severely hypoplastic d istal right vertebral artery. Persistent left posterior circulation. Moderate calcified plaque within the bilateral carotid siphons. The visualized dural venous sinuses appear patent. Motion artifact partially obscures the common carotid arteries and bilateral carotid bifurcations. Ho wever, no definite stenosis, occlusion, or dissection identified within the bilateral common carotid, internal carotid, or vertebral arteries. Motion artifact partially obscures the common carotid arter ies and bilateral carotid bifurcations. There is mild calcified plaque within the bilateral carotid b ifurcations. The right vertebral artery is hypoplastic in comparison to the left. Patchy groundglass densities and mild interseptal lobular thickening within the lung apices. This favors mild asymmetric pulmonary edema. IMPRESSION: 1. No significant stenosis, occlusion, or aneurysm within the [place]. 2. Motion artifact partially obscures the common carotid arteries and bilateral carotid bifurcations. However, no definite stenosis, occlusion, or dissection identified within the carotid or vertebral a rteries. 3. Suspect mild asymmetric pulmonary edema. ACT 112: Negative or not required by law. Electronically signed by: Riley Underwood M.D. 05/11/2019 2:29 PM
--- NOTE | 2019-05-11 14:30 | CT Scan Report ---
HEAD & NECK CTA HISTORY: syncope TECHNIQUE: Multiaxial CT images of the head were performed following the intravenous administration o f contrast to evaluate the major cerebral vessels. Multiaxial CT images of the neck were also perform ed following the intravenous administration of contrast to evaluate the major cervical vessels. Maxim um intensity projection images were also obtained. A dose lowering technique was utilized adhering to the principles of ALARA. COMPARISON: Head CT 05/11/2019. FINDINGS: There is no mass, hematoma, midline shift, or acute infarct. Visualized intracranial internal carotid arteries, distal vertebral arteries, and basilar artery are widely patent. There is no significant s tenosis, occlusion, or aneurysm seen within the bilateral ACAs, MCAs, or hospice patient care secretary. Severely hypoplastic d istal right vertebral artery. Persistent left posterior circulation. Moderate calcified plaque within the bilateral carotid siphons. The visualized dural venous sinuses appear patent. Motion artifact partially obscures the common carotid arteries and bilateral carotid bifurcations. Ho wever, no definite stenosis, occlusion, or dissection identified within the bilateral common carotid, internal carotid, or vertebral arteries. Motion artifact partially obscures the common carotid arter ies and bilateral carotid bifurcations. There is mild calcified plaque within the bilateral carotid b ifurcations. The right vertebral artery is hypoplastic in comparison to the left. Patchy groundglass densities and mild interseptal lobular thickening within the lung apices. This favors mild asymmetric pulmonary edema. IMPRESSION: 1. No significant stenosis, occlusion, or aneurysm within the [place]. 2. Motion artifact partially obscures the common carotid arteries and bilateral carotid bifurcations. However, no definite stenosis, occlusion, or dissection identified within the carotid or vertebral a rteries. 3. Suspect mild asymmetric pulmonary edema. ACT 112: Negative or not required by law. Electronically signed by: Riley Underwood M.D. 05/11/2019 2:29 PM
[2019-05-11] MEDS: ALBUT/IPRATROP 3MG/0.5MG NEB 3 ML VIAL NEB SCH ×3 (15:31→23:05)
[2019-05-11] MEDS: FUROSEMIDE 40 MG in SYRINGE 0 ML IV SCH ×2 (15:39→20:22)
[2019-05-11] MEDS: HydrALAZINE TAB 50 MG TAB PO SCH ×2 (15:39→20:23)
[2019-05-11] MEDS: POTASSIUM CHLORIDE 20 MEQ TABCR PO SCH (15:40)
[2019-05-11] MEDS: cefTRIAXone SODIUM 2,000 MG in DEXTROSE 5% 50 ML IV SCH (17:01)
[2019-05-11] MEDS: DOXYCYCLINE HYCLATE 100 MG in DEXTROSE 5% 100 ML IV SCH (20:22)
[2019-05-11] MEDS: APIXABAN 5 MG TABLET PO SCH (20:23)
[2019-05-11] MEDS: carvediloL 6.25 MG TAB PO SCH (20:24)
[2019-05-12] MEDS: ALBUT/IPRATROP 3MG/0.5MG NEB 3 ML VIAL NEB SCH ×6 (02:06→22:47)
[2019-05-12] MEDS: LEVOTHYROXINE SODIUM 25 MCG TABLET PO SCH (06:00)
[2019-05-12 06:33] LABS: Basophils # (auto) 0.01 K/uL (0-0.2); Basophils % (auto) 0.1 %; Eosinophils # (auto) 0.02 K/uL (0-0.5); Eosinophils % (auto) 0.3 %; Hematocrit (blood only) 43.4 % (37-47); Hemoglobin 13.4 g/dL (12.0-16.0); Immature Granulocytes # (auto) 0.01 K/uL (0.00-0.02); Immature Granulocytes % (auto) 0.1 %; Lymphocytes # (auto) 0.77 K/uL (1.2-3.4); Lymphocytes % (auto) 10.2 %; Mean Corpuscular Hemoglobin 27.1 pg (25-34); Mean Corpuscular Hgb Conc 30.9 g/dL (32-36); Mean Corpuscular Volume 87.9 fL (80-100); Mean Platelet Volume 10.6 fL (7.4-10.4); Monocytes # (auto) 0.77 K/uL (0.11-0.59); Monocytes % (auto) 10.2 %; Neutrophils # (auto) 5.99 K/uL (1.4-6.5); Neutrophils % (auto) 79.1 %; Platelet Count 273 K/uL (130-400); RDW Coefficient of Variation 18.8 % (11.5-14.5); RDW Standard Deviation 58.9 fL (36.4-46.3); Red Blood Count 4.94 M/uL (4.2-5.4); White Blood Count 7.57 K/uL (4.8-10.8)
[2019-05-12 07:04] LABS: Albumin Level 2.8 gm/dl (3.4-5.0); BUN Creatinine Ratio 16.4 (10-20); Calcium 8.7 mg/dl (8.5-10.1); Creatinine Clr Calc Pharmacy 54.8 ml/min; Est GFR (African American) 69.8; Est GFR (Non-African American) 60.3; Potassium 3.5 mmol/L (3.5-5.1)
[2019-05-12 07:19] LABS: Albumin Globulin Ratio 0.7 (0.9-2); Bilirubin,Total 0.9 mg/dl (0.2-1); Globulin 3.9 gm/dl (2.5-4.0); Total Protein 6.7 gm/dl (6.4-8.2)
[2019-05-12] MEDS: DOXYCYCLINE HYCLATE 100 MG in DEXTROSE 5% 100 ML IV SCH ×2 (07:32→21:12)
[2019-05-12] MEDS: POTASSIUM CHLORIDE 20 MEQ TABCR PO SCH (07:33)
[2019-05-12] MEDS: PARoxetine HCl 20 MG TAB PO SCH (07:33)
[2019-05-12] MEDS: ASPIRIN 81 MG ECTAB PO SCH (07:33)
[2019-05-12] MEDS: FERROUS GLUCONATE 324 MG TAB PO SCH (07:33)
[2019-05-12] MEDS: HydrALAZINE TAB 50 MG TAB PO SCH ×3 (07:33→21:10)
[2019-05-12] MEDS: LOSARTAN POTASSIUM 50 MG TAB PO SCH (07:33)
[2019-05-12] MEDS: carvediloL 6.25 MG TAB PO SCH ×2 (07:33→21:10)
[2019-05-12] MEDS: AMLODIPINE BESYLATE 5 MG TAB PO SCH (07:33)
[2019-05-12] MEDS: AMIODARONE 200 MG TAB PO SCH (07:34)
[2019-05-12] MEDS: APIXABAN 5 MG TABLET PO SCH ×2 (07:34→21:11)
[2019-05-12 08:42] LABS: Estimated Average Glucose 111 mg/dl; Hemoglobin A1C 5.5 % (4.5-5.6)
[2019-05-12] MEDS: FUROSEMIDE 40 MG in SYRINGE 0 ML IV SCH (09:54)
--- NOTE | 2019-05-12 09:54 | Cardiology Consultation ---
Date of Consultation May 12, 2019 Assessment & Plan (1) Syncope: (2) Sepsis: (3) Pneumonia: (4) Pacemaker: (5) Complete AV block: (6) PAF (paroxysmal atrial fibrillation): The patient is currently clinically stable. Her heart rhythm is stable sinus with occasional ventricular paced beats. I would continue the amiodarone and Eliquis. We will follow with you during her hospital stay. History of Present Illness Attending Physician: Rohan Christian MD History of Present Illness This is a 73-year-old female who approximately a year ago was to have atrial flutter ablation but when she presented she was in atrial fibrillation. She was cardioverted and started on amiodarone and then presented with heart block and received a permanent pacemaker. She also has a history of mild coronary artery disease with no recent angina or acute events. The patient lives alone. She does have a history either dementia or is mentally challenged. She is able to l bob alone with the help of a friend. Her friend was not able to get a hold of her yesterday. When she entered the home she found Sharron on the floor. She was confused and thought she got up in the middle the night to get some ice cream in the kitchen. She was brought to the emergency department and her chest x-ray suggest possible community-acquired pneumonia. She has been admitted for further treatment. Currently, she is in a sinus rhythm with occasional V pacing. She has no cardiac complaints. Allergies Allergy/AdvReac Type Severity Reaction Status Date / Time No Known Drug Allergies Allergy Unknown Verified 05/11/19 12:23 Home Medications Home Medications Medication Instructions Recorded Confirmed Type Eliquis 5 mg PO BID #60 tab 08/21/18 05/11/19 Rx amiodarone 200 mg PO DAILY #30 tab 09/02/18 05/11/19 Rx paroxetine HCl 20 mg tablet 20 mg PO QAM #90 tab 10/26/18 05/11/19 Rx Oxygen Home ea 11/10/18 04/13/19 History furosemide 20 mg tablet 20 mg PO DAILY #90 tab 12/03/18 05/11/19 Rx albuterol sulfate 90 mcg/actuation 2 puffs INH Q4H PRN #18 gm 02/02/19 05/11/19 Rx aerosol inhaler levothyroxine 25 mcg tablet 25 mcg PO DAILY #30 tab 02/08/19 05/11/19 Rx aspirin [Aspir-81] 81 mg PO DAILY 04/06/19 05/11/19 History carvedilol 6.25 mg PO BID #60 tab 04/07/19 05/11/19 Rx amlodipine 10 mg tablet 10 mg PO DAILY #90 tab 04/13/19 05/11/19 Rx ferrous gluconate 236 mg (27 mg 236 mg PO DAILY #90 tab 04/13/19 05/11/19 Rx iron) tablet hydralazine 50 mg tablet 50 mg PO TID #90 tab 04/13/19 05/11/19 Rx losartan 100 mg tablet 100 mg PO DAILY #90 tab 04/21/19 05/11/19 Rx Patient History Medical History JENNIFER (acute kidney injury) Anxiety Asthma Atrial fibrillation/flutter Atrioventricular block, Mobitz type 2 CAD (coronary artery disease) S/P IN, cath with stent x 2013 Cataract Cellulitis B/L LOWER EXTREMITIES Chronic anticoagulation Chronic diastolic (congestive) heart failure Chronic respiratory failure with hypoxia, on home O2 therapy Depression Heart block AV complete History of anxiety History of cholecystitis History of coronary artery disease History of depression History of myocardial infarction Hyperkalemia Hyperlipidemia Hypermagnesemia Hypertension Admitted to [facility] 08/17 for hypertensive urgencyl; BB d/c'd 2/2 bradycardia; put on hydralazine, losartan and amlodipine. Hypertensive urgency (Resolved) Hypothyroidism Microcytic hypochromic anemia Morbid obesity with BMI of 40.0-44.9, adult Osteoarthritis SOB (shortness of breath) on exertion Symptomatic bradycardia Surgical History History of appendectomy History of cardiac cath 3 YEARS AGO - VARUN - IN - 1 STENT PLACED - FOLLOWS W/ DR. LAUGHLIN History of cataract surgery RT/LEFT History of colonoscopy History of hysterectomy History of knee replacement LEFT History of tooth extraction History of total knee replacement LEFT History of tubal ligation Hx of cholecystectomy Family History Brother Family history of diabetes mellitus Myocardial infarction, Onset Age: 50 Family history of cardiac disorder Hypertension Mother Family history of diabetes mellitus Myocardial infarction Father Myocardial infarction Social History (Reviewed 05/12/19 @ 09:50 by JOELLEN Terrell Preferred Language: Setswana Communication Ability: Effective Visual Impairment: No Limitations Hearing Ability: Normal Data Engineer Required: No Beliefs That Will Affect Care: None marital status: / Current Living Situation: Alone Current Living Situation Comment: Lives in senior apartment at [place] [address] current occupational status: retired Feels Safe at Home: Yes Smoking Status: Never smoker Second Hand Exposure: No ; Hx Alcohol Use: No Hx Substance Use: No Dental Care, Regularly: No Physical Activity Frequency: 3-4 Times per Week Physical Activity Frequency Comment: Limited by physical condition Seatbelt Use: always Sunscreen Use: Yes Review of Systems Review of Systems: Unobtainable due to cognitive status Physical Exam Physical Exam: General: no acute distress and stated age Head: normocephalic, no masses, lesions, tenderness or abnormalities Eyes: conjunctiva are pink and non-injected, sclera clear Neck: supple, no adenopathy, no bruits, normal jugular venous pulse, no hepatojugular reflux Chest: normal shape and normal respiratory effort Lungs: clear to auscultation and percussion Cardiac Exam: - regular rate & rhythm, no murmurs gallops or rubs - normal S1, normal S2 Pulses: 2(+) throughout Abdomen: abdomen soft, non-tender, no abnormal masses and no hepatosplenomegaly Musculoskeletal: no gait disturbance, no joint inflammation, no deforming arthritis Extremities: no edema and no cyanosis Neuro: grossly normal exam Results & Data Vital Signs (Past 12 Hours) Vital Signs Temp Pulse Resp BP BP Pulse Ox 05/12/19 07:29 36.5 C 87 20 156/90 H 92 05/12/19 07:25 85 19 91 05/12/19 04:38 36.6 C 86 18 115/67 93 05/12/19 02:06 74 18 97 05/12/19 00:14 36.7 C 83 18 124/90 97 05/11/19 23:06 68 18 97 Laboratory Results Laboratory Results - last 24 hr 05/11/19 05/11/19 05/11/19 09:55 10:00 10:00 WBC RBC Hgb POC Hgb Hct POC Hct MCV MCH MCHC RDW Std Deviation RDW Coeff of Fabián Plt Count MPV Immature Gran % (Auto) Neut % (Auto) Lymph % (Auto) Bergen % (Auto) Eos % (Auto) Baso % (Auto) Immature Gran # (Auto) Neut # (Auto) Lymph # (Auto) Bergen # (Auto) Eos # (Auto) Baso # (Auto) PT 11.1 INR 1.1 APTT 26.0 PTT Ratio 1.0 VBG pH VBG pCO2 VBG pO2 VBG HCO3 VBG O2 Saturation VBG Base Excess Barometric Pressure POC Sodium Sodium Cancelled POC Potassium Potassium Cancelled POC Chloride Chloride Cancelled Carbon Dioxide Cancelled POC Total CO2 Anion Gap Cancelled POC Anion Gap POC BUN BUN Cancelled Creatinine Cancelled POC Creatinine Est Cr Clr Drug Dosing Cancelled Est GFR ( Amer) Cancelled Est GFR (Non-Af Amer) Cancelled BUN/Creatinine Ratio Cancelled Glucose Cancelled POC Glucose (other) Estimat Average Glucose Hemoglobin A1c Lactate Calcium Cancelled POC Ioniz Calcium Williams Phosphorus Cancelled Magnesium Cancelled Total Bilirubin Cancelled Direct Bilirubin Cancelled AST Cancelled ALT Cancelled Alkaline Phosphatase Cancelled Total Creatine Kinase Cancelled Troponin I Cancelled NT-Pro-B Natriuret Pep Cancelled Total Protein Cancelled Albumin Cancelled Globulin Cancelled Albumin/Globulin Ratio Cancelled Procalcitonin TSH Urine Color Dark Yellow Urine Appearance Cloudy A Urine pH 5.0 Ur Specific Devol 1.025 Urine Protein 1+ H Urine Glucose (UA) Negative Urine Ketones Trace H Urine Blood Negative Urine Nitrite Positive A Urine Bilirubin Negative Urine Urobilinogen Negative Ur Leukocyte Esterase Negative Urine WBC (Auto) 0 Urine RBC (Auto) 0-4 U Hyaline Cast (Auto) 0 U Epithel Cells (Auto) 0-5 Urine Bacteria (Auto) 4+ H Urine Yeast Not Reportable Hepatitis C Ab Screen Influenza Type A (PCR) Influenza Type B (PCR) 05/11/19 05/11/19 05/11/19 10:01 10:51 10:51 WBC 15.83 H RBC 4.81 Hgb 13.2 POC Hgb 14.6 Hct 41.0 POC Hct 43 MCV 85.2 MCH 27.4 MCHC 32.2 RDW Std Deviation 56.6 H RDW Coeff of Fabián 18.3 H Plt Count 332 MPV 10.3 Immature Gran % (Auto) 0.2 Neut % (Auto) 85.7 Lymph % (Auto) 3.7 Bergen % (Auto) 10.4 Eos % (Auto) 0.0 Baso % (Auto) 0.0 Immature Gran # (Auto) 0.03 H Neut # (Auto) 13.58 H Lymph # (Auto) 0.58 L Bergen # (Auto) 1.64 H Eos # (Auto) 0.00 Baso # (Auto) 0.00 PT INR APTT PTT Ratio VBG pH VBG pCO2 VBG pO2 VBG HCO3 VBG O2 Saturation VBG Base Excess Barometric Pressure POC Sodium 142 Sodium POC Potassium 4.7 Potassium POC Chloride 110 Chloride Carbon Dioxide POC Total CO2 24 Anion Gap POC Anion Gap 14.0 L POC BUN 26 H BUN Creatinine POC Creatinine 0.8 Est Cr Clr Drug Dosing Est GFR ( Amer) Est GFR (Non-Af Amer) BUN/Creatinine Ratio Glucose POC Glucose (other) 119 H Estimat Average Glucose Hemoglobin A1c Lactate 1.9 Calcium POC Ioniz Calcium Williams 1.06 L Phosphorus Magnesium Total Bilirubin Direct Bilirubin AST ALT Alkaline Phosphatase Total Creatine Kinase Troponin I NT-Pro-B Natriuret Pep Total Protein Albumin Globulin Albumin/Globulin Ratio Procalcitonin TSH Urine Color Urine Appearance Urine pH Ur Specific Devol Urine Protein Urine Glucose (UA) Urine Ketones Urine Blood Urine Nitrite Urine Bilirubin Urine Urobilinogen Ur Leukocyte Esterase Urine WBC (Auto) Urine RBC (Auto) U Hyaline Cast (Auto) U Epithel Cells (Auto) Urine Bacteria (Auto) Urine Yeast Hepatitis C Ab Screen Influenza Type A (PCR) Influenza Type B (PCR) 05/11/19 05/11/19 05/11/19 10:51 10:52 10:52 WBC RBC Hgb POC Hgb Hct POC Hct MCV MCH MCHC RDW Std Deviation RDW Coeff of Fabián Plt Count MPV Immature Gran % (Auto) Neut % (Auto) Lymph % (Auto) Bergen % (Auto) Eos % (Auto) Baso % (Auto) Immature Gran # (Auto) Neut # (Auto) Lymph # (Auto) Bergen # (Auto) Eos # (Auto) Baso # (Auto) PT INR APTT PTT Ratio VBG pH 7.38 VBG pCO2 45 VBG pO2 28 VBG HCO3 26 VBG O2 Saturation < 60.0 VBG Base Excess 0 Barometric Pressure 731.5 POC Sodium Sodium 141 POC Potassium Potassium 3.4 L POC Chloride Chloride 111 H Carbon Dioxide 26 POC Total CO2 Anion Gap 4.0 POC Anion Gap POC BUN BUN 19 H Creatinine 1.02 POC Creatinine Est Cr Clr Drug Dosing 52.9 Est GFR ( Amer) 64.1 Est GFR (Non-Af Amer) 55.3 BUN/Creatinine Ratio 18.5 Glucose 107 H POC Glucose (other) Estimat Average Glucose 111 Hemoglobin A1c 5.5 Lactate Calcium 8.6 POC Ioniz Calcium Williams Phosphorus 3.2 Magnesium 2.2 Total Bilirubin 1.4 H Direct Bilirubin 0.4 H AST 61 H ALT 24 Alkaline Phosphatase 102 Total Creatine Kinase 2113 H Troponin I 1.180 H* NT-Pro-B Natriuret Pep > 56620 H Total Protein 7.2 Albumin 3.0 L Globulin 4.2 H Albumin/Globulin Ratio 0.7 L Procalcitonin TSH Urine Color Urine Appearance Urine pH Ur Specific Devol Urine Protein Urine Glucose (UA) Urine Ketones Urine Blood Urine Nitrite Urine Bilirubin Urine Urobilinogen Ur Leukocyte Esterase Urine WBC (Auto) Urine RBC (Auto) U Hyaline Cast (Auto) U Epithel Cells (Auto) Urine Bacteria (Auto) Urine Yeast Hepatitis C Ab Screen Influenza Type A (PCR) Influenza Type B (PCR) 05/11/19 05/11/19 05/11/19 10:52 11:35 15:09 WBC RBC Hgb POC Hgb Hct POC Hct MCV MCH MCHC RDW Std Deviation RDW Coeff of Fabián Plt Count MPV Immature Gran % (Auto) Neut % (Auto) Lymph % (Auto) Bergen % (Auto) Eos % (Auto) Baso % (Auto) Immature Gran # (Auto) Neut # (Auto) Lymph # (Auto) Bergen # (Auto) Eos # (Auto) Baso # (Auto) PT INR APTT PTT Ratio VBG pH VBG pCO2 VBG pO2 VBG HCO3 VBG O2 Saturation VBG Base Excess Barometric Pressure POC Sodium Sodium POC Potassium Potassium POC Chloride Chloride Carbon Dioxide POC Total CO2 Anion Gap POC Anion Gap POC BUN BUN Creatinine POC Creatinine Est Cr Clr Drug Dosing Est GFR ( Amer) Est GFR (Non-Af Amer) BUN/Creatinine Ratio Glucose POC Glucose (other) Estimat Average Glucose Hemoglobin A1c Lactate Calcium POC Ioniz Calcium Williams Phosphorus Magnesium Total Bilirubin Direct Bilirubin AST ALT Alkaline Phosphatase Total Creatine Kinase Troponin I NT-Pro-B Natriuret Pep Total Protein Albumin Globulin Albumin/Globulin Ratio Procalcitonin 0.09 TSH 2.860 Urine Color Urine Appearance Urine pH Ur Specific Devol Urine Protein Urine Glucose (UA) Urine Ketones Urine Blood Urine Nitrite Urine Bilirubin Urine Urobilinogen Ur Leukocyte Esterase Urine WBC (Auto) Urine RBC (Auto) U Hyaline Cast (Auto) U Epithel Cells (Auto) Urine Bacteria (Auto) Urine Yeast Hepatitis C Ab Screen Influenza Type A (PCR) Neg for Influ A Influenza Type B (PCR) Neg for Influ B 05/12/19 05/12/19 05/12/19 05:55 05:55 05:55 WBC 7.57 RBC 4.94 Hgb 13.4 POC Hgb Hct 43.4 POC Hct MCV 87.9 MCH 27.1 MCHC 30.9 L RDW Std Deviation 58.9 H RDW Coeff of Fabián 18.8 H Plt Count 273 MPV 10.6 H Immature Gran % (Auto) 0.1 Neut % (Auto) 79.1 Lymph % (Auto) 10.2 Bergen % (Auto) 10.2 Eos % (Auto) 0.3 Baso % (Auto) 0.1 Immature Gran # (Auto) 0.01 Neut # (Auto) 5.99 Lymph # (Auto) 0.77 L Bergen # (Auto) 0.77 H Eos # (Auto) 0.02 Baso # (Auto) 0.01 PT INR APTT PTT Ratio VBG pH VBG pCO2 VBG pO2 VBG HCO3 VBG O2 Saturation VBG Base Excess Barometric Pressure POC Sodium Sodium 142 POC Potassium Potassium 3.5 POC Chloride Chloride 109 H Carbon Dioxide 26 POC Total CO2 Anion Gap 8.0 POC Anion Gap POC BUN BUN 16 Creatinine 0.95 POC Creatinine Est Cr Clr Drug Dosing 54.8 Est GFR ( Amer) 69.8 Est GFR (Non-Af Amer) 60.3 BUN/Creatinine Ratio 16.4 Glucose 82 POC Glucose (other) Estimat Average Glucose Hemoglobin A1c Lactate Calcium 8.7 POC Ioniz Calcium Williams Phosphorus Magnesium Total Bilirubin 0.9 D Direct Bilirubin AST 55 H ALT 24 Alkaline Phosphatase 85 Total Creatine Kinase 1187 H Troponin I NT-Pro-B Natriuret Pep Total Protein 6.7 Albumin 2.8 L Globulin 3.9 Albumin/Globulin Ratio 0.7 L Procalcitonin TSH Urine Color Urine Appearance Urine pH Ur Specific Devol Urine Protein Urine Glucose (UA) Urine Ketones Urine Blood Urine Nitrite Urine Bilirubin Urine Urobilinogen Ur Leukocyte Esterase Urine WBC (Auto) Urine RBC (Auto) U Hyaline Cast (Auto) U Epithel Cells (Auto) Urine Bacteria (Auto) Urine Yeast Hepatitis C Ab Screen Neg Influenza Type A (PCR) Influenza Type B (PCR) 05/12/19 05:55 WBC RBC Hgb POC Hgb Hct POC Hct MCV MCH MCHC RDW Std Deviation RDW Coeff of Fabián Plt Count MPV Immature Gran % (Auto) Neut % (Auto) Lymph % (Auto) Berg[place] % (Auto) Eos % (Auto) Baso % (Auto) Immature Gran # (Auto) Neut # (Auto) Lymph # (Auto) Bergen # (Auto) Eos # (Auto) Baso # (Auto) PT INR APTT PTT Ratio VBG pH VBG pCO2 VBG pO2 VBG HCO3 VBG O2 Saturation VBG Base Excess Barometric Pressure POC Sodium Sodium POC Potassium Potassium POC Chloride Chloride Carbon Dioxide POC Total CO2 Anion Gap POC Anion Gap POC BUN BUN Creatinine POC Creatinine Est Cr Clr Drug Dosing Est GFR ( Amer) Est GFR (Non-Af Amer) BUN/Creatinine Ratio Glucose POC Glucose (other) Estimat Average Glucose Hemoglobin A1c Lactate Calcium POC Ioniz Calcium Williams Phosphorus Magnesium Total Bilirubin Direct Bilirubin AST ALT Alkaline Phosphatase Total Creatine Kinase Troponin I 0.450 H* NT-Pro-B Natriuret Pep Total Protein Albumin Globulin Albumin/Globulin Ratio Procalcitonin TSH Urine Color Urine Appearance Urine pH Ur Specific Devol Urine Protein Urine Glucose (UA) Urine Ketones Urine Blood Urine Nitrite Urine Bilirubin Urine Urobilinogen Ur Leukocyte Esterase Urine WBC (Auto) Urine RBC (Auto) U Hyaline Cast (Auto) U Epithel Cells (Auto) Urine Bacteria (Auto) Urine Yeast Hepatitis C Ab Screen Influenza Type A (PCR) Influenza Type B (PCR) Medications Administered Current Inpatient Medications Acetaminophen (Tylenol) 650 mg PO Q4H PRN PRN Reason: pain/fever Stop: 06/10/19 14:25 Last Admin: 05/11/19 23:49 Dose: 650 mg Documented by: Al Hydrox/Mg Hydrox/Simethicone (Maalox) 30 ml PO Q6H PRN PRN Reason: Dyspepsia Stop: 06/10/19 14:25 Albuterol (Ventolin Hfa) 2 puffs INH Q4H PRN PRN Reason: shortness of breath or wheezin Stop: 06/10/19 14:25 Albuterol (Duoneb) 3 ml NEB Q4R KIMBERLY Stop: 06/10/19 14:59 Last Admin: 05/12/19 07:25 Dose: 3 ml Documented by: Amiodarone HCl (Cordarone) 200 mg PO DAILY KIMBERLY Stop: 06/11/19 08:59 Last Admin: 05/12/19 07:34 Dose: 200 mg Documented by: Amlodipine Besylate (Norvasc) 10 mg PO DAILY KIMBERLY Stop: 06/11/19 08:59 Last Admin: 05/12/19 07:33 Dose: 10 mg Documented by: Apixaban (Eliquis) 5 mg PO BID KIMBERLY Stop: 06/10/19 20:59 Last Admin: 05/12/19 07:34 Dose: 5 mg Documented by: Aspirin (Ecotrin Ectab) 81 mg PO DAILY KIMBERLY Stop: 06/11/19 08:59 Last Admin: 05/12/19 07:33 Dose: 81 mg Documented by: Carvedilol (Coreg) 6.25 mg PO BID KIMBERLY Stop: 06/10/19 20:59 Last Admin: 05/12/19 07:33 Dose: 6.25 mg Documented by: Ferrous Gluconate (Ferrous Gluconate) 324 mg PO DAILY KIMBERLY Stop: 06/11/19 08:59 Last Admin: 05/12/19 07:33 Dose: 324 mg Documented by: Furosemide (Lasix) 20 mg PO DAILY [facility] Stop: 06/11/19 08:59 Guaifenesin/Dextromethorphan (Robitussin Cough-Chest Dm) 10 ml PO Q6H PRN PRN Reason: Cough Stop: 06/10/19 14:25 Hydralazine HCl (Apresoline) 50 mg PO TID [facility] Stop: 06/10/19 14:59 Last Admin: 05/12/19 07:33 Dose: 50 mg Documented by: Doxycycline Hyclate 100 mg/ (Dextrose) 110 mls @ 50 mls/hr IV Q12H [facility]; Protocol Stop: 05/18/19 19:59 Last Admin: 05/12/19 07:32 Dose: 50 mls/hr Documented by: Ceftriaxone Sodium 2,000 mg/ (Dextrose) 70 mls @ 100 mls/hr IV Q24H [facility]; Protocol Stop: 05/18/19 17:59 Last Infusion: 05/11/19 17:43 Dose: Infused Documented by: Furosemide 40 mg/ Syringe 4 mls @ 4 mls/min IV [id number] [facility] Stop: 06/10/19 14:59 Last Admin: 05/11/19 20:22 Dose: 4 mls/min Documented by: Ioversol (Optiray 320 125ml) 120 ml IV ONCE PRN PRN Reason: Interaction Checking Stop: 05/15/19 14:02 Last Admin: 05/11/19 14:04 Dose: 120 ml Documented by: Levothyroxine Sodium (Synthroid) 25 mcg PO DAILYBB [facility] Stop: 06/11/19 06:29 Last Admin: 05/12/19 06:00 Dose: 25 mcg Documented by: Losartan Potassium (Cozaar) 100 mg PO DAILY [facility] Stop: 06/11/19 08:59 Last Admin: 05/12/19 07:33 Dose: 100 mg Documented by: Magnesium Hydroxide (Milk Of Magnesia) 30 ml PO Q6H PRN PRN Reason: Constipation Stop: 06/10/19 14:25 Oxycodone/Acetaminophen (Percocet 5mg/325mg) 1 tab PO Q4H PRN PRN Reason: Pain Stop: 05/25/19 14:25 Paroxetine HCl (Paxil) 20 mg PO QAM [facility] Stop: 06/11/19 08:59 Last Admin: 05/12/19 07:33 Dose: 20 mg Documented by: Polyethylene Glycol (Miralax Powder Packet) 17 gm PO DAILY PRN PRN Reason: Constipation Stop: 06/10/19 14:25 Potassium Chloride (Klor-Con M20) 40 meq PO QAM [facility] Stop: 06/10/19 14:59 Last Admin: 05/12/19 07:33 Dose: 40 meq Documented by: (1) Sepsis Sepsis acute organ dysfunction status: unspecified Sepsis type: sepsis due to unspecified organism Qualified Code(s): A41.9 - Sepsis, unspecified organism (2) Pneumonia Laterality: right Lung location: unspecified part of lung Pneumonia type: due to unspecified organism Qualified Code(s): J18.9 - Pneumonia, unspecified organism
--- NOTE | 2019-05-12 14:44 | Hospitalist Progress Note ---
Date of Service May 12, 2019 Assessment & Plan (1) Pneumonia: CXR on 05/11 showed RUL opacities, with elevated WBC, temp of 37.8, and high respiration rate. - On CAP abx -> She was in the hospital within the last 3 months, but all signs show improvement on this set of abx, so will continue with it. - Guaifenasin for cough - O2 PRN (2) Acute UTI: UA on 05/11 showed possible infection and culture is growing Gram(-) bacilli. No symptoms of UTI for me this morning on discussion (dysuria, pelvic pain, etc.), so it's unclear if this is actually asymptomatic bactureria. - Continue abx as above for pneumonia; will cross-cover urine antigens. (3) Sepsis: Met SIRS criteria with suspected infectious source. - As above (4) Syncope: Unclear cause. The patient has no recollection of the events leading to her being found down. Ddx includes mechanical fall with concussion, arrythmia, seizure, vasovagal/orthostatic/iatrogenic syncope. - Extensive CT imaging of head/neck shows no indication of stroke. Exam is non- focal, so will not pursue MRI as I believe CVA/TIA is unlikely. - Seen by cardiology who feel she is at baseline - Continue divorce attorney - PT/OT (5) Hypertension: BP is 115/60 today. - Continue home losartan, hydralazine, furosemide, carvedilol, & amlodipine. (6) Atrial fibrillation: Stable now. Patient has a pacemaker implanted. - Continue amiodarone 200 mg p.o. daily and Eliquis 5 mg p.o. twice daily. (7) Hyperlipidemia, unspecified: Lipid panel pending (8) Hypothyroidism: TSH normal on 05/11. - Continue levothyroxine 25 MCG's p.o. daily (9) Demand ischemia: Troponin elevated to as high as 1.2 in the setting of being found down. No report of chest pain from the patient. Trended down to 0.4. - No acute needs (10) DVT prophylaxis: On apixaban for her afib Subjective Feels fairly well actually today. Pain on the right side from the fall, but otherwise, just generally weak. Reports no fevers/chills, chest pain, shortness of breath, abdominal pain, nausea, or vomiting. Physical Exam Constitutional: WD/WN, vitals as above + obese Eyes: EOM intact bilaterally; no conjunctival abnormality ENMT: external ear and nose normal, oropharynx normal Neck: trachea midline, no thyromegaly normal visual inspection Respiratory: normal respiratory effort, lungs clear to auscultation no respiratory distress Cardiovascular: RRR, no murmur, no edema Gastrointestinal (Abdomen): Inspection/Auscultation: abdomen normal to inspection; abdomen not distended Musculoskeletal: no cyanosis or clubbing, extremities motor strength 5/5 Skin: no rashes, warm and dry + ecchymosis (Right side) Neurologic: moves all extremities and awake Psychiatric: Orientation: alert, oriented to person and cooperative Results & Data Vital Signs (Past 12 Hours) Vital Signs Temp Pulse Resp BP Pulse Ox 05/12/19 14:04 114/61 93 05/12/19 12:00 36.7 C 74 24 130/84 96 05/12/19 11:42 72 16 92 05/12/19 07:29 36.5 C 87 20 156/90 H 92 05/12/19 07:25 85 19 91 05/12/19 04:38 36.6 C 86 18 115/67 93 PG Care Time/CCT Total # of Minutes Spent Total Time Spent with Patient: Total time spent is greater than 50% in coordination of care (as documented) at patient's floor/unit and/or counseling patient: (1) Sepsis Sepsis acute organ dysfunction status: unspecified Sepsis type: sepsis due to unspecified organism Qualified Code(s): A41.9 - Sepsis, unspecified organism (2) Pneumonia Laterality: right Lung location: unspecified part of lung Pneumonia type: due to unspecified organism Qualified Code(s): J18.9 - Pneumonia, unspecified organism (3) Hypertension Hypertension type: essential hypertension Qualified Code(s): I10 - Essential (primary) hypertension
[2019-05-12] MEDS: cefTRIAXone SODIUM 2,000 MG in DEXTROSE 5% 50 ML IV SCH (18:37)
[2019-05-13] MEDS: ALBUT/IPRATROP 3MG/0.5MG NEB 3 ML VIAL NEB SCH ×2 (01:58→07:38)
[2019-05-13] MEDS: LEVOTHYROXINE SODIUM 25 MCG TABLET PO SCH (05:39)
[2019-05-13 05:46] LABS: Basophils # (auto) 0.02 K/uL (0-0.2); Basophils % (auto) 0.3 %; Eosinophils # (auto) 0.16 K/uL (0-0.5); Eosinophils % (auto) 2.7 %; Hematocrit (blood only) 41.9 % (37-47); Hemoglobin 13.4 g/dL (12.0-16.0); Immature Granulocytes # (auto) 0.02 K/uL (0.00-0.02); Immature Granulocytes % (auto) 0.3 %; Lymphocytes # (auto) 0.81 K/uL (1.2-3.4); Lymphocytes % (auto) 13.5 %; Mean Corpuscular Hemoglobin 27.4 pg (25-34); Mean Corpuscular Volume 85.7 fL (80-100); Mean Platelet Volume 10.4 fL (7.4-10.4); Monocytes # (auto) 0.72 K/uL (0.11-0.59); Neutrophils # (auto) 4.26 K/uL (1.4-6.5); Neutrophils % (auto) 71.2 %; Platelet Count 266 K/uL (130-400); RDW Coefficient of Variation 18.8 % (11.5-14.5); RDW Standard Deviation 58.1 fL (36.4-46.3); Red Blood Count 4.89 M/uL (4.2-5.4); White Blood Count 5.99 K/uL (4.8-10.8)
[2019-05-13 06:17] LABS: Albumin Level 2.6 gm/dl (3.4-5.0); BUN Creatinine Ratio 30.1 (10-20); Calcium 8.4 mg/dl (8.5-10.1); Creatinine Clr Calc Pharmacy 67.8 ml/min; Est GFR (African American) 88.6; Est GFR (Non-African American) 76.5; Potassium 3.5 mmol/L (3.5-5.1)
[2019-05-13 06:19] LABS: Albumin Globulin Ratio 0.7 (0.9-2); Bilirubin,Total 0.7 mg/dl (0.2-1); Globulin 3.9 gm/dl (2.5-4.0); Total Protein 6.5 gm/dl (6.4-8.2)
[2019-05-13] MEDS: DOXYCYCLINE HYCLATE 100 MG in DEXTROSE 5% 100 ML IV SCH (07:26)
[2019-05-13] MEDS: APIXABAN 5 MG TABLET PO SCH ×2 (07:27→20:07)
[2019-05-13] MEDS: PARoxetine HCl 20 MG TAB PO SCH (07:27)
[2019-05-13] MEDS: POTASSIUM CHLORIDE 20 MEQ TABCR PO SCH (07:27)
[2019-05-13] MEDS: ASPIRIN 81 MG ECTAB PO SCH (07:27)
[2019-05-13] MEDS: LOSARTAN POTASSIUM 50 MG TAB PO SCH (07:28)
[2019-05-13] MEDS: carvediloL 6.25 MG TAB PO SCH ×2 (07:28→20:07)
[2019-05-13] MEDS: AMLODIPINE BESYLATE 5 MG TAB PO SCH (07:28)
[2019-05-13] MEDS: AMIODARONE 200 MG TAB PO SCH (07:28)
[2019-05-13] MEDS: HydrALAZINE TAB 50 MG TAB PO SCH ×3 (07:28→20:07)
[2019-05-13] MEDS: FERROUS GLUCONATE 324 MG TAB PO SCH (07:28)
[2019-05-13] MEDS: FUROSEMIDE 20 MG TAB PO SCH (09:33)
[2019-05-13] MEDS ORDERED: ALBUT/IPRATROP 3MG/0.5MG NEB 3 ML VIAL NEB PRN (10:34)
--- NOTE | 2019-05-13 16:33 | Hospitalist Progress Note ---
Date of Service May 13, 2019 Assessment & Plan (1) Pneumonia: CXR on 05/11 showed RUL opacities, with elevated WBC, temp of 37.8, and high respiration rate. - On CAP abx -> She was in the hospital within the last 3 months, but all signs show improvement on this set of abx, so will continue with it. - Guaifenasin for cough - O2 PRN (2) Acute UTI: UA on 05/11 showed possible infection and culture is growing mar-sensitive Klebsiella. No symptoms of UTI for me this morning on discussion (dysuria, pelvic pain, etc.), so it's unclear if this is actually asymptomatic bacteruria. - Continue abx as above for pneumonia; will cross-cover Klebsiella. (3) Sepsis: Met SIRS criteria with suspected infectious source. - As above (4) Syncope: Unclear cause. The patient has no recollection of the events leading to her being found down. Ddx includes mechanical fall with concussion, arrythmia, seizure, vasovagal/orthostatic/iatrogenic syncope. - Extensive CT imaging of head/neck shows no indication of stroke. Exam is non- focal, so will not pursue MRI as I believe CVA/TIA is unlikely. - Seen by cardiology who feel she is at baseline - Continue data analyst etl developer - PT/OT (5) Hypertension: BP is 150/60 today. - Continue home losartan, hydralazine, furosemide, carvedilol, & amlodipine. (6) Atrial fibrillation: Stable now. Patient has a pacemaker implanted. - Continue amiodarone 200 mg p.o. daily and Eliquis 5 mg p.o. twice daily. (7) Hypothyroidism: TSH normal on 05/11. - Continue levothyroxine 25 MCG's p.o. daily (8) Demand ischemia: Troponin elevated to as high as 1.2 in the setting of being found down. No report of chest pain from the patient. Trended down to 0.4. - No acute needs (9) DVT prophylaxis: On apixaban for her afib Subjective Feeling fairly well today. Still tired and somewhat weak, but no focal complaints. Reports no fevers/chills, chest pain, shortness of breath, abdominal pain, nausea, or vomiting. Physical Exam Constitutional: WD/WN, vitals as above + obese Eyes: EOM intact bilaterally; no conjunctival abnormality ENMT: external ear and nose normal, oropharynx normal Neck: trachea midline, no thyromegaly normal visual inspection Respiratory: normal respiratory effort, lungs clear to auscultation no respiratory distress Cardiovascular: RRR, no murmur, no edema Gastrointestinal (Abdomen): Inspection/Auscultation: abdomen normal to inspection; abdomen not distended Musculoskeletal: no cyanosis or clubbing, extremities motor strength 5/5 Skin: no rashes, warm and dry + ecchymosis (Right side) Neurologic: moves all extremities and awake Psychiatric: Orientation: alert, oriented to person and cooperative Results & Data Vital Signs (Past 12 Hours) Vital Signs Temp Pulse Resp BP BP Pulse Ox 05/13/19 15:48 36.8 C 66 20 152/63 H 95 05/13/19 12:23 36.7 C 78 21 108/78 92 05/13/19 09:45 102/59 L 05/13/19 07:38 81 20 94 05/13/19 07:20 36.6 C 70 22 171/94 H 90 PG Care Time/CCT Total # of Minutes Spent Total Time Spent with Patient: Total time spent is greater than 50% in coordina tion of care (as documented) at patient's floor/unit and/or counseling patient: (1) Pneumonia Laterality: right Lung location: unspecified part of lung Pneumonia type: due to unspecified organism Qualified Code(s): J18.9 - Pneumonia, unspecified organism (2) Sepsis Sepsis acute organ dysfunction status: unspecified Sepsis type: sepsis due to unspecified organism Qualified Code(s): A41.9 - Sepsis, unspecified organism (3) Hypertension Hypertension type: essential hypertension Qualified Code(s): I10 - Essential (primary) hypertension
[2019-05-13] MEDS: cefTRIAXone SODIUM 2,000 MG in DEXTROSE 5% 50 ML IV SCH (18:34)
[2019-05-13] MEDS: DOXYCYCLINE HYCLATE 100 MG CAP PO SCH (20:07)
[2019-05-14] MEDS: LEVOTHYROXINE SODIUM 25 MCG TABLET PO SCH (05:51)
[2019-05-14 05:54] LABS: Basophils # (auto) 0.02 K/uL (0-0.2); Basophils % (auto) 0.4 %; Eosinophils # (auto) 0.19 K/uL (0-0.5); Eosinophils % (auto) 3.5 %; Hemoglobin 12.8 g/dL (12.0-16.0); Immature Granulocytes # (auto) 0.02 K/uL (0.00-0.02); Immature Granulocytes % (auto) 0.4 %; Lymphocytes # (auto) 0.63 K/uL (1.2-3.4); Lymphocytes % (auto) 11.8 %; Mean Corpuscular Hgb Conc 31.2 g/dL (32-36); Mean Corpuscular Volume 86.5 fL (80-100); Mean Platelet Volume 10.5 fL (7.4-10.4); Monocytes # (auto) 0.63 K/uL (0.11-0.59); Monocytes % (auto) 11.8 %; Neutrophils # (auto) 3.87 K/uL (1.4-6.5); Neutrophils % (auto) 72.1 %; Platelet Count 273 K/uL (130-400); RDW Coefficient of Variation 19.1 % (11.5-14.5); Red Blood Count 4.74 M/uL (4.2-5.4); White Blood Count 5.36 K/uL (4.8-10.8)
[2019-05-14 06:28] LABS: Albumin Level 2.4 gm/dl (3.4-5.0); BUN Creatinine Ratio 35.7 (10-20); Calcium 8.4 mg/dl (8.5-10.1); Creatinine Clr Calc Pharmacy 70.5 ml/min; Est GFR (African American) 92.9; Est GFR (Non-African American) 80.2; Potassium 3.7 mmol/L (3.5-5.1)
[2019-05-14 06:30] LABS: Albumin Globulin Ratio 0.6 (0.9-2); Bilirubin,Total 0.7 mg/dl (0.2-1); Globulin 3.8 gm/dl (2.5-4.0); Total Protein 6.2 gm/dl (6.4-8.2)
[2019-05-14] MEDS: FERROUS GLUCONATE 324 MG TAB PO SCH (08:12)
[2019-05-14] MEDS: carvediloL 6.25 MG TAB PO SCH ×2 (08:12→19:36)
[2019-05-14] MEDS: FUROSEMIDE 20 MG TAB PO SCH (08:13)
[2019-05-14] MEDS: AMLODIPINE BESYLATE 5 MG TAB PO SCH (08:13)
[2019-05-14] MEDS: DOXYCYCLINE HYCLATE 100 MG CAP PO SCH ×2 (08:13→19:36)
[2019-05-14] MEDS: HydrALAZINE TAB 50 MG TAB PO SCH ×3 (08:13→19:35)
[2019-05-14] MEDS: POTASSIUM CHLORIDE 20 MEQ TABCR PO SCH (08:14)
[2019-05-14] MEDS: APIXABAN 5 MG TABLET PO SCH ×2 (08:14→19:35)
[2019-05-14] MEDS: ASPIRIN 81 MG ECTAB PO SCH (08:14)
[2019-05-14] MEDS: AMIODARONE 200 MG TAB PO SCH (08:14)
[2019-05-14] MEDS: LOSARTAN POTASSIUM 50 MG TAB PO SCH (08:14)
[2019-05-14] MEDS: PARoxetine HCl 20 MG TAB PO SCH (08:15)
--- NOTE | 2019-05-14 16:51 | Hospitalist Progress Note ---
Date of Service May 14, 2019 Assessment & Plan (1) Pneumonia: CXR on 05/11 showed RUL opacities, with elevated WBC, temp of 37.8, and high respiration rate. - On CAP abx -> She was in the hospital within the last 3 months, but all signs show improvement on this set of abx, so will continue with it. (End date: 05/15/2018). - Guaifenasin for cough - O2 PRN (2) Acute UTI: UA on 05/11 showed possible infection and culture is growing mar-sensitive Klebsiella. No symptoms of UTI for me this morning on discussion (dysuria, pelvic pain, etc.), so it's unclear if this is actually asymptomatic bacteruria. - Continue abx as above for pneumonia; will cross-cover Klebsiella. (3) Sepsis: Met SIRS criteria with suspected infectious source. - As above (4) Syncope: Unclear cause. The patient has no recollection of the events leading to her being found down. Ddx includes mechanical fall with concussion, arrythmia, seizure, vasovagal/orthostatic/iatrogenic syncope. - Extensive CT imaging of head/neck shows no indication of stroke. Exam is non- focal, so will not pursue MRI as I believe CVA/TIA is unlikely. 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 - Continue home losartan, hydralazine, furosemide, carvedilol, & amlodipine. (6) Atrial fibrillation: Stable now. Patient has a pacemaker implanted. - Continue amiodarone 200 mg p.o. daily and Eliquis 5 mg p.o. twice daily. (7) Hypothyroidism: TSH normal on 05/11. - Continue levothyroxine 25 MCG's p.o. daily (8) Demand ischemia: Troponin elevated to as high as 1.2 in the setting of being found down. No report of chest pain from the patient. Trended down to 0.4. - No acute needs (9) DVT prophylaxis: On apixaban for her afib Subjective Feeling well. Dispirited about not being in [facility]. Reports no fevers/chills, chest pain, shortness of breath, abdominal pain, nausea, or vomiting. Physical Exam Constitutional: WD/WN, vitals as above + obese Eyes: EOM intact bilaterally; no conjunctival abnormality ENMT: external ear and nose normal, oropharynx normal Neck: trachea midline, no thyromegaly normal visual inspection Respiratory: normal respiratory effort, lungs clear to auscultation no respiratory distress Cardiovascular: RRR, no murmur, no edema Gastrointestinal (Abdomen): Inspection/Auscultation: abdomen normal to inspection; abdomen not distended Musculoskeletal: no cyanosis or clubbing, extremities motor strength 5/5 Skin: no rashes, warm and dry + ecchymosis (Right side) Neurologic: moves all extremities and awake Psychiatric: Orientation: alert, oriented to person and cooperative Results & Data Vital Signs (Past 12 Hours) Vital Signs Temp Pulse Resp BP BP Pulse Ox 05/14/19 15:30 36.7 C 66 20 146/79 H 96 05/14/19 11:53 36.7 C 62 22 156/87 H 94 05/14/19 08:00 36.8 C 62 18 156/70 H 90 PG Care Time/CCT Total # of Minutes Spent Total Time Spent with Patient: Total time spent is greater than 50% in coordination of care (as documented) at patient's floor/unit and/or counseling patient: (1) Pneumonia Laterality: right Lung location: unspecified part of lung Pneumonia type: due to unspecified organism Qualified Code(s): J18.9 - Pneumonia, unspecified organism (2) Sepsis Sepsis acute organ dysfunction status: unspecified Sepsis type: sepsis due to unspecified organism Qualified Code(s): A41.9 - Sepsis, unspecified organism (3) Hypertension Hypertension type: essential hypertension Qualified Code(s): I10 - Essential (primary) hypertension
[2019-05-14] MEDS: cefTRIAXone SODIUM 2,000 MG in DEXTROSE 5% 50 ML IV SCH (18:30)
[2019-05-15] MEDS: LEVOTHYROXINE SODIUM 25 MCG TABLET PO SCH (06:01)
[2019-05-15 06:50] LABS: Basophils # (auto) 0.02 K/uL (0-0.2); Basophils % (auto) 0.4 %; Eosinophils # (auto) 0.18 K/uL (0-0.5); Eosinophils % (auto) 3.5 %; Hematocrit (blood only) 41.4 % (37-47); Hemoglobin 13.1 g/dL (12.0-16.0); Immature Granulocytes # (auto) 0.02 K/uL (0.00-0.02); Immature Granulocytes % (auto) 0.4 %; Lymphocytes # (auto) 0.73 K/uL (1.2-3.4); Mean Corpuscular Hemoglobin 27.3 pg (25-34); Mean Corpuscular Hgb Conc 31.6 g/dL (32-36); Mean Corpuscular Volume 86.4 fL (80-100); Mean Platelet Volume 10.4 fL (7.4-10.4); Monocytes # (auto) 0.68 K/uL (0.11-0.59); Monocytes % (auto) 13.1 %; Neutrophils # (auto) 3.57 K/uL (1.4-6.5); Neutrophils % (auto) 68.6 %; Platelet Count 317 K/uL (130-400); RDW Coefficient of Variation 18.9 % (11.5-14.5); RDW Standard Deviation 59.8 fL (36.4-46.3); Red Blood Count 4.79 M/uL (4.2-5.4)
[2019-05-15 07:22] LABS: Albumin Level 2.5 gm/dl (3.4-5.0); BUN Creatinine Ratio 28.2 (10-20); Calcium 8.8 mg/dl (8.5-10.1); Creatinine Clr Calc Pharmacy 61.3 ml/min; Est GFR (African American) 78.8; Potassium 3.8 mmol/L (3.5-5.1)
[2019-05-15 07:25] LABS: Albumin Globulin Ratio 0.6 (0.9-2); Bilirubin,Total 0.5 mg/dl (0.2-1); Globulin 3.9 gm/dl (2.5-4.0); Total Protein 6.4 gm/dl (6.4-8.2)
[2019-05-15] MEDS: carvediloL 6.25 MG TAB PO SCH (07:49)
[2019-05-15] MEDS: DOXYCYCLINE HYCLATE 100 MG CAP PO SCH (07:49)
[2019-05-15] MEDS: AMIODARONE 200 MG TAB PO SCH (07:49)
[2019-05-15] MEDS: AMLODIPINE BESYLATE 5 MG TAB PO SCH (07:49)
[2019-05-15] MEDS: POTASSIUM CHLORIDE 20 MEQ TABCR PO SCH (07:50)
[2019-05-15] MEDS: ASPIRIN 81 MG ECTAB PO SCH (07:50)
[2019-05-15] MEDS: FUROSEMIDE 20 MG TAB PO SCH (07:50)
[2019-05-15] MEDS: LOSARTAN POTASSIUM 50 MG TAB PO SCH (07:51)
[2019-05-15] MEDS: APIXABAN 5 MG TABLET PO SCH (07:51)
[2019-05-15] MEDS: HydrALAZINE TAB 50 MG TAB PO SCH ×2 (07:51→13:52)
[2019-05-15] MEDS: PARoxetine HCl 20 MG TAB PO SCH (07:52)
[2019-05-15] MEDS: FERROUS GLUCONATE 324 MG TAB PO SCH (07:53)
--- NOTE | 2019-05-15 11:39 | Discharge Summary ---
Date of Service May 15, 2019 Admission HPI Per Admitting Provider Patient is a 73-year old female who lives by herself (but has a friend who takes care of her) who was brought to the emergency room by EMS after she was found laying down on the floor, unable to stand up because of right-sided hip pain and shoulder pain. Patient does not remember exactly what happened last night and she believes that she woke up at 4 AM and try to reach the refrigerator and to get some ice cream. Per her friend this is not what happened and patient apparently is not aware of when she woke up and when she fell. Patient friend reports that patient is forgetful especially short-term memory. She states that she checks on her every couple of hours and she calls her, and last night patient did not respond for more than 5 or 6 hours which was very unusual for her and which prompted her friend to reach her immediately. Patient is poor historian due to moderate to severe dementia. Labs are reviewed which shows: WBCs of 15.83, hemoglobin 13.2, hematocrit 41, platelets 332, PT 11.1, PTT 26, INR 1.1, VBG pH 7.38, PCO2 45, PO2 28, bicarb 26-all normal, sodium 141, potassium 3.4, chloride 111, BUN 19, creatinine 1.02, GFR 55.3, lactate 1.9, calcium 8.6, phosphorus 3.2, magnesium 2.2, AST 61, ALT 24, creatinine kinase 2113, troponin I 0.18, BNP 35,000. Urine cloudy, positive urine nitrate, negative Leukocyte Estrase, 4+ bacterium. Influenza A and B are negative, blood cultures and urine cultures pending. Chest x-ray significant for right upper lobe airspace opacity, possible representing pneumonia given the history of sepsis. Small right pleural effusion. CT abdomen pelvis: No evidence of bowel obstruction. No evidence of free air, no evidence of acute appendicitis. No evidence of acute diverticulitis. Mild splenomegaly. Borderline enlarged right inguinal lymph nodes. Right middle lobe and lower lobe airspace opacity suspicious for pneumonia pneumonitis. Small right pleural effusion. No neck fractures. Head CT motion artifact no definitive acute intracranial abno rmality. Right shoulder: No fracture within the right shoulder right humerus. Past medical history includes coronary artery disease, atrial fibrillation/flutter apixaban, heart block AV complete and Mobitz type II, congestive heart failure, morbid obesity, hypothyroidism, hypertension, hyperlipidemia, osteoarthritis. Patient is not on oxygen at home. She was on oxygen in the past and she was weaned off. Decision was made to admit patient to PCU on telemetry for sepsis, pneumonia, acute urinary tract infection, syncope, demand ischemia with elevated troponin, and acute exacerbation of rae estive heart failure Principal Diagnosis Pneumonia Discharge Exam Constitutional WD/WN, vitals as above + obese Eyes EOM intact bilaterally; no conjunctival abnormality ENMT external ear and nose normal, oropharynx normal Neck trachea midline, no thyromegaly normal visual inspection Respiratory normal respiratory effort, lungs clear to auscultation no respiratory distress Cardiovascular RRR, no murmur, no edema Gastrointestinal (Abdomen) Inspection/Auscultation: abdomen normal to inspection; abdomen not distended Musculoskeletal no cyanosis or clubbing, extremities motor strength 5/5 Skin no rashes, warm and dry + ecchymosis (Right side) Neurologic moves all extremities and awake Psychiatric Orientation: alert, oriented to person and cooperative Discharge Data Allergies Allergy/AdvReac Type Severity Reaction Status Date / Time No Known Drug Allergies Allergy Unknown Verified 05/11/19 12:23 Consultations 05/11/19 11:33 ED Decision to Admit Stat 05/12/19 09:52 Consult Cardiology Routine Ordered Studies 05/11/19 10:03 CT abd pelvis IV con only Stat CT cervical spine wo con Stat CT head/brain wo con Stat 05/11/19 12:57 CT angio head w con Stat CT angio neck with con Stat Hospital Course (1) Pneumonia: CXR on 05/11 showed RUL opacities, with elevated WBC, temp of 37.8, and high respiration rate. - On CAP abx -> She was in the hospital within the last 3 months, but all signs show improvement on this set of abx, so will continue with it. (End date: 05/16/2018). (2) Acute UTI: UA on 05/11 showed possible infection and culture is growing mar-sensitive Klebsiella. No symptoms of UTI for me this morning on discussion (dysuria, pelvic pain, etc.), so it's unclear if this is actually asymptomatic bacteruria. - Continue abx as above for pneumonia; will cross-cover Klebsiella. (3) Sepsis: Met SIRS criteria with suspected infectious source. - As above (4) Syncope: Unclear cause. The patient has no recollection of the events leading to her being found down. Ddx includes mechanical fall with concussion, arrythmia, seizure, vasovagal/orthostatic/iatrogenic syncope. - Extensive CT imaging of head/neck shows no indication of stroke. Exam is non- focal, so will not pursue MRI as I believe CVA/TIA is unlikely. - Seen by cardiology who feel she is at baseline - No telemetry events -> Possibly just due to sickness. (5) Hypertension: BP is 145/60 today. Good overall while inpatient. - Continue home losartan, hydralazine, furosemide, carvedilol, & amlodipine. (6) Atrial fibrillation: Stable now. Patient has a pacemaker implanted. - Continue amiodarone 200 mg p.o. daily and Eliquis 5 mg p.o. twice daily. (7) Hypothyroidism: TSH normal on 05/11/2019. - Continue levothyroxine 25 MCG's p.o. daily (8) Demand ischemia: Troponin elevated to as high as 1.2 in the setting of being found down. No report of chest pain from the patient. Trended down to 0.4. - No acute needs. Outpatient follow up. (9) DVT prophylaxis: On apixaban for her afib Total Time Total Time Spent Total Time Spent (In Minutes): 35 Discharge Plan Discharge Items Patient Disposition: Transfer [facility] Reason For Visit: PNEUMONIA,UTI,ELEVATED TROPONIN Discharge Diagnosis: Pneumonia Activity: Resume your previous activity Non-emergency contact: Primary Care Provider Call non-emergency contact if: your symptoms worsen and your temperature is above 101 Follow-up/Referrals: Clemente Walter CRNP [Primary Care Provider] - Diet: Heart Healthy Addtl Attending Provider Instructions: Ms. East, You were admitted for pneumonia with a fever, high white count (a marker of infection), and your chest x-ray showing likely bacteria in the lung. Additionally, you were found on the ground by your friend after having passed out. We monitored your heart rate and did not find any heart rhythm concerns. Cardiology saw you and felt your pacemaker was doing well. We gave you antibiotics and all of your signs of infection have improved. Your heart rate, blood pressure, temperature, and oxygen level are all now normal. This is great and indicates we are eliminating the infection! We are giving you 1 more day of antibiotics to help clear the infection. [facility] will provide this antibiotic to you and your first dose will be tonight (05/15/2019) before bedtime. Cefdinir 300 mg PO BID (End date: 05/16/2019) Doxycycline 100 mg PO BID (End date: 05/16/2019) Please continue working with Charity Willson to get there after your rehab is finished at [facility]. The corrections caseworker at [facility] and [facility] should help with this. Pending Studies at Discharge: No Stand-Alone Forms: My [facility] Skilled Items Patient informed of condition?: Yes DNR: No Discharge Level of Care: Acute rehab Communicable Disease: Yes Discharge Prognosis: Improving Lines: None Urinary Catheter: No Medications and DC Order Prescriptions: New cefdinir 300 mg capsule 300 mg PO BID Qty: 4 RF: 0 doxycycline hyclate 100 mg tablet 100 mg PO BID Qty: 4 RF: 0 Continued paroxetine HCl 20 mg tablet 20 mg PO QAM Qty: 90 RF: 3 furosemide 20 mg tablet 20 mg PO DAILY Qty: 90 RF: 2 levothyroxine [Synthroid] 25 mcg tablet 25 mcg PO DAILY Qty: 30 RF: 2 losartan 100 mg tablet 100 mg PO DAILY Qty: 90 RF: 1 (DME) Oxygen Home Liters Per Minute See Dose Instructions .ROUTE .MEDSUPPLY RF: 0 amlodipine 10 mg tablet 10 mg PO DAILY Qty: 90 RF: 3 ferrous gluconate 236 mg (27 mg iron) tablet 236 mg PO DAILY Qty: 90 RF: 3 hydralazine 50 mg tablet 50 mg PO TID Qty: 90 RF: 3 albuterol sulfate [Ventolin HFA] 90 mcg/actuation HFA aerosol inhaler 2 puffs INH Q4H PRN (Reason: shortness of breath or wheezing) Qty: 18 RF: 0 Eliquis 5 mg Tablet 5 mg PO BID Qty: 60 RF: 0 amiodarone 200 mg tablet 200 mg PO DAILY Qty: 30 RF: 11 aspirin [Aspir-81] 81 mg Tablet,Delayed Release (Dr/Ec) 81 mg PO DAILY RF: 0 carvedilol 6.25 mg Tablet 6.25 mg PO BID Qty: 60 RF: 0 Discharge Orders: Discharge Order (Routine); Ordered 05/15/19 Ordered By: Rohan Christian Admission Data Admit Date/Time: 05/11/19 12:49 Attending Provider: Rohan Christian Admit Provider: Rosana Johns Primary Care Provider: Clemente Walter Other Providers: Rohan Christian ; Joao Nunez ; Rui Talavera ; Karlos ; [place] Other Interventions: Discharge Summary Assessment (RN) Last Done: 05/15/19 10:21
== END 2019-05-15 14:15 | DRG 871 ==
LOC: ED 09:31 → SUATTDRO 12:49 → 2E 12:49

== ENCOUNTER 2019-12-15 11:32 | Inpatient (IN) ==
--- NOTE | 2019-12-15 12:22 | Emergency Department Note ---
Impression & Plan Acute duodenitis, Abdominal pain, Vomiting ED Provider Note NAME: TAWANDA MONTESINOS AGE: 74 SEX: F : 1945 ARRIVES VIA: Ambulance INFORMANT: Patient, ED PROVIDER(S): Robson Pickens DO CHIEF COMPLAINT: Nausea vomiting HPI: The patient is a 74-year-old female who presented to the emergency department from her personal alf for nausea and vomiting. The patient describes dizziness upon standing. She denies having any chest pain or difficulty breathing. She has no abdominal pain. She has no dysuria or frequency. She denies having any recent falls. The patient states that the symptoms have been ongoing for the last few days. She presented to the emergency department by ambulance and received Zofran prior to arrival. She states her symptoms are significantly improved. The patient denies having any vertigo symptoms at this time. She states she has been able to ambulate without difficulty. ROS: See above HPI for pertinent positives & negatives. A total of 10 systems reviewed and were otherwise negative. PAST MEDICAL HISTORY: See Below PAST SURGICAL HISTORY: See Below FAMILY HISTORY: See Below SOCIAL HISTORY: See Below HOME MEDICATIONS: See Below ALLERGIES: See Below VITALS: See Below PHYSICAL EXAMINATION: GENERAL: Patient is awake alert in no acute distress patient is resting comfortably and showing no signs of anxiety EYES: The conjunctivae are clear. The pupils are constricted but minimally reactive bilaterally. EARS, NOSE, MOUTH AND THROAT: The nose is without any evidence of any deformity. NECK: The neck is nontender and supple. RESPIRATORY: Normal respiratory effort is noted there is no evidence of wheezing rhonchi or rales CARDIOVASCULAR: Regular rate and rhythm noted there no murmurs rubs or gallops normal S1 normal S2. GASTROINTESTINAL: The abdomen is mildly distended but soft. There is no guarding or rigidity appreciated. MUSCULOSKELETAL/EXTREMITIES: There is no evidence of gross deformity full range of motion is noted in the hips and shoulders. SKIN: There is no obvious evidence of any rash. Pedal edema was noted bilaterally. NEUROLOGIC: Patient is awake alert and oriented x3. Patient is able to hold each leg off the bed for greater than 5 seconds. Strength is diminished but symmetric. 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 No nystagmus was appreciated. No facial droop was noted. MEDICAL DECISION MAKING: The patient is a 74-year-old female who presented to the emergency department for an evaluation of dizziness nausea and vomiting. She denies any specific abdominal pain on history however on physical exam she was noted to have very significant upper abdominal pain. CT appeared to be consistent with duodenitis with significant inflammation. She was treated with IV antibiotics proton pump inhibitors and H2 blockers. I discussed the patient's laboratory and radiographic studies with her. I also discussed her case with the on-call [facility] hospitalist. They have agreed to evaluate the patient in the emergency department for further management and disposition. Triage Nursing notes reviewed. Prior medical records reviewed Vital Signs: reviewed and remarkable for hypertension Differential diagnosis: Gastroenteritis, food borne illness, infections, appendicitis, diverticulitis, inflammatory bowel disease, obstruction, GI bleed, biliary pathology, volvulus, as well as other pathologies. ER treatment provided: See below Diagnostics interpreted by me: ECG: EKG was obtained in the emergency department. My interpretation is dual- chamber pacemaker at 61 bpm. There were no [place] beats noted. There were no PVCs noted. This was compared to a tracing from May [id number]. No significant changes were noted. Cardiac Monitoring: An order was placed for continuous cardiac monitoring. The monitor shows a rate of 72 with sinus rhythm. Laboratory studies: As stated above and show below. Imaging studies: See below Consultation(s): 1430: I discussed this case with Dr. Ruiz who is on-call for the [place] [facility]. He will evaluate the patient in the emergency department for further management and disposition. ED COURSE: Procedures: none PDMP:reviewed and no issues Critical Care: None Past Med/Surg History Medical History JENNIFER (acute kidney injury) Anxiety Asthma Atrial fibrillation/flutter Atrioventricular block, Mobitz type 2 CAD (coronary artery disease) S/P MS, cath with stent x 1 2013 Cataract Cellulitis B/L LOWER EXTREMITIES Chronic anticoagulation Chronic diastolic (congestive) heart failure Chronic respiratory failure with hypoxia, on home O2 therapy Depression Heart block AV complete History of anxiety History of cholecystitis History of coronary artery disease History of depression History of myocardial infarction Hyperkalemia Hyperlipidemia Hypermagnesemia Hypertension Admitted to [facility] 08/17 for hypertensive urgencyl; BB d/c'd 2/2 bradycardia; put on hydralazine, losartan and amlodipine. Hypertensive urgency Hypothyroidism Microcytic hypochromic anemia Morbid obesity with BMI of 40.0-44.9, adult SOB (shortness of breath) on exertion Symptomatic bradycardia Surgical History History of appendectomy History of cardiac cath 3 YEARS AGO - VARUN - MS - 1 STENT PLACED - FOLLOWS W/ DR. LAUGHLIN History of cataract surgery RT/LEFT History of colonoscopy History of hysterectomy History of knee replacement LEFT History of tooth extraction History of total knee replacement LEFT History of tubal ligation Hx of cholecystectomy Family History Brother Family history of diabetes mellitus Myocardial infarction, Onset Age: 50 Family history of cardiac disorder Hypertension Mother Family history of diabetes mellitus Myocardial infarction Father Myocardial infarction Social History Smoking Status: Never smoker Second Hand Exposure: No; Hx Alcohol Use: No Hx Substance Use: No Preferred Language: Austrian Communication Ability: Effective Visual Impairment: No Limitations Hearing Ability: Normal Hosted Services Analyst Required: No Beliefs That Will Affect Care: None marital status: / Current Living Situation: Alone Current Living Situation Comment: Lives in senior apartment at [facility] current occupational status: retired Feels Safe at Home: Yes Dental Care, Regularly: No Physical Activity Frequency: 3-4 Times per Week Physical Activity Frequency Comment: Limited by physical condition Seatbelt Use: always Sunscreen Use: Yes Allergies Allergies Allergy/AdvReac Type Severity Reaction Status Date / Time No Known Drug Allergies Allergy Unknown Verified 12/15/19 13:11 Home Meds Home Medications Medication Instructions Recorded Confirmed Oxygen Home ea 11/10/18 11/16/19 aspirin [Aspir-81] 81 mg PO DAILY 04/06/19 12/15/19 Previous Rx's Medication Instructions Recorded albuterol sulfate 90 mcg/actuation 2 puffs INH Q4H PRN #18 gm 02/02/19 aerosol inhaler ferrous gluconate 236 mg (27 mg 236 mg PO DAILY #90 tab 04/13/19 iron) tablet amlodipine 10 mg tablet 10 mg PO DAILY #90 tab 07/28/19 carvedilol 6.25 mg tablet 6.25 mg PO BID #60 tab 07/28/19 furosemide 20 mg tablet 20 mg PO DAILY #90 tab 07/28/19 amiodarone 200 mg tablet 200 mg PO DAILY #30 tab 08/05/19 hydralazine 50 mg tablet 50 mg PO TID #90 tab 08/05/19 paroxetine HCl 20 mg tablet 20 mg PO QAM #90 tab 08/09/19 triamcinolone acetonide 0.1 % 1 appln TOP BID PRN #30 gm 09/21/19 topical ointment losartan 100 mg tablet 100 mg PO DAILY #90 tab 10/26/19 silver sulfadiazine 1 % topical 1 appln TOP DAILY #50 gm 11/16/19 cream apixaban 5 mg tablet 5 mg PO BID #180 tab 12/02/19 levothyroxine 25 mcg tablet 25 mcg PO DAILY #30 tab 12/06/19 ondansetron 4 mg disintegrating 4 mg PO Q8H PRN #30 tab 12/14/19 tablet Results & Data (ED) Vital Signs Vital Signs - 24 hr 12/15/19 11:36 12/15/19 11:38 12/15/19 11:39 Temperature 36.9 C Temperature Source Oral Pulse Rate 62 77 61 Pulse Rate from SpO2 Sensor 62 61 Pulse Rhythm Regular Pulse Strength Normal Respiratory Rate 21 20 17 Respiratory Effort / Characteristics Non-Labored Spontaneous Respiratory Depth Normal Respiratory Pattern Regular Blood Pressure 135/87 135/87 Blood Pressure Mean 123 103 Blood Pressure Position Lying Pulse Oximetry 94 88 L 96 Oxygen Delivery Method Nasal Cannula Room Air Nasal Cannula Oxygen Flow Rate 4 4 Sepsis Recent Fever Within 48 Hours No Sepsis New/Unexplained Change in Mental Status No Sepsis Action Taken by Nursing No Action Required 12/15/19 12:00 12/15/19 12:01 12/15/19 12:30 Temperature Temperature Source Pulse Rate 60 60 60 Pulse Rate from SpO2 Sensor 60 57 L 61 Pulse Rhythm Pulse Strength Respiratory Rate 20 19 15 Respiratory Effort / Characteristics Respiratory Depth Respiratory Pattern Blood Pressure 129/91 Blood Pressure Mean 105 Blood Pressure Position Pulse Oximetry 95 96 Oxygen Delivery Method Nasal Cannula Nasal Cannula Oxygen Flow Rate 4 4 Sepsis Recent Fever Within 48 Hours Sepsis New/Unexplained Change in Mental Status Sepsis Action Taken by Nursing 12/15/19 12:31 12/15/19 12:32 12/15/19 13:00 Temperature Temperature Source Pulse Rate 60 58 L 60 Pulse Rate from SpO2 Sensor 60 59 L 60 Pulse Rhythm Pulse Strength Respiratory Rate 21 22 19 Respiratory Effort / Characteristics Respiratory Depth Respiratory Pattern Blood Pressure 131/83 143/71 H Blood Pressure Mean 99 97 Blood Pressure Position Pulse Oximetry 94 97 95 Oxygen Delivery Method Nasal Cannula Nasal Cannula Nasal Cannula Oxygen Flow Rate 4 4 4 Sepsis Recent Fever Within 48 Hours Sepsis New/Unexplained Change in Mental Status Sepsis Action Taken by Nursing 12/15/19 13:01 12/15/19 13:42 12/15/19 13:43 Temperature Temperature Source Pulse Rate 60 61 61 Pulse Rate from SpO2 Sensor 60 61 61 Pulse Rhythm Pulse Strength Respiratory Rate 18 21 23 Respiratory Effort / Characteristics Respiratory Depth Respiratory Pattern Blood Pressure 141/63 H Blood Pressure Mean 96 Blood Pressure Position Pulse Oximetry 96 93 95 Oxygen Delivery Method Nasal Cannula Nasal Cannula Nasal Cannula Oxygen Flow Rate 4 4 4 Sepsis Recent Fever Within 48 Hours Sepsis New/Unexplained Change in Mental Status Sepsis Action Taken by Group Home Medications Current Medication List: was personally reviewed by me Laboratory Data Attestation: I reviewed the patient's lab results. Result diagrams: 12/15/19 12:11 12/15/19 12:11 Lab Results 12/15/19 12/15/19 12/15/19 Range/Units 12:11 12:11 12:11 WBC 7.49 (4.8-10.8) K/uL RBC 4.44 (4.2-5.4) M/uL Hgb 11.9 L (12.0-16.0) g/dL Hct 38.5 (37-47) % MCV 86.7 (80-100) fL MCH 26.8 (25-34) pg MCHC 30.9 L (32-36) g/dL RDW Std Deviation 51.9 H (36.4-46.3) fL RDW Coeff of Fabián 16.4 H (11.5-14.5) % Plt Count 315 (130-400) K/uL MPV 9.7 (7.4-10.4) fL Immature Gran % (Auto) 0.4 % Neut % (Auto) 81.0 % Lymph % (Auto) 7.5 % [place] % (Auto) 11.1 % Eos % (Auto) 0.0 % Baso % (Auto) 0.0 % Neut # (Auto) 6.07 (1.4-6.5) K/uL Lymph # (Auto) 0.56 L (1.2-3.4) K/uL [place] # (Auto) 0.83 H (0.11-0.59) K/uL Eos # (Auto) 0.00 (0-0.5) K/uL Baso # (Auto) 0.00 (0-0.2) K/uL Immature Gran # (Auto) 0.03 H (0.00-0.02) K/uL PT 12.3 H (9.0-12.0) Seconds INR 1.2 H (0.9-1.1) APTT 29.5 (21.0-31.0) Seconds PTT Ratio 1.1 Sodium 140 (136-145) mmol/L Potassium 3.9 (3.5-5.1) mmol/L Chloride 105 (98-107) mmol/L Carbon Dioxide 27 (21-32) mmol/L Anion Gap 8.0 (3-11) BUN 26 H (7-18) mg/dl Creatinine 1.47 H (0.6-1.2) mg/dl Est Cr Clr Drug Dosing 35.9 ml/min Est GFR ( Amer) 40.9 Est GFR (Non-Af Amer) 35.3 BUN/Creatinine Ratio 17.7 (10-20) Glucose 102 H (70-99) mg/dl Calcium 8.0 L (8.5-10.1) mg/dl Magnesium 2.3 (1.8-2.4) mg/dl Total Bilirubin 0.9 (0.2-1) mg/dl AST 41 H (15-37) U/L ALT 42 (12-78) U/L Alkaline Phosphatase 134 H (45-117) U/L Troponin I 0.020 (0-0.045) ng/ml Total Protein 7.2 (6.4-8.2) gm/dl Albumin 3.0 L (3.4-5.0) gm/dl Globulin 4.2 H (2.5-4.0) gm/dl Albumin/Globulin Ratio 0.7 L (0.9-2) TSH 5.270 H (0.300-4.500) uIu/ml Free T4 1.40 (0.8-1.6) ng/dl Imaging Data Radiologist's Impression: CT head/brain wo con CLINICAL HISTORY: 74 years-old Female with dizzy. Acute dizziness TECHNIQUE: Multiple axial CT images of the head were obtained without contrast. A dose lowering technique was utilized adhering to the principles of ALARA. COMPARISON: Head CT 05/11/2019 FINDINGS: No acute intracranial hemorrhage, midline shift, intracranial mass, hydrocephalus, territorial ischemia or abnormal extra-axial collection. Age- related involutional changes. Patchy white matter hypodensities suggest probable chronic microvascular ischemic disease. Cerebral vascular calcifications. Probable tiny remote lacunar infarcts of the thalami. Motion degraded exam. The calvarium is intact. Prior bilateral lens replacement. The paranasal sinuses, mastoid air cells, and middle ear cavities are clear. IMPRESSION: Mildly motion degraded exam. No acute intracranial abnormality. ACT 112: Negative or not required by law. The above report was generated using voice recognition software. It may contain grammatical, syntax or spelling errors. Electronically signed by: Bryan Chávez M.D. 12/15/2019 1:45 PM Dictated: 12/15/19 1343 Transcribed: 12/15/19 1343 XR chest 1V portable HISTORY: 74 years-old Female weakness acute weakness COMPARISON: Chest radiograph 05/11/2019 TECHNIQUE: Portable AP view of the chest FINDINGS: Unchanged cardiomegaly. Left subclavian pacer. Mild chronic interstitial coarsening. There is no pneumothorax, large pleural effusion, overt pulmonary edema or airspace consolidation typical for pneumonia. Unchanged mild blunting of the costophrenic angles. Degenerative changes of the shoulders and spine. IMPRESSION: Cardiomegaly without acute process. ACT 112: Negative or not required by law. The above report was generated using voice recognition software. It may contain grammatical, syntax or spelling errors. Electronically signed by: Bryan Chávez M.D. 12/15/2019 12:56 PM Dictated: 12/15/19 1254 Transcribed: 12/15/[address] WITHOUT CONTRAST CT DOSE: 1894.77 mGy.cm HISTORY: Acute vomiting vomiting TECHNIQUE: Multiaxial CT images of the abdomen and pelvis were performed without contrast. A dose lowering technique was utilized adhering to the principles of ALARA. COMPARISON STUDY: CT abdomen and pelvis 05/11/2019 FINDINGS: Small pleural effusions with dependent bibasilar consolidation. Mild bibasilar groundglass densities with mosaic attenuation. There is no pneumatosis or pneumoperitoneum. Cardiomegaly with coronary artery calcifications. Partially imaged pacer leads. Limited evaluation of the solid abdominal organs without the use of IV contrast. Within the limitations of the study, the spleen, adrenal glands and liver appear unremarkable. Cholecystectomy. Mild generalized mar creatic atrophy. There is mild nonspecific bilateral perinephric stranding. Mild urinary bladder wall thickening with partial distention. 2 mm calcification involving the anterior wall of the urinary bladder is unchanged. Hysterectomy. Calcified plaque the abdominal aorta without aneurysm. Decreased size of the previously described right inguinal chain lymph nodes, now largest of which measures 8 mm in short axis, previously 9 mm. There is moderate wall thickening of the pylorus and duodenal bulb with moderate surrounding inflammatory stranding and trace free fluid. There are a few adjacent mildly prominent periportal and periduodenal lymph nodes are subcentimeter in size. There is a possible mucosal ulceration involving the medial aspect of the duodenal bulb, image 162 series 5. No drainable fluid collection. Trace edema surrounds the pancreatic head/pancreaticoduodenal groove. Colonic diverticulosis without acute diverticulitis. Scattered colonic air-fluid levels. No bowel obstruction. Normal appendix. Unremarkable soft tissues. Degenerative changes of the spine, pelvis and hips. IMPRESSION: 1. Moderate wall thickening of the pylorus and proximal duodenum with moderate surrounding inflammatory stranding and trace free fluid. Findings are concerning for duodenitis versus peptic ulcer disease. No evidence of perforation. Correlation with GI consultation and endoscopy recommended. 2. Trace edema within the pancreaticoduodenal groove and surrounding the pancreatic head is likely reactive. Acute pancreatitis considered less likely. 3. Small pleural effusions with bibasilar opacities suggestive of probable atelectasis. 4. No bowel obstruction. 5. Colonic diverticulosis without acute diverticulitis. 6. Additional findings as above. ACT 112: Negative or not required by law. The above report was generated using voice recognition software. It may contain grammatical, syntax or spelling errors. Electronically signed by: Bryan Chávez M.D. 12/15/2019 1:57 PM Dictated: 12/15/19 1345 Transcribed: 12/15/19 1345 Blood Pressure Blood Pressure Findings: Elevated blood pressure Blood Pressure Disposition: further management by hospitalist Discharge Plan Visit Data Chief Complaint: Illness ED Provider: Robson Pickens Discharge Problem: Acute duodenitis, Abdominal pain, Vomiting Patient Disposition: Being Evaluated by Hospitalist Condition: Good Forms Stand Alone Forms: [facility] Prescriptions Prescriptions: No Action amlodipine 10 mg tablet 10 mg PO DAILY Qty: 90 RF: 3 carvedilol 6.25 mg tablet 6.25 mg PO BID Qty: 60 RF: 2 furosemide 20 mg tablet 20 mg PO DAILY Qty: 90 RF: 2 hydralazine 50 mg tablet 50 mg PO TID Qty: 90 RF: 3 amiodarone 200 mg tablet 200 mg PO DAILY Qty: 30 RF: 11 paroxetine HCl 20 mg tablet 20 mg PO QAM Qty: 90 RF: 3 triamcinolone acetonide 0.1 % ointment 1 appln TOP BID PRN (Reason: rash) Qty: 30 RF: 3 losartan 100 mg tablet 100 mg PO DAILY Qty: 90 RF: 1 Eliquis 5 mg tablet 5 mg PO BID Qty: 180 RF: 3 levothyroxine [Synthroid] 25 mcg tablet 25 mcg PO DAILY Qty: 30 RF: 5 (DME) Oxygen Home Liters Per Minute See Dose Instructions .ROUTE .MEDSUPPLY RF: 0 ferrous gluconate 236 mg (27 mg iron) tablet 236 mg PO DAILY Qty: 90 RF: 3 silver sulfadiazine [Silvadene] 1 % cream 1 appln TOP DAILY Qty: 50 RF: 3 albuterol sulfate [Ventolin HFA] 90 mcg/actuation HFA aerosol inhaler 2 puffs INH Q4H PRN (Reason: shortness of breath or wheezing) Qty: 18 RF: 0 ondansetron 4 mg tablet,disintegrating 4 mg PO Q8H PRN (Reason: nausea and vomiting) Qty: 30 RF: 5 aspirin [Aspir-81] 81 mg Tablet,Delayed Release (Dr/Ec) 81 mg PO DAILY RF: 0 Referrals Referrals: Clemente Walter CRNP [Primary Care Provider] - Discharge Problem: Abdominal pain Qualifiers: Abdominal location: upper abdomen, unspecified Qualified Code(s): R10.10 - Upper abdominal pain, unspecified Vomiting Qualifiers: Vomiting type: unspecified Vomiting Intractability: non-intractable Nausea presence: with nausea Qualified Code(s): R11.2 - Nausea with vomiting, unspeci fied
[2019-12-15 12:31] LABS: Hematocrit (blood only) 38.5 % (37-47); Hemoglobin 11.9 g/dL (12.0-16.0); Immature Granulocytes # (auto) 0.03 K/uL (0.00-0.02); Immature Granulocytes % (auto) 0.4 %; Lymphocytes # (auto) 0.56 K/uL (1.2-3.4); Lymphocytes % (auto) 7.5 %; Mean Corpuscular Hemoglobin 26.8 pg (25-34); Mean Corpuscular Hgb Conc 30.9 g/dL (32-36); Mean Corpuscular Volume 86.7 fL (80-100); Mean Platelet Volume 9.7 fL (7.4-10.4); Monocytes # (auto) 0.83 K/uL (0.11-0.59); Monocytes % (auto) 11.1 %; Neutrophils # (auto) 6.07 K/uL (1.4-6.5); Platelet Count 315 K/uL (130-400); RDW Coefficient of Variation 16.4 % (11.5-14.5); RDW Standard Deviation 51.9 fL (36.4-46.3); Red Blood Count 4.44 M/uL (4.2-5.4); White Blood Count 7.49 K/uL (4.8-10.8)
[2019-12-15 12:42] LABS: INR 1.2 (0.9-1.1); Partial Thromboplastin Ratio 1.1; Partial Thromboplastin Time 29.5 Seconds (21.0-31.0); Prothrombin Time 12.3 Seconds (9.0-12.0)
[2019-12-15 12:53] LABS: BUN Creatinine Ratio 17.7 (10-20); Creatinine Clr Calc Pharmacy 35.9 ml/min; Est GFR (African American) 40.9; Est GFR (Non-African American) 35.3; Magnesium 2.3 mg/dl (1.8-2.4); Potassium 3.9 mmol/L (3.5-5.1)
--- NOTE | 2019-12-15 12:57 | XRay Report ---
XR chest 1V portable HISTORY: 74 years-old Female weakness acute weakness COMPARISON: Chest radiograph 05/11/2019 TECHNIQUE: Portable AP view of the chest FINDINGS: Unchanged cardiomegaly. Left subclavian pacer. Mild chronic interstitial coarsening. There is no pneu mothorax, large pleural effusion, overt pulmonary edema or airspace consolidation typical for pneumon ia. Unchanged mild blunting of the costophrenic angles. Degenerative changes of the shoulders and spi ne. IMPRESSION: Cardiomegaly without acute process. ACT 112: Negative or not required by law. The above report was generated using voice recognition software. It may contain grammatical, syntax o r spelling errors. Electronically signed by: Bryan Chávez M.D. 12/15/2019 12:56 PM
[2019-12-15 13:04] LABS: Albumin Globulin Ratio 0.7 (0.9-2); Bilirubin,Total 0.9 mg/dl (0.2-1); Globulin 4.2 gm/dl (2.5-4.0); Thyroid Stimulating Hormone 5.27 uIu/ml (0.300-4.500); Total Protein 7.2 gm/dl (6.4-8.2); Troponin I 0.02 ng/ml (0-0.045)
[2019-12-15 13:22] LABS: T4 Free Thyroxine 1.4 ng/dl (0.8-1.6)
--- NOTE | 2019-12-15 13:47 | CT Scan Report ---
CT head/brain wo con CLINICAL HISTORY: 74 years-old Female with dizzy. Acute dizziness TECHNIQUE: Multiple axial CT images of the head were obtained without contrast. A dose lowering tech nique was utilized adhering to the principles of ALARA. COMPARISON: Head CT 05/11/2019 FINDINGS: No acute intracranial hemorrhage, midline shift, intracranial mass, hydrocephalus, territorial ischem ia or abnormal extra-axial collection. Age-related involutional changes. Patchy white matter hypodens ities suggest probable chronic microvascular ischemic disease. Cerebral vascular calcifications. Prob able tiny remote lacunar infarcts of the thalami. Motion degraded exam. The calvarium is intact. Prior bilateral lens replacement. The paranasal sinuses, mastoid air cells, and middle ear cavities are clear. IMPRESSION: Mildly motion degraded exam. No acute intracranial abnormality. ACT 112: Negative or not required by law. The above report was generated using voice recognition software. It may contain grammatical, syntax o r spelling errors. Electronically signed by: Bryan Chávez M.D. 12/15/2019 1:45 PM
--- NOTE | 2019-12-15 13:58 | CT Scan Report ---
ABDOMEN AND PELVIS CT WITHOUT CONTRAST CT DOSE: 1894.77 mGy.cm HISTORY: Acute vomiting vomiting TECHNIQUE: Multiaxial CT images of the abdomen and pelvis were performed without contrast. A dose lo wering technique was utilized adhering to the principles of ALARA. COMPARISON STUDY: CT abdomen and pelvis 05/11/2019 FINDINGS: Small pleural effusions with dependent bibasilar consolidation. Mild bibasilar groundglass densities with mosaic attenuation. There is no pneumatosis or pneumoperitoneum. Cardiomegaly with coronary smith ry calcifications. Partially imaged pacer leads. Limited evaluation of the solid abdominal organs wit hout the use of IV contrast. Within the limitations of the study, the spleen, adrenal glands and live r appear unremarkable. Cholecystectomy. Mild generalized pancreatic atrophy. There is mild nonspecific bilateral perinephric stranding. Mild urinary bladder wall thickening with partial distention. 2 mm calcification involving the anterior wall of the urinary bladder is unchange d. Hysterectomy. Calcified plaque the abdominal aorta without aneurysm. Decreased size of the previou sly described right inguinal chain lymph nodes, now largest of which measures 8 mm in short axis, pre viously 9 mm. There is moderate wall thickening of the pylorus and duodenal bulb with moderate surrounding inflamma tory stranding and trace free fluid. There are a few adjacent mildly prominent periportal and periduo denal lymph nodes are subcentimeter in size. There is a possible mucosal ulceration involving the med ial aspect of the duodenal bulb, image 162 series 5. No drainable fluid collection. Trace edema surro unds the pancreatic head/pancreaticoduodenal groove. Colonic diverticulosis without acute diverticuli tis. Scattered colonic air-fluid levels. No bowel obstruction. Normal appendix. Unremarkable soft tis sues. Degenerative changes of the spine, pelvis and hips. IMPRESSION: 1. Moderate wall thickening of the pylorus and proximal duodenum with moderate surrounding inflammato ry stranding and trace free fluid. Findings are concerning for duodenitis versus peptic ulcer disease . No evidence of perforation. Correlation with GI consultation and endoscopy recommended. 2. Trace edema within the pancreaticoduodenal groove and surrounding the pancreatic head is likely re active. Acute pancreatitis considered less likely. 3. Small pleural effusions with bibasilar opacities suggestive of probable atelectasis. 4. No bowel obstruction. 5. Colonic diverticulosis without acute diverticulitis. 6. Additional findings as above. ACT 112: Negative or not required by law. The above report was generated using voice recognition software. It may contain grammatical, syntax o r spelling errors. Electronically signed by: Bryan Chávez M.D. 12/15/2019 1:57 PM
[2019-12-15] MEDS ORDERED: cefTRIAXone SODIUM 1,000 MG/50 ML BAG IV STA (14:14)
[2019-12-15] MEDS ORDERED: SODIUM CHLORIDE 0.9% 1000ML 1,000 ML IV ONE (14:14)
[2019-12-15] MEDS ORDERED: PANTOprazole 40 MG in SYRINGE 0 ML IV ONE (14:14)
[2019-12-15] MEDS ORDERED: FAMOTIDINE 20MG IV PUSH 20 MG/5 ML SYR IV STA (14:14)
[2019-12-15 14:38] LABS: Appearance Urine Clear (Clear); Bacteria Urine Automated Negative (Negative); Blood Urine Negative (Negative); Color Urine Dark Yellow; Glucose Urine UA Negative (Negative); Ketones Urine Trace (Negative); Leukocyte Esterase Urine Trace (Negative); Nitrite Urine Negative (Negative); Protein Urine Trace (Negative); Specific Gravity Urine 1.019 (1.000-1.030); Urobilinogen Urine Negative (Negative)
[2019-12-15 14:39] LABS: Bilirubin Urine Negative (Negative); Ictotest Urine Negative (Negative)
--- NOTE | 2019-12-15 15:55 | History & Physical Report ---
Date of Service December 15, 2019 Assessment & Plan (1) Acute duodenitis: * Admit telemetry -- presented with dizziness/vomiting/nausea/dehydration from [facility] after 2 days poor po intake * Protonix gtt * GI consulted -- appreciate assistance * NPO * NSS @ 125cc/hr * Daily weights, I&O * Rapid COVID ordered -- pending * Added lipase, FDP to labs already drawn, pending * Serial troponin -- initial 0.02. * EKG with CP * CBC, CMP, INR in AM (2) JENNIFER (acute kidney injury): * Cr up to 1.47 on admission -- appears baseline <1. Likely related to poor intake over past 2 days with vomiting * Renally dose medications when appropriate. Avoid nephrotoxins * IVF as above * Continue to monitor (3) Vomiting: * See above, with nausea --> phenergan prn (4) Chronic respiratory failure: * Per previous record, patient had been on oxygen therapy in the past but had been weaned off * Denies using currently at [facility] * O2 as needed -- currently 97% on 4L NC (5) CAD (coronary atherosclerotic disease): * VT with stent x 1 in 2014. * ASA/Eliquis on hold in setting of #1 for possible intervention in AM with GI * Continue carvedilol, * Not on statin?? -- pt should be on statin given history (6) PAF (paroxysmal atrial fibrillation): * Follows with [facility], Dr. Laughlin * EKG AV paced with prolonged AV conduction * Pacemaker interrogation * Monitor on telemetry as above (7) Dizziness: * Similar episode May 2019 when she had pneumonia. Cardiac work-up negative at that time. Possibly related to dehydration/hypovolemic (8) Hypothyroidism: * TSH elevated at 5.27 although suspect reactive. FT4 wnl at 1.4 * Continue home levothyroxine 25mcg daily * Rec outpt f/u TFT in 6-8 weeks (9) Hypertension: * Chronic. Stable -- BP currently 121/57 * Conitnue home amlodipine 10mg, carvedilol 6.25mg BID, hydralazine 50mg TID * Losartan 100mg and lasix 20mg daily on hold in setting of JENNIFER (10) Anxiety: * Continue home paroxetine 20mg (11) Depression: * with anxiety. See above (12) Complete AV block: * s/p pacemaker 2018 (13) Anemia: * Patient recently started on iron supplementation in the past month per her account * Continue ferrous gluconate daily * hemoglobin on admission 11.9 (down from 13.1 at discharge May) * fecal occult for completeness * continue to monitor (14) DVT prophylaxis: * chemoprophylaxis held for possible intervention in AM -- holding home Aniceto SHETH Dispo: patient from [facility]. Uses walker to ambulate at baseline. History of dementia. History of Present Illness Primary Care Provider: BENITO Marquez Patient states she has been feeling very dizzy and had nausea starting yesterday sometime in the afternoon. She describes the dizziness that occurred when she stood up from a chair and lasted approximately 30 minutes or longer. Still present. Denies headache, spots in vision or blurred vision. Did have similar dizziness when she had pneumonia earlier this year per records. Ambulates with a walker at [facility] and denies shortness of breath with ambulation or chest pain at rest or with activity. Denies use of oxygen at home. Vomiting for the past two days. Poor appetite. No loss of taste of smell. States she has not been eating or drinking well due to this. Denies hematochezia or coffee ground emesis. No blood in her stool. Denies darkened urine and states she believes she has been making adequate urine despite poor PO intake. Last colonoscopy in the past year or two and states it was "good". Recently started on iron supplementation in the past month or two she believes. Denies any known contacts with positive COVID patients, fevers, chills at this time. Unsteady on her feet but states this is not new. Denies weakness, pain at this time. ER Course: NSS x 1L. Protonix 40mg x1. Pepcid 20mg x 1. Ceftriaxone 1gm IV x 1. EKG with AV dual paced with prolonged AC conduction, QTC prolonged at 517ms. Troponin 0.02. CBC with WBC 7.4k, h/h 11.9/38.5, Plt 315. INR elevated at 1.2. Chemistries with Cr up to 1.47 with baseline 0.7-0.8 previously. TSH elevated at 5.27, FT4 wnl at 1.4. AST 41, ALT 42, Alk phos 134 CTAP with evidence of duodenitis vs PUD, no evidence of perforation. trace edema within pancreaticoduodenal groove and surrounding pancreatic head likely reactive. Small pleural effusions with bibasilar opacities suggestive of atelectasis, colonic diverticulosis without acute diverticulitis. CXR cardiomegaly without acute process. Head CT without acute intracranial abnormality noted. Allergies Allergy/AdvReac Type Severity Reaction Status Date / Time No Known Drug Allergies Allergy Unknown Verified 12/15/19 13:11 Home Medications Home Medications Medication Instructions Recorded Confirmed Type Oxygen Home ea 11/10/18 11/16/19 History albuterol sulfate 90 mcg/actuation 2 puffs INH Q4H PRN #18 gm 02/02/19 12/15/19 Rx aerosol inhaler aspirin [[id number]] 81 mg PO DAILY 04/06/19 12/15/19 History ferrous gluconate 236 mg (27 mg 236 mg PO DAILY #90 tab 04/13/19 12/15/19 Rx iron) tablet amlodipine 10 mg tablet 10 mg PO DAILY #90 tab 07/28/19 12/15/19 Rx carvedilol 6.25 mg tablet 6.25 mg PO BID #60 tab 07/28/19 12/15/19 Rx furosemide 20 mg tablet 20 mg PO DAILY #90 tab 07/28/19 12/15/19 Rx amiodarone 200 mg tablet 200 mg PO DAILY #30 tab 08/05/19 12/15/19 Rx hydralazine 50 mg tablet 50 mg PO TID #90 tab 08/05/19 12/15/19 Rx paroxetine HCl 20 mg tablet 20 mg PO QAM #90 tab 08/09/19 12/15/19 Rx triamcinolone acetonide 0.1 % 1 appln TOP BID PRN #30 gm 09/21/19 12/15/19 Rx topical ointment losartan 100 mg tablet 100 mg PO DAILY #90 tab 10/26/19 12/15/19 Rx silver sulfadiazine 1 % topical 1 appln TOP DAILY #50 gm 11/16/19 12/15/19 Rx cream apixaban 5 mg tablet 5 mg PO BID #180 tab 12/02/19 12/15/19 Rx levothyroxine 25 mcg tablet 25 mcg PO DAILY #30 tab 12/06/19 12/15/19 Rx ondansetron 4 mg disintegrating 4 mg PO Q8H PRN #30 tab 12/14/19 12/15/19 Rx tablet Past Med/Surg History Medical History JENNIFER (acute kidney injury) Anxiety Asthma Atrial fibrillation/flutter Atrioventricular block, Mobitz type 2 CAD (coronary artery disease) S/P VT, cath with stent x 1 2013 Cataract Cellulitis B/L LOWER EXTREMITIES Chronic anticoagulation Chronic diastolic (congestive) heart failure Chronic respiratory failure with hypoxia, on home O2 therapy Depression Heart block AV complete History of anxiety History of cholecystitis History of coronary artery disease History of depression History of myocardial infarction Hyperkalemia Hyperlipidemia Hypermagnesemia Hypertension Admitted to [facility] 08/17 for hypertensive urgencyl; BB d/c'd 2/2 bradycardia; put on hydralazine, losartan and amlodipine. Hypertensive urgency Hypothyroidism Microcytic hypochromic anemia Morbid obesity with BMI of 40.0-44.9, adult SOB (shortness of breath) on exertion Symptomatic bradycardia Surgical History History of appendectomy History of cardiac cath 3 YEARS AGO - VARUN - VT - 1 STENT PLACED - FOLLOWS W/ DR. LAUGHLIN History of cataract surgery RT/LEFT History of colonoscopy History of hysterectomy History of knee replacement LEFT History of tooth extraction History of total knee replacement LEFT History of tubal ligation Hx of cholecystectomy Family History Brother Family history of diabetes mellitus Myocardial infarction, Onset Age: 50 Family history of cardiac disorder Hypertension Mother Family history of diabetes mellitus Myocardial infarction Father Myocardial infarction Social History Smoking Status: Never smoker Second Hand Exposure: No; Hx Alcohol Use: No Hx Substance Use: No Preferred Language: [place] Communication Ability: Effective Visual Impairment: No Limitations Hearing Ability: Normal Masonry Teacher Required: No Beliefs That Will Affect Care: None marital status: / Current Living Situation: Alone Current Living Situation Comment: Lives alone at [facility] current occupational status: retired Other Information That Helps Us Care for You: No Feels Safe at Home: Yes Safety Concerns: Feels Safe At This Time Dental Care, Regularly: No Physical Activity Frequency: 3-4 Times per Week Physical Activity Frequency Comment: Limited by physical condition Seatbelt Use: always Sunscreen Use: Yes Review of Systems Review of Systems: All systems reviewed & are unremarkable except as noted in HPI & below Physical Exam Constitutional: well developed, well nourished, + ill appearing and comfortable; no acute distress Eyes: + anicteric sclerae and PERRL ENMT: Ears: no hearing impairment Nose: no external nose abnormality dry mm Neck: trachea midline, no thyromegaly Respiratory: normal respiratory effort; no respiratory distress, does not use accessory muscles, not tachypneic, no grunting and no tripod positioning Auscultation: + diminished lung sounds and + crackles (bibasilar); no wheezes 96% on 4L NC Cardiovascular: Rate/Rhythm: + irregularly irregular Heart Sounds: no murmur Vessels: no JVD Extremities: normal capillary refill; no edema Gastrointestinal (Abdomen): Inspection/Auscultation: abdomen normal to inspection and normal bowel sounds Percussion/Palpation: abdomen soft; abdomen nontender, no guarding and abdomen not rigid Musculoskeletal: no cyanosis or clubbing, extremities motor strength 5/5 Skin: warm, dry Neurologic: patellar DTR's 2+ bilat, sensation intact and PERRL, EOMI, accommodation nl, no face palsy, no dysarthria Psychiatric: Orientation: alert, oriented to person and oriented to place Lymphatic: no cervical or axillary lymphadenopathy Results & Data Results & Data ([facility]) Vital Signs (Past 12 Hours) Vital Signs Temp Pulse Resp BP Pulse Ox 12/15/19 14:30 61 19 134/64 93 12/15/19 14:01 60 19 96 12/15/19 14:00 60 19 139/61 96 12/15/19 13:44 61 19 93 12/15/19 13:43 61 23 141/63 H 95 12/15/19 13:42 61 21 93 12/15/19 13:01 60 18 96 12/15/19 13:00 60 19 143/71 H 95 12/15/19 12:32 58 L 22 97 12/15/19 12:31 60 21 131/83 94 12/15/19 12:30 60 15 12/15/19 12:01 60 19 96 08/12/20 12:00 60 20 129/91 95 12/15/19 11:39 61 17 96 12/15/19 11:38 36.9 C 77 20 135/87 88 L 12/15/19 11:36 62 21 135/87 94 Laboratory Results 12/15/19 12/15/19 12/15/19 Range/Units 14:26 12:11 12:11 WBC (4.8-10.8) K/uL RBC (4.2-5.4) M/uL Hgb (12.0-16.0) g/dL Hct (37-47) % MCV (80-100) fL MCH (25-34) pg MCHC (32-36) g/dL RDW Std Deviation (36.4-46.3) fL RDW Coeff of Fabián (11.5-14.5) % Plt Count (130-400) K/uL MPV (7.4-10.4) fL Immature Gran % (Auto) % Neut % (Auto) % Lymph % (Auto) % [place] % (Auto) % Eos % (Auto) % Baso % (Auto) % Neut # (Auto) (1.4-6.5) K/uL Lymph # (Auto) (1.2-3.4) K/uL [place] # (Auto) (0.11-0.59) K/uL Eos # (Auto) (0-0.5) K/uL Baso # (Auto) (0-0.2) K/uL Immature Gran # (Auto) (0.00-0.02) K/uL PT 12.3 H (9.0-12.0) Seconds INR 1.2 H (0.9-1.1) APTT 29.5 (21.0-31.0) Seconds PTT Ratio 1.1 Sodium 140 (136-145) mmol/L Potassium 3.9 (3.5-5.1) mmol/L Chloride 105 (98-107) mmol/L Carbon Dioxide 27 (21-32) mmol/L Anion Gap 8.0 (3-11) BUN 26 H (7-18) mg/dl Creatinine 1.47 H (0.6-1.2) mg/dl Est Cr Clr Drug Dosing 35.9 ml/min Est GFR ( Amer) 40.9 Est GFR (Non-Af Amer) 35.3 BUN/Creatinine Ratio 17.7 (10-20) Glucose 102 H (70-99) mg/dl Calcium 8.0 L (8.5-10.1) mg/dl Magnesium 2.3 (1.8-2.4) mg/dl Total Bilirubin 0.9 (0.2-1) mg/dl AST 41 H (15-37) U/L ALT 42 (12-78) U/L Alkaline Phosphatase 134 H (45-117) U/L Troponin I 0.020 (0-0.045) ng/ml Total Protein 7.2 (6.4-8.2) gm/dl Albumin 3.0 L (3.4-5.0) gm/dl Globulin 4.2 H (2.5-4.0) gm/dl Albumin/Globulin Ratio 0.7 L (0.9-2) TSH 5.270 H (0.300-4.500) uIu/ml Free T4 1.40 (0.8-1.6) ng/dl Urine Color Dark Yellow Urine Appearance Clear (Clear) Urine pH 5.0 (4.5-7.5) Ur Specific [place] 1.019 (1.000-1.030) Urine Protein Trace H (Negative) Urine Glucose (UA) Negative (Negative) Urine Ketones Trace H (Negative) Urine Blood Negative (Negative) Urine Nitrite Negative (Negative) Urine Bilirubin Negative (Negative) Urine Urobilinogen Negative (Negative) Ur Leukocyte Esterase Trace H (Negative) Urine WBC (Auto) 1-5 (0-5) /hpf Urine RBC (Auto) 5-10 H (0-4) /hpf U Hyaline Cast (Auto) 10-30 H (0-5) /lpf U Epithel Cells (Auto) 10-20 H (0-5) /lpf Urine Bacteria (Auto) Negative (Negative) Granular Casts 1-5 H (0) /lpf /04/23 Range/Units 12:11 WBC 7.49 (4.8-10.8) K/uL RBC 4.44 (4.2-5.4) M/uL Hgb 11.9 L (12.0-16.0) g/dL Hct 38.5 (37-47) % MCV 86.7 (80-100) fL MCH 26.8 (25-34) pg MCHC 30.9 L (32-36) g/dL RDW Std Deviation 51.9 H (36.4-46.3) fL RDW Coeff of Fabián 16.4 H (11.5-14.5) % Plt Count 315 (130-400) K/uL MPV 9.7 (7.4-10.4) fL Immature Gran % (Auto) 0.4 % Neut % (Auto) 81.0 % Lymph % (Auto) 7.5 % [place] % (Auto) 11.1 % Eos % (Auto) 0.0 % Baso % (Auto) 0.0 % Neut # (Auto) 6.07 (1.4-6.5) K/uL Lymph # (Auto) 0.56 L (1.2-3.4) K/uL [place] # (Auto) 0.83 H (0.11-0.59) K/uL Eos # (Auto) 0.00 (0-0.5) K/uL Baso # (Auto) 0.00 (0-0.2) K/uL Immature Gran # (Auto) 0.03 H (0.00-0.02) K/uL PT (9.0-12.0) Seconds INR (0.9-1.1) APTT (21.0-31.0) Seconds PTT Ratio Sodium (136-145) mmol/L Potassium (3.5-5.1) mmol/L Chloride (98-107) mmol/L Carbon Dioxide (21-32) mmol/L Anion Gap (3-11) BUN (7-18) mg/dl Creatinine (0.6-1.2) mg/dl Est Cr Clr Drug Dosing ml/min Est GFR ( Amer) Est GFR (Non-Af Amer) BUN/Creatinine Ratio (10-20) Glucose (70-99) mg/dl Calcium (8.5-10.1) mg/dl Magnesium (1.8-2.4) mg/dl Total Bilirubin (0.2-1) mg/dl AST (15-37) U/L ALT (12-78) U/L Alkaline Phosphatase (45-117) U/L Troponin I (0-0.045) ng/ml Total Protein (6.4-8.2) gm/dl Albumin (3.4-5.0) gm/dl Globulin (2.5-4.0) gm/dl Albumin/Globulin Ratio (0.9-2) TSH (0.300-4.500) uIu/ml Free T4 (0.8-1.6) ng/dl Urine Color Urine Appearance (Clear) Urine pH (4.5-7.5) Ur Specific [place] (1.000-1.030) Urine Protein (Negative) Urine Glucose (UA) (Negative) Urine Ketones (Negative) Urine Blood (Negative) Urine Nitrite (Negative) Urine Bilirubin (Negative) Urine Urobilinogen (Negative) Ur Leukocyte Esterase (Negative) Urine WBC (Auto) (0-5) /hpf Urine RBC (Auto) (0-4) /hpf U Hyaline Cast (Auto) (0-5) /lpf U Epithel Cells (Auto) (0-5) /lpf Urine Bacteria (Auto) (Negative) Granular Casts (0) /lpf Diagnostic Findings CT Head IMPRESSION: Mildly motion degraded exam. No acute intracranial abnormality. CXR IMPRESSION: Cardiomegaly without acute process. CTAP IMPRESSION: 1. Moderate wall thickening of the pylorus and proximal duodenum with moderate surrounding inflammatory stranding and trace free fluid. Findings are concerning for duodenitis versus peptic ulcer disease. No evidence of perforation. Correlation with GI consultation and endoscopy recommended. 2. Trace edema within the pancreaticoduodenal groove and surrounding the pancreatic head is likely reactive. Acute pancreatitis considered less likely. 3. Small pleural effusions with bibasilar opacities suggestive of probable atelectasis. 4. No bowel obstruction. 5. Colonic diverticulosis without acute diverticulitis. 6. Additional findings as above. Supervising Physician Co-Signing Physician Notes Attending Attestation & Admission Note: Pt seen/examined, chart reviewed, care plan d/w RENITA Humphreys. I agree w/ the dunbar components of her admission documentation. 74yo female w/ h/o pacemaker status 2nd complete heart block, CAD, hypothyroidism, HTN, h/o a.fib, diastolic CHF - presents with several days of poor PO intake, vomiting, and dizziness. No diarrhea. Found to have JENNIFER upon presentation today along with duodenitis on CT abd. Also with O2 requirement at time of presentation but patient denying any dyspnea, cough or orthopnea. Has been on continuous NC O2 in the past but weaned off per records. PMH, PSH, allergies, meds, sochx, famhx - reviewed VSS, no fever gen - NAD, lying flat comfortably in bed mouth - MM very dry neck - no JVD heart - RRR, s1 s2 lungs - CTA b/l, decreased BS bases abd - soft, mildly tender epigastric region, BS+ ext - <1+ edema b/l labs reviewed CT abd/pelvis findings reviewed EKG - pacing A/P: 1. JENNIFER - 2nd to vomiting, poor oral intake - looks volume contracted on exam Fluids; BMP am Hold ARB 2. vomiting - 2nd to duodenitis. Cause? GI consult placed; consideration of EGD? PPI in meantime. 3. hypoxia, O2 requirement - etiology?? OHS? other? 4. h/o PAF - eliquis on hold in the event she needs endoscopies, etc 5. pacemaker status 6. chronic diastolic CHF - volume contracted COVID-19 test negative Rocco Ruiz MD PG Care Time/CCT Total # of Minutes Spent Total Time Spent with Patient: Total time spent is greater than 50% in coordination of care (as documented) at patient's floor/unit and/or counseling p atient: Coding Level of Care Code 49404 Initial Inpt Care Lvl 3 Diagnoses Acute duodenitis K29.80 JENNIFER (acute kidney injury) N17.9 Vomiting R11.2 Nausea presence: with nausea Vomiting Intractability: non-intractable Vomiting type: unspecified Chronic respiratory failure J96.10 CAD (coronary atherosclerotic disease) I25.10 PAF (paroxysmal atrial fibrillation) I48.0 Dizziness R42 Hypothyroidism E03.9 Hypertension I10 Hypertension type: essential hypertension Anxiety F41.9 Depression F32.9 Complete AV block I44.2 Anemia D64.9 DVT prophylaxis Z29.9 (1) Hypertension Hypertension type: essential hypertension Qualified Code(s): I10 - Essential (primary) hypertension (2) Vomiting Nausea presence: with nausea Vomiting Intractability: non-intractable Vomiti ng type: unspecified Qualified Code(s): R11.2 - Nausea with vomiting, unspecified
[2019-12-15] MEDS ORDERED: TRIAMCINOLONE ACET 0.1% OINT 15 GM TUBE TOP PRN (19:15)
[2019-12-15] MEDS ORDERED: ALBUTEROL 0.083% NEBU SOLN 3 ML VIAL NEB PRN (19:15)
[2019-12-15] MEDS ORDERED: NITROGLYCERIN SL 0.4 MG/TAB TAB SL PRN (19:15)
[2019-12-15] MEDS ORDERED: MAGNESIUM HYDROXIDE SUSP 30 ML UDC PO PRN (19:15)
[2019-12-15] MEDS ORDERED: ACETAMINOPHEN 325 MG TAB PO PRN (19:15)
[2019-12-15] MEDS ORDERED: PROMETHAZINE HCL 6.25 MG in SODIUM CHLORIDE 0.9% 50 ML IV PRN (19:15)
[2019-12-15] MEDS ORDERED: ALUMINUM/MAGNESIUM SUSP 30 ML UDC PO PRN (19:15)
[2019-12-15 19:37] LABS: Troponin I 0.022 ng/ml (0-0.045)
[2019-12-15] MEDS: PANTOprazole 40 MG in DEXTROSE 5% 100 ML IV SCH (20:31)
[2019-12-15] MEDS: SODIUM CHLORIDE 0.9% 1000ML 1,000 ML IV SCH (20:31)
[2019-12-15] MEDS: HydrALAZINE TAB 50 MG TAB PO SCH (20:32)
[2019-12-15] MEDS: carvediloL 6.25 MG TAB PO SCH (20:32)
[2019-12-16] MEDS: PANTOprazole 40 MG in DEXTROSE 5% 100 ML IV SCH ×4 (00:35→16:23)
[2019-12-16] MEDS: SODIUM CHLORIDE 0.9% 1000ML 1,000 ML IV SCH ×3 (02:08→20:13)
[2019-12-16] MEDS: LEVOTHYROXINE SODIUM 25 MCG TABLET PO SCH (05:11)
[2019-12-16 06:14] LABS: Basophils # (auto) 0.01 K/uL (0-0.2); Basophils % (auto) 0.2 %; Eosinophils # (auto) 0.03 K/uL (0-0.5); Eosinophils % (auto) 0.5 %; Hematocrit (blood only) 33.6 % (37-47); Hemoglobin 10.4 g/dL (12.0-16.0); Immature Granulocytes # (auto) 0.03 K/uL (0.00-0.02); Immature Granulocytes % (auto) 0.5 %; Lymphocytes # (auto) 0.62 K/uL (1.2-3.4); Lymphocytes % (auto) 10.1 %; Mean Corpuscular Hemoglobin 26.8 pg (25-34); Mean Corpuscular Volume 86.6 fL (80-100); Mean Platelet Volume 9.4 fL (7.4-10.4); Monocytes # (auto) 0.85 K/uL (0.11-0.59); Monocytes % (auto) 13.9 %; Neutrophils # (auto) 4.58 K/uL (1.4-6.5); Neutrophils % (auto) 74.8 %; Platelet Count 254 K/uL (130-400); RDW Coefficient of Variation 16.4 % (11.5-14.5); RDW Standard Deviation 52.2 fL (36.4-46.3); Red Blood Count 3.88 M/uL (4.2-5.4); White Blood Count 6.12 K/uL (4.8-10.8)
[2019-12-16 06:21] LABS: INR 1.1 (0.9-1.1); Prothrombin Time 11.9 Seconds (9.0-12.0)
--- NOTE | 2019-12-16 06:26 | Electrocardiogram Report ---
Test Reason : Blood Pressure : / mmHG Vent. Rate : 061 BPM Atrial Rate : 340 BPM P-R Int : 244 ms QRS Dur : 150 ms QT Int : 514 ms P-R-T Axes : 000 -63 111 degrees QTc Int : 517 ms Poor data quality, interpretation may be adversely affected AV dual-paced rhythm with prolonged AV conduction Abnormal ECG When compared with ECG of 11-MAY-2019 09:46, Vent. rate has decreased BY 21 BPM Atrial pacing has replaced sinus Confirmed by Minh Higgins ([id number]) on 12/16/2019 6:25:52 AM Referred By: Confirmed By:Minh Higgins
[2019-12-16 06:46] LABS: Albumin Level 2.6 gm/dl (3.4-5.0); BUN Creatinine Ratio 21.8 (10-20); Calcium 7.2 mg/dl (8.5-10.1); Creatinine Clr Calc Pharmacy 47.1 ml/min; Est GFR (African American) 57.5; Est GFR (Non-African American) 49.6; Potassium 3.4 mmol/L (3.5-5.1)
[2019-12-16 06:49] LABS: Albumin Globulin Ratio 0.7 (0.9-2); Bilirubin,Total 0.7 mg/dl (0.2-1); Globulin 3.6 gm/dl (2.5-4.0); Total Protein 6.2 gm/dl (6.4-8.2)
[2019-12-16] MEDS: SILVER SULFADIAZINE 1% CR 50 GM JAR TOP SCH (08:24)
[2019-12-16] MEDS: PARoxetine HCL 20 MG TAB PO SCH (10:04)
[2019-12-16] MEDS: FERROUS GLUCONATE 324 MG TAB PO SCH (10:04)
[2019-12-16] MEDS: AMLODIPINE BESYLATE 5 MG TAB PO SCH (10:04)
[2019-12-16] MEDS: HydrALAZINE TAB 50 MG TAB PO SCH ×3 (10:04→20:13)
[2019-12-16] MEDS: carvediloL 6.25 MG TAB PO SCH ×2 (10:04→20:13)
[2019-12-16] MEDS: AMIODARONE 200 MG TAB PO SCH (10:04)
[2019-12-16] MEDS ORDERED: POTASSIUM CHLORIDE 20 MEQ TABCR PO ONE (11:00)
--- NOTE | 2019-12-16 11:23 | Gastrointestinal Consultation ---
Date of Consultation December 16, 2019 Assessment & Plan (1) JENNIFER (acute kidney injury): (2) Chronic respiratory failure: (3) Acute duodenitis: (4) Anemia: Pt is a 74 y/o female admitted w symptoms of dizziness, n/v, found to have JENNIFER suspected to be from dehydration. Noted on eval her blood ct is lower than baseline though no yasemin s/s of bleeding. CT head and CXR unremarkable. CT abd/pelvis w/o contrast showed thickening and inflammatory changes, around pylorus and duodenum, likely reactive changes in pancreatic groove. No signs of perforation or obstruction noted. - Would defer EGD eval at this time given pt's high O2 requirement. Will follow along to eval and decide on timing of endoscopic eval when she is clinically optimized - Continue PPI gtt x 24 hrs then may switch to PO BID dosing - May start CL diet and advance to soft as tolerated - Monitor H/H and transfuse prn - Check urine cx (hx of Klebsiella pneumonia) and blood gases Supervising Physician Co-Signing Physician Notes Attending attestation I have seen, examined this patient, and agree with the findings and above by our mid-level provider BENITO Glover, with the following additions: -She doing well, no abdominal pain, eating solid chicken and potatoes as we are interviewing her. Given her asymptomatic nature as well as oxygen requirement, will defer EGD until more medically stable. Please recall GI for discussion of when and if medical improvement. Continue to work-up hypoxia, would recommend twice daily PPI, History of Present Illness Reason for Consultation: Duodenitis Requesting Physician: Dr. Rosa Naylor Attending Physician: Dr. Iain Ontiveros History of Present Illness Pt is a 74 y/o female w PMHx of CAD, Afib s/p pacemaker placement on Eliquis and Amiodarone, HLD, asthma, anxiety who presented from [facility] w symptoms of dizziness, nausea, vomiting. Dizziness with change of position from sitting to standing. She reports similar presentation when she had pneumonia earlier this year. She denies fever, chills, CP, SOB. Appetite lower in last 2 days and not having good PO intake. N/V but w/o coffee ground emesis or hematemesis. She denies dysphagia, odynophagia. Appetite lower in last few days but otherwise normal per her report. Denies abd pain or weight loss. Bowel habits regular w/o dark tarry stools or rectal bleeding. On eval, noted she is afebrile, BP, HR stable. However needs O2 (none at baseline) per NC. Currently O2 sat 92% at 5L NC. CXR showed cardiomegaly but no signs of acute processes. Labs w/o leukocytosis. Noted blood ct lower than baseline (13 -> 10). INR 1.2. BUN/CR increased 24/1.4 attributed to mild dehydration and it is improved w IVF support. LFTs, total CK and Lipase are normal. TSH up 5.2. Urinalysis + trace k etones, protein, leukocyte esterase. COVID [address] abd/pelvis w/o contrast showed moderate wall thickening of the pylorus and proximal duodenum with moderate surrounding inflammatory stranding and trace free fluid. Findings are concerning for duodenitis versus peptic ulcer disease. No evidence of perforation. + Trace edema within the pancreaticoduodenal groove and surrounding the pancreatic head is likely reactive. No bowel obstruction. Colonic diverticulosis w/o diverticulitis. Last colonoscopy in [place] by Dr. Bledsoe "years ago" normal per her report. Denies NSAIDs, tobacco, ETOH. Family hx negative for GI malignancy. Allergies Allergy/AdvReac Type Severity Reaction Status Date / Time No Known Drug Allergies Allergy Unknown Verified 12/15/19 13:11 Home Medications Home Medications Medication Instructions Recorded Confirmed Type Oxygen Home ea 11/10/18 11/16/19 History albuterol sulfate 90 mcg/actuation 2 puffs INH Q4H PRN #18 gm 02/02/19 12/15/19 Rx aerosol inhaler aspirin [Aspir-81] 81 mg PO DAILY 04/06/19 12/15/19 History ferrous gluconate 236 mg (27 mg 236 mg PO DAILY #90 tab 04/13/19 12/15/19 Rx iron) tablet amlodipine 10 mg tablet 10 mg PO DAILY #90 tab 07/28/19 12/15/19 Rx carvedilol 6.25 mg tablet 6.25 mg PO BID #60 tab 07/28/19 12/15/19 Rx furosemide 20 mg tablet 20 mg PO DAILY #90 tab 07/28/19 12/15/19 Rx amiodarone 200 mg tablet 200 mg PO DAILY #30 tab 08/05/19 12/15/19 Rx hydralazine 50 mg tablet 50 mg PO TID #90 tab 08/05/19 12/15/19 Rx paroxetine HCl 20 mg tablet 20 mg PO QAM #90 tab 08/09/19 12/15/19 Rx triamcinolone acetonide 0.1 % 1 appln TOP BID PRN #30 gm 09/21/19 12/15/19 Rx topical ointment losartan 100 mg tablet 100 mg PO DAILY #90 tab 10/26/19 12/15/19 Rx silver sulfadiazine 1 % topical 1 appln TOP DAILY #50 gm 11/16/19 12/15/19 Rx cream apixaban 5 mg tablet 5 mg PO BID #180 tab 12/02/19 12/15/19 Rx levothyroxine 25 mcg tablet 25 mcg PO DAILY #30 tab 12/06/19 12/15/19 Rx ondansetron 4 mg disintegrating 4 mg PO Q8H PRN #30 tab 12/14/19 12/15/19 Rx tablet Patient History Medical History JENNIFER (acute kidney injury) Anxiety Asthma Atrial fibrillation/flutter Atrioventricular block, Mobitz type 2 CAD (coronary artery disease) S/P RI, cath with stent x 2013 Cataract Cellulitis B/L LOWER EXTREMITIES Chronic anticoagulation Chronic diastolic (congestive) heart failure Chronic respiratory failure with hypoxia, on home O2 therapy Depression Heart block AV complete History of anxiety History of cholecystitis History of coronary artery disease History of depression History of myocardial infarction Hyperkalemia Hyperlipidemia Hypermagnesemia Hypertension Admitted to [facility] 08/17 for hypertensive urgencyl; BB d/c'd 2/2 bradycardia; put on hydralazine, losartan and amlodipine. Hypertensive urgency Hypothyroidism Microcytic hypochromic anemia Morbid obesity with BMI of 40.0-44.9, adult SOB (shortness of breath) on exertion Symptomatic bradycardia Surgical History History of appendectomy History of cardiac cath 3 YEARS AGO - VARUN - RI - 1 STENT PLACED - FOLLOWS W/ DR. LAUGHLIN History of cataract surgery RT/LEFT History of colonoscopy History of hysterectomy History of knee replacement LEFT History of tooth extraction History of total knee replacement LEFT History of tubal ligation Hx of cholecystectomy Family History Brother Family history of diabetes mellitus Myocardial infarction, Onset Age: 50 Family history of cardiac disorder Hypertension Mother Family history of diabetes mellitus Myocardial infarction Father Myocardial infarction Social History Smoking Status: Never smoker Second Hand Exposure: No; Hx Alcohol Use: No Hx Substance Use: No Preferred Language: Marshallese Communication Ability: Impaired Visual Impairment: No Limitations Hearing Ability: Normal Mail Room Required: No Beliefs That Will Affect Care: None marital status: / Current Living Situation: Alone Current Living Situation Comment: Lives alone at [facility] current occupational status: retired Other Information That Helps Us Care for You: No Feels Safe at Home: Yes Safety Concerns: Feels Safe At This Time Dental Care, Regularly: No Physical Activity Frequency: 3-4 Times per Week Physical Activity Frequency Comment: Limited by physical condition Seatbelt Use: always Sunscreen Use: Yes Review of Systems Review of Systems: All systems reviewed & are unremarkable except as noted in HPI & below Physical Exam Constitutional: WD/WN, vitals as above well groomed, cooperative and comfortable Eyes: PERRL, conjunctivae normal, anicteric sclerae ENMT: external ear and nose normal, oropharynx normal Respiratory: normal respiratory effort, lungs clear to auscultation Cardiovascular: RRR, no murmur, no edema Gastrointestinal (Abdomen): Inspection/Auscultation: normal bowel sounds Percussion/Palpation: + abdomen tender (epigastric) and abdomen soft Skin: no rashes, warm and dry Psychiatric: A+Ox3, euthymic affect Lymphatic: no lymphedema Results & Data ([facility]) Vital Signs (Past 12 Hours) Vital Signs Temp Pulse Pulse Resp BP Pulse Ox 12/16/19 08:22 36.6 C 75 22 122/75 92 12/16/19 03:44 36.6 C 50 L 16 118/71 93 12/16/19 00:31 36.7 C 60 18 119/71 92 12/15/19 23:18 60
--- NOTE | 2019-12-16 12:31 | Hospitalist Progress Note ---
Date of Service December 16, 2019 Assessment & Plan (1) Acute duodenitis: * Admit telemetry -- presented with dizziness/vomiting/nausea/dehydration from [facility] after 2 days poor po intake * Protonix gtt to be transitioned to protonix 40mg BID * GI consulted -- no plan for scope at this time due to higher oxygen demands, although patient previously on O2 outpatient. If continues to be stable with h/h could consider outpatient scope * Clear liquid diet and advance as tolerated * NSS @ 75cc/hr * Weaned O2 to previous 2-3L with O2 sat 92%. VBG collected with high CO2 at 55. Likely will need 2 step prior to d/c +/- overnight oximetry prior to discharge. ?CANDICE * Daily weights, I&O UO on lower side --> UA sent as had not been continued from ER orders given hx Klebsiella infections in the past * Rapid COVID negative * Lipase without elevation, FDP wnl. * Troponin initially 0.02 on admission --> repeat <0.015. Likely demand in setting of dehydration * Labs in AM (2) JENNIFER (acute kidney injury): * Cr up to 1.47 on admission -- appears baseline <1. Likely related to poor intake over past 2 days with vomiting * UA with granular casts. IVF as above. Will reach out to nephrology if kidney function not improved by tomorrow * Renally dose medications when appropriate. Avoid nephrotoxins * Cr improved to 1.11 on AM labs * Continue to monitor (3) Vomiting: * See above, with nausea --> phenergan prn. * No further emesis since admission (4) Chronic respiratory failure: * Per previous record, patient had been on oxygen therapy in the past but had been weaned off * Denies using currently at [facility] * O2 as needed -- currently 92% on 3L NC * Likely need 2step/overnight pulse ox prior to discharge given previous requirements * albuterol neb as needed * Will repeat CXR (5) CAD (coronary atherosclerotic disease): * [place] with stent x 1 in 2014. * ASA/Eliquis on hold in setting of #1 for possible intervention in AM with GI * Continue carvedilol. * Losartan on hold in setting of JENNIFER (as well as lasix) * No ASA in setting of duodenitis * Not on statin?? -- pt should be on statin given history (6) PAF (paroxysmal atrial fibrillation): * Follows with [facility], Dr. Talavera * EKG AV paced with prolonged AV conduction * Pacemaker interrogation * Monitor on telemetry as above (7) Dizziness: * Similar episode May 2019 when she had pneumonia. Cardiac work-up negative at that time. * No dizziness endorse during examination today -- likely related to dehydration/hypovolemia * Will obtain orthostatics tomorrow once further hydrated (8) Hypertension: * Chronic. Stable -- BP currently 151/73 * Continue home amlodipine 10mg, carvedilol 6.25mg BID, hydralazine 50mg TID * Losartan 100mg and lasix 20mg daily on hold in setting of JENNIFER * Continue to monitor (9) Complete AV block: * s/p pacemaker 2019 for complete heart block (10) Hypothyroidism: * TSH elevated at 5.27 although suspect reactive. FT4 wnl at 1.4 * Continue home levothyroxine 25mcg daily * Rec outpt f/u TFT in 6-8 weeks (11) Anxiety: * Continue home paroxetine 20mg (12) Depression: * with anxiety. See above (13) Anemia: * Patient recently started on iron supplementation in the past month per her account * Continue ferrous gluconate daily * hemoglobin on admission 11.9 down to 10.4 on AM labs but had been on IVF (down from 13.1 at discharge May) * Fecal occult for completeness * continue to monitor (14) Hypokalemia: * K 3.4 -- ordered oral replacement * Labs in AM (15) DVT prophylaxis: * chemoprophylaxis held for possible intervention --> will address again in AM but if planning for outpatient if h/h stable will resume in AM Dispo: patient from [facility]. Uses walker to ambulate at baseline. History of dementia. PT/OT evals pending Admission and Anticipated Discharge Date Admission Date: December 15, 2019 Supervising Physician Co-Signing Physician Notes PA Supervision Note: I did not personally see or examine the patient today, but I verified all dunbar points of RENITA Humphreys's assessment and plan with the following exceptions/additions: None Subjective Patient resting comfortably in bed. States she is hungry and told by doctor that she would be able to eat. Patient states she had been on oxygen in the past but apparently didn't need it anymore and it was discontinued. Discussed that she may need to continue with supplemental O2 and we may need to order a test to get that set up at discharge. Also checking urine given history of klebsiella UTI although patient denies dysuria or hematuria that she has noted but does have incontinence at times. Denies use of inhaler outpatient except in causes of shortness of breath/wheezing but she denies that currently. Feeling slightly fatigued today. Denies fever, chill, chest pain, shortness of breath, pain with inspiration, abdominal pain. Did have some nausea this morning but no emesis or further nausea. Review of Systems Review of Systems: All systems reviewed & are unremarkable except as noted in HPI & below Physical Exam Constitutional: well developed, well nourished and comfortable; no acute distress Eyes: + anicteric sclerae and PERRL ENMT: Ears: no hearing impairment Nose: no external nose abnormality Neck: trachea midline, no thyromegaly Respiratory: normal respiratory effort and able to speak in complete sentences; no respiratory distress, does not use accessory muscles, not tachypneic, no grunting and no tripod positioning Auscultation: + diminished lung sounds, + crackles (bibasilar) and + wheezes (faint expiratory posterior lung martins) 96% on 5L NC currenlty Cardiovascular: Rate/Rhythm: regular rate Heart Sounds: no murmur Vessels: no JVD Extremities: normal capillary refill; no edema Gastrointestinal (Abdomen): Inspection/Auscultation: abdomen normal to inspection and normal bowel sounds Percussion/Palpation: abdomen soft; abdomen nontender, no guarding and abdomen not rigid Musculoskeletal: no cyanosis or clubbing, extremities motor strength 5/5 Neurologic: patellar DTR's 2+ bilat, sensation intact and PERRL, EOMI, ac commodation nl, no face palsy, no dysarthria Psychiatric: Orientation: alert, oriented to person and oriented to place Lymphatic: no cervical or axillary lymphadenopathy Results & Data Results & Data ([facility]) Vital Signs (Past 12 Hours) Vital Signs Temp Pulse Resp BP Pulse Ox 12/16/19 08:22 36.6 C 75 22 122/75 92 12/16/19 03:44 36.6 C 50 L 16 118/71 93 12/16/19 00:31 36.7 C 60 18 119/71 92 Laboratory Results 12/16/19 12/16/19 12/16/19 Range/Units 09:02 05:58 05:58 WBC (4.8-10.8) K/uL RBC (4.2-5.4) M/uL Hgb (12.0-16.0) g/dL Hct (37-47) % MCV (80-100) fL MCH (25-34) pg MCHC (32-36) g/dL RDW Std Deviation (36.4-46.3) fL RDW Coeff of Fabián (11.5-14.5) % Plt Count (130-400) K/uL MPV (7.4-10.4) fL Immature Gran % (Auto) % Neut % (Auto) % Lymph % (Auto) % Sawyer % (Auto) % Eos % (Auto) % Baso % (Auto) % Neut # (Auto) (1.4-6.5) K/uL Lymph # (Auto) (1.2-3.4) K/uL Sawyer # (Auto) (0.11-0.59) K/uL Eos # (Auto) (0-0.5) K/uL Baso # (Auto) (0-0.2) K/uL Immature Gran # (Auto) (0.00-0.02) K/uL PT 11.9 (9.0-12.0) Seconds INR 1.1 (0.9-1.1) APTT (21.0-31.0) Seconds PTT Ratio Fibrin Degrad Products (<10) mcg/ml Sodium 143 (136-145) mmol/L Potassium 3.4 L (3.5-5.1) mmol/L Chloride 110 H (98-107) mmol/L Carbon Dioxide 25 (21-32) mmol/L Anion Gap 8.0 (3-11) BUN 24 H (7-18) mg/dl Creatinine 1.11 D (0.6-1.2) mg/dl Est Cr Clr Drug Dosing 47.1 ml/min Est GFR ( Amer) 57.5 Est GFR (Non-Af Amer) 49.6 BUN/Creatinine Ratio 21.8 H (10-20) Glucose 85 (70-99) mg/dl Calcium 7.2 L (8.5-10.1) mg/dl Magnesium (1.8-2.4) mg/dl Total Bilirubin 0.7 (0.2-1) mg/dl AST 24 (15-37) U/L ALT 33 (12-78) U/L Alkaline Phosphatase 98 (45-117) U/L Total Creatine Kinase (26-192) U/L Troponin I < 0.015 (0-0.045) ng/ml Total Protein 6.2 L (6.4-8.2) gm/dl Albumin 2.6 L (3.4-5.0) gm/dl Globulin 3.6 (2.5-4.0) gm/dl Albumin/Globulin Ratio 0.7 L (0.9-2) Lipase (73-393) U/L TSH (0.300-4.500) uIu/ml Free T4 (0.8-1.6) ng/dl Urine Color Urine Appearance (Clear) Urine pH (4.5-7.5) Ur Specific [place] (1.000-1.030) Urine Protein (Negative) Urine Glucose (UA) (Negative) Urine Ketones (Negative) Urine Blood (Negative) Urine Nitrite (Negative) Urine Bilirubin (Negative) Urine Urobilinogen (Negative) Ur Leukocyte Esterase (Negative) Urine WBC (Auto) (0-5) /hpf Urine RBC (Auto) (0-4) /hpf U Hyaline Cast (Auto) (0-5) /lpf U Epithel Cells (Auto) (0-5) /lpf Urine Bacteria (Auto) (Negative) Granular Casts (0) /lpf COVID-19 Eval Order COVID-19 PCR (Negative) 12/16/19 12/15/19 12/15/19 Range/Units 05:58 19:08 19:08 WBC 6.12 (4.8-10.8) K/uL RBC 3.88 L (4.2-5.4) M/uL Hgb 10.4 L (12.0-16.0) g/dL Hct 33.6 L (37-47) % MCV 86.6 (80-100) fL MCH 26.8 (25-34) pg MCHC 31.0 L (32-36) g/dL RDW Std Deviation 52.2 H (36.4-46.3) fL RDW Coeff of Fabián 16.4 H (11.5-14.5) % Plt Count 254 (130-400) K/uL MPV 9.4 (7.4-10.4) fL Immature Gran % (Auto) 0.5 % Neut % (Auto) 74.8 % Lymph % (Auto) 10.1 % Sawyer % (Auto) 13.9 % Eos % (Auto) 0.5 % Baso % (Auto) 0.2 % Neut # (Auto) 4.58 (1.4-6.5) K/uL Lymph # (Auto) 0.62 L (1.2-3.4) K/uL Sawyer # (Auto) 0.85 H (0.11-0.59) K/uL Eos # (Auto) 0.03 (0-0.5) K/uL Baso # (Auto) 0.01 (0-0.2) K/uL Immature Gran # (Auto) 0.03 H (0.00-0.02) K/uL PT (9.0-12.0) Seconds INR (0.9-1.1) APTT (21.0-31.0) Seconds PTT Ratio Fibrin Degrad Products <10 (<10) mcg/ml Sodium (136-145) mmol/L Potassium (3.5-5.1) mmol/L Chloride (98-107) mmol/L Carbon Dioxide (21-32) mmol/L Anion Gap (3-11) BUN (7-18) mg/dl Creatinine (0.6-1.2) mg/dl Est Cr Clr Drug Dosing ml/min Est GFR ( Amer) Est GFR (Non-Af Amer) BUN/Creatinine Ratio (10-20) Glucose (70-99) mg/dl Calcium (8.5-10.1) mg/dl Magnesium (1.8-2.4) mg/dl Total Bilirubin (0.2-1) mg/dl AST (15-37) U/L ALT (12-78) U/L Alkaline Phosphatase (45-117) U/L Total Creatine Kinase 47 (26-192) U/L Troponin I 0.022 (0-0.045) ng/ml Total Protein (6.4-8.2) gm/dl Albumin (3.4-5.0) gm/dl Globulin (2.5-4.0) gm/dl Albumin/Globulin Ratio (0.9-2) Lipase (73-393) U/L TSH (0.300-4.500) uIu/ml Free T4 (0.8-1.6) ng/dl Urine Color Urine Appearance (Clear) Urine pH (4.5-7.5) Ur Specific [place] (1.000-1.030) Urine Protein (Negative) Urine Glucose (UA) (Negative) Urine Ketones (Negative) Urine Blood (Negative) Urine Nitrite (Negative) Urine Bilirubin (Negative) Urine Urobilinogen (Negative) Ur Leukocyte Esterase (Negative) Urine WBC (Auto) (0-5) /hpf Urine RBC (Auto) (0-4) /hpf U Hyaline Cast (Auto) (0-5) /lpf U Epithel Cells (Auto) (0-5) /lpf Urine Bacteria (Auto) (Negative) Granular Casts (0) /lpf COVID-19 Eval Order COVID-19 PCR (Negative) 12/15/19 12/15/19 12/15/19 Range/Units 16:20 16:20 14:26 WBC (4.8-10.8) K/uL RBC (4.2-5.4) M/uL Hgb (12.0-16.0) g/dL Hct (37-47) % MCV (80-100) fL MCH (25-34) pg MCHC (32-36) g/dL RDW Std Deviation (36.4-46.3) fL RDW Coeff of Fabián (11.5-14.5) % Plt Count (130-400) K/uL MPV (7.4-10.4) fL Immature Gran % (Auto) % Neut % (Auto) % Lymph % (Auto) % Sawyer % (Auto) % Eos % (Auto) % Baso % (Auto) % Neut # (Auto) (1.4-6.5) K/uL Lymph # (Auto) (1.2-3.4) K/uL Sawyer # (Auto) (0.11-0.59) K/uL Eos # (Auto) (0-0.5) K/uL Baso # (Auto) (0-0.2) K/uL Immature Gran # (Auto) (0.00-0.02) K/uL PT (9.0-12.0) Seconds INR (0.9-1.1) APTT (21.0-31.0) Seconds PTT Ratio Fibrin Degrad Products (<10) mcg/ml Sodium (136-145) mmol/L Potassium (3.5-5.1) mmol/L Chloride (98-107) mmol/L Carbon Dioxide (21-32) mmol/L Anion Gap (3-11) BUN (7-18) mg/dl Creatinine (0.6-1.2) mg/dl Est Cr Clr Drug Dosing ml/min Est GFR ( Amer) Est GFR (Non-Af Amer) BUN/Creatinine Ratio (10-20) Glucose (70-99) mg/dl Calcium (8.5-10.1) mg/dl Magnesium (1.8-2.4) mg/dl Total Bilirubin (0.2-1) mg/dl AST (15-37) U/L ALT (12-78) U/L Alkaline Phosphatase (45-117) U/L Total Creatine Kinase (26-192) U/L Troponin I (0-0.045) ng/ml Total Protein (6.4-8.2) gm/dl Albumin (3.4-5.0) gm/dl Globulin (2.5-4.0) gm/dl Albumin/Globulin Ratio (0.9-2) Lipase (73-393) U/L TSH (0.300-4.500) uIu/ml Free T4 (0.8-1.6) ng/dl Urine Color Dark Yellow Urine Appearance Clear (Clear) Urine pH 5.0 (4.5-7.5) Ur Specific [place] 1.019 (1.000-1.030) Urine Protein Trace H (Negative) Urine Glucose (UA) Negative (Negative) Urine Ketones Trace H (Negative) Urine Blood Negative (Negative) Urine Nitrite Negative (Negative) Urine Bilirubin Negative (Negative) Urine Urobilinogen Negative (Negative) Ur Leukocyte Esterase Trace H (Negative) Urine WBC (Auto) 1-5 (0-5) /hpf Urine RBC (Auto) 5-10 H (0-4) /hpf U Hyaline Cast (Auto) 10-30 H (0-5) /lpf U Epithel Cells (Auto) 10-20 H (0-5) /lpf Urine Bacteria (Auto) Negative (Negative) Granular Casts 1-5 H (0) /lpf COVID-19 Eval Order Covid19 Done at [facility] COVID-19 PCR NEGATIVE (Negative) 12/15/19 12/15/19 12/15/19 Range/Units 12:11 12:11 12:11 WBC (4.8-10.8) K/uL RBC (4.2-5.4) M/uL Hgb (12.0-16.0) g/dL Hct (37-47) % MCV (80-100) fL MCH (25-34) pg MCHC (32-36) g/dL RDW Std Deviation (36.4-46.3) fL RDW Coeff of Fabián (11.5-14.5) % Plt Count (130-400) K/uL MPV (7.4-10.4) fL Immature Gran % (Auto) % Neut % (Auto) % Lymph % (Auto) % Sawyer % (Auto) % Eos % (Auto) % Baso % (Auto) % Neut # (Auto) (1.4-6.5) K/uL Lymph # (Auto) (1.2-3.4) K/uL [place]yer # (Auto) (0.11-0.59) K/uL Eos # (Auto) (0-0.5) K/uL Baso # (Auto) (0-0.2) K/uL Immature Gran # (Auto) (0.00-0.02) K/uL PT 12.3 H (9.0-12.0) Seconds INR 1.2 H (0.9-1.1) APTT 29.5 (21.0-31.0) Seconds PTT Ratio 1.1 Fibrin Degrad Products (<10) mcg/ml Sodium 140 (136-145) mmol/L Potassium 3.9 (3.5-5.1) mmol/L Chloride 105 (98-107) mmol/L Carbon Dioxide 27 (21-32) mmol/L Anion Gap 8.0 (3-11) BUN 26 H (7-18) mg/dl Creatinine 1.47 H (0.6-1.2) mg/dl Est Cr Clr Drug Dosing 35.9 ml/min Est GFR ( Amer) 40.9 Est GFR (Non-Af Amer) 35.3 BUN/Creatinine Ratio 17.7 (10-20) Glucose 102 H (70-99) mg/dl Calcium 8.0 L (8.5-10.1) mg/dl Magnesium 2.3 (1.8-2.4) mg/dl Total Bilirubin 0.9 (0.2-1) mg/dl AST 41 H (15-37) U/L ALT 42 (12-78) U/L Alkaline Phosphatase 134 H (45-117) U/L Total Creatine Kinase (26-192) U/L Troponin I 0.020 (0-0.045) ng/ml Total Protein 7.2 (6.4-8.2) gm/dl Albumin 3.0 L (3.4-5.0) gm/dl Globulin 4.2 H (2.5-4.0) gm/dl Albumin/Globulin Ratio 0.7 L (0.9-2) Lipase 51 L (73-393) U/L TSH 5.270 H (0.300-4.500) uIu/ml Free T4 1.40 (0.8-1.6) ng/dl Urine Color Urine Appearance (Clear) Urine pH (4.5-7.5) Ur Specific [place] (1.000-1.030) Urine Protein (Negative) Urine Glucose (UA) (Negative) Urine Ketones (Negative) Urine Blood (Negative) Urine Nitrite (Negative) Urine Bilirubin (Negative) Urine Urobilinogen (Negative) Ur Leukocyte Esterase (Negative) Urine WBC (Auto) (0-5) /hpf Urine RBC (Auto) (0-4) /hpf U Hyaline Cast (Auto) (0-5) /lpf U Epithel Cells (Auto) (0-5) /lpf Urine Bacteria (Auto) (Negative) Granular Casts (0) /lpf COVID-19 Eval Order COVID-19 PCR (Negative) 12/15/19 Range/Units 12:11 WBC 7.49 (4.8-10.8) K/uL RBC 4.44 (4.2-5.4) M/uL Hgb 11.9 L (12.0-16.0) g/dL Hct 38.5 (37-47) % MCV 86.7 (80-100) fL MCH 26.8 (25-34) pg MCHC 30.9 L (32-36) g/dL RDW Std Deviation 51.9 H (36.4-46.3) fL RDW Coeff of Fabián 16.4 H (11.5-14.5) % Plt Count 315 (130-400) K/uL MPV 9.7 (7.4-10.4) fL Immature Gran % (Auto) 0.4 % Neut % (Auto) 81.0 % Lymph % (Auto) 7.5 % Sawyer % (Auto) 11.1 % Eos % (Auto) 0.0 % Baso % (Auto) 0.0 % Neut # (Auto) 6.07 (1.4-6.5) K/uL Lymph # (Auto) 0.56 L (1.2-3.4) K/uL [place]yer # (Auto) 0.83 H (0.11-0.59) K/uL Eos # (Auto) 0.00 (0-0.5) K/uL Baso # (Auto) 0.00 (0-0.2) K/uL Immature Gran # (Auto) 0.03 H (0.00-0.02) K/uL PT (9.0-12.0) Seconds INR (0.9-1.1) APTT (21.0-31.0) Seconds PTT Ratio Fibrin Degrad Products (<10) mcg/ml Sodium (136-145) mmol/L Potassium (3.5-5.1) mmol/L Chloride (98-107) mmol/L Carbon Dioxide (21-32) mmol/L Anion Gap (3-11) BUN (7-18) mg/dl Creatinine (0.6-1.2) mg/dl Est Cr Clr Drug Dosing ml/min Est GFR ( Amer) Est GFR (Non-Af Amer) BUN/Creatinine Ratio (10-20) Glucose (70-99) mg/dl Calcium (8.5-10.1) mg/dl Magnesium (1.8-2.4) mg/dl Total Bilirubin (0.2-1) mg/dl AST (15-37) U/L ALT (12-78) U/L Alkaline Phosphatase (45-117) U/L Total Creatine Kinase (26-192) U/L Troponin I (0-0.045) ng/ml Total Protein (6.4-8.2) gm/dl Albumin (3.4-5.0) gm/dl Globulin (2.5-4.0) gm/dl Albumin/Globulin Ratio (0.9-2) Lipase (73-393) U/L TSH (0.300-4.500) uIu/ml Free T4 (0.8-1.6) ng/dl Urine Color Urine Appearance (Clear) Urine pH (4.5-7.5) Ur Specific [place] (1.000-1.030) Urine Protein (Negative) Urine Glucose (UA) (Negative) Urine Ketones (Negative) Urine Blood (Negative) Urine Nitrite (Negative) Urine Bilirubin (Negative) Urine Urobilinogen (Negative) Ur Leukocyte Esterase (Negative) Urine WBC (Auto) (0-5) /hpf Urine RBC (Auto) (0-4) /hpf U Hyaline Cast (Auto) (0-5) /lpf U Epithel Cells (Auto) (0-5) /lpf Urine Bacteria (Auto) (Negative) Granular Casts (0) /lpf COVID-19 Eval Order COVID-19 PCR (Negative) PG Care Time/CCT Total # of Minutes Spent Total Time Spent with Patient: Total time spent is greater than 50% in coordination of care (as documented) at patient's floor/unit and/or counseling patient: Coding Level of Care Code 73366 Subseq Hosp Care Lvl 3 Diagnoses Acute duodenitis K29.80 JENNIFER (acute kidney injury) N17.9 Vomiting R11.2 Nausea presence: with nausea Vomiting Intractability: non-intractable Vomiting type: unspecified Chronic respiratory failure J96.10 CAD (coronary atherosclerotic disease) I25.10 PAF (paroxysmal atrial fibrillation) I48.0 Dizziness R42 Hypertension I10 Hypertension type: essential hypertension Complete AV block I44.2 Hypothyroidism E03.9 Anxiety F41.9 Depression F32.9 Anemia D64.9 Hypokalemia E87.6 DVT prophylaxis Z29.9 (1) Hypertension Hypertension type: essential hypertension Qualified Code(s): I10 - Essential (primary) hypertension (2) Vomiting Nausea presence: with nausea Vomiting Intractability: non-intractable Vomiting type: unspecified Qualified Code(s): R11.2 - Nausea with vomiting, unspecified
[2019-12-16 12:40] LABS: Base Excess VBG -1.1 mEq/L; Oxygen Saturation VBG 67.6 %; pH VBG 7.29 (7.36-7.41)
[2019-12-16] MEDS: PANTOprazole 40 MG TAB PO SCH (20:13)
[2019-12-16] MEDS: ALBUTEROL 0.083% NEBU SOLN 3 ML VIAL NEB SCH (20:59)
[2019-12-17] MEDS: ALBUTEROL 0.083% NEBU SOLN 3 ML VIAL NEB SCH ×4 (00:33→19:26)
[2019-12-17] MEDS: LEVOTHYROXINE SODIUM 25 MCG TABLET PO SCH (06:07)
[2019-12-17 07:05] LABS: Basophils # (auto) 0.01 K/uL (0-0.2); Basophils % (auto) 0.2 %; Eosinophils # (auto) 0.04 K/uL (0-0.5); Eosinophils % (auto) 0.9 %; Hematocrit (blood only) 33.2 % (37-47); Hemoglobin 10.2 g/dL (12.0-16.0); Immature Granulocytes # (auto) 0.02 K/uL (0.00-0.02); Immature Granulocytes % (auto) 0.4 %; Lymphocytes # (auto) 0.46 K/uL (1.2-3.4); Lymphocytes % (auto) 10.1 %; Mean Corpuscular Hemoglobin 27.1 pg (25-34); Mean Corpuscular Hgb Conc 30.7 g/dL (32-36); Mean Corpuscular Volume 88.1 fL (80-100); Mean Platelet Volume 9.9 fL (7.4-10.4); Monocytes # (auto) 0.71 K/uL (0.11-0.59); Monocytes % (auto) 15.5 %; Neutrophils # (auto) 3.33 K/uL (1.4-6.5); Neutrophils % (auto) 72.9 %; Platelet Count 254 K/uL (130-400); RDW Coefficient of Variation 16.5 % (11.5-14.5); Red Blood Count 3.77 M/uL (4.2-5.4); White Blood Count 4.57 K/uL (4.8-10.8)
[2019-12-17 07:32] LABS: Albumin Level 2.6 gm/dl (3.4-5.0); BUN Creatinine Ratio 20.7 (10-20); Calcium 7.9 mg/dl (8.5-10.1); Creatinine Clr Calc Pharmacy 57.5 ml/min; Est GFR (African American) 71.2; Est GFR (Non-African American) 61.4; Potassium 3.6 mmol/L (3.5-5.1)
[2019-12-17 07:35] LABS: Albumin Globulin Ratio 0.8 (0.9-2); Bilirubin,Total 0.5 mg/dl (0.2-1); Globulin 3.4 gm/dl (2.5-4.0)
[2019-12-17] MEDS: carvediloL 6.25 MG TAB PO SCH ×2 (09:24→21:48)
[2019-12-17] MEDS: AMIODARONE 200 MG TAB PO SCH (09:24)
[2019-12-17] MEDS: PANTOprazole 40 MG TAB PO SCH ×2 (09:24→21:50)
[2019-12-17] MEDS: HydrALAZINE TAB 50 MG TAB PO SCH ×3 (09:24→21:49)
[2019-12-17] MEDS: PARoxetine HCL 20 MG TAB PO SCH (09:24)
[2019-12-17] MEDS: AMLODIPINE BESYLATE 5 MG TAB PO SCH (09:24)
[2019-12-17] MEDS: FERROUS GLUCONATE 324 MG TAB PO SCH (09:24)
[2019-12-17] MEDS: SILVER SULFADIAZINE 1% CR 50 GM JAR TOP SCH (09:25)
[2019-12-17] MEDS: SODIUM CHLORIDE 0.9% 1000ML 1,000 ML IV SCH ×2 (09:27→23:27)
--- NOTE | 2019-12-17 11:33 | Hospitalist Progress Note ---
Date of Service December 17, 2019 Assessment & Plan (1) Acute duodenitis: * Admit telemetry -- presented with dizziness/vomiting/nausea/dehydration from [facility] after 2 days poor po intake. Rapid COVID negative * Protonix gtt --> PO BID on 12/16. * Will discontinue ASA at this time and continue on Plavix given duodenitis likely from ulcer and pt with hx CAD * Improving -- possible discharge tomorrow on the protonix 40mg PO BID and will have [facility] set up outpatient scope as patient agreeable during conversation today * H/h stable * Diet advanced, tolerating well (2) Acute on chronic diastolic (congestive) heart failure: * Patient with hx diastolic heart failure, grade II * Weight in computer inaccurate, "per patient" in comments of weight that shows 216lb (was 208 on admission). Asking RN to repeat this evening and document correct wt * Please obtain daily standing scale weights * Strict I&O * Would want to avoid Alcaraz given hx of infections, however will need placed if unable to record accurate I&O and weights * Resumed home lasix. ARB on hold, although may want to consider something like spironolactone? Repeat ECHO? (3) JENNIFER (acute kidney injury): * Cr up to 1.47 on admission -- appears baseline <1. Likely related to poor intake over past 2 days with vomiting * UA with granular casts. IVF as above -- now d/c'd * Renally dose medications when appropriate. Avoid nephrotoxins * Cr 0.93 on AM labs --> resumed lasix given developing congestive changes on CXR today * Resumed lasix. Given additional dose this evening * Urine culture without growth (obtained intially given hx klebsiella pneumoniae infxn in the past) * Monitor AM labs (4) Dizziness: * Similar episode May 2019 when she had pneumonia. Cardiac work-up negative at that time. Pt stating dizziness with all movements. * Will obtain orthostatics in AM (5) Chronic respiratory failure: * Per previous record, patient had been on oxygen therapy in the past but had been weaned off * Denies using currently at [facility] * O2 as needed -- currently 92% on 3L NC but discussed with JOSLYN duke this evening to please take off and see how patient does * Overnight pulse ox with low in the 70s. pt with co2 retention as demonstrated by VBG with CO2 55 * May benefit from BiPAP at night -- unable to perform sleep studies inpatient and will likely need to be arranged outpatient * Will obtain 2 step tomorrow prior to possible d/c * Albuterol prn * Repeat CXR in AM (6) PAF (paroxysmal atrial fibrillation): * Follows with [facility], Dr. Talavera * EKG AV paced with prolonged AV conduction * Pacemaker interrogation * Monitor on telemetry as above -- has been paced in the 60s (7) CAD (coronary atherosclerotic disease): * [place] with stent x 1 in 2014. * ASA/Eliquis on hold in setting of #1 for possible intervention in AM with GI * Continue carvedilol. * Losartan on hold in setting of JENNIFER (as well as lasix) * No ASA in setting of duodenitis --> will start on Plavix moving forward * Not on statin -- intolerant (8) Hypertension: * Chronic. BP currently 151/82 * Continue home amlodipine 10mg, carvedilol 6.25mg BID, hydralazine 50mg TID * Losartan 100mg on hold in setting of JENNIFER * * and lasix 20mg daily on hold in setting of JENNIFER * Continue to monitor (9) Complete AV block: * s/p pacemaker 2018 for complete heart block (10) Hypothyroidism: * TSH elevated at 5.27 although suspect reactive. FT4 wnl at 1.4 * Continue home levothyroxine 25mcg daily * Rec outpt f/u TFT in 6-8 weeks (11) Anxiety: * Continue home paroxetine 20mg (12) Depression: * with anxiety. See above (13) Anemia: * Patient recently started on iron supplementation in the past month per her account * Continue ferrous gluconate daily * hemoglobin on admission 11.9 down to 10.4 on AM labs but had been on IVF (down from 13.1 at discharge May) * Fecal occult for completeness * continue to monitor (14) Vomiting: * See above, with nausea --> phenergan prn. * No further emesis since admission (15) Hypokalemia: * K 3.4 -- ordered oral replacement * RESOLVED (16) DVT prophylaxis: * Resumed home eliquis and will utilize plavix in leui of ASA in setting of duodenitis with possible ulcer Dispo: patient from [facility]. Uses walker to ambulate at baseline. History of dementia. PT/OT with rec to continue. Will provide CM with rx for PT/OT at discharge. Possible d/c in AM Admission and Anticipated Discharge Date Admission Date: December 15, 2019 Supervising Physician Co-Signing Physician Notes PA Supervision Note: I did not personally see or examine the patient today, but I verified all dunbar points of RENITA Humphreys's assessment and plan with the following exceptions/additions: None Subjective Patient evaluated this morning. States she feels about the same as the day before. Still with dizziness at all times per her account although denies feeling as if the room is spinning, blurred vision, visual changes, headache, neck pain at this time. Worse when getting up out of bed. Not made better by her account with changing positions slowly. Discussed getting up into chair today to eat and encouraged to work with PT/OT today to help with strength. She states she was not very hungry this morning but denies abdominal pain at this time. Does endorse abdominal fullness. Shortness of breath worse with lying flat, better with HOB raised. Worked with PT this morning who put patient back in bed flat and O2 at 5L. Took O2 off of patient lying flat and O2 sat dropped to low of 84%. Decreased O2 to 1L and patient with O2 sat of 87% laying flat. Elevated HOB 30 degrees with O2 sat 96% and removed O2 with saturation remaining 93%. Per patient she slept in a recliner prior but upon discussion with daughter Carmen, patient had been sleeping in recliner at home prior to move to [facility] and does not have recliner currently. Carmen states her mother was on oxygen until pacemaker for heart block and then they were told she no longer needed supplemental O2. Discussed possibility of BiPAP but she did not endorse anyone mentioning that in the past but that she knows her mother does snore. Patient endorses daytime sleepiness as well. Review of Systems Review of Systems: All systems reviewed & are unremarkable except as noted in HPI & below Constitutional: no fever and no chills Respiratory: no cough and no chest congestion Cardiovascular: no chest pain, no palpitations and no edema Gastrointestinal: + early satiety; no abdominal pain and no vomiting Genitourinary: no dysuria and no urinary frequency Physical Exam Constitutional: well developed, well nourished and comfortable; no acute distress Eyes: + anicteric sclerae and PERRL ENMT: Ears: no hearing impairment Nose: no external nose abnormality Neck: trachea midline, no thyromegaly Respiratory: normal respiratory effort and able to speak in complete sentences; no respiratory distress, does not use accessory muscles, not tachypneic, no grunting and no tripod positioning Auscultation: + diminished lung sounds, + crackles (bibasilar) and + wheezes (faint expiratory posterior lung martins) Cardiovascular: Rate/Rhythm: regular rate Heart Sounds: no murmur Vessels: no JVD Extremities: normal capillary refill and + edema (trace b/l LE) Gastrointestinal (Abdomen): Inspection/Auscultation: abdomen normal to inspection and normal bowel sounds Percussion/Palpation: abdomen soft; abdomen nontender, no guarding and abdomen not rigid Musculoskeletal: no cyanosis or clubbing, extremities motor strength 5/5 Neurologic: patellar DTR's 2+ bilat, sensation intact and PERRL, EOMI, accommodation nl, no face palsy, no dysarthria Psychiatric: Orientation: alert, oriented to person and oriented to place Lymphatic: no cervical or axillary lymphadenopathy Results & Data Results & Data ([facility]) Vital Signs (Past 12 Hours) Vital Signs Temp Pulse Pulse Pulse Resp BP Pulse Ox 12/17/19 07:41 36.5 C 60 16 128/73 92 12/17/19 07:07 61 18 93 12/17/19 03:44 36.5 C 60 16 127/66 90 12/17/19 03:11 55 L 12/17/19 00:33 66 12/16/19 23:58 36.5 C 61 20 114/70 90 Pulse Ox Pulse Ox 12/17/19 07:41 12/17/19 07:07 12/17/19 03:44 12/17/19 03:11 90 12/17/19 00:33 89 L 12/16/19 23:58 Laboratory Results 12/17/19 12/17/19 12/16/19 Range/Units 06:32 06:32 19:35 WBC 4.57 L (4.8-10.8) K/uL RBC 3.77 L (4.2-5.4) M/uL Hgb 10.2 L (12.0-16.0) g/dL Hct 33.2 L (37-47) % MCV 88.1 (80-100) fL MCH 27.1 (25-34) pg MCHC 30.7 L (32-36) g/dL RDW Std Deviation 53.0 H (36.4-46.3) fL RDW Coeff of Fabián 16.5 H (11.5-14.5) % Plt Count 254 (130-400) K/uL MPV 9.9 (7.4-10.4) fL Immature Gran % (Auto) 0.4 % Neut % (Auto) 72.9 % Lymph % (Auto) 10.1 % [place] % (Auto) 15.5 % Eos % (Auto) 0.9 % Baso % (Auto) 0.2 % Neut # (Auto) 3.33 (1.4-6.5) K/uL Lymph # (Auto) 0.46 L (1.2-3.4) K/uL [place] # (Auto) 0.71 H (0.11-0.59) K/uL Eos # (Auto) 0.04 (0-0.5) K/uL Baso # (Auto) 0.01 (0-0.2) K/uL Immature Gran # (Auto) 0.02 (0.00-0.02) K/uL Sodium 142 (136-145) mmol/L Potassium 3.6 (3.5-5.1) mmol/L Chloride 112 H (98-107) mmol/L Carbon Dioxide 25 (21-32) mmol/L Anion Gap 5.0 (3-11) BUN 19 H (7-18) mg/dl Creatinine 0.93 (0.6-1.2) mg/dl Est Cr Clr Drug Dosing 57.5 ml/min Est GFR ( Amer) 71.2 Est GFR (Non-Af Amer) 61.4 BUN/Creatinine Ratio 20.7 H (10-20) Glucose 81 (70-99) mg/dl Calcium 7.9 L (8.5-10.1) mg/dl Total Bilirubin 0.5 (0.2-1) mg/dl AST 16 (15-37) U/L ALT 30 (12-78) U/L Alkaline Phosphatase 90 (45-117) U/L Total Protein 6.0 L (6.4-8.2) gm/dl Albumin 2.6 L (3.4-5.0) gm/dl Globulin 3.4 (2.5-4.0) gm/dl Albumin/Globulin Ratio 0.8 L (0.9-2) Urine Osmolality (500-800) mOsm/kg Ur Random Sodium 7 mmol/L 12/16/19 Range/Units 19:35 WBC (4.8-10.8) K/uL RBC (4.2-5.4) M/uL Hgb (12.0-16.0) g/dL Hct (37-47) % MCV (80-100) fL MCH (25-34) pg MCHC (32-36) g/dL RDW Std Deviation (36.4-46.3) fL RDW Coeff of Fabián (11.5-14.5) % Plt Count (130-400) K/uL MPV (7.4-10.4) fL Immature Gran % (Auto) % Neut % (Auto) % Lymph % (Auto) % [place] % (Auto) % Eos % (Auto) % Baso % (Auto) % Neut # (Auto) (1.4-6.5) K/uL Lymph # (Auto) (1.2-3.4) K/uL [place] # (Auto) (0.11-0.59) K/uL Eos # (Auto) (0-0.5) K/uL Baso # (Auto) (0-0.2) K/uL Immature Gran # (Auto) (0.00-0.02) K/uL Sodium (136-145) mmol/L Potassium (3.5-5.1) mmol/L Chloride (98-107) mmol/L Carbon Dioxide (21-32) mmol/L Anion Gap (3-11) BUN (7-18) mg/dl Creatinine (0.6-1.2) mg/dl Est Cr Clr Drug Dosing ml/min Est GFR ( Amer) Est GFR (Non-Af Amer) BUN/Creatinine Ratio (10-20) Glucose (70-99) mg/dl Calcium (8.5-10.1) mg/dl Total Bilirubin (0.2-1) mg/dl AST (15-37) U/L ALT (12-78) U/L Alkaline Phosphatase (45-117) U/L Total Protein (6.4-8.2) gm/dl Albumin (3.4-5.0) gm/dl Globulin (2.5-4.0) gm/dl Albumin/Globulin Ratio (0.9-2) Urine Osmolality 516 (500-800) mOsm/kg Ur Random Sodium mmol/L Diagnostic Findings CXR IMPRESSION: Developing congestive heart failure. Small bilateral pleural effusions. PG Care Time/CCT Total # of Minutes Spent Total Time Spent with Patient: Total time spent is greater than 50% in coordination of care (as documented) at patient's floor/unit and/or counseling patient: Coding Level of Care Code 47285 Subseq Hosp Care Lvl 3 Diagnoses Acute duodenitis K29.80 Acute on chronic diastolic (congestive) heart failure I50.33 JENNIFER (acute kidney injury) N17.9 Dizziness R42 Chronic respiratory failure J96.10 PAF (paroxysmal atrial fibrillation) I48.0 CAD (coronary atherosclerotic disease) I25.10 Hypertension I10 Hypertension type: essential hypertension Complete AV block I44.2 Hypothyroidism E03.9 Anxiety F41.9 Depression F32.9 Anemia D64.9 Vomiting R11.2 Nausea presence: with nausea Vomiting Intractability: non-intractable Vomiting type: unspecified Hypokalemia E87.6 DVT prophylaxis Z29.9 (1) Hypertension Hypertension type: essential hypertension Qualified Code(s): I10 - Essential (primary) hypertension (2) Vomiting Nausea presence: with nausea Vomiting Intractability: non-intractable Vomiting type: unspecified Qualified Code(s): R11.2 - Nausea with vomiting, unspecified
--- NOTE | 2019-12-17 11:41 | XRay Report ---
XR chest 2V PA/lateral CLINICAL HISTORY: f/u dyspnea COMPARISON STUDY: 12/15/2019 FINDINGS: Stable cardiomegaly. Interval development of small bilateral pleural effusions. Increased p rominence of pulmonary vasculature. Bipolar cardiac pacer. IMPRESSION: Developing congestive heart failure. Small bilateral pleural effusions. ACT 112: Negative or not required by law. The above report was generated using voice recognition software. It may contain grammatical, syntax or spelling errors. Electronically signed by: El Gonzalez M.D. 12/17/2019 11:40 AM
[2019-12-17] MEDS: FUROSEMIDE 20 MG TAB PO SCH (13:32)
[2019-12-17] MEDS ORDERED: FUROSEMIDE 20 MG TAB PO ONE (19:00)
[2019-12-17] MEDS: APIXABAN 5 MG TABLET PO SCH (21:49)
--- NOTE | 2019-12-17 23:29 | Communication Note ---
Date of Service: December 17, 2019 Notified overnight that fluids were still ordered for this patient. It was discontinued. Nursing also stated that she was very incontinent and so accurate reads of urine output could not be obtained. A rosales was ordered. Resident Activity Tracking Resident Involvement: Human Resources Training Manager Coverage Note Care Provided: Adult Hospital Medicine
[2019-12-18] MEDS: ALBUTEROL 0.083% NEBU SOLN 3 ML VIAL NEB SCH ×4 (01:13→19:11)
[2019-12-18] MEDS: LEVOTHYROXINE SODIUM 25 MCG TABLET PO SCH (06:51)
[2019-12-18 08:25] LABS: Hematocrit (blood only) 34.7 % (37-47); Hemoglobin 10.6 g/dL (12.0-16.0); Mean Corpuscular Hemoglobin 26.8 pg (25-34); Mean Corpuscular Hgb Conc 30.5 g/dL (32-36); Mean Corpuscular Volume 87.6 fL (80-100); Platelet Count 269 K/uL (130-400); RDW Coefficient of Variation 16.7 % (11.5-14.5); RDW Standard Deviation 53.5 fL (36.4-46.3); Red Blood Count 3.96 M/uL (4.2-5.4); White Blood Count 4.68 K/uL (4.8-10.8)
[2019-12-18 08:58] LABS: BUN Creatinine Ratio 17.2 (10-20); Calcium 8.3 mg/dl (8.5-10.1); Creatinine Clr Calc Pharmacy 61.9 ml/min; Est GFR (African American) 79.3; Est GFR (Non-African American) 68.5; Potassium 3.3 mmol/L (3.5-5.1)
[2019-12-18] MEDS ORDERED: POTASSIUM CHLORIDE 20 MEQ TABCR PO STA ×2 (09:23→18:24)
[2019-12-18] MEDS: CLOPIDOGREL BISULFATE 75 MG TAB PO SCH (10:18)
[2019-12-18] MEDS: SILVER SULFADIAZINE 1% CR 50 GM JAR TOP SCH (10:18)
[2019-12-18] MEDS: AMIODARONE 200 MG TAB PO SCH (10:18)
[2019-12-18] MEDS: AMLODIPINE BESYLATE 5 MG TAB PO SCH (10:18)
[2019-12-18] MEDS: FUROSEMIDE 20 MG TAB PO SCH (10:18)
[2019-12-18] MEDS: FERROUS GLUCONATE 324 MG TAB PO SCH (10:19)
[2019-12-18] MEDS: carvediloL 6.25 MG TAB PO SCH ×2 (10:19→20:14)
[2019-12-18] MEDS: PARoxetine HCL 20 MG TAB PO SCH (10:19)
[2019-12-18] MEDS: HydrALAZINE TAB 50 MG TAB PO SCH ×3 (10:19→20:13)
[2019-12-18] MEDS: PANTOprazole 40 MG TAB PO SCH ×2 (10:19→20:14)
[2019-12-18] MEDS: APIXABAN 5 MG TABLET PO SCH ×2 (10:20→20:12)
[2019-12-18] MEDS: DOCUSATE SODIUM 100 MG CAP PO SCH ×2 (12:07→20:13)
[2019-12-18] MEDS: POLYETHYLENE (MIRALAX) 17 GM PACK PO SCH (12:07)
--- NOTE | 2019-12-18 14:03 | XRay Report ---
XR chest 2V PA/lateral CLINICAL HISTORY: Congestive failure. Follow-up study. COMPARISON STUDY: 12/17/2019 FINDINGS: The heart remains enlarged. There is continued radiographic evidence of congestive failure. There are small bilateral pleural effusions. There are basilar opacities likely representing atelect asis. There is no lobar consolidation. There is a left subclavian dual-chamber central venous pacemak er present.[ IMPRESSION: Radiographic evidence of congestive failure and bilateral pleural effusions, similar to t he preceding study. ACT 112: Negative or not required by law. Electronically signed by: Mingo Remy M.D. 12/18/2019 2:02 PM
--- NOTE | 2019-12-18 15:37 | Hospitalist Progress Note ---
Date of Service December 18, 2019 Assessment & Plan (1) Acute duodenitis: * Admit telemetry -- presented with dizziness/vomiting/nausea/dehydration from [facility] after 2 days poor po intake. Rapid COVID negative * Protonix gtt --> PO BID on 12/16. * Will discontinue ASA at this time and continue on Plavix given duodenitis likely from ulcer and pt with hx CAD * Improving -- to be discharged on protonix 40mg PO BID and [facility] as patient agreeable * H/h stable * Diet advanced, tolerating well (2) Acute on chronic diastolic (congestive) heart failure: * Patient with hx diastolic heart failure, grade II * Weight in computer inaccurate, "per patient" in comments of weight that shows 216lb (was 208 on admission). Asking RN to repeat this evening and document correct wt * Alcaraz placed by overnight team as unable to get accurate output * Weight today -- 95.7kg (unclear baseline weight) * CXR with congestive changes, unchanged with additional 20mg lasix in addition to home dose 12/16 * Place on lasix 20mg IV BID and monitor I&O (on 20mg PO daily [employer]) * Continue carvedilol * Home losartan resumed * Repeat ECHO ordered (3) JENNIFER (acute kidney injury): * RESOLVED. Cr up to 1.47 on admission -- appears baseline <1. Likely related to poor intake x 2 days [employer] w/ vomiting * Initially rehydrated and now with congestive changes on imaging, 90% on 2L NC * Cr 0.85 on AM labs * Ucx with probable mixed skin janie * Continue to monitor AM labs as now placed on lasix 20mg IV BID (4) Dizziness: * Similar episode May 2019 when she had pneumonia. Cardiac work-up negative at that time. Pt stating dizziness with all movements. * Ordered orthostatic VS (5) Chronic respiratory failure: * Per previous record, patient had been on oxygen therapy in the past but had been weaned off * Denies using currently at [facility]. * Overnight pulse ox with low in the 70s. pt with co2 retention as demonstrated by VBG with CO2 55 * O2 as needed -- currently 90% on 2L NC -- will continue FOR NOW given CHF, although patient with chronic respiratory failure with hypercap and normal at 88% without complaints of sob * May benefit from BiPAP at night -- unable to perform sleep studies inpatient and will likely need to be arranged outpatient * Albuterol prn * 2 step prior to dc (6) PAF (paroxysmal atrial fibrillation): * Follows with [facility], Dr. Talavera * EKG AV paced with prolonged AV conduction * Pacemaker interrogation * Monitor on telemetry as above -- has been paced in the 60s * Consult in AM if ECHO shows worsening (7) CAD (coronary atherosclerotic disease): * [place] with stent x 1 in 2014. * Plavix resumed in place of ASA in setting of duodenitis * Eliquis resumed * Continue carvedilol. * Resume Losartan - initially held in setting of JENNIFER (as well as lasix) * Not on statin -- intolerant (8) Hypertension: * Chronic. BP currently 117/71 * Continue home amlodipine 10mg, carvedilol 6.25mg BID, hydralazine 50mg TID * Resumed Losartan, lasix as above * Continue to monitor (9) Complete AV block: * s/p pacemaker 2019 for complete heart block (10) Hypothyroidism: * TSH elevated at 5.27 although suspect reactive. FT4 wnl at 1.4 * Continue home levothyroxine 25mcg daily * Rec outpt f/u TFT in 6-8 weeks (11) Anxiety: * Continue home paroxetine 20mg (12) Depression: * with anxiety. See above (13) Anemia: * Patient recently started on iron supplementation in the past month per her account. Hemoglobin 13.1 in May * Continue ferrous gluconate daily * h/h improved to 10.6/34.7 * Fecal occult for completeness -- pt without BM. added bowel regimen * continue to monitor (14) Vomiting: * See above, with nausea --> phenergan prn. * No further emesis since admission (15) Hypokalemia: * K 3.3 -- ordered oral replacement * BMP in AM -- will likely need additional potassium given lasix BID (16) DVT prophylaxis: * Resumed home eliquis and will utilize plavix in leui of ASA in setting of duodenitis with possible ulcer Dispo: patient from [facility]. Uses walker to ambulate at baseline. History of dementia. PT/OT with rec to continue. Will provide CM with rx for PT/OT at discharge Admission and Anticipated Discharge Date Admission Date: December 15, 2019 Supervising Physician Co-Signing Physician Notes PA Supervision Note: I did not personally see or examine the patient today, but I verified all dunbar points of RENITA Humphreys's assessment and plan with the following exceptions/additions: None Subjective Patient evaluated this morning. States breathing better. Ate breakfast without difficulty. No further abdominal/epigastric discomfort or early satiety. Has not had a BM since admission. Denied working with PT today. Does have little more swelling to than previously. Denies cp, shortness of breath, abdominal pain, nausea at this time. Plans for return to [facility] with PT/OT. Denies fevers, chills. Fluids were continued into the evening despite having them held and verbally given discontinuation order. CXR with congestive changes. Review of Systems Review of Systems: All systems reviewed & are unremarkable except as noted in HPI & below Physical Exam Constitutional: well developed, well nourished and comfortable; no acute distress Eyes: + anicteric sclerae and PERRL ENMT: Ears: no hearing impairment Nose: no external nose abnormality Neck: trachea midline, no thyromegaly Respiratory: normal respiratory effort and able to speak in complete sentences; no respiratory distress, does not use accessory muscles, not tachypneic, no grunting and no tripod positioning Auscultation: + diminished lung sounds, + crackles (bibasilar) and + wheezes (faint expiratory posterior lung martins) Cardiovascular: Rate/Rhythm: regular rate Heart Sounds: + murmur Vessels: no JVD Extremities: normal capillary refill and + edema (1+ b/l LE) Gastrointestinal (Abdomen): Inspection/Auscultation: abdomen normal to inspection and normal bowel sounds Percussion/Palpation: abdomen soft; abdomen nontender, no guarding and abdomen not rigid Musculoskeletal: no cyanosis or clubbing, extremities motor strength 5/5 Neurologic: patellar DTR's 2+ bilat, sensation intact and PERRL, EOMI, accommodation nl, no face palsy, no dysarthria Psychiatric: Orientation: alert, oriented to person and oriented to place; + not oriented to time Lymphatic: no cervical or axillary lymphadenopathy Results & Data Results & Data ([facility]) Vital Signs (Past 12 Hours) Vital Signs Temp Pulse Pulse Resp BP Pulse Ox 12/18/19 13:17 60 18 92 12/18/19 11:51 36.7 C 61 18 124/76 92 12/18/19 08:12 36.8 C 63 21 140/62 90 12/18/19 06:54 61 18 94 12/18/19 03:44 36.7 C 61 18 144/75 H 92 Laboratory Results 12/18/19 12/18/19 Range/Units 07:53 07:53 WBC 4.68 L (4.8-10.8) K/uL RBC 3.96 L (4.2-5.4) M/uL Hgb 10.6 L (12.0-16.0) g/dL Hct 34.7 L (37-47) % MCV 87.6 (80-100) fL MCH 26.8 (25-34) pg MCHC 30.5 L (32-36) g/dL RDW Std Deviation 53.5 H (36.4-46.3) fL RDW Coeff of Fabián 16.7 H (11.5-14.5) % Plt Count 269 (130-400) K/uL MPV 10.0 (7.4-10.4) fL Sodium 140 (136-145) mmol/L Potassium 3.3 L (3.5-5.1) mmol/L Chloride 109 H (98-107) mmol/L Carbon Dioxide 28 (21-32) mmol/L Anion Gap 3.0 (3-11) BUN 15 (7-18) mg/dl Creatinine 0.85 (0.6-1.2) mg/dl Est Cr Clr Drug Dosing 61.9 ml/min Est GFR ( Amer) 79.3 Est GFR (Non-Af Amer) 68.5 BUN/Creatinine Ratio 17.2 (10-20) Glucose 83 (70-99) mg/dl Calcium 8.3 L (8.5-10.1) mg/dl Diagnostic Findings CXR IMPRESSION: Radiographic evidence of congestive failure and bilateral pleural effusions, similar to the preceding study. PG Care Time/CCT Total # of Minutes Spent Total Time Spent with Patient: Total time spent is greater than 50% in cook dinner rdination of care (as documented) at patient's floor/unit and/or counseling patient: Coding Level of Care Code 44692 Subseq Hosp Care Lvl 3 Diagnoses Acute duodenitis K29.80 Acute on chronic diastolic (congestive) heart failure I50.33 JENNIFER (acute kidney injury) N17.9 Dizziness R42 Chronic respiratory failure J96.10 PAF (paroxysmal atrial fibrillation) I48.0 CAD (coronary atherosclerotic disease) I25.10 Hypertension I10 Hypertension type: essential hypertension Complete AV block I44.2 Hypothyroidism E03.9 Anxiety F41.9 Depression F32.9 Anemia D64.9 Vomiting R11.2 Nausea presence: with nausea Vomiting Intractability: non-intractable Vomiting type: unspecified Hypokalemia E87.6 DVT prophylaxis Z29.9 (1) Hypertension Hypertension type: essential hypertension Qualified Code(s): I10 - Essential (primary) hypertension (2) Vomiting Nausea presence: with nausea Vomiting Intractability: non-intractable Vomiting type: unspecified Qualified Code(s): R11.2 - Nausea with vomiting, unspecified
[2019-12-18] MEDS ORDERED: FUROSEMIDE 20 MG in SYRINGE 0 ML IV ONE (18:30)
[2019-12-19] MEDS: ALBUTEROL 0.083% NEBU SOLN 3 ML VIAL NEB SCH ×4 (01:11→19:40)
[2019-12-19] MEDS: LEVOTHYROXINE SODIUM 25 MCG TABLET PO SCH (05:35)
[2019-12-19 08:22] LABS: Hematocrit (blood only) 34.5 % (37-47); Hemoglobin 10.5 g/dL (12.0-16.0); Mean Corpuscular Hemoglobin 26.3 pg (25-34); Mean Corpuscular Hgb Conc 30.4 g/dL (32-36); Mean Corpuscular Volume 86.3 fL (80-100); Mean Platelet Volume 9.4 fL (7.4-10.4); Platelet Count 267 K/uL (130-400); RDW Coefficient of Variation 16.6 % (11.5-14.5); RDW Standard Deviation 52.8 fL (36.4-46.3); White Blood Count 4.49 K/uL (4.8-10.8)
[2019-12-19 08:24] LABS: Base Excess VBG 6.1 mEq/L; pH VBG 7.43 (7.36-7.41)
[2019-12-19] MEDS: SILVER SULFADIAZINE 1% CR 50 GM JAR TOP SCH (08:55)
[2019-12-19] MEDS: AMLODIPINE BESYLATE 5 MG TAB PO SCH (08:55)
[2019-12-19] MEDS: CLOPIDOGREL BISULFATE 75 MG TAB PO SCH (08:55)
[2019-12-19] MEDS: PANTOprazole 40 MG TAB PO SCH ×2 (08:55→21:34)
[2019-12-19] MEDS: LOSARTAN POTASSIUM 50 MG TAB PO SCH (08:56)
[2019-12-19] MEDS: DOCUSATE SODIUM 100 MG CAP PO SCH ×2 (08:56→21:34)
[2019-12-19] MEDS: APIXABAN 5 MG TABLET PO SCH ×2 (08:56→21:34)
[2019-12-19] MEDS: HydrALAZINE TAB 50 MG TAB PO SCH ×3 (08:56→21:34)
[2019-12-19] MEDS: carvediloL 6.25 MG TAB PO SCH ×2 (08:56→21:35)
[2019-12-19] MEDS: FERROUS GLUCONATE 324 MG TAB PO SCH (08:56)
[2019-12-19] MEDS: AMIODARONE 200 MG TAB PO SCH (08:56)
[2019-12-19] MEDS: PARoxetine HCL 20 MG TAB PO SCH (08:56)
[2019-12-19] MEDS: POLYETHYLENE (MIRALAX) 17 GM PACK PO SCH (08:56)
[2019-12-19] MEDS: FUROSEMIDE 20 MG in SYRINGE 0 ML IV SCH ×2 (08:56→21:35)
[2019-12-19 10:05] LABS: Albumin Level 2.5 gm/dl (3.4-5.0); BUN Creatinine Ratio 17.7 (10-20); Bilirubin Direct 0.2 mg/dl (0-0.2); Calcium 7.8 mg/dl (8.5-10.1); Creatinine Clr Calc Pharmacy 70.2 ml/min; Est GFR (African American) 92.3; Est GFR (Non-African American) 79.6; Potassium 3.7 mmol/L (3.5-5.1)
[2019-12-19 10:08] LABS: Bilirubin,Total 0.6 mg/dl (0.2-1); Total Protein 6.5 gm/dl (6.4-8.2)
--- NOTE | 2019-12-19 12:50 | Hospitalist Progress Note ---
Date of Service December 19, 2019 Assessment & Plan (1) Acute on chronic diastolic (congestive) heart failure: Patient initially presented with dizziness/vomiting/nausea/dehydration from [facility] following 2 days of poor PO intake. Rapid COVID negative * Patient with hx diastolic heart failure, grade II * Weight in computer inaccurate, "per patient" in comments of weight that shows 216lb (was 208 on admission). Asking RN to repeat this evening and document correct wt * Rosales placed by overnight team as unable to get accurate output --> discontinued to prevent infxn given hx of klebsiella uti in past * CXR with congestive changes * Weight 95.7kg (unclear baseline weight) --> asked nursing to please obtain standing scale weight ONLY * Placed on Lasix 20mg IV BID and monitor I&O (on 20mg PO daily FISH PACKER). Net negative -2L Repeat labs this afternoon Likely to be able to transition back to PO lasix 12/19 once euvolemic and able to have known baseline weight. Will need daily weights at discharge with close follow-up. ??CHF clinic if agreeable. * Continue carvedilol, losartan * Repeat ECHO with normal left ventricular size and systolic function. EF 60- 65%. No definite regional wma. Septal motion c/w pacemaker. Mild-moderate LVH. Mildly dilated RV with normal systolic function. Severe left atrial dilation. Mild right atrial dilation. Moderate mitral annular calcification, mild MR. Mild pulmonary HTN, RVSP 41mmHg. * New pulm HTN compared to Apr 2019. On eliquis for hx afib. * --> ideally would be on NIPPV at night. Overnight pox with drop to 77% * VBG with pH 7.43, pCO2 48, pO2 81, HCO3 31 (previously pH 7.29 with pCO2 55 on 2L on admission) (2) Acute duodenitis: * CT with evidence of duodenitis on exam * Initially placed on Protonix gtt on admission and transitioned to PO BID 12/16. * GI consulted -- will need outpatient EGD * ASA discontinued and placed on Plavix given possible peptic ulcer given findings and pt with hx CAD * H/h stable, 10.34 * Diet advanced, tolerating well (3) JENNIFER (acute kidney injury): * RESOLVED. Cr up to 1.47 on admission -- appears baseline <1. Likely related to poor intake x 2 days FISH PACKER w/ vomiting * Initially rehydrated and now with congestive changes on imaging, 90% on 2L NC * Cr 0.75 on AM labs * Ucx with probable mixed skin janie * Continue to monitor AM labs as now placed on lasix 20mg IV BID (4) Chronic respiratory failure: * Per previous record, patient had been on oxygen therapy in the past but had been weaned off * Denies using currently at [facility]. * Overnight pulse ox with low in the 70s-qualifies for nocturnal O2 * pt with co2 retention as demonstrated by VBG with CO2 55. VBG with improvement today, pH 7.43, PCO2 48 * O2 as needed during daytime-- currently 95% on 2L NC -- will continue FOR NOW given CHF, although patient with chronic respiratory failure with hypercap and normal at 88% without complaints of sob * May benefit from BiPAP at night -- unable to perform sleep studies inpatient and will likely need to be arranged outpatient * Albuterol prn * 2 step prior to dc (5) Dizziness: * Similar episode May 2019 when she had pneumonia. Cardiac work-up n egative at that time. * Dizziness improved per patient today * Orthostatics negative (6) PAF (paroxysmal atrial fibrillation): * Follows with [facility], Dr. Talavera. EKG AV paced with prolonged AV conduction * Continues to be pacede in the 60s * ECHO as above (7) CAD (coronary atherosclerotic disease): * [place] with stent x 1 in 2014. * Plavix resumed in place of ASA in setting of duodenitis * Continue carvedilol, losartan (initially held for JENNIFER). Not tolerant to statin (8) Hypertension: * Chronic. BP currently 128/63 * Continue home amlodipine 10mg, carvedilol 6.25mg BID, hydralazine 50mg TID, losartan * Lasix as above * Continue to monitor (9) Complete AV block: * s/p pacemaker 2019 for complete heart block (10) Hypothyroidism: * TSH elevated at 5.27 although suspect reactive. FT4 wnl at 1.4 * Continue home levothyroxine 25mcg daily * Rec outpt f/u TFT in 6-8 weeks (11) Anxiety: * Continue home paroxetine 20mg (12) Depression: * with anxiety. See above (13) Anemia: * Patient recently started on iron supplementation in the past month per her account. Hemoglobin 13.1 in May * Continue ferrous gluconate daily. H/h 10. * Fecal occult for completeness. Patient with BM although never collected (14) Vomiting: * See above, with nausea on admission--> phenergan prn. No further emesis during admission (15) Hypokalemia: * Resolved -- K 3.7 * Continue to monitor as lasix IV BID (16) DVT prophylaxis: * Resumed home Eliquis and will utilize Plavix in lieu of ASA in setting of duodenitis with possible ulcer Dispo: patient from [facility]. Uses walker to ambulate at baseline. History of dementia. PT/OT with rec to continue at discharge. Family wants PT/OT through [facility] as patient with hx dementia Admission and Anticipated Discharge Date Admission Date: December 15, 2019 Supervising Physician Co-Signing Physician Notes PA Supervision Note: I did not personally see or examine the patient today, but I verified all dunbar points of RENITA Humphreys's assessment and plan with the following exceptions/additions: None Subjective Patient evaluated this morning. Shortness of breath improved but still with some dyspnea on exertion to bathroom. Has been ambulating ok with walker. Agreeable to getting up to chair today for meals and participating in therapy. Discussed importance of ambulation to regain strength. Eating/drinking without difficulty. She states she did have successful BM which was normal for her without blood or dark tarry appearance. Discussed discontinuing rosales catheter. Patient agreeable. Denies fever, chills, chest pain, abdominal fullness, nausea, vomiting. Plans for continued diuresis, PT/OT and hopeful discharge tomorrow with outpatient follow up with GI for scope for her duodenitis. Review of Systems Review of Systems: All systems reviewed & are unremarkable except as noted in HPI & below Physical Exam Constitutional: well developed, well nourished and comfortable; no acute distress Eyes: + anicteric sclerae and PERRL ENMT: Ears: no hearing impairment Nose: no external nose abnormality Neck: trachea midline, no thyromegaly Respiratory: normal respiratory effort and able to speak in complete sentences; no respiratory distress, does not use accessory muscles, not tachypneic, no grunting and no tripod positioning Auscultation: + diminished lung sounds, + crackles (bibasilar) and + wheezes (faint expiratory posterior lung martins) 92% on 2L NC Cardiovascular: Rate/Rhythm: regular rate and regular rhythm Heart Sounds: + murmur Vessels: + JVD Extremities: normal capillary refill and + edema (1+ b/l LE) Gastrointestinal (Abdomen): Inspection/Auscultation: abdomen normal to inspection and normal bowel sounds Percussion/Palpation: abdomen soft; abdomen nontender, no guarding and abdomen not rigid Musculoskeletal: Head/Neck/Chest: normocephalic and head atraumatic 4/5 throughout Neurologic: patellar DTR's 2+ bilat, sensation intact and PERRL, EOMI, accommodation nl, no face palsy, no dysarthria Psychiatric: Orientation: alert, oriented to person and oriented to place; + not oriented to time Lymphatic: no cervical or axillary lymphadenopathy Results & Data Results & Data ([facility]) Vital Signs (Past 12 Hours) Vital Signs Temp Pulse Pulse Resp BP BP Pulse Ox 12/19/19 11:53 36.8 C 63 18 132/72 93 12/19/19 08:00 37.3 C 65 22 125/59 L 91 12/19/19 07:16 63 18 93 12/19/19 03:27 36.8 C 59 L 19 110/69 94 12/19/19 01:12 64 18 91 Laboratory Results 12/19/19 12/19/19 12/19/19 Range/Units 08:07 08:07 08:07 WBC 4.49 L (4.8-10.8) K/uL RBC 4.00 L (4.2-5.4) M/uL Hgb 10.5 L (12.0-16.0) g/dL Hct 34.5 L (37-47) % MCV 86.3 (80-100) fL MCH 26.3 (25-34) pg MCHC 30.4 L (32-36) g/dL RDW Std Deviation 52.8 H (36.4-46.3) fL RDW Coeff of Fabián 16.6 H (11.5-14.5) % Plt Count 267 (130-400) K/uL MPV 9.4 (7.4-10.4) fL VBG pH 7.43 H (7.36-7.41) VBG pCO2 48 (38-50) mmHg VBG pO2 81 mmHg VBG HCO3 31 mmol/L VBG O2 Saturation 96.0 % VBG Base Excess 6.1 mEq/L Barometric Pressure 731.6 mm/Hg Sodium 142 (136-145) mmol/L Potassium 3.7 (3.5-5.1) mmol/L Chloride 110 H (98-107) mmol/L Carbon Dioxide 30 (21-32) mmol/L Anion Gap 2.0 L (3-11) BUN 13 (7-18) mg/dl Creatinine 0.75 (0.6-1.2) mg/dl Est Cr Clr Drug Dosing 70.2 ml/min Est GFR ( Amer) 92.3 Est GFR (Non-Af Amer) 79.6 BUN/Creatinine Ratio 17.7 (10-20) Glucose 100 H (70-99) mg/dl Calcium 7.8 L (8.5-10.1) mg/dl Total Bilirubin 0.6 (0.2-1) mg/dl Direct Bilirubin 0.2 (0-0.2) mg/dl AST 10 L (15-37) U/L ALT 21 (12-78) U/L Alkaline Phosphatase 84 (45-117) U/L Total Protein 6.5 (6.4-8.2) gm/dl Albumin 2.5 L (3.4-5.0) gm/dl PG Care Time/CCT Total # of Minutes Spent Total Time Spent with Patient: Total time spent is greater than 50% in coordination of care (as documented) at patient's floor/unit and/or counseling patient: Coding Level of Care Code 09270 Subseq Hosp Care Lvl 3 Diagnoses Acute on chronic diastolic (congestive) heart failure I50.33 Acute duodenitis K29.80 JENNIFER (acute kidney injury) N17.9 Chronic respiratory failure J96.10 Dizziness R42 PAF (paroxysmal atrial fibrillation) I48.0 CAD (coronary atherosclerotic disease) I25.10 Hypertension I10 Hypertension type: essential hypertension Complete AV block I44.2 Hypothyroidism E03.9 Anxiety F41.9 Depression F32.9 Anemia D64.9 Vomiting R11.2 Nausea presence: with nausea Vomiting Intractability: non-intractable Vomiting type: unspecified Hypokalemia E87.6 DVT prophylaxis Z29.9 (1) Hypertension Hypertension type: essential hypertension Qualified Code(s): I10 - Essential (primary) hypertension (2) Vomiting Nausea presence: with nausea Vomiting Intractability: non-intractable Vomiting type: unspecified Qualified Code(s): R11.2 - Nausea with vomiting, unspecified
--- NOTE | 2019-12-19 15:36 | XCELERA ---
[id number]
[2019-12-19 18:05] LABS: BUN Creatinine Ratio 18.1 (10-20); Calcium 8.1 mg/dl (8.5-10.1); Creatinine Clr Calc Pharmacy 55.8 ml/min; Est GFR (African American) 70.2; Est GFR (Non-African American) 60.6
[2019-12-20] MEDS: ALBUTEROL 0.083% NEBU SOLN 3 ML VIAL NEB SCH ×4 (01:30→19:27)
[2019-12-20] MEDS: LEVOTHYROXINE SODIUM 25 MCG TABLET PO SCH (05:45)
[2019-12-20 07:03] LABS: Hematocrit (blood only) 33.1 % (37-47); Hemoglobin 10.4 g/dL (12.0-16.0); Mean Corpuscular Hemoglobin 27.2 pg (25-34); Mean Corpuscular Hgb Conc 31.4 g/dL (32-36); Mean Corpuscular Volume 86.4 fL (80-100); Platelet Count 259 K/uL (130-400); RDW Coefficient of Variation 16.4 % (11.5-14.5); RDW Standard Deviation 52.4 fL (36.4-46.3); Red Blood Count 3.83 M/uL (4.2-5.4); White Blood Count 4.23 K/uL (4.8-10.8)
[2019-12-20 07:25] LABS: BUN Creatinine Ratio 21.3 (10-20); Calcium 7.9 mg/dl (8.5-10.1); Creatinine Clr Calc Pharmacy 69.2 ml/min; Est GFR (African American) 92.3; Est GFR (Non-African American) 79.6; Potassium 3.5 mmol/L (3.5-5.1)
[2019-12-20] MEDS: AMLODIPINE BESYLATE 5 MG TAB PO SCH (08:24)
[2019-12-20] MEDS: LOSARTAN POTASSIUM 50 MG TAB PO SCH (08:24)
[2019-12-20] MEDS: PARoxetine HCL 20 MG TAB PO SCH (08:24)
[2019-12-20] MEDS: PANTOprazole 40 MG TAB PO SCH ×2 (08:24→21:08)
[2019-12-20] MEDS: AMIODARONE 200 MG TAB PO SCH (08:25)
[2019-12-20] MEDS: CLOPIDOGREL BISULFATE 75 MG TAB PO SCH (08:25)
[2019-12-20] MEDS: carvediloL 6.25 MG TAB PO SCH ×2 (08:25→21:07)
[2019-12-20] MEDS: DOCUSATE SODIUM 100 MG CAP PO SCH ×2 (08:25→21:07)
[2019-12-20] MEDS: APIXABAN 5 MG TABLET PO SCH ×2 (08:25→21:06)
[2019-12-20] MEDS: HydrALAZINE TAB 50 MG TAB PO SCH ×3 (08:25→21:07)
[2019-12-20] MEDS: FERROUS GLUCONATE 324 MG TAB PO SCH (08:25)
[2019-12-20] MEDS: POLYETHYLENE (MIRALAX) 17 GM PACK PO SCH (08:26)
[2019-12-20] MEDS: SILVER SULFADIAZINE 1% CR 50 GM JAR TOP SCH (08:26)
[2019-12-20] MEDS: POTASSIUM CHLORIDE 20 MEQ TABCR PO SCH (08:35)
[2019-12-20] MEDS ORDERED: FUROSEMIDE 20 MG in SYRINGE 0 ML IV SCH (09:00)
[2019-12-20] MEDS ORDERED: FUROSEMIDE 20 MG TAB PO SCH (09:00)
--- NOTE | 2019-12-20 09:08 | Hospitalist Progress Note ---
Date of Service December 20, 2019 Assessment & Plan (1) Acute on chronic diastolic (congestive) heart failure: Patient initially presented with dizziness/vomiting/nausea/dehydration from [facility] following 2 days of poor PO intake. Rapid COVID negative * Patient with hx diastolic heart failure, grade II * patient went into acute heart failure after aggressive IV hydration at time of admission * responded well to Lasix 20mg IV BID, Cr is stable, less to no edema in legs today * transition back to Lasix 20mg daily * Continue carvedilol, losartan * Repeat ECHO with normal left ventricular size and systolic function. EF 60- 65%. No definite regional wma. Septal motion c/w pacemaker. Mild-moderate LVH. Mildly dilated RV with normal systolic function. Severe left atrial dilation. Mild right atrial dilation. Moderate mitral annular calcification, mild MR. Mild pulmonary HTN, RVSP 41mmHg. * New pulm HTN compared to Apr 2019. On eliquis for hx afib. * --> ideally would be on NIPPV at night. Overnight pox with drop to 77% (2) Acute duodenitis: * CT with evidence of duodenitis on exam * Initially placed on Protonix gtt on admission and transitioned to PO BID 12/16. * GI consulted -- will need outpatient EGD * ASA discontinued and placed on Plavix given possible peptic ulcer given findings and pt with hx CAD * H/h stable for days * Diet advanced, tolerating well (3) JENNIFER (acute kidney injury): * RESOLVED. Cr up to 1.47 on admission -- appears baseline <1. Likely related to poor intake x 2 days [employer]GER w/ vomiting * Initially rehydrated and then with congestive changes on imaging, 90% on 2L NC * Cr 0.75 today * Ucx with probable mixed skin janie * Cr is stable after diuresis, resume Lasix 20mg PO daily (4) Chronic respiratory failure: * Per previous record, patient had been on oxygen therapy in the past but had been weaned off * Denies using currently at [facility]. * Overnight pulse ox with low in the 70s-qualifies for nocturnal O2 * pt with co2 retention as demonstrated by VBG with CO2 55. VBG with improvement today, pH 7.43, PCO2 48 plan for repeat nocturnal desaturation study this evening and two step tomorrow to arrange for oxygen on discharge (5) Dizziness: * Similar episode May 2019 when she had pneumonia. Cardiac work-up negative at that time. * Dizziness improved per patient today * Orthostatics negative (6) PAF (paroxysmal atrial fibrillation): * Follows with [facility], Dr. Talavera. EKG AV paced with prolonged AV conduction * Continues to be paced in the 60s * ECHO as above transfer to medical floor today as she is paced (7) CAD (coronary atherosclerotic disease): * [place] with stent x 1 in 2014. * Plavix resumed in place of ASA in setting of duodenitis * Continue carvedilol, losartan (initially held for JENNIFER). Not tolerant to statin (8) Hypertension: * Chronic. BP currently stable * Continue home amlodipine 10mg, carvedilol 6.25mg BID, hydralazine 50mg TID, losartan * Lasix 20mg daily * Continue to monitor (9) Complete AV block: * s/p pacemaker 2019 for complete heart block (10) Hypothyroidism: * TSH elevated at 5.27 although suspect reactive. FT4 wnl at 1.4 * Continue home levothyroxine 25mcg daily * Rec outpt f/u TFT in 6-8 weeks (11) Anxiety: * Continue home paroxetine 20mg (12) Depression: * with anxiety. See above (13) Anemia: * Patient recently started on iron supplementation in the past month per her account. Hemoglobin 13.1 in May * Continue ferrous gluconate daily. H/h 10.534 (14) Vomiting: * See above, with nausea on admission--> phenergan prn. No further emesis during admission (15) Hypokalemia: * Resolved -- * Continue to monitor on Lasix (16) DVT prophylaxis: * Resumed home Eliquis and will utilize Plavix in lieu of ASA in setting of duodenitis with possible ulcer Dispo: patient from [facility]. Uses walker to ambulate at baseline. History of dementia. PT/OT with rec to continue at discharge. Family wants PT/OT through [facility] as patient with hx dementia plan for discharge tomorrow Admission and Anticipated Discharge Date Admission Date: December 15, 2019 Subjective patient smiling, feeling well this morning, admits that her breathing is still a little more labored than normal no cough, no fever/chills, no wheezing reviewed labs, CBC and BMP stable, specifically Cr at baseline reviewed chart from admission, including labs and imaging and notes patient eating well, had oatmeal and toast and juice this morning will downgrade to medical floor unsure of last BM, getting bowel regimen likely to [facility] tomorrow d/w case management, will need repeated nocturnal desaturation and two step tomorrow Review of Systems Review of Systems: All systems reviewed & are unremarkable except as noted in Subjective Constitutional: + weakness; no fever and no fatigue Respiratory: + dyspnea on exertion Cardiovascular: no chest pain and no edema Gastrointestinal: + constipation Musculoskeletal: + muscle weakness Physical Exam Constitutional: well developed, well nourished and + overweight; no acute distress Eyes: PERRL, conjunctivae normal, anicteric sclerae ENMT: external ear and nose normal, oropharynx normal Neck: trachea midline, no thyromegaly Respiratory: normal respiratory effort, lungs clear to auscultation Cardiovascular: RRR, no murmur, no edema Gastrointestinal (Abdomen): normal bowel sounds, soft, nontender, no hepatosplenomegaly Musculoskeletal: Head/Neck/Chest: normocephalic, head atraumatic and neck supple Extremities: extremities normal to inspection and + abnormal strength (generalized weakness) Skin: no rashes, warm and dry Neurologic: patellar DTR's 2+ bilat, sensation intact and PERRL, EOMI, accommodation nl, no face palsy, no dysarthria Psychiatric: Orientation: alert, oriented x 3 and cooperative Lymphatic: no cervical or axillary lymphadenopathy Results & Data Results & Data ([facility]) Vital Signs (Past 12 Hours) Vital Signs Temp Pulse Pulse Resp BP BP Pulse Ox 12/20/19 08:08 36.5 C 64 20 144/75 H 96 12/20/19 07:05 65 16 96 12/20/19 03:19 36.7 C 67 18 130/68 95 12/20/19 01:32 60 18 93 12/19/19 23:49 36.6 C 64 18 131/80 93 12/19/19 21:36 126/72 Laboratory Results Laboratory Results - last 24 hr 12/19/19 12/19/19 12/20/19 08:07 17:16 06:33 WBC RBC Hgb Hct MCV MCH MCHC RDW Std Deviation RDW Coeff of Fabián Plt Count MPV Sodium 142 142 143 Potassium 3.7 4.0 3.5 Chloride 110 H 107 104 Carbon Dioxide 30 32 35 H Anion Gap 2.0 L 3.0 4.0 BUN 13 17 16 Creatinine 0.75 0.94 0.75 Est Cr Clr Drug Dosing 70.2 55.8 69.2 Est GFR ( Amer) 92.3 70.2 92.3 Est GFR (Non-Af Amer) 79.6 60.6 79.6 BUN/Creatinine Ratio 17.7 18.1 21.3 H Glucose 100 H 117 H 89 POC Glucose Calcium 7.8 L 8.1 L 7.9 L Total Bilirubin 0.6 Direct Bilirubin 0.2 AST 10 L ALT 21 Alkaline Phosphatase 84 Total Protein 6.5 Albumin 2.5 L 12/20/19 12/20/19 06:33 07:02 WBC 4.23 L RBC 3.83 L Hgb 10.4 L Hct 33.1 L MCV 86.4 MCH 27.2 MCHC 31.4 L RDW Std Deviation 52.4 H RDW Coeff of Fabián 16.4 H Plt Count 259 MPV 10.0 Sodium Potassium Chloride Carbon Dioxide Anion Gap BUN Creatinine Est Cr Clr Drug Dosing Est GFR ( Amer) Est GFR (Non-Af Amer) BUN/Creatinine Ratio Glucose POC Glucose 95 Calcium Total Bilirubin Direct Bilirubin AST ALT Alkaline Phosphatase Total Protein Albumin Medications Administered Current Inpatient Medications Acetaminophen (Acetaminophen 325 Mg Tab) 650 mg PO Q4H PRN PRN Reason: Pain or Fever Stop: 01/14/20 19:14 Al Hydrox/Mg Hydrox/Simethicone (Aluminum/Magnesium Susp 30 Ml Udc) 15 ml PO Q4H PRN PRN Reason: Dyspepsia Stop: 01/14/20 19:14 Albuterol (Albuterol 0.083% Nebu Soln 3 Ml Vial) 2.5 mg NEB Q6R KIMBERLY Stop: 01/15/20 18:59 Last Admin: 12/20/19 07:04 Dose: 2.5 mg Documented by: Amiodarone HCl (Amiodarone 200 Mg Tab) 200 mg PO DAILY KIMBERLY Stop: 01/15/20 08:59 Last Admin: 12/20/19 08:25 Dose: 200 mg Documented by: Amlodipine Besylate (Amlodipine Besylate 5 Mg Tab) 10 mg PO DAILY KIMBERLY Stop: 01/15/20 08:59 Last Admin: 12/20/19 08:24 Dose: 10 mg Documented by: Apixaban (Apixaban 5 Mg Tablet) 5 mg PO BID [facility] Stop: 01/16/20 20:59 Last Admin: 12/20/19 08:25 Dose: 5 mg Documented by: Carvedilol (Carvedilol 6.25 Mg Tab) 6.25 mg PO BID [facility] Stop: 01/14/20 20:59 Last Admin: 12/20/19 08:25 Dose: 6.25 mg Documented by: Clopidogrel Bisulfate (Clopidogrel Bisulfate 75 Mg Tab) 75 mg PO QAM [facility] Stop: 01/17/20 08:59 Last Admin: 12/20/19 08:25 Dose: 75 mg Documented by: Docusate Sodium (Docusate Sodium 100 Mg Cap) 100 mg PO BID [facility] Stop: 01/17/20 10:44 Last Admin: 12/20/19 08:25 Dose: 100 mg Documented by: Ferrous Gluconate (Ferrous Gluconate 324 Mg Tab) 324 mg PO DAILY [facility] Stop: 01/15/20 08:59 Last Admin: 12/20/19 08:25 Dose: 324 mg Documented by: Furosemide (Furosemide 20 Mg Tab) 20 mg PO DAILY [facility] Stop: 01/16/20 12:44 Last Admin: 12/18/19 10:18 Dose: 20 mg Documented by: Furosemide (Furosemide 20 Mg Tab) 20 mg PO QAM [facility] Stop: 01/19/20 08:59 Last Admin: 12/20/19 08:35 Dose: 20 mg Documented by: Hydralazine HCl (Hydralazine Tab 50 Mg Tab) 50 mg PO TID [facility] Stop: 01/14/20 20:59 Last Admin: 12/20/19 08:25 Dose: 50 mg Documented by: Promethazine HCl 6.25 mg/ (Sodium Chloride) 50.25 mls @ 201 mls/hr IV Q6H PRN PRN Reason: Nausea And Vomiting Stop: 01/14/20 19:14 Last Infusion: 12/16/19 09:50 Dose: Infused Documented by: Levothyroxine Sodium (Levothyroxine Sodium 25 Mcg Tablet) 25 mcg PO DAILYBB [facility] Stop: 01/15/20 06:29 Last Admin: 12/20/19 05:45 Dose: 25 mcg Documented by: Losartan Potassium (Losartan Potassium 50 Mg Tab) 100 mg PO DAILY [facility] Stop: 01/18/20 08:59 Last Admin: 12/20/19 08:24 Dose: 100 mg Documented by: Magnesium Hydroxide (Magnesium Hydroxide Susp 30 Ml Udc) 30 ml PO Q12H PRN PRN Reason: Constipation Stop: 01/14/20 19:14 Last Admin: 12/20/19 08:35 Dose: 30 ml Documented by: Nitroglycerin (Nitroglycerin Sl 0.4 Mg/Tab Tab) 0.4 mg SL UD PRN PRN Reason: Chest Pain Stop: 01/14/20 19:14 Pantoprazole Sodium (Pantoprazole 40 Mg Tab) 40 mg PO BID KIMBERLY Stop: 01/15/20 20:59 Last Admin: 12/20/19 08:24 Dose: 40 mg Documented by: Paroxetine HCl (Paroxetine Hcl 20 Mg Tab) 20 mg PO QAM KIMBERLY Stop: 01/15/20 08:59 Last Admin: 12/20/19 08:24 Dose: 20 mg Documented by: Polyethylene Glycol (Polyethylene (Miralax) 17 Gm Pack) 17 gm PO DAILY KIMBERLY Stop: 01/17/20 10:44 Last Admin: 12/20/19 08:26 Dose: 17 gm Documented by: Potassium Chloride (Potassium Chloride 20 Meq Tabcr) 20 meq PO QAM KIMBERLY Stop: 01/19/20 08:59 Last Admin: 12/20/19 08:35 Dose: 20 meq Documented by: Silver Sulfadiazine (Silver Sulfadiazine 1% Cr 50 Gm Jar) 1 appln TOP DAILY KIMBERLY Stop: 01/15/20 08:59 Last Admin: 12/20/19 08:26 Dose: 1 appln Documented by: Triamcinolone Acetonide (Triamcinolone Acet 0.1% Oint 15 Gm Tube) 1 appln TOP BID PRN PRN Reason: rash Stop: 01/14/20 19:14 PG Care Time/CCT Total # of Minutes Spent Total Time Spent with Patient: Total time spent is greater than 50% in coordination of care (as documented) at patient's floor/unit and/or counseling patient: Coding Level of Care Code 68268 Subseq Hosp Care Lvl 3 Diagnoses Acute on chronic diastolic (congestive) heart failure I50.33 Acute duodenitis K29.80 JENNIFER (acute kidney injury) N17.9 Chronic respiratory failure J96.10 Dizziness R42 PAF (paroxysmal atrial fibrillation) I48.0 CAD (coronary atherosclerotic disease) I25.10 Hypertension I10 Hypertension type: essential hypertension Complete AV block I44.2 Hypothyroidism E03.9 Anxiety F41.9 Depression F32.9 Anemia D64.9 Vomiting R11.2 Nausea presence: with nausea Vomiting Intractability: non-intractable Vomiting type: unspecified Hypokalemia E87.6 DVT prophylaxis Z29.9 (1) Hypertension Hypertension type: essential hypertension Qualified Code(s): I10 - Essential (primary) hypertension (2) Vomiting Nausea presence: with nausea Vomiting Intractability: non-intractable Vomiting type: unspecified Qualified Code(s): R11.2 - Nausea with vomiting, unspecified
[2019-12-21] MEDS: ALBUTEROL 0.083% NEBU SOLN 3 ML VIAL NEB SCH ×4 (01:24→18:56)
[2019-12-21] MEDS: LEVOTHYROXINE SODIUM 25 MCG TABLET PO SCH (05:29)
[2019-12-21] MEDS: PANTOprazole 40 MG TAB PO SCH (09:10)
[2019-12-21] MEDS: CLOPIDOGREL BISULFATE 75 MG TAB PO SCH (09:10)
[2019-12-21] MEDS: LOSARTAN POTASSIUM 50 MG TAB PO SCH (09:10)
[2019-12-21] MEDS: FUROSEMIDE 20 MG TAB PO SCH (09:11)
[2019-12-21] MEDS: FERROUS GLUCONATE 324 MG TAB PO SCH (09:11)
[2019-12-21] MEDS: APIXABAN 5 MG TABLET PO SCH (09:11)
[2019-12-21] MEDS: HydrALAZINE TAB 50 MG TAB PO SCH ×2 (09:11→13:14)
[2019-12-21] MEDS: DOCUSATE SODIUM 100 MG CAP PO SCH (09:11)
[2019-12-21] MEDS: AMLODIPINE BESYLATE 5 MG TAB PO SCH (09:11)
[2019-12-21] MEDS: PARoxetine HCL 20 MG TAB PO SCH (09:11)
[2019-12-21] MEDS: AMIODARONE 200 MG TAB PO SCH (09:11)
[2019-12-21] MEDS: carvediloL 6.25 MG TAB PO SCH (09:12)
[2019-12-21] MEDS: POTASSIUM CHLORIDE 20 MEQ TABCR PO SCH (09:12)
[2019-12-21] MEDS: POLYETHYLENE (MIRALAX) 17 GM PACK PO SCH (09:12)
[2019-12-21] MEDS: SILVER SULFADIAZINE 1% CR 50 GM JAR TOP SCH (09:13)
--- NOTE | 2019-12-21 15:02 | Discharge Summary ---
Date of Service December 21, 2019 Admission HPI Per Admitting Provider Patient states she has been feeling very dizzy and had nausea starting yesterday sometime in the afternoon. She describes the dizziness that occurred when she stood up from a chair and lasted approximately 30 minutes or longer. Still present. Denies headache, spots in vision or blurred vision. Did have similar dizziness when she had pneumonia earlier this year per records. Ambulates with a walker at [facility] and denies shortness of breath with ambulation or chest pain at rest or with activity. Denies use of oxygen at home. Vomiting for the past two days. Poor appetite. No loss of taste of smell. States she has not been eating or drinking well due to this. Denies hematochezia or coffee ground emesis. No blood in her stool. Denies darkened urine and states she believes she has been making adequate urine despite poor PO intake. Last colonoscopy in the past year or two and states it was "good". Recently started on iron supplementation in the past month or two she believes. Denies any known contacts with positive COVID patients, fevers, chills at this time. Unsteady on her feet but states this is not new. Denies weakness, pain at this time. ER Course: NSS x 1L. Protonix 40mg x1. Pepcid 20mg x 1. Ceftriaxone 1gm IV x 1. EKG with AV dual paced with prolonged AC conduction, QTC prolonged at 517ms. Troponin 0.02. CBC with WBC 7.4k, h/h 11.9/38.5, Plt 315. INR elevated at 1.2. Chemistries with Cr up to 1.47 with baseline 0.7-0.8 previously. TSH elevated at 5.27, FT4 wnl at 1.4. AST 41, ALT 42, Alk phos 134 CTAP with evidence of duodenitis vs PUD, no evidence of perforation. trace edema within pancreaticoduodenal groove and surrounding pancreatic head likely reactive. Small pleural effusions with bibasilar opacities suggestive of atelectasis, colonic diverticulosis without acute diverticulitis. CXR cardiomegaly without acute process. Head CT without acute intracranial abnormality noted. Principal Diagnosis Acute duodenitis causing acute kidney injury, dehydration Discharge Exam Constitutional well developed, well nourished and + overweight; no acute distress Eyes PERRL, conjunctivae normal, anicteric sclerae ENMT external ear and nose normal, oropharynx normal Neck trachea midline, no thyromegaly Respiratory normal respiratory effort, lungs clear to auscultation Cardiovascular RRR, no murmur, no edema Gastrointestinal (Abdomen) normal bowel sounds, soft, nontender, no hepatosplenomegaly Musculoskeletal Head/Neck/Chest: normocephalic, head atraumatic and neck supple Extremities: extremities normal to inspection and + abnormal strength (generalized weakness) Skin no rashes, warm and dry Neurologic patellar DTR's 2+ bilat, sensation intact and PERRL, EOMI, accommodation nl, no face palsy, no dysarthria Psychiatric Orientation: alert, oriented x 3 and cooperative Lymphatic no cervical or axillary lymphadenopathy Discharge Data Allergies Allergy/AdvReac Type Severity Reaction Status Date / Time No Known Drug Allergies Allergy Unknown Verified 12/15/19 13:11 Consultations 12/15/19 14:28 ED Decision to Admit Stat 12/15/19 18:53 Consult Case Management - Discharge Planning Routine Consult Gastroenterology Routine 12/19/19 23:28 Consult Case Management - Discharge Planning Routine Ordered Studies 12/15/19 12:11 CT abd pelvis wo con Stat CT head/brain wo con Stat Hospital Course (1) Acute on chronic diastolic (congestive) heart failure: Patient initially presented with dizziness/vomiting/nausea/dehydration from [facility] following 2 days of poor PO intake. Rapid COVID negative * Patient with hx diastolic heart failure, grade II * patient went into acute heart failure after aggressive IV hydration at time of admission * responded well to Lasix 20mg IV BID, Cr is stable, less to no edema in legs on day of discharge * transition back to Lasix 20mg daily * Continue carvedilol, losartan (2) Acute duodenitis: * CT with evidence of duodenitis on exam * Initially placed on Protonix gtt on admission and transitioned to PO, will discharge on Protonix * GI consulted -- will need outpatient EGD * ASA discontinued and placed on Plavix given possible peptic ulcer given findings and pt with hx CAD * H/h stable for days * Diet advanced, tolerating well (3) JENNIFER (acute kidney injury): * RESOLVED. Cr up to 1.47 on admission -- appears baseline <1. Likely related to poor intake x 2 days [employer] w/ vomiting * Initially rehydrated and then with congestive changes on imaging, 90% on 2L NC * Cr back to baseline for a few days * Ucx with probable mixed skin janie * continue Lasix 20mg daily (4) Chronic respiratory failure: * Per previous record, patient had been on oxygen therapy in the past but had been weaned off * Denies using currently at [facility]. * Overnight pulse ox with saturations dropping to low 80's on room air, requires 2L HS * two step test on 12/19 with 2L continuous and 3L on exertion * script provided and oxygen arranged for personal custodial (5) Dizziness: * Similar episode May 2019 when she had pneumonia. Cardiac work-up negative at that time. * Dizziness improved per patient today * Orthostatics negative (6) PAF (paroxysmal atrial fibrillation): * Follows with [facility], Dr. Talavera. EKG AV paced with prolonged AV conduction * Continues to be paced in the 60s * ECHO as above transfer to medical floor as she is paced (7) CAD (coronary atherosclerotic disease): * AL with stent x 1 in 2014. * Plavix resumed in place of ASA in setting of duodenitis * Continue carvedilol, losartan (initially held for JENNIFER). Not tolerant to statin (8) Hypertension: * Chronic. BP currently stable * Continue home amlodipine 10mg, carvedilol 6.25mg BID, hydralazine 50mg TID, losartan * Lasix 20mg daily * Continue to monitor (9) Complete AV block: * s/p pacemaker 2018 for complete heart block (10) Hypothyroidism: * TSH elevated at 5.27 although suspect reactive. FT4 wnl at 1.4 * Continue home levothyroxine 25mcg daily * Rec outpt f/u TFT in 6-8 weeks (11) Anxiety: * Continue home paroxetine 20mg (12) Depression: * with anxiety. See above (13) Anemia: * Patient recently started on iron supplementation in the past month per her account. Hemoglobin 13.1 in May * Continue ferrous gluconate daily. H/h 10. (14) Vomiting: * See above, with nausea on admission--> phenergan prn. No further emesis during admission (15) Hypokalemia: * Resolved -- * Continue to monitor on Lasix Total Time Total Time Spent Total Time Spent (In Minutes): 36 minutes Total Time Includes: Examination of the Patient, Discharge Planning and Medication Reconciliation Discharge Plan Discharge Items Patient Disposition: Personal Half-Way Reason For Visit: DUODENITIS, JENNIFER Discharge Diagnosis: Acute on chronic diastolic heart failure, volume overload Acute kidney injury Duodenitis Condition on Discharge: Good Goals: maintain normal volume by weighing yourself every day follow fluid restriction improve strength and mobility with therapy use oxygen as directed Activity: Resume your previous activity Weightbearing: Full weightbearing Non-emergency contact: Primary Care Provider Call non-emergency contact if: you have any medication questions and your symptoms worsen Follow-up/Referrals: Clemente Walter CRNP [Primary Care Provider] - 12/28/19 8:20 am (one week) Diet: Heart Healthy and Low Sodium (2gm) Fluids: 1800ml (7 cups) Addtl Attending Provider Instructions: Medications: - PLAVIX: this replaces aspirin due to concerns for duodenitis, gastritis - PROTONIX: 40mg daily to decrease epigastric discomfort Pending Studies at Discharge: No Stand-Alone Forms: geolad, Smoking Cessation Skilled Items Patient informed of condition?: Yes DNR: No Discharge Level of Care: Other Communicable Disease: No Discharge Prognosis: Stable Lines: None Urinary Catheter: No Medications and DC Order Prescriptions: New clopidogrel 75 mg Tablet 75 mg PO QAM 30 Days Qty: 30 RF: 3 pantoprazole 40 mg Tablet,Delayed Release (Dr/Ec) 40 mg PO DAILY 30 Days Qty: 30 RF: 3 Continued amlodipine 10 mg tablet 10 mg PO DAILY Qty: 90 RF: 3 carvedilol 6.25 mg tablet 6.25 mg PO BID Qty: 60 RF: 2 furosemide 20 mg tablet 20 mg PO DAILY Qty: 90 RF: 2 hydralazine 50 mg tablet 50 mg PO TID Qty: 90 RF: 3 amiodarone 200 mg tablet 200 mg PO DAILY Qty: 30 RF: 11 paroxetine HCl 20 mg tablet 20 mg PO QAM Qty: 90 RF: 3 triamcinolone acetonide 0.1 % ointment 1 appln TOP BID PRN (Reason: rash) Qty: 30 RF: 3 losartan 100 mg tablet 100 mg PO DAILY Qty: 90 RF: 1 Eliquis 5 mg tablet 5 mg PO BID Qty: 180 RF: 3 levothyroxine [Synthroid] 25 mcg tablet 25 mcg PO DAILY Qty: 30 RF: 5 (DME) Oxygen Home Liters Per Minute See Dose Instructions .ROUTE .MEDSUPPLY RF: 0 ferrous gluconate 236 mg (27 mg iron) tablet 236 mg PO DAILY Qty: 90 RF: 3 silver sulfadiazine [Silvadene] 1 % cream 1 appln TOP DAILY Qty: 50 RF: 3 albuterol sulfate [Ventolin HFA] 90 mcg/actuation HFA aerosol inhaler 2 puffs INH Q4H PRN (Reason: shortness of breath or wheezing) Qty: 18 RF: 0 ondansetron 4 mg tablet,disintegrating 4 mg PO Q8H PRN (Reason: nausea and vomiting) Qty: 30 RF: 5 Discontinued aspirin [Aspir-81] 81 mg Tablet,Delayed Release (Dr/Ec) 81 mg PO DAILY RF: 0 Discharge Orders: Discharge Order (Routine); Ordered 12/21/19 Ordered By: Anuj Dela Cruz/Other Patient Handouts: Chest and Lung Problems, Exercise for a Healthier Heart, Coping with Kidney Failure, Coping with Heart Failure, Eating Heart-Healthy Foods Admission Data Admit Date/Time: 12/15/19 16:24 Attending Provider: Anuj Elmore Admit Provider: Rocco Ruiz Primary Care Provider: Clemente Walter Other Providers: Rocco Ruiz ; Iain Ontiveros Other Interventions: Discharge Summary Assessment (RN) Last Done: 12/21/19 16:37 Coding Level of Care Code D/C Day Management >30 mins Diagnoses Acute on chronic diastolic (congestive) heart failure I50.33 Acute duodenitis K29.80 JENNIFER (acute kidney injury) N17.9 Chronic respiratory failure J96.10 Dizziness R42 PAF (paroxysmal atrial fibrillation) I48.0 CAD (coronary atherosclerotic disease) I25.10 Hypertension I10 Hypertension type: essential hypertension Complete AV block I44.2 Hypothyroidism E03.9 Anxiety F41.9 Depression F32.9 Anemia D64.9 Vomiting R11.2 Nausea presence: with nausea Vomiting Intractability: non-intractable Vomiting type: unspecified Hypokalemia E87.6
== END 2019-12-21 18:28 | disposition home or self-care (01) | DRG 391 ==
LOC: ED 11:32 → 2S 16:24 → SUATTDRO 16:24 → 2S 18:20 → 3W 12-20 11:47